=== PATIENT | male | born 1960 | race Caucasian/White ===

== ENCOUNTER 2020-10-16 11:12 | Inpatient (IN) | payer OTHER, SELFPAY ==
[2020-10-16] VITALS (7 sets, daily range): BP systolic 126–147; BP diastolic 76–111; PULSE 72–97; RESP 14–24; TEMP 35.8–36.6; O2SAT 94–100; BMI 25.0
--- NOTE | ~2020-10-16 | CT_ITS ---
EXAMINATION: CT abdomen pelvis wo con EXAM DATE: 10/16/2020 11:39 INDICATION: Low abdominal pain with vomiting. TECHNIQUE: Spiral CT of the abdomen and pelvis was performed without contrast. Axial, coronal and s agittal images of the abdomen and pelvis were reviewed. The dose-length product (DLP) for this exami nation was 555.40 mGy-cm. The exposure was tailored according to patient size (auto mA exposure cont rol), and iterative reconstruction (ASIR) was used as additional dose reduction technique. Comparison is made to prior examination from 03/21/2008. FINDINGS: There is bilobulated infrarenal abdominal aortic aneurysm, with the superior lobulation gaudencio suring 4.5 cm in greatest dimension and the inferior region measuring 2.9 cm. No rupture or inflammat ion surrounding this. Bilateral adrenal hyperplasia. Liver and splenic granulomas. Periportal lymph node with punctate calcification, also postinfectious. Pancreas unremarkable. Gallbladder is unremark able. No biliary obstruction. There is no nephrolithiasis or hydronephrosis. The prostate is unre markable. The bladder is collapsed at time of imaging limiting evaluation. There is no retroperiton eal or pelvic lymphadenopathy. Small to moderate right, small left fat-containing hernias. There are no findings to suggest appendicitis. The stomach and small bowel are unremarkable. There is expected amount of colonic stool. No free intraperitoneal gas. The heart is normal in size. T here are no pericardial or pleural effusions. Pacemaker/AICD leads. The lung bases are unremarkable. There are no osteoblastic or osteolytic lesions identified. Chronic bilateral L5 spondylolysis witho ut appreciable spondylolisthesis. IMPRESSION: Infrarenal abdominal aortic aneurysm up to 4.5 cm, developed compared to 2007. Are there any more recent studies at outside institution for comparison? Reviewed, dictated and finalized at location A. IMPRESSION: Infrarenal abdominal aortic aneurysm up to 4.5 cm, developed compar ed to 2007. Are there any more recent studies at outside institution for compar tracey?
--- NOTE | 2020-10-16 11:16 | ECG_ITS ---
Measurements Intervals [place] Rate: 93 P: 78 TN: 181 QRS: -22 QRSD: 142 T: 109 QT: 415 QTc: 518 Interpretive Statements SINUS RHYTHM LEFT BUNDLE BRANCH BLOCK BASELINE ARTIFACT- I, II, III, AVR, AVL, AVF, V1-V6 ABNORMAL ECG Electronically Signed On 10-16-2020 14:42:30 CDT by Prince Boyd D.O.
--- NOTE | 2020-10-16 11:24 | PC.NURSE ---
To CT via stretcher.
[2020-10-16 11:31] LABS: Estimated Glomerular Filt Rate 16
--- NOTE | 2020-10-16 11:31 | ED.GENADULT ---
HPI - General Adult General Chief complaint: Abdominal Pain Stated complaint: Abd pain, N/V Time Seen by Provider: 10/16/20 11:16 History of Present Illness HPI narrative: Patient is a 60-year-old male who presents the ER with complaint of vomiting. Ongoing for 24 hours. Patient is diaphoretic and clammy upon arrival. He reports he has history of a AAA that is followed at [facility]. No syncope or sudden onset abdominal pain. He reports chronic diarrhea that is no better no worse. He is without fevers or chills. He is found no alleviating factors. He does report some urinary urgency and need to use restroom at this time. No chest pain or chest pressure. Received Zofran by EMS and patient continues to dry heave in the ER. Patient denies history of kidney stones/diverticulitis/pancreatitis. Chart review shows history of pancreatitis. Patient also reports he is on Eliquis. Related Data Home Medications Medication Instructions Recorded Confirmed amiodarone 400 mg PO DAILY 10/16/20 10/16/20 apixaban [Eliquis] 5 mg PO BID 10/16/20 10/16/20 aspirin 81 mg PO DAILY 10/16/20 10/16/20 atorvastatin 80 mg PO HS 10/16/20 10/16/20 carvedilol 12.5 mg PO BID 10/16/20 10/16/20 escitalopram oxalate 10 mg PO DAILY 10/16/20 10/16/20 furosemide 20 mg PO DAILY 10/16/20 10/16/20 ondansetron 4 mg PO Q8H PRN 10/16/20 10/16/20 Allergies Allergy/AdvReac Type Severity Reaction Status Date / Time No Known Allergies Allergy Unknown Verified 10/16/20 18:44 Review of Systems Review of Systems: All systems reviewed & are unremarkable except as noted in HPI and below Constitutional: Constitutional: Reports chills, Denies fever(s) and Denies weakness ENT: Denies nasal congestion and Denies sore throat Cardiovascular: Cardiovascular: Denies chest pain, Denies rapid heart rate and Denies radiating jaw, neck or arm pain Respiratory: Respiratory: Denies cough and Denies dyspnea Gastrointestinal: Gastrointestinal: Reports abdominal pain, Reports diarrhea, Reports nausea and Reports vomiting Musculoskeletal: Musculoskeletal: Denies back pain and Denies muscle cramps Neurologic: Denies focal weakness and Denies numbness PMFSH Past Medical History Medical History (Updated 10/16/20 @ 21:19 by Wil Rodriguez MD) AAA (abdominal aortic aneurysm) Atrial fibrillation Coronary artery disease Depression Pancreatitis Surgical History Surgical History (Updated 10/16/20 @ 16:20 by Wil Rodriguez MD) History of arthroscopic knee surgery History of percutaneous coronary intervention History of tracheostomy Pacemaker Family History Family History (Updated 10/16/20 @ 18:31 by Elise Louie RN) Mother Congestive heart failure Father Glaucoma Lip cancer Social History Social History Smoking packs per day: 1 Smoking cigarettes per day: 20.0 Years smoked: 30 Smoking pack-years: 30.00 Smoking status: Former smoker Alcohol intake: never Substance use: current Substance use type: marijuana Last use: 4-5 days ago Gender identity (if verbalized by the patient): Male Spiritual care concerns: No Exam Narrative: Exam Narrative: GENERAL: Ill-appearing, well-nourished, and in moderate distress. HEAD: Normocephalic, atraumatic. EYES: PERRL and EOMI. ENT: Mucous membranes moist. CHEST: Clear to auscultation. No respiratory distress. HEART: Regular rate and rhythm. Normal peripheral pulses. ABDOMEN: Soft, tender palpation bilateral lower quadrants, no pulsatile mass, nondistended. EXTREMITIES: Normal range of motion. No edema. SKIN: Cool, diaphoretic, no rash. NEURO: No focal deficits. Alert and oriented x3. Course Reevaluation(s) Reevaluation #1: Admit to hositalist. Feels much better s/p pain meds, no longer diaphoretic or vomiting. Will admit for kaye. Date: 10/16/20 Time: 15:50 Reevaluation #2: Discussed case with Dr. Orlando at [facility], the patients vascular surgeon. She reports the patient has a stable aneurysm an
[2020-10-16] MEDS: MORPHINE SULFATE (*CRX) 4 MG/ML INJ IV PUSH ×4 (11:43→22:05)
[2020-10-16] MEDS: PROMETHAZINE HCL 25 MG/ML AMPUL 12.5 MG IV PUSH (11:44)
[2020-10-16 11:53] LABS: Basophils Absolute Auto 0.1 K/mm3 (0.0-0.1); Basophils Percent Auto 0.7 % (0.2-1.2); Eosinophils Percent Auto 0.3 % (0-4.4); Hematocrit 56.2 % (42.0-52.0); Hemoglobin 18.7 g/dL (14.0-18.0); Immature Granulocyte Absolute 0.05 K/mm3 (0.00-0.031); Immature Granulocyte Percent A 0.4 % (0-0.5); Lymphocytes Absolute Auto 3.45 K/mm3 (0.9-3.2); Lymphocytes Percent Auto 27.4 % (18.3-44.2); Mean Corpuscular HGB Conc 33.3 g/dl (32-36); Mean Corpuscular Hemoglobin 27.5 pg (26-34); Mean Corpuscular Volume 82.5 fl (80-100); Mean Platelet Volume 11.5 fl (7.4-10.4); Monocytes Percent Auto 7.8 % (2.6-8.5); Neutrophils Percent Auto 63.4 % (45.5-73.1); Platelet Count Result 334 k/mm3 (150-375); Red Blood Count 6.81 M/mm3 (4.6-6.20); Red Cell Distribution Width 16.4 % (11.5-14.5); White Blood Count 12.6 K/mm3 (4.5-10.0)
[2020-10-16 12:04] LABS: Prothrombin Time 13.7 Seconds (11.1-14.7)
[2020-10-16 12:05] LABS: Partial Thromboplastin Time 28.1 SECONDS (22.3-36.8)
[2020-10-16 12:10] LABS: Albumin Level 5.7 g/dL (3.5-5.1); Alkaline Phosphatase 129 U/L (38-126); Anion Gap 21 mmol/L (8-16); Aspartate Amino Transferase 46 U/L (17-59); Bilirubin,Total 1.4 mg/dL (0.2-1.3); Blood Urea Nitrogen 55 mg/dL (9-20); Calcium 12.9 mg/dL (8.4-10.2); Carbon Dioxide 25 mmol/L (22-30); Chloride 90 mmol/L (98-107); Estimated Glomerular Filt Rate 17; Glucose 196 mg/dL (75-110); Lipase 755 U/L (23-300); Potassium 3.5 mmol/L (3.4-5.0); Sodium 136 mmol/L (137-145)
[2020-10-16 12:17] LABS: Alanine Aminotransferase 29 U/L (4-50)
[2020-10-16] MEDS: SODIUM CHLORIDE 0.9% IV 1,000 ML 999 ML IV CONT (12:35)
[2020-10-16 14:48] LABS: Add Urine Microscopic? YES; Appearance Urine Cloudy (Clear); Bilirubin Urine Negative (Negative); Blood Urine 1+ (Negative); Color Urine Amber (Yellow); Glucose Urine UA 1+ mg/dL (Negative); Ketones Urine Negative (Negative); Leukocyte Esterase Ur Negative LEU/UL (Negative); Nitrate Urine Negative (Negative); Protein Urine 3+ mg/dL (Negative); Urobilinogen Urine Negative mg/dL (<2.0)
[2020-10-16 14:58] LABS: WBC Urine 0-3 /hpf (0-3)
[2020-10-16 14:59] LABS: Amorphous Sediment Urine Few; Squamous Epithelial Cell Urine Moderate /hpf (Few)
[2020-10-16 15:00] LABS: Bacteria Urine Trace /hpf; Hyaline Casts Urine 15-19 /lpf
[2020-10-16] MEDS: SODIUM CHLORIDE 0.9% IV 1,000 ML 125 ML IV CONT (18:16)
[2020-10-16] MEDS: ONDANSETRON INJ 4 MG/2 ML VIAL IV PUSH ×2 (18:17→22:05)
--- NOTE | 2020-10-16 18:28 | ADMGEN ---
This patient, Low Sarmiento, was admitted to Medical Room 252-01. Patient/family oriented to hospital policies and general routines including ID bracelet, bed and alarms, visiting hours, pain management, procedures, bathroom and other care routines, personal items, smoking policy, room service/diet, and visiting hours. Information on how to activate the Rapid Response Team has been discussed. Patient/Family are encouraged to report perceived risks to care and to ask questions if they do not understand what they are told or what they should do.
[2020-10-17] VITALS (8 sets, daily range): BP systolic 93–120; BP diastolic 44–68; PULSE 60–85; RESP 16–18; TEMP 36–36.4; O2SAT 94–97; BMI 25.0
--- NOTE | 2020-10-17 02:42 | PM.IMHP ---
H&P: HPI History of Present Illness Date/Time: 10/17/20 02:42 this is a 60-year-old male patient who states that he has chronic diarrhea. The patient stated that he recently was discharged from [facility] about a week ago with the same thing. The patient came to the emergency room with complaints of nausea vomiting that had been going on for 24 hours. The patient was diaphoretic and clammy. He does have a history of a AAA which is being followed at [facility]. Patient is having some lower abdominal pain. Patient received Zofran via EMS and he was having dry heaves in the emergency room. He denies any history of having pancreatitis in the past. However the chart review per ED provider listed history of pancreatitis. The patient has a history of atrial fibrillation and is on Eliquis. The ED provider talk to Dr. Cristobal at [facility] the vascular surgeon and stated that he has a stable aneurysm and the last time he had a CT was January of 2020 in the AAA measured 4.4 cm. It was felt that this was not the cause of his pain. His baseline creatinine is around 1.5 at his last outpatient visit on 10/04/2020. The patient did have a cardiogenic shock secondary to and myocardial infarction in [place] about a year ago and he did have a tracheostomy at that time. He stated that he did have 2 cardiac stents at that time and his ejection fraction is somewhere around 15%. He did have another echo in 2019 which shows an EF of 21%. Patient does not have any chest pain or shortness of breath at this time. Of the abdomen was read as infrarenal abdominal aortic aneurysm up to 4.5 cm. Initially his diet was npo except ice chips. I did give him clear liquids and he seemed to tolerate that well. The patient was given morphine, Phenergan and IV fluids in the emergency room. The patient does not have a GI doctor. 12.6. The patient appears to be dry. His creatinine is listed is 3.6. His blood sugar is 196. Calcium was high at 12.9. Total bilirubin 1.4. The patient is being admitted for observation date of service 10/17/2020 Chief Complaint: Nausea and vomiting Review of Systems Review of Systems: All systems reviewed & are unremarkable except as noted in HPI and below Constitutional: Constitutional: Reports as per HPI and Reports no additional constitutional complaints Eyes: Eyes: Reports as per HPI and Reports no additional eye complaints ENT: Reports system reviewed and no additional complaints, except as documented and Reports Normal hearing present Cardiovascular: Cardiovascular: Reports no additional cardiovascular complaints Respiratory: Respiratory: Reports no additional respiratory complaints and Reports no additional respiratory complaints Gastrointestinal: Gastrointestinal: Reports as per HPI and Reports no additional gastrointestinal complaints Musculoskeletal: Musculoskeletal: Reports no additional musculoskeletal complaints Integumentary/Breasts: Skin/Breast: Reports system reviewed and no additional complaints, except as docu and Reports as per HPI Neurologic: Reports system reviewed and no additional complaints, except as documented, Reports as per HPI and Reports Normal hearing present Psychiatric: Psychiatric: Reports no additional psychiatric complaints and Reports as per HPI Endocrine: Endocrine: Reports no additional endocrine complaints Hematologic/Lymphatic: Hematologic/Lymphatic: Reports no additional hematologic/lymphatic complaints Allergic/Immunologic: Allergic/Immunologic: Reports no additional allergic/immunologic complaints [facility] Past Medical History Medical History (Updated 10/17/20 @ 02:58 by Helen Landry NP) AAA (abdominal aortic aneurysm) Atrial fibrillation Coronary artery disease Depression Hyperlipidemia Pancreatitis Surgical History Surgical History (Updated 10/17/20 @ 02:54 by Helen Landry NP) H/O heart artery stent History of arthroscopic knee surgery Hist
[2020-10-17] MEDS: SODIUM CHLORIDE 0.9% IV 1,000 ML 125 ML IV CONT ×2 (03:36→11:52)
[2020-10-17 04:29] LABS: Creatinine Urine 320.5 mg/dL
[2020-10-17] MEDS: MORPHINE SULFATE (*CRX) 4 MG/ML INJ IV PUSH (05:18)
[2020-10-17 06:15] LABS: Eosinophil Urine None Seen % (None Seen)
[2020-10-17 06:25] LABS: Alanine Aminotransferase 20 U/L (4-50); Albumin Level 4.4 g/dL (3.5-5.1); Alkaline Phosphatase 69 U/L (38-126); Anion Gap 10 mmol/L (8-16); Aspartate Amino Transferase 30 U/L (17-59); Bilirubin,Total 0.5 mg/dL (0.2-1.3); Blood Urea Nitrogen 61 mg/dL (9-20); CRP 0.8 mg/dL (<1.0); Calcium 9.7 mg/dL (8.4-10.2); Carbon Dioxide 29 mmol/L (22-30); Chloride 96 mmol/L (98-107); Estimated CRCL calculation 25 ml/min; Estimated Glomerular Filt Rate 21; Glucose 125 mg/dL (75-110); Lipase 108 U/L (23-300); Magnesium 2.2 mg/dL (1.6-2.3); Phosphorus 4.7 mg/dL (2.5-4.5); Potassium 2.9 mmol/L (3.4-5.0); Sodium 135 mmol/L (137-145)
[2020-10-17 06:30] LABS: Complement C3 116 mg/dL (88-165)
[2020-10-17 06:41] LABS: Basophils Absolute Auto 0.1 K/mm3 (0.0-0.1); Basophils Percent Auto 0.4 % (0.2-1.2); Eosinophils Percent Auto 0.1 % (0-4.4); Hematocrit 44.7 % (42.0-52.0); Hemoglobin 14.5 g/dL (14.0-18.0); Immature Granulocyte Absolute 0.03 K/mm3 (0.00-0.031); Immature Granulocyte Percent A 0.3 % (0-0.5); Lymphocytes Percent Auto 17.7 % (18.3-44.2); Mean Corpuscular HGB Conc 32.4 g/dl (32-36); Mean Corpuscular Hemoglobin 27.6 pg (26-34); Monocytes Percent Auto 8.8 % (2.6-8.5); Neutrophils Absolute Auto 8.2 K/mm3 (1.3-6.7); Neutrophils Percent Auto 72.7 % (45.5-73.1); Platelet Count Result 216 k/mm3 (150-375); Red Blood Count 5.26 M/mm3 (4.6-6.20); Red Cell Distribution Width 15.4 % (11.5-14.5); White Blood Count 11.3 K/mm3 (4.5-10.0)
[2020-10-17 06:54] LABS: Hemoglobin A1C 5.8 % (<5.7)
[2020-10-17 07:12] LABS: Hepatitis B Surface Antigen Negative (Negative)
[2020-10-17 07:12] LABS: Erythrocyte Sedimentation Rate 14 mm/hr (0-20)
[2020-10-17 07:18] LABS: HAV RESULT Negative (Negative); Hepatitis B Core IgM Result Negative (Negative)
[2020-10-17 07:21] LABS: Parathyroid Intact 44.1 pg/mL (7.5-53.5)
[2020-10-17 07:29] LABS: Hepatitis C Virus Antibody Negative (Negative)
[2020-10-17] MEDS: APIXABAN 5 MG TABLET PO ×2 (08:39→16:47)
[2020-10-17] MEDS: AMIODARONE HCL 200 MG TABLET 400 MG BY MOUTH (08:39)
[2020-10-17] MEDS: PANTOPRAZOLE SODIUM IV 40 MG VIAL IV PUSH (08:40)
[2020-10-17] MEDS: ESCITALOPRAM OXALATE 10 MG TABLET PO (08:40)
[2020-10-17] MEDS: carvediloL 12.5 MG TABLET PO (08:40)
[2020-10-17] MEDS: POTASSIUM CHLORIDE 20 MEQ TABLET 40 MEQ PO ×2 (09:23→15:48)
[2020-10-17 11:58] LABS: Glucose Point of Care 127 (65-105)
[2020-10-17 14:18] LABS: Glucose Point of Care 100 (65-105)
[2020-10-17] MEDS: ONDANSETRON INJ 4 MG/2 ML VIAL IV PUSH ×2 (14:38→21:34)
--- NOTE | 2020-10-17 14:42 | PM.IMPN ---
Progress Note: A&P Assessment and Plan (1) Abdominal pain: Code(s): R10.9 - Unspecified abdominal pain Status: Acute Assessment and Plan: Patient's abdominal pain has improved but he continues to have pain in both the lower quadrants -he has chronic diarrhea that has been lasting for over a year which has caused significant dehydration -will order stool cultures -GI consulted, would likely need a colonoscopy -CT of the abdomen pelvis does not show any abnormalities for this pain but it does show he has small to moderate right, small left fat-containing hernias. He will need to follow-up with surgeon for this although I do not think this is causing his pain -it also shows an aneurysm which has been seen in the past at outside area hospital. No evidence of rupture and does not appear to be in the location of the pain. (2) Diarrhea: Code(s): R19.7 - Diarrhea, unspecified Status: Acute Assessment and Plan: As above -obtain stool studies -will add ova and parasite since this started about a year ago after visiting [place] -will eventually need colonoscopy -GI consult (3) Nausea and vomiting: Code(s): R11.2 - Nausea with vomiting, unspecified Status: Acute Assessment and Plan: Improved -continue Protonix (4) Acute kidney injury: Code(s): N17.9 - Acute kidney failure, unspecified Status: Acute Assessment and Plan: Creatinine improving with IV fluids, labs show significant dehydration on admission -unsure of his baseline, will obtain records (5) Atrial fibrillation: Code(s): I48.91 - Unspecified atrial fibrillation Status: Chronic Assessment and Plan: Continue with carvedilol, amiodarone and Eliquis (6) AAA (abdominal aortic aneurysm): Code(s): I71.4 - Abdominal aortic aneurysm, without rupture Status: Chronic Assessment and Plan: Stable -The patient has been monitored at [facility] to their vascular surgeon (7) Depression: Code(s): F32.9 - Major depressive disorder, single episode, unspecified Status: Chronic Assessment and Plan: Chronic stable -continue with Lexapro (8) Hyperlipidemia: Code(s): E78.5 - Hyperlipidemia, unspecified Status: Chronic Assessment and Plan: Hold atorvastatin -liver enzymes normal Additional Plan Prediabetic-educated on this and patient plans to adjust his diet Time Spent With Patient Time with patient: 25 - 35 minutes Subjective Date/time seen: 10/17/20 14:42 Interval history: Pt is a 60-year-old male here for diarrhea/abdominal pain. Patient was seen today and states he is feeling better today compared to yesterday. He said he still has 3/10 lower quadrants pain but used to be much worse the last few days. He also stated that his diarrhea has improved. He although he has chronic diarrhea, the diarrhea has been worse the last couple of days. He said this diarrhea started after [place] about a year ago and just has not gotten any better. He has been hospitalized lately but did not receive any antibiotics that he knows of. He is eating and drinking okay. He denies nausea vomiting, chest pain, shortness of breath, fevers or chills. His last colonoscopy was over 10 years ago and at [facility]. He has never been told he is prediabetic. Of note, patient mentions that he has been at [facility] in September due to his Implanted device firing, he is unsure of the diagnosis or what went on. Review of Systems Review of Systems: All systems reviewed & are unremarkable except as noted in HPI and below Exam Narrative: Exam Narrative: General: Well developed well nourished patient in NAD HEENT: normocephalic Neck: supple Neuro: Alert and oriented x4 CV: Decreased heart sounds due to body habitus, RRR Resp:CTA Abd: Soft, non distended. Pain to palpation in the right and left lower quadrants.
[2020-10-17 15:31] LABS: Potassium 3.3 mmol/L (3.4-5.0)
[2020-10-17] MEDS: LACTATED RINGERS 1,000 ML 80 ML IV CONT (15:38)
[2020-10-17] MEDS: HYDROcodone/acetaminophen (*CRX) 5-325 MG TABLET 1 TAB PO (16:48)
--- NOTE | 2020-10-17 17:06 | WPDGICN ---
Assessment and Plan Assessment and plan (1) Diarrhea: Code(s): R19.7 - Diarrhea, unspecified Status: Acute Assessment and Plan: ongoing for months, will do colonoscopy tomorrow, consider random colon bx if more diarrhea then will get stool samples (2) Nausea and vomiting: Code(s): R11.2 - Nausea with vomiting, unspecified Status: Acute Assessment and Plan: improving he came with dehydration (ANA LAURA and also hemoconcentration)- better after fluids now tolerating liquid diet EGD tomorrow (3) Dehydration: Code(s): E86.0 - Dehydration Status: Acute Assessment and Plan: improved (4) Acute on chronic kidney failure: Code(s): N17.9 - Acute kidney failure, unspecified; N18.9 - Chronic kidney disease, unspecified Status: Acute (5) Abdominal pain: Code(s): R10.9 - Unspecified abdominal pain Status: Acute Assessment and Plan: better (6) AAA (abdominal aortic aneurysm): Code(s): I71.4 - Abdominal aortic aneurysm, without rupture Status: Chronic Assessment and Plan: stable size and he has seen surgeon at [facility] GI Consult Note Consult date/time: 10/17/20 17:06 Reason for consult: diarrhea, nausea and vomiting HPI: Low Sarmiento is a 60 year old male with history of CKD (baseline creatinine is around 1.5 at), also about a year ago had cardiogenic shock secondary to and myocardial infarction while he was vacationing in [facility] spent 30 days in hospital and had a temporary tracheostomy, also ischemic cardiomyopathy, stable AAA 4.5 cm seeing doctor in [facility]. He says that since hospitalization he has been dealing with diarrhea, thinks that last colonoscopy about 2 years ago or so. He came here with of nausea vomiting for 2 days, on arrival was diaphoretic and clammy, also lower abdominal discomfort. He is feeling better now. Also had creatinine 3.5. CT scan a/p reviewed, infrarenal abdominal aortic aneurysm up to 4.5 cm (stable based on outside records). Also was hemoconcentrated on arrival with hb 18, after fluids down to 14 Review of Systems Constitutional: Constitutional: Denies chills Eyes: Eyes: Denies blurry vision ENT: Reports Normal hearing present Cardiovascular: Cardiovascular: Denies chest pain Respiratory: Respiratory: Denies dyspnea Gastrointestinal: Gastrointestinal: Reports abdominal pain, Reports diarrhea, Reports nausea and Reports vomiting Genitourinary: Genitourinary: Denies dysuria Musculoskeletal: Musculoskeletal: Denies neck pain Integumentary/Breasts: Skin/Breast: Denies dry skin Neurologic: Denies headache(s) Psychiatric: Psychiatric: Denies behavioral changes [facility] Past Medical History Medical History (Updated 10/17/20 @ 17:12 by Ulysses Larkin MD) AAA (abdominal aortic aneurysm) Acute on chronic kidney failure Atrial fibrillation Coronary artery disease Dehydration Depression Hyperlipidemia Pancreatitis Surgical History Surgical History (Updated 10/17/20 @ 02:54 by Helen Landry NP) H/O heart artery stent History of arthroscopic knee surgery History of percutaneous coronary intervention 2 cardiac stents History of tracheostomy Pacemaker Family History Family History Mother Congestive heart failure Father Glaucoma Lip cancer Social History Social History (Updated 10/17/20 @ 02:55 by Helen Landry NP) Social History: The patient stated that he lives with his she is a durable power night coordinator for healthcare. The patient is a full code. The patient has 2 children. He is retired from [employer] still. Patient stated he used to smoke but does not drink. Smoking packs per day: 1 Smoking cigarettes per day: 20.0 Years smoked: 30 Smoking pack-years: 30.00 Smoking status: Former smoker Alcohol intake: never Substance use: current Substance use type: marijuana Last use
[2020-10-17 17:34] LABS: Glucose Point of Care 143 (65-105)
[2020-10-17] MEDS: BISACODYL 5 MG TABLET EC 20 MG PO (18:06)
[2020-10-17] MEDS: BISACODYL 5 MG TABLET EC (18:37)
[2020-10-17] MEDS: polyethylene glycoL 3350 238 GM BOTTLE PO (18:39)
[2020-10-17] MEDS: SODIUM CHLORIDE 0.9% IV 500 ML 999 ML IV CONT (21:04)
[2020-10-18] VITALS (12 sets, daily range): BP systolic 91–119; BP diastolic 50–82; PULSE 60–72; RESP 13–22; TEMP 36.3–37.2; O2SAT 94–100
[2020-10-18] MEDS: MELATONIN 3 MG TABLET PO (01:13)
[2020-10-18 01:20] LABS: Glucose Point of Care 78 (65-105)
[2020-10-18] MEDS: LACTATED RINGERS 1,000 ML 80 ML IV CONT ×2 (05:33→22:07)
[2020-10-18] MEDS: MAGNESIUM CITRATE 300 ML BTL PO (05:33)
[2020-10-18 05:37] LABS: Hematocrit 37.7 % (42.0-52.0); Hemoglobin 11.9 g/dL (14.0-18.0); Mean Corpuscular HGB Conc 31.6 g/dl (32-36); Mean Corpuscular Hemoglobin 27.8 pg (26-34); Mean Corpuscular Volume 88.1 fl (80-100); Mean Platelet Volume 10.8 fl (7.4-10.4); Platelet Count Result 144 k/mm3 (150-375); Red Blood Count 4.28 M/mm3 (4.6-6.20); Red Cell Distribution Width 15.7 % (11.5-14.5); White Blood Count 6.5 K/mm3 (4.5-10.0)
[2020-10-18 06:01] LABS: Albumin Level 3.3 g/dL (3.5-5.1); Anion Gap 3 mmol/L (8-16); Blood Urea Nitrogen 41 mg/dL (9-20); Calcium 8.4 mg/dL (8.4-10.2); Carbon Dioxide 29 mmol/L (22-30); Chloride 105 mmol/L (98-107); Estimated CRCL calculation 41 ml/min; Estimated Glomerular Filt Rate 38; Glucose 88 mg/dL (75-110); Phosphorus 2.5 mg/dL (2.5-4.5); Potassium 3.4 mmol/L (3.4-5.0); Sodium 137 mmol/L (137-145)
[2020-10-18] MEDS: AMIODARONE HCL 200 MG TABLET 400 MG BY MOUTH (08:04)
[2020-10-18] MEDS: ESCITALOPRAM OXALATE 10 MG TABLET PO (08:04)
[2020-10-18] MEDS: PANTOPRAZOLE SODIUM IV 40 MG VIAL IV PUSH (08:05)
--- NOTE | 2020-10-18 11:18 | PM.IMPN ---
Progress Note: A&P Assessment and Plan (1) Abdominal pain: Code(s): R10.9 - Unspecified abdominal pain Status: Acute Assessment and Plan: Patient's abdominal pain has improved but he continues to have pain in both the lower quadrants and now the epigastric area. -he has chronic diarrhea that has been lasting for over a year which has caused significant dehydration -Colonoscopy/EGD today -GI consulted -stool cultures ordered -CT of the abdomen pelvis does not show any abnormalities for this pain but it does show he has small to moderate right, small left fat-containing hernias. He will need to follow-up with surgeon for this although I do not think this is causing his pain -it also shows an aneurysm which has been seen in the past at outside area hospital. No evidence of rupture and does not appear to be in the location of the pain. (2) Diarrhea: Code(s): R19.7 - Diarrhea, unspecified Status: Acute Assessment and Plan: As above -obtain stool studies -added ova and parasite since this started about a year ago after visiting [place] -GI consult (3) Nausea and vomiting: Code(s): R11.2 - Nausea with vomiting, unspecified Status: Acute Assessment and Plan: Improved -continue Protonix (4) Acute kidney injury: Code(s): N17.9 - Acute kidney failure, unspecified Status: Acute Assessment and Plan: Creatinine improving with IV fluids, labs show significant dehydration on admission -unsure of his baseline, will obtain records (5) Atrial fibrillation: Code(s): I48.91 - Unspecified atrial fibrillation Status: Chronic Assessment and Plan: Continue with carvedilol, amiodarone and Eliquis (6) AAA (abdominal aortic aneurysm): Code(s): I71.4 - Abdominal aortic aneurysm, without rupture Status: Chronic Assessment and Plan: Stable -The patient has been monitored at [facility] to their vascular surgeon (7) Depression: Code(s): F32.9 - Major depressive disorder, single episode, unspecified Status: Chronic Assessment and Plan: Chronic stable -continue with Lexapro (8) Hyperlipidemia: Code(s): E78.5 - Hyperlipidemia, unspecified Status: Chronic Assessment and Plan: Hold atorvastatin -liver enzymes normal Additional Plan Prediabetic-educated on this and patient plans to adjust his diet Subjective Date/time seen: 10/18/20 11:18 Interval history: Pt is a 60-year-old male here for diarrhea/abdominal pain. Patient was seen today with at bedside. He still rates his pain a 3/10 but is overall feeling better compared to when he came in. He still gets waves of nausea occasionally but no further vomiting. He had more diarrhea but did have the colonoscopy prep. He denies CP, SOB, fevers, chills, or leg swelling. Exam Narrative: Exam Narrative: General: Well developed well nourished patient in NAD HEENT: normocephalic Neck: supple Neuro: Alert and oriented x4 CV: Decreased heart sounds due to body habitus, RRR Resp:CTA Abd: Soft, non distended. Pain to palpation in the right and left lower quadrants as well as the epigastric area today. Extremities: No swelling, erythema, or pain to palpation. Objective Data Vital Signs Vital Signs: Vital Signs - 24 hr 10/17/20 14:00 10/17/20 20:28 10/17/20 20:57 Temperature 97.2 F L 96.8 F L Pulse Rate 61 60 60 Respiratory Rate 16 18 Blood Pressure 116/68 93/44 L Pulse Oximetry 97 97 10/17/20 21:00 10/17/20 22:25 10/18/20 05:13 Temperature 97.3 F L Pulse Rate 60 Respiratory Rate 14 Blood Pressure 120/63 96/55 L Pulse Oximetry 96 94 10/18/20 08:00 10/18/20 08:04 Temperature Pulse Rate 72 72 Respiratory Rate Blood Pressure 112/82 Pulse Oximetry Intake/Output Intake/Output: Intake & Output 10/15/20 10/16/20 10/17/20 10/18/20 23:59 23:59 2
[2020-10-18 11:48] LABS: Glucose Point of Care 93 (65-105)
--- NOTE | 2020-10-18 13:07 | PC.NURSE ---
To GI Lab per LYNDA ochoa RAC. Report given to.
[2020-10-18] MEDS: LACTATED RINGERS 1,000 ML 150 ML IV CONT (13:35)
--- NOTE | 2020-10-18 13:42 | WPDANESEPPF ---
Anes - Initial Pre Proc Eval Procedure: Operation Date: 10/18/20 14:30 Proposed Procedures p Esophagogastroduodenoscopy & Colonoscopy - Ulysses Larkin MD Date/Time: 10/18/20 13:42 Surgeon: Linsey Montemayor PA-C Pre Op Diagnosis: kaye/nausea and vomiting Patient Data Age: 60 Gender: M Height: 5 ft 11 in Weight: 81.6 kg Last Vital Signs Temp 36.3 C L 10/18/20 13:36 Pulse 60 10/18/20 13:36 Resp 18 10/18/20 13:36 BP 113/59 L 10/18/20 13:36 Pulse Ox 98 10/18/20 13:36 Allergies Allergy/AdvReac Type Severity Reaction Status Date / Time No Known Allergies Allergy Unknown Verified 10/18/20 13:36 Home Medications Medication Instructions Recorded Confirmed Type amiodarone 400 mg PO DAILY 10/16/20 10/16/20 History apixaban [Eliquis] 5 mg PO BID 10/16/20 10/16/20 History aspirin 81 mg PO DAILY 10/16/20 10/16/20 History atorvastatin 80 mg PO HS 10/16/20 10/16/20 History carvedilol 12.5 mg PO BID 10/16/20 10/16/20 History escitalopram oxalate 10 mg PO DAILY 10/16/20 10/16/20 History furosemide 20 mg PO DAILY 10/16/20 10/16/20 History ondansetron 4 mg PO Q8H PRN 10/16/20 10/16/20 History Laboratory Tests 10/17/20 10/17/20 10/17/20 08:34 15:20 16:54 WBC RBC Hgb Hct MCV MCH MCHC RDW Plt Count MPV Sodium Potassium 3.3 mmol/L L mmol/L (3.4-5.0) Chloride Carbon Dioxide Anion Gap BUN Creatinine Estim Creat Clear Calc Estimated GFR Glucose POC Capillary Glucose 100 mg/dl mg/dl 143 mg/dl H mg/dl (65-105) (65-105) Calcium Phosphorus Albumin 10/18/20 10/18/20 10/18/20 01:15 05:20 05:20 WBC 6.5 K/mm3 K/mm3 (4.5-10.0) RBC 4.28 M/mm3 L M/mm3 (4.6-6.20) Hgb 11.9 g/dL L g/dL (14.0-18.0) Hct 37.7 % L % (42.0-52.0) MCV 88.1 fl fl (80-100) MCH 27.8 pg pg (26-34) MCHC 31.6 g/dl L g/dl (32-36) RDW 15.7 % H % (11.5-14.5) Plt Count 144 k/mm3 L k/mm3 (150-375) MPV 10.8 fl H fl (7.4-10.4) Sodium 137 mmol/L mmol/L (137-145) Potassium 3.4 mmol/L mmol/L (3.4-5.0) Chloride 105 mmol/L mmol/L (98-107) Carbon Dioxide 29 mmol/L mmol/L (22-30) Anion Gap 3 mmol/L L mmol/L (8-16) BUN 41 mg/dL H D mg/dL (9-20) Creatinine 1.80 mg/dL H mg/dL (0.7-1.3) Estim Creat Clear Calc 41 ml/min ml/min Estimated GFR 38 L (59 - ) Glucose 88 mg/dL mg/dL (75-110) POC Capillary Glucose 78 mg/dl mg/dl (65-105) Calcium 8.4 mg/dL mg/dL (8.4-10.2) Phosphorus 2.5 mg/dL mg/dL (2.5-4.5) Albumin 3.3 g/dL L g/dL (3.5-5.1) 10/18/20 11:46 WBC RBC Hgb Hct MCV MCH MCHC RDW Plt Count MPV Sodium Potassium Chloride Carbon Dioxide Anion Gap BUN Creatinine Estim Creat Clear Calc Estimated GFR Glucose POC Capillary Glucose 93 mg/dl mg/dl (65-105) Calcium Phosphorus Albumin Patient hx anesthesia problems: none Family hx anesthesia problems: none PMFSH Past Medical History Medical History AAA (abdominal aortic aneurysm) Acute on chronic kidney failure Atrial fibrillation Coronary artery disease Dehydration Depression Hyperlipidemia Pancreatitis Surgical History Surgical History H/O heart artery stent History of arthroscopic knee surgery History of percutaneous coronary intervention
[2020-10-18] MEDS: POTASSIUM CHLORIDE 20 MEQ TABLET 40 MEQ PO (16:26)
[2020-10-18] MEDS: APIXABAN 5 MG TABLET PO (16:26)
[2020-10-18 17:37] LABS: Glucose Point of Care 138 (65-105)
[2020-10-18 23:09] LABS: Glucose Point of Care 191 (65-105)
[2020-10-19 05:00] VITALS: BP 96/70; PULSE 65; RESP 16; TEMP 37; O2SAT 96
[2020-10-19 05:13] LABS: Basophils Percent Auto 0.7 % (0.2-1.2); Eosinophils Absolute Auto 0.1 K/mm3 (0-0.3); Eosinophils Percent Auto 1.8 % (0-4.4); Hematocrit 37.9 % (42.0-52.0); Hemoglobin 11.6 g/dL (14.0-18.0); Immature Granulocyte Absolute 0.02 K/mm3 (0.00-0.031); Immature Granulocyte Percent A 0.3 % (0-0.5); Lymphocytes Absolute Auto 1.34 K/mm3 (0.9-3.2); Lymphocytes Percent Auto 22.1 % (18.3-44.2); Mean Corpuscular HGB Conc 30.6 g/dl (32-36); Mean Corpuscular Hemoglobin 27.7 pg (26-34); Mean Corpuscular Volume 90.5 fl (80-100); Mean Platelet Volume 11.1 fl (7.4-10.4); Monocytes Absolute Auto 0.5 K/mm3 (0.1-0.6); Monocytes Percent Auto 8.1 % (2.6-8.5); Neutrophils Absolute Auto 4.1 K/mm3 (1.3-6.7); Platelet Count Result 135 k/mm3 (150-375); Red Blood Count 4.19 M/mm3 (4.6-6.20); Red Cell Distribution Width 15.8 % (11.5-14.5); White Blood Count 6.1 K/mm3 (4.5-10.0)
[2020-10-19 05:45] LABS: Anion Gap -1 mmol/L (8-16); Blood Urea Nitrogen 24 mg/dL (9-20); Calcium 8.1 mg/dL (8.4-10.2); Carbon Dioxide 35 mmol/L (22-30); Chloride 105 mmol/L (98-107); Estimated CRCL calculation 56 ml/min; Estimated Glomerular Filt Rate 56; Glucose 87 mg/dL (75-110); Magnesium 1.9 mg/dL (1.6-2.3); Potassium 4.1 mmol/L (3.4-5.0); Sodium 139 mmol/L (137-145)
[2020-10-19 08:10] LABS: Glucose Point of Care 91 (65-105)
--- NOTE | 2020-10-19 09:48 | WPDANESPN ---
Anes - Prog Note Post-Op Date/Time: 10/19/20 09:48 Cardiovascular status: normal Respiratory status: normal Airway patency: baseline Mental status: baseline Post-Op hydration status: normal Vital Signs: Last Vital Signs Temp 37.0 C 10/19/20 05:00 Pulse 65 10/19/20 05:00 Resp 16 10/19/20 05:00 BP 96/70 L 10/19/20 05:00 Pulse Ox 96 10/19/20 05:00 Pain Score (VAS): 0/10. Patient resting in bed at time of assessment, appears comfortable. I/O: Intake & Output 10/18/20 10/19/20 10/19/20 23:59 07:59 15:59 Intake Total 1400 50 Output Total 300 Balance 1400 -250 Laboratory Tests 10/19/20 04:52 10/19/20 04:52 10/18/20 10/18/20 10/18/20 11:46 16:28 22:05 WBC RBC Hgb Hct MCV MCH MCHC RDW Plt Count MPV Immature Gran % (Auto) Neut % (Auto) Lymph % (Auto) [place] % (Auto) Eos % (Auto) Baso % (Auto) Lymph # (Auto) [place] # (Auto) Eos # (Auto) Baso # (Auto) Abs Immat Gran (auto) Absolute Neuts (auto) Absolute Nucleated RBC Nucleated RBC % Sodium Potassium Chloride Carbon Dioxide Anion Gap BUN Creatinine Estim Creat Clear Calc Estimated GFR Glucose POC Capillary Glucose 93 138 H 191 H Calcium Magnesium 10/19/20 10/19/20 10/19/20 04:52 04:52 08:07 WBC 6.1 RBC 4.19 L Hgb 11.6 L Hct 37.9 L MCV 90.5 MCH 27.7 MCHC 30.6 L RDW 15.8 H Plt Count 135 L MPV 11.1 H Immature Gran % (Auto) 0.3 Neut % (Auto) 67.0 Lymph % (Auto) 22.1 [place] % (Auto) 8.1 Eos % (Auto) 1.8 Baso % (Auto) 0.7 Lymph # (Auto) 1.34 [place] # (Auto) 0.5 Eos # (Auto) 0.1 Baso # (Auto) 0.0 Abs Immat Gran (auto) 0.02 Absolute Neuts (auto) 4.1 Absolute Nucleated RBC 0.0 Nucleated RBC % 0.0 Sodium 139 Potassium 4.1 Chloride 105 Carbon Dioxide 35 H Anion Gap -1 L BUN 24 H D Creatinine 1.30 Estim Creat Clear Calc 56 Estimated GFR 56 L Glucose 87 POC Capillary Glucose 91 Calcium 8.1 L Magnesium 1.9 Post-procedural complaints: nausea (mild nausea with relief with prn meds. ) Patient Feedback: Patient satisfied with anesthetic care.
[2020-10-19 10:04] VITALS: PULSE 70
[2020-10-19] MEDS: AMIODARONE HCL 200 MG TABLET 400 MG BY MOUTH (10:04)
[2020-10-19] MEDS: ONDANSETRON INJ 4 MG/2 ML VIAL IV PUSH (10:05)
[2020-10-19] MEDS: ESCITALOPRAM OXALATE 10 MG TABLET PO (10:05)
[2020-10-19] MEDS: APIXABAN 5 MG TABLET PO ×2 (10:05→16:16)
[2020-10-19] MEDS: LACTATED RINGERS 1,000 ML 80 ML IV CONT (10:13)
[2020-10-19 10:26] VITALS: BP 98/50; PULSE 70; RESP 14; TEMP 36.4; O2SAT 98
--- NOTE | 2020-10-19 11:20 | PCNFU ---
Nutrition Follow-Up Complete: Inadequate Oral Intake as related to Nausea/Diarrhea as evidenced by weight loss of 11 ibs in 2 weeks/poor po intake. Goal: adequate Intake of at least 75% of meals/supplements Patient has met current goal. No new goal. Pt current nutrition is Heart healthy. Last recorded weight is 81.6 kg, no new weight reported. Bowel Motility:+BM reported 10/18 Labs Reviewed:no new labs to report. Meds Noted:Pacerone,Eliquis,LR, Novolog, Zofran. Additional Notes: Nutrition follow up. Patient consumed 100% of heart healthy diet. He is requesting Ensure Clear vs Efren Conner MD orders for diet order change. Ensure Clear will provide patient with 240 kcals and 8 gms protein. Agree with diet orders. Monitoring:RD will monitor every 7 days.
[2020-10-19 11:36] LABS: Glucose Point of Care 103 (65-105)
[2020-10-19 13:43] VITALS: BP 106/62; PULSE 70; RESP 14; TEMP 36.2; O2SAT 99
[2020-10-19] MEDS: ACETAMINOPHEN 325 MG TABLET 650 MG PO (14:22)
--- NOTE | 2020-10-19 14:34 | PC.NURSE ---
On 10/19/20, the student, [ Teresa Carter], provided care and completed [facility] documentation on this patient. I have reviewed the student's documentation and agree with the findings.
--- NOTE | 2020-10-19 15:35 | PM.DS ---
DS: Admitting Diagnosis Admitting Diagnosis Admitting Diagnosis: Nausea vomiting with diarrhea/ANA LAURA DS: Discharge Diagnosis Discharge Diagnosis (1) Abdominal pain: Code(s): R10.9 - Unspecified abdominal pain Status: Acute Assessment and Plan: -Improved at d/c -he has chronic diarrhea that has been lasting for over a year which has caused significant dehydration -Colonoscopy/EGD revealed colonic polyps, internal hemorrhoids, and normal EGD -unclear etiology for abdominal pain, could be viral gastroenteritis -stool cultures were ordered but were not obtained -CT of the abdomen pelvis does not show any abnormalities for this pain but it does show he has small to moderate right, small left fat-containing hernias. He will need to follow-up with surgeon for this although I do not think this is causing his pain -it also shows an aneurysm which has been seen in the past at outside area hospital. No evidence of rupture and does not appear to be in the location of the pain. -follow-up with GI outpatient (2) Diarrhea: Code(s): R19.7 - Diarrhea, unspecified Status: Acute Assessment and Plan: As above (3) Nausea and vomiting: Code(s): R11.2 - Nausea with vomiting, unspecified Status: Acute Assessment and Plan: Improved (4) Acute kidney injury: Code(s): N17.9 - Acute kidney failure, unspecified Status: Acute Assessment and Plan: Resolved (5) Atrial fibrillation: Code(s): I48.91 - Unspecified atrial fibrillation Status: Chronic Assessment and Plan: Continue with carvedilol, amiodarone and Eliquis (6) AAA (abdominal aortic aneurysm): Code(s): I71.4 - Abdominal aortic aneurysm, without rupture Status: Chronic Assessment and Plan: Stable -The patient has been monitored at [facility] to their vascular surgeon (7) Depression: Code(s): F32.9 - Major depressive disorder, single episode, unspecified Status: Chronic Assessment and Plan: Chronic stable -continue with Lexapro (8) Hyperlipidemia: Code(s): E78.5 - Hyperlipidemia, unspecified Status: Chronic Assessment and Plan: Continue atorvastatin DS: Summary Hospital Course Hospital Course: Patient is a 60-year-old male who presented emergency room for nausea, vomiting and diarrhea ongoing for 24 hours. He admits that the diarrhea is mostly chronic but the nausea vomiting is new. Vitals in the ER temperature 96.8? F, pulse 97, respiratory rate 24, blood pressure 143/111, pulse ox 100 on room air. Initial white blood cell count 12.6, hemoglobin 18.7, hematocrit 56.2, platelets 334. Creatinine 3.6, BUN 55 all consistent with hemoconcentration due to significant dehydration. Of the abdomen pelvis shows a known infrarenal abdominal aortic aneurysm 4.5 cm with small to moderate right and small left fat containing hernias. Patient was admitted to the hospitalist service and required IV hydration for many days. His creatinine improved to normal and his nausea or vomiting resolved. His unable to produce a stool culture. He underwent an EGD and colonoscopy which did not show any etiology. It was believed that he had a viral gastroenteritis on top of chronic diarrhea. The patient was feeling much better the day of discharge and was wanting to go home. He was educated about the worrisome signs and symptoms come back to emergency room for and was discharged stable condition follow-up with GI and surgery. Status at Discharge Functional status at discharge: independent ambulation Overall status at discharge: patient is back to baseline Time Spent with Patient Time attestation: Total time spent providing and/or coordinating discharge services:38 min Exam Narrative: Exam Narrative: General: Well developed well nourished patient in NAD HEENT: normocephalic Neck: supple Neuro: Alert and
--- NOTE | 2020-10-19 16:25 | WPDGIPROGNO ---
Progress Note: A&P Assessment and Plan (1) Nausea and vomiting: Code(s): R11.2 - Nausea with vomiting, unspecified Status: Acute Assessment and Plan: improved, egd and colonoscopy unremarkable- biopsies pending he can go home by gi standpoing follow up office as needed (2) Diarrhea: Code(s): R19.7 - Diarrhea, unspecified Status: Acute Assessment and Plan: chronic, pending colon bx but no major findings (3) Acute on chronic kidney failure: Code(s): N17.9 - Acute kidney failure, unspecified; N18.9 - Chronic kidney disease, unspecified Status: Acute Assessment and Plan: resolved, now normal renal function (4) Dehydration: Code(s): E86.0 - Dehydration Status: Acute Assessment and Plan: treated (5) Adenomatous colon polyp: Code(s): D12.6 - Benign neoplasm of colon, unspecified Status: Acute Assessment and Plan: colonoscopy again in 5 years Subjective Date/time seen: 10/19/20 16:25 Interval history: he is eating better, no new issues Review of Systems Review of Systems: All systems reviewed & are unremarkable except as noted in HPI and below Exam Const: General: comfortable and no acute distress HENMT: General nose exam: Normal nares present Eyes: General: appearance normal, both eyes and all related structures Neck: Neck: supple Resp: Auscultation: clear to auscultation bilaterally Cardio: Rate: regular rate GI: Inspection: non-distended GI Palp: Yes Soft to palpation and No Guarding due to palpation present (GI) Auscultation: normal bowel sounds Skin: General skin exam: normal color Neuro: Speech: normal speech Extrem: General: normal to inspection Psych: Mental Status: mental status grossly normal Objective Data Vital Signs Vital Signs: Vital Signs - 24 hr 10/18/20 16:45 10/18/20 21:24 10/19/20 05:00 Temperature 97.8 F 98.9 F 98.6 F Pulse Rate 64 66 65 Respiratory Rate 18 18 16 Blood Pressure 93/50 L 91/51 L 96/70 L Pulse Oximetry 99 98 96 10/19/20 10:04 10/19/20 10:26 10/19/20 13:43 Temperature 97.6 F 97.2 F L Pulse Rate 70 70 70 Respiratory Rate 14 14 Blood Pressure 98/50 L 106/62 Pulse Oximetry 98 99 Intake/Output Intake/Output: Intake & Output 10/16/20 10/17/20 10/18/20 10/19/20 23:59 23:59 23:59 23:59 Intake Total 1240 4811 3190 2040 Output Total 100 100 300 Balance 1140 4711 3190 1740 Meds/Results Medications: Active Medications Generic Name Dose Route Start Last Admin Trade Name Freq PRN Reason Stop Dose Admin Acetaminophen 650 mg 10/16/20 15:46 10/19/20 14:22 Acetaminophen 325 Mg Tablet PO 650 mg Q4H PRN Administration Mild Pain (1-3) or Fever Amiodarone HCl 400 mg 10/17/20 08:00 10/19/20 10:04 Amiodarone Hcl 200 Mg Tablet BY MOUTH 400 mg DAILY@0800 WILLIAM Administration Apixaban 5 mg 10/17/20 09:00 10/19/20 16:16 Apixaban 5 Mg Tablet PO 5 mg BID WILLIAM Administration Carvedilol 12.5 mg 10/17/20 09:00 10/17/20 20:28 Carvedilol 12.5 Mg Tablet PO Not Given Q12HR WILLIAM Dextrose 12.5 gm 10/17/20 02:57 Dextrose 50% 25 Gm/50 Ml Syringe IV PUSH PRN PRN Hypoglycemia Protocol Escitalopram Oxalate 10 mg 10/17/20 09:00 10/19/20 10:05 Escitalopram Oxalate 10 Mg Tablet PO 10 mg DAILY WILLIAM Administration Glucagon 1 mg 10/17/20 02:57 Glucagon For Inj 1 Mg Vial IM PRN PRN Hypoglycemia Protocol Glucose 15 gm 10/17/20 02:57 Glucose Oral Gel 15 Gm Of Glucse In 37.5 Gm Tube PO PRN PRN Hypoglycemia Protocol Dextrose 1,000 mls @ 100 mls/hr 10/17/20 02:57 Dextrose 5% 1,000 Ml IVPB PRN PRN Hypoglycemia Protocol Lactated Ringer's 1,000 mls @ 80 mls/hr 10/17/20 15:05 10/19/20 10:13 Lr - Lactated Ringers Iv IV CONT 80 mls/hr .[id number] WILLIAM Administration Insulin Aspart 2 - 5 units 10/17/20 08:00 10/19/20 11:38 Insu
[2020-10-20 04:43] LABS: Calcium/Creatinine Ratio, Ur 17 mg/g creat (10-240); Urine Calcium, Random 4.8 mg/dL (***); Urine Creatinine, Random 278 mg/dL (20-320)
[2020-10-20 05:12] LABS: Albumin 3.9 g/dL (3.8-4.8); Alpha 1 Globulin 0.3 g/dL (0.2-0.3); Beta 1 Globulin 0.5 g/dL (0.4-0.6); Gamma Globulin 0.8 g/dL (0.8-1.7); Protein, Total 6.7 g/dL (6.1-8.1)
[2020-10-20 06:18] LABS: Ionized Calcium 5.2 mg/dL (4.8-5.6)
[2020-10-20 11:07] LABS: Anti Streptolysin O Screen <50 IU/mL (<200)
[2020-10-20 22:29] LABS: Vitamin D 1,25 (OH)2 Total 21 pg/mL (18-72); Vitamin D2 1,25 (OH)2 <8 pg/mL; Vitamin D3 1,25 (OH)2 21 pg/mL
[2020-10-21 13:49] LABS: Complement Total CH50 >60 U/mL (31-60)
[2020-10-22 06:09] LABS: Angiotensin Converting Enzyme 14 U/L (9-67)
[2020-10-23 06:32] LABS: Creatinine, Random Urine 281 mg/dL (20-320); Total Protein/Creatinine Ratio 238 mg/g creat (22-128)
[2020-10-23 19:57] LABS: Anti Glomerular Basement Memb <1.0 AI (<1.0)
[2020-10-23 22:16] LABS: ANCA Screen Negative (Negative)
[2020-10-24 10:26] LABS: SM Antibody <1.0; SM/RNP Antibody <1.0
== END 2020-10-19 16:30 | disposition home or self-care (01) | DRG 392 ==
LOC: ANHED 13:50 → ANH2MED 17:22
PROVIDERS: Internal Medicine Gastroenterology; Nurse Practitioner; Physician Assistant; Admitting Provider Family Medicine; Emergency Provider Emergency Medicine; PCP Family Medicine; Visit Provider Family Medicine
PROC: 0DJ08ZZ Inspection of Upper Intestinal Tract, Via Natural or Artificial Opening Endoscopic (ICD-10-PCS; CPT 43235; principal; 2020-10-18 14:30)
DX: R10.9 Unspecified abdominal pain (principal); N17.9 Acute kidney failure, unspecified; E86.0 Dehydration; A08.4 Viral intestinal infection, unspecified; R11.2 Nausea with vomiting, unspecified; D12.6 Benign neoplasm of colon, unspecified; K64.8 Other hemorrhoids; N18.9 Chronic kidney disease, unspecified; R73.03 Prediabetes; I48.91 Unspecified atrial fibrillation; I71.4 Abdominal aortic aneurysm, without rupture; F32.9 Major depressive disorder, single episode, unspecified; E78.5 Hyperlipidemia, unspecified; I25.10 Atherosclerotic heart disease of native coronary artery without angina pectoris; I25.5 Ischemic cardiomyopathy; I25.2 Old myocardial infarction; Z79.01 Long term (current) use of anticoagulants; Z79.82 Long term (current) use of aspirin; Z87.891 Personal history of nicotine dependence
CPT/HCPCS: 36415; 51701; 74176; 80048; 80053; 80069; 80074; 81001; 82164; 82310; 82330; 82570; 82652; 82948; 83036; 83519; 83520; 83690; 83735; 83970; 84100; 84132; 84155; 84156; 84165; 84166; 84443; 85025; 85027; 85610; 85652; 85730; 85999; 86021; 86038; 86060; 86140; 86160; 86162; 86215; 86225; 86235; 88305; 93005; 96360; 96361; 96374; 96375; 96376; 99285; A9270; C9113; G0378; J2270; J2405; J2550; J2704; J7030; J7040; J7120

== ENCOUNTER 2020-11-19 09:53 | Inpatient (IN) | payer OTHER, SELFPAY ==
[2020-11-19] VITALS (10 sets, daily range): BP systolic 156–186; BP diastolic 101–117; PULSE 60–100; RESP 16–20; TEMP 36.5–36.7; O2SAT 87–97; BMI 29.3; BMI 28.8
--- NOTE | ~2020-11-19 | CT_ITS ---
EXAMINATION: CT abdomen pelvis w con DATE: 11/19/2020 11:48 INDICATION: Lower abdominal pain TECHNIQUE: Computed tomography (CT) of the abdomen and pelvis was performed with 100 cc Omnipaque 350 intravenous contrast. Automated exposure control and iterative reconstruction technique were employe d. Exam dose: 584.79 mGy-cm total exam DLP. COMPARISON: CT abdomen pelvis FINDINGS: There are bilateral patchy groundglass lower lung infiltrates, new since 10/16/2020. Left lo wer lobe calcified pulmonary granuloma. Pacemaker leads. Heart size appears within normal range. No pericardial or pleural effusion. Small sliding hiatal hernia. Hepatic and splenic calcified granulomas. The liver, gallbladder, bile ducts, spleen, pancreas, pancreatic duct are otherwise unremarkable. Normal morphology of the adrenal glands. 11 mm upper pole right renal cyst. No other renal mass lesion is evident. No urinary tract calculus o r hydroureteronephrosis. There is moderate diffuse thickening of the urinary bladder wall. Mild prost ate enlargement and calcification. Up to 4.5 cm infrarenal abdominal aortic aneurysm. No intraperitoneal or retroperitoneal or pelvic ma ss lesion or adenopathy or ascites. There is a prominent amount fecal material in the colon but no bowel obstruction. No bowel wall thick ening, pneumatosis or intraperitoneal free air. Bilateral fat-containing inguinal hernias. Bilateral L5 pars interarticularis defects with minimal grade 1 anterolisthesis at L5-S1. IMPRESSION: Up to 4.5 cm infrarenal abdominal aortic aneurysm without evidence of rupture Small sliding hiatal hernia Bilateral fat-containing inguinal hernias 5 mm upper pole renal cyst Bilateral L5 pars intra-articular is defects with minimal grade 1 anterolisthesis at L5-S1 Reviewed, dictated and finalized at [facility]. Reviewed, dictated and finalized at [facility]. IMPRESSION: Up to 4.5 cm infrarenal abdominal aortic aneurysm without evidence of rupture Small sliding hiatal hernia Bilateral fat-containing inguinal hernias 5 mm upper pole renal cyst Bilateral L5 pars intra-articular is defects with minimal grade 1 anterolisthes is at L5-S1
--- NOTE | ~2020-11-19 | US_ITS ---
EXAMINATION: US abdomen limited EXAM DATE: 11/20/2020 15:03 INDICATION: Abdominal pain, elevated lipase. Pancreatitis. TECHNIQUE: Multiple grayscale and Doppler images of the abdomen right upper quadrant were obtained (b y a technologist who performed the scan) and subsequently reviewed. There is no prior study for jeremiah garcia. FINDINGS: Pancreas is poorly visualized. The liver has normal echogenicity and contour. There are no focal li obdulia lesions identified. There is no evidence of intrahepatic biliary duct dilation. Portal venous flow was seen in the hepatopedal, normal direction and has normal Doppler waveform. No right-sided h ydronephrosis. Common bile duct measures 5-6 mm, which is normal. The gallbladder wall is normal in thickness, with expected amount of distention. No sonographic evidence of pericholecystic fluid. There is no cholel ithiases. Technologist performing exam reports patient did not demonstrate sonographic Delgado's sign. Please note that this sign is less reliable in patients who have received pain medication. IMPRESSION: 1. Unremarkable abdominal ultrasound exam. Reviewed, dictated and finalized at location A.
--- NOTE | 2020-11-19 10:07 | ED.GENADULT ---
HPI - General Adult General Chief complaint: Abdominal Pain Stated complaint: ABD PAIN Source: RN notes reviewed History of Present Illness HPI narrative: Patient presents to emergency department from home for abdominal pain nausea vomiting. Patient states symptoms began this morning. States abdominal pain is described as cramping and diffuse throughout the abdomen with numerous episodes of nausea and vomiting. He states he has had similar episodes before in the past he denies any fevers or chills chest pain, shortness of breath or any other symptoms. Patient was given Zofran in route by EMS but continues to have nausea vomiting in the ED Related Data Home Medications Medication Instructions Recorded Confirmed Eliquis 5 mg PO BID 10/16/20 10/16/20 amiodarone 200 mg PO DAILY 10/16/20 10/16/20 aspirin 81 mg PO DAILY 10/16/20 10/16/20 atorvastatin 80 mg PO HS 10/16/20 10/16/20 carvedilol 12.5 mg PO BID 10/16/20 10/16/20 escitalopram oxalate 10 mg PO DAILY 10/16/20 10/16/20 furosemide 20 mg PO DAILY 10/16/20 10/16/20 Allergies Allergy/AdvReac Type Severity Reaction Status Date / Time No Known Allergies Allergy Unknown Verified 11/19/20 09:56 Review of Systems Review of Systems: Narrative: Gen.: Denies fevers or chills ENT: Denies congestion Respiratory: Denies shortness of breath or cough CV: Denies chest pain or palpitations GI: See HPI denies burning, urgency, frequency or hematuria Musculoskeletal: Denies back pain or muscle pain Neuro: Denies numbness, tingling, weakness or focal weakness Skin: Denies rash Except as documented, all other systems reviewed and negative [facility] Past Medical History Medical History AAA (abdominal aortic aneurysm) Acute on chronic kidney failure Adenomatous colon polyp Atrial fibrillation Coronary artery disease Dehydration Depression Hyperlipidemia Pancreatitis Surgical History Surgical History H/O heart artery stent History of arthroscopic knee surgery History of percutaneous coronary intervention 2 cardiac stents History of tracheostomy Pacemaker Family History Family History Mother Congestive heart failure Father Glaucoma Lip cancer Social History Social History Social History: The patient stated that he lives with his she is a durable power litigation attorney for healthcare. The patient is a full code. The patient has 2 children. He is retired from [employer]. Patient stated he used to smoke but does not drink. Smoking packs per day: 1 Smoking cigarettes per day: 20.0 Years smoked: 30 Smoking pack-years: 30.00 Smoking status: Former smoker Alcohol intake: never Substance use: current Substance use type: marijuana Last use: 4-5 days ago Gender identity (if verbalized by the patient): Male Spiritual care concerns: No Exam Narrative: Exam Narrative: APPEARANCE: No acute distress, nontoxic, resting in bed HEENT: Normocephalic, atraumatic, OMM RESPIRATORY: No respiratory distress, clear to auscultation bilaterally with no rhonchi wheezing or rales CARDIOVASCULAR: RRR s murmur ABDOMINAL: Soft nondistended diffusely tender to palpation no rebound or guarding MUSCULOSKELETAl: Moves all extremities. No clubbing, cyanosis or edema. NEURO: Awake and alert. Following commands, speech normal, no focal deficits SKIN:: Warm, dry. Normal Color PSYCHIATRIC: Normal affect/mood Course Course Emergency Course: Reviewed old records. Patient with similar episode in October with admission Discussed with KARELY Lynch for For our presentation work-up agrees with admission at this time Patient continues to have nausea in the ED Discussed with patient and family results of workup and diagnosis. Discussed need for a
[2020-11-19] MEDS: SODIUM CHLORIDE 0.9% IV 1,000 ML 999 ML IV CONT (10:17)
[2020-11-19] MEDS: PROMETHAZINE HCL 25 MG/ML AMPUL 12.5 MG IV PUSH (10:18)
[2020-11-19 10:49] LABS: Basophils Absolute Auto 0.1 K/mm3 (0.0-0.1); Basophils Percent Auto 0.7 % (0.2-1.2); Eosinophils Absolute Auto 0.3 K/mm3 (0-0.3); Eosinophils Percent Auto 2.5 % (0-4.4); Hematocrit 46.1 % (42.0-52.0); Hemoglobin 14.4 g/dL (14.0-18.0); Immature Granulocyte Absolute 0.04 K/mm3 (0.00-0.031); Immature Granulocyte Percent A 0.3 % (0-0.5); Lymphocytes Absolute Auto 1.39 K/mm3 (0.9-3.2); Lymphocytes Percent Auto 11.5 % (18.3-44.2); Mean Corpuscular HGB Conc 31.2 g/dl (32-36); Mean Corpuscular Hemoglobin 27.9 pg (26-34); Mean Corpuscular Volume 89.3 fl (80-100); Mean Platelet Volume 10.4 fl (7.4-10.4); Monocytes Absolute Auto 0.5 K/mm3 (0.1-0.6); Neutrophils Absolute Auto 9.8 K/mm3 (1.3-6.7); Platelet Count Result 299 k/mm3 (150-375); Red Blood Count 5.16 M/mm3 (4.6-6.20); Red Cell Distribution Width 17.8 % (11.5-14.5); White Blood Count 12.1 K/mm3 (4.5-10.0)
[2020-11-19 11:00] LABS: Alanine Aminotransferase 23 U/L (4-50); Albumin Level 4.3 g/dL (3.5-5.1); Alkaline Phosphatase 79 U/L (38-126); Anion Gap 5 mmol/L (8-16); Aspartate Amino Transferase 33 U/L (17-59); Bilirubin,Total 0.4 mg/dL (0.2-1.3); Blood Urea Nitrogen 17 mg/dL (9-20); Calcium 9.2 mg/dL (8.4-10.2); Carbon Dioxide 29 mmol/L (22-30); Chloride 102 mmol/L (98-107); Estimated CRCL calculation 57 ml/min; Estimated Glomerular Filt Rate > 60; Glucose 148 mg/dL (75-110); Lipase 500 U/L (23-300); Potassium 4.6 mmol/L (3.4-5.0); Sodium 136 mmol/L (137-145)
[2020-11-19] MEDS: MORPHINE SULFATE (*CRX) 4 MG/ML INJ IV PUSH (11:11)
[2020-11-19] MEDS: diphenhydrAMINE HCl INJ 50 MG/ML VIAL 25 MG IV PUSH (12:45)
--- NOTE | 2020-11-19 13:10 | PM.IMHP ---
H&P: HPI History of Present Illness Date/Time: 11/19/20 13:10 Chief Complaint: Abdominal pain, nausea, vomiting. Narrative: This is a 60-year-old male with coronary artery disease status post stent, ischemic cardiomyopathy, paroxysmal atrial fibrillation, chronic kidney disease, a stable abdominal aortic aneurysm on imaging today, hypertension, and pancreatitis who presented to the emergency department earlier today via EMS from home with complaints of abdominal pain, nausea, and vomiting. He woke at approximately 06:00 with severe nausea and diffuse abdominal cramping. Since that time he has had multiple episodes of emesis that he describes as yellow stomach acid. It sounds as though the vomiting tends to occur when his pain is severe. He has also had chills and sweats but he no documented fever. Aside from a very mild increase in lipase there were no other significant findings on workup today. He feels a bit better after receiving Phenergan and morphine in the emergency department although he thinks there is no way he can be discharged home as he continues to have cramping pain (9/10) and nausea. He was hospitalized at [facility] and more recently at this facility in the middle October under similar circumstances. Upper and lower endoscopies on 10/18/[address] Larkin showed no acute findings and colon polyps respectively. He does not have significant GERD and has no history of peptic ulcers. He denies alcohol abuse; admits to marijuana use. At this time he denies fever, cold and flu symptoms, chest pain, shortness of breath, pleuritic pain, hematemesis, melena, hematochezia, and diarrhea. Review of Systems Review of Systems: Narrative: Twelve systems were reviewed with pertinent positives and negatives as per HPI. No fever. He was diaphoretic on EMS arrival. No dysphagia or concerns for aspiration. Denies exertional chest pain. No orthopnea, PND, or lower extremity edema. He denies depression and anxiety. Except as documented, all other systems were reviewed and are negative. [facility] Past Medical History Medical History (Updated 11/19/20 @ 19:55 by Cris Solomon PA-C) Adenomatous colon polyp Aneurysm of infrarenal abdominal aorta Stable aneurysm measuring 4.5 centimeters on 11/21/2020. Coronary artery disease With history of [place] in what sounds like cardiac arrest while on vacation in [place]. He was in a medically induced coma for several weeks and temporarily had a tracheostomy. Depression Hyperlipidemia Hypertension Ischemic cardiomyopathy Ejection fraction reportedly as low as 15%. Patient reports a pacemaker in situ, denies the presence of an ICD. He sees a waste machine tender in [place]. Pancreatitis Paroxysmal atrial fibrillation Surgical History Surgical History (Updated 11/19/20 @ 19:48 by Cris Solomon PA-C) History of arthroscopic knee surgery History of cardiac catheterization (~09/2019) Performed in [facility]. History of coronary artery stent placement (~09/2019) Stent x2. History of tracheostomy (~09/2019) Pacemaker Family History Family History Mother Congestive heart failure Father Glaucoma Lip cancer Social History Social History (Updated 11/19/20 @ 19:52 by Cris Solomon PA-C) Social History: The patient lives in [place] with his . He has 2 children and is retired from [employer]. He smoked a pack of cigarettes a day for 30 years and quit quite sometime ago. No alcohol abuse. Admits to marijuana use but does not qualify or quantify. He designates his Iveth as his surrogate decision maker and he wishes to be a full code. Smoking packs per day: 1 Smoking cigarettes per day: 20.0 Years smoked: 30 Smoking pack-years: 30.00 Smoking status: Former smoker Alcohol intake: never Substance use: current Substance use type: marijuana Gender identity (if ve
[2020-11-19] MEDS: MORPHINE SULFATE (*CRX) 2 MG/ML INJ IV PUSH ×2 (14:10→20:25)
[2020-11-19] MEDS: ONDANSETRON INJ 4 MG/2 ML VIAL IV PUSH ×2 (14:10→17:42)
--- NOTE | 2020-11-19 15:12 | PC.NURSE ---
This patient, Low Sarmiento, was admitted to 3 [facility] Surg Room 320-01. Patient/family oriented to hospital policies and general routines including ID bracelet, bed and alarms, visiting hours, pain management, procedures, bathroom and other care routines, personal items, smoking policy, room service/diet, and visiting hours. Information on how to activate the Rapid Response Team has been discussed. Patient/Family are encouraged to report perceived risks to care and to ask questions if they do not understand what they are told or what they should do.
[2020-11-19] MEDS: SODIUM CHLORIDE 0.9% IV 1,000 ML 125 ML IV CONT (17:42)
[2020-11-19] MEDS: APIXABAN 5 MG TABLET PO (21:38)
[2020-11-19] MEDS: FUROSEMIDE 20 MG TABLET PO (21:38)
[2020-11-19] MEDS: carvediloL 12.5 MG TABLET PO (21:39)
[2020-11-19] MEDS: ATORVASTATIN 40 MG TABLET 80 MG PO (21:39)
[2020-11-20] VITALS (10 sets, daily range): BP systolic 106–114; BP diastolic 55–70; PULSE 72–84; RESP 18–20; TEMP 36.3–37.1; O2SAT 85–94
[2020-11-20] MEDS: MORPHINE SULFATE (*CRX) 2 MG/ML INJ IV PUSH ×3 (04:58→20:32)
[2020-11-20 05:31] LABS: Add Urine Microscopic? YES; Appearance Urine Clear (Clear); Bilirubin Urine Negative (Negative); Blood Urine Negative (Negative); Color Urine Yellow (Yellow); Glucose Urine UA Negative (Negative); Ketones Urine Negative (Negative); Leukocyte Esterase Ur Negative LEU/UL (Negative); Mucus Urine Rare /lpf; Nitrate Urine Negative (Negative); Protein Urine 1+ mg/dL (Negative); Squamous Epithelial Cell Urine Rare /hpf (Few); Urobilinogen Urine Negative mg/dL (<2.0); WBC Urine 0-3 /hpf
[2020-11-20 05:36] LABS: Specific Grav Ur 1.041 (1.001-1.035)
[2020-11-20 05:42] LABS: Amphetamine Screen Urine Negative (Negative); Barbiturate Screen Urine Negative (Negative); Benzodiazepines Screen Urine Negative (Negative); Cannabinoid Screen Urine Positive (Negative); Cocaine Screen Urine Negative (Negative); Methadone Screen Urine Negative (Negative); Opiate Screen Urine Positive (Negative); Phencyclidine Screen Urine Negative (Negative)
[2020-11-20 06:26] LABS: Basophils Absolute Auto 0.1 K/mm3 (0.0-0.1); Basophils Percent Auto 0.5 % (0.2-1.2); Eosinophils Percent Auto 0.3 % (0-4.4); Hematocrit 43.5 % (42.0-52.0); Hemoglobin 13.6 g/dL (14.0-18.0); Immature Granulocyte Absolute 0.05 K/mm3 (0.00-0.031); Immature Granulocyte Percent A 0.5 % (0-0.5); Lymphocytes Absolute Auto 1.53 K/mm3 (0.9-3.2); Lymphocytes Percent Auto 14.5 % (18.3-44.2); Mean Corpuscular HGB Conc 31.3 g/dl (32-36); Mean Corpuscular Hemoglobin 27.6 pg (26-34); Mean Corpuscular Volume 88.2 fl (80-100); Mean Platelet Volume 10.2 fl (7.4-10.4); Monocytes Absolute Auto 0.7 K/mm3 (0.1-0.6); Monocytes Percent Auto 6.1 % (2.6-8.5); Neutrophils Absolute Auto 8.3 K/mm3 (1.3-6.7); Neutrophils Percent Auto 78.1 % (45.5-73.1); Platelet Count Result 232 k/mm3 (150-375); Red Blood Count 4.93 M/mm3 (4.6-6.20); Red Cell Distribution Width 17.8 % (11.5-14.5); White Blood Count 10.6 K/mm3 (4.5-10.0)
[2020-11-20 06:43] LABS: Alanine Aminotransferase 18 U/L (4-50); Albumin Level 3.6 g/dL (3.5-5.1); Alkaline Phosphatase 70 U/L (38-126); Anion Gap 4 mmol/L (8-16); Aspartate Amino Transferase 29 U/L (17-59); Bilirubin,Total 0.5 mg/dL (0.2-1.3); Blood Urea Nitrogen 20 mg/dL (9-20); Calcium 8.6 mg/dL (8.4-10.2); Carbon Dioxide 30 mmol/L (22-30); Chloride 105 mmol/L (98-107); Estimated CRCL calculation 77 ml/min; Estimated Glomerular Filt Rate > 60; Glucose 95 mg/dL (75-110); Lipase 1484 U/L (23-300); Magnesium 2.1 mg/dL (1.6-2.3); Potassium 4.2 mmol/L (3.4-5.0); Sodium 139 mmol/L (137-145)
[2020-11-20] MEDS: AMIODARONE HCL 200 MG TABLET PO (09:30)
[2020-11-20] MEDS: ASPIRIN 81 MG CHEWABLE TABLET PO (09:31)
[2020-11-20] MEDS: APIXABAN 5 MG TABLET PO (09:31)
[2020-11-20] MEDS: FUROSEMIDE 20 MG TABLET PO (09:32)
[2020-11-20] MEDS: ESCITALOPRAM OXALATE 10 MG TABLET PO (09:32)
[2020-11-20] MEDS: carvediloL 12.5 MG TABLET PO ×2 (09:32→20:22)
[2020-11-20] MEDS: ONDANSETRON INJ 4 MG/2 ML VIAL IV PUSH ×2 (09:41→20:26)
--- NOTE | 2020-11-20 13:13 | PM.IMPN ---
Progress Note: A&P Assessment and Plan (1) Abdominal pain: Code(s): R10.9 - Unspecified abdominal pain Status: Acute Assessment and Plan: Continue to monitor Lipase, Pt was seen by GI last visit. Pt had scopes. Reconsult Gi this visit continue PPI hold asA. (2) Nausea and vomiting: Code(s): R11.2 - Nausea with vomiting, unspecified Status: Acute Assessment and Plan: Continue PPI (3) Elevated lipase: Code(s): R74.8 - Abnormal levels of other serum enzymes Status: Acute Assessment and Plan: Continue to monitor lipase (4) Hypertension: Code(s): I10 - Essential (primary) hypertension Status: Acute Assessment and Plan: Continue medications (5) Hyperlipidemia: Code(s): E78.5 - Hyperlipidemia, unspecified Status: Chronic Assessment and Plan: Continue medications (6) Paroxysmal atrial fibrillation: Code(s): I48.0 - Paroxysmal atrial fibrillation Status: Acute Assessment and Plan: Continue medications (7) Ischemic cardiomyopathy: Code(s): I25.5 - Ischemic cardiomyopathy Status: Acute Assessment and Plan: Continue medications (8) Aneurysm of infrarenal abdominal aorta: Code(s): I71.4 - Abdominal aortic aneurysm, without rupture Status: Acute Assessment and Plan: history of pt has 4.5 cm infrarenal abdominal aortic aneurysm without evidence of rupture Subjective Date/time seen: 11/20/20 13:13 Interval history: 60-year-old male with coronary artery disease status post stent, ischemic cardiomyopathy, paroxysmal atrial fibrillation, chronic kidney disease, a stable abdominal aortic aneurysm on imaging today, hypertension, and pancreatitis who presented to the emergency department earlier today via EMS from home with complaints of abdominal pain, nausea, and vomiting. Review of Systems Review of Systems: All systems reviewed & are unremarkable except as noted in HPI and below Exam Narrative: Exam Narrative: General: Moderately ill HEENT: PERRLA Neck: Supple. Respiratory: Lungs are clear to auscultation bilaterally. Cardiovascular: Regular rate and rhythm with S1-S2. Gastrointestinal: Abdomen is soft, protuberant, and nondistended with positive bowel sounds. Skin: Warm and dry. No rash or lesions on limited exam. Extremities: No cyanosis, clubbing, or edema. Radial and pedal pulses intact. Neurological: Alert. Cranial nerves 2-12 are grossly intact. No gross focal deficits to casual conversation. Psychiatric: Appropriate mood. Objective Data Vital Signs Vital Signs: Vital Signs - 24 hr 11/19/20 14:05 11/19/20 15:11 11/19/20 15:15 Temperature 36.6 C Pulse Rate 84 88 88 Respiratory Rate 16 20 20 Blood Pressure 158/109 H 156/109 H Pulse Oximetry 97 97 11/19/20 18:40 11/19/20 19:50 11/19/20 20:07 Temperature 36.7 C Pulse Rate 98 60 Respiratory Rate 20 20 Blood Pressure 158/117 H Pulse Oximetry 90 89 L 87 L 11/19/20 20:22 11/19/20 21:50 11/20/20 04:25 Temperature 36.7 C Pulse Rate 100 Respiratory Rate 20 Blood Pressure 160/110 H 156/113 H Pulse Oximetry 88 L 85 L 11/20/20 04:55 11/20/20 05:38 11/20/20 06:13 Temperature 37.1 C Pulse Rate 84 84 Respiratory Rate 20 20 Blood Pressure 114/70 Pulse Oximetry 94 91 91 11/20/20 09:30 11/20/20 09:32 Temperature Pulse Rate 72 72 Respiratory Rate Blood Pressure Pulse Oximetry Intake/Output Intake/Output: Intake & Output 11/17/20 11/18/20 11/19/20 11/20/20 23:59 23:59 23:59 23:59 Intake Total 1100 Output Total 500 Balance 1100 -500 Meds/Results Medications: Active Medications Generic Name Dose Route Start Last Admin Trade Name Freq PRN Reason Stop Dose Admin Amiodarone HCl 200 mg 11/20/20 09:00 11/20/20 09:30 Amiodarone Hcl 200 Mg Tablet PO 12/20/20 09:01 200 mg DAILY WILLIAM Administration Apixaban 5 m
--- NOTE | 2020-11-20 14:01 | WPDGICN ---
Assessment and Plan Assessment and plan (1) Abdominal pain: Code(s): R10.9 - Unspecified abdominal pain Status: Acute Assessment and Plan: Abdominal pain is poorly described. Appears to be in the low abdomen. Given his markedly elevated lipase pancreatitis may need to be considered. No description of this on CT scan. Plan is to pursue right upper quadrant ultrasound and HIDA scan. Follow-up LFTs and CBC in the morning. He may have pancreatitis is the etiology for his pain and nausea vomiting. We will follow with you. He denies alcohol as in the etiology at this point. Etiology remains somewhat unclear. (2) AAA (abdominal aortic aneurysm): Code(s): I71.4 - Abdominal aortic aneurysm, without rupture Status: Chronic Assessment and Plan: 4-1/2cm aneurysm noted on CT scan will need to be followed conservatively at this point. (3) Atrial fibrillation: Code(s): I48.91 - Unspecified atrial fibrillation Status: Chronic (4) Nausea and vomiting: Code(s): R11.2 - Nausea with vomiting, unspecified Status: Acute Assessment and Plan: Nausea vomiting appears resolved. Recent EGD at our institution was negative by Dr. Zavala. (5) Elevated lipase: Code(s): R74.8 - Abnormal levels of other serum enzymes Status: Acute Assessment and Plan: Elevated lipase appears to correlate with patient's abdominal pain. Given the of quite high a value of this finding pancreatitis appears to be etiology of his nausea vomiting. The etiology pancreatitis remains obscure. Initial evaluation with ultrasound and HIDA scan will be initiated. GI Consult Note Consult date/time: 11/20/20 14:01 HPI: Low Sarmiento is a 60 year old male seen in evaluation at the request of the hospitalist service. Patient reports that he began to have problems I year and half ago in September of 2019 while on vacation in [place]. He eventually came back to the [place] has been followed at [facility]. Apparently most recently [facility] for follow-up of pacemaker, heart stents period and cardiac dysrhythmia. Approximately 1 month ago was hospitalized at [facility] with nausea vomiting diarrhea. At that time an EGD was performed found to be unremarkable. By Dr. Zavala. Colonoscopy revealed several small diminutive adenomatous colon polyps. Random biopsy of the colon was negative for microscopic colitis. Patient was sent home with several medications for his nausea. Over last month he took for 5 of these. However last night developed severe lower abdominal pain associated with nausea vomiting and was readmitted to the hospital. CT scan reveals an abdominal aortic aneurysm measuring 4.5cm. Pancreas is not described on this exam. Lipase level was noted to be quite elevated. During last admission elevated lipase was noted on admission and probably resolved. Patient denies any significant alcohol intake. He states the pain apparently fluctuates in intensity. He has difficulty given be precise description of the frequency of his discomfort. Review of Systems Review of Systems: All systems reviewed & are unremarkable except as noted in HPI and below PMFSH Past Medical History Medical History (Updated 11/19/20 @ 19:55 by Cris Solomon PA-C) Adenomatous colon polyp Aneurysm of infrarenal abdominal aorta Stable aneurysm measuring 4.5 centimeters on 11/21/2020. Coronary artery disease With history of [place] in what sounds like cardiac arrest while on vacation in [place]. He was in a medically induced coma for several weeks and temporarily had a tracheostomy. Depression Hyperlipidemia Hypertension Ischemic cardiomyopathy Ejection fraction reportedly as low as 15%. Patient reports a pacemaker in situ, denies the presence of an ICD. He sees a board mixer tender in [place]. Pancreatitis Paroxysmal atrial fibrillation Surgical History Surgical History (Updated 11/19/20 @
[2020-11-20] MEDS: SODIUM CHLORIDE 0.9% IV 1,000 ML 125 ML IV CONT (15:52)
[2020-11-20 16:31] LABS: Hematocrit 41.5 % (42.0-52.0); Hemoglobin 12.9 g/dL (14.0-18.0); Mean Corpuscular HGB Conc 31.1 g/dl (32-36); Mean Corpuscular Hemoglobin 27.9 pg (26-34); Mean Corpuscular Volume 89.6 fl (80-100); Mean Platelet Volume 10.7 fl (7.4-10.4); Platelet Count Result 216 k/mm3 (150-375); Red Blood Count 4.63 M/mm3 (4.6-6.20); Red Cell Distribution Width 18.2 % (11.5-14.5); White Blood Count 6.7 K/mm3 (4.5-10.0)
[2020-11-20 16:49] LABS: Alanine Aminotransferase 17 U/L (4-50); Albumin Level 3.6 g/dL (3.5-5.1); Alkaline Phosphatase 62 U/L (38-126); Aspartate Amino Transferase 30 U/L (17-59); Bilirubin,Total 0.6 mg/dL (0.2-1.3); Lipase 695 U/L (23-300)
[2020-11-20] MEDS: ATORVASTATIN 40 MG TABLET 80 MG PO (20:25)
[2020-11-21] MEDS: SODIUM CHLORIDE 0.9% IV 1,000 ML 125 ML IV CONT ×2 (05:38→21:46)
[2020-11-21 06:00] VITALS: BP 116/62; PULSE 70; RESP 18; TEMP 36.7; O2SAT 93
[2020-11-21 06:35] LABS: Lipase 1417 U/L (23-300)
[2020-11-21 08:29] VITALS: PULSE 84
[2020-11-21] MEDS: AMIODARONE HCL 200 MG TABLET PO (08:29)
[2020-11-21 08:30] VITALS: PULSE 84
[2020-11-21] MEDS: PANTOPRAZOLE SODIUM IV 40 MG VIAL IV PUSH (08:30)
[2020-11-21] MEDS: ESCITALOPRAM OXALATE 10 MG TABLET PO (08:30)
[2020-11-21] MEDS: carvediloL 12.5 MG TABLET PO ×2 (08:30→21:45)
[2020-11-21] MEDS: FUROSEMIDE 20 MG TABLET PO (08:30)
--- NOTE | 2020-11-21 09:02 | WPDGIPROGNO ---
Progress Note: A&P Assessment and Plan (1) Abdominal pain: Code(s): R10.9 - Unspecified abdominal pain Status: Acute Assessment and Plan: Abdominal pain appears resolved. History is that it occurs intermittently. Gallbladder ultrasound negative. Ultrasound also reveals normal appearing pancreas. HIDA scan has been ordered because of elevated lipase. Etiology remains obscure. At this point pain is gone will advance diet to a low-fat diet. (2) Elevated lipase: Code(s): R74.8 - Abnormal levels of other serum enzymes Status: Acute Assessment and Plan: Elevated lipase appears to correlate with pain. He appears to have pancreatitis although CT scan and ultrasound failed to reveal any obvious inflammation in the pancreas. We will continue to slowly advance diet continue to monitor lipase. (3) Atrial fibrillation: Code(s): I48.91 - Unspecified atrial fibrillation Status: Chronic (4) AAA (abdominal aortic aneurysm): Code(s): I71.4 - Abdominal aortic aneurysm, without rupture Status: Chronic Assessment and Plan: An aneurysm appears stable. Will need to be followed subsequently after discharge. Subjective Date/time seen: 11/21/20 09:02 Patient denies abdominal pain. Has no nausea this morning. Tolerating diet apparently period Review of Systems Review of Systems: All systems reviewed & are unremarkable except as noted in HPI and below Exam Narrative: Exam Narrative: on physical exam patient is alert. Appears to have a depressed affect. Lungs are clear. Heart without murmur. Abdomen obese. Bowel sounds present soft nontender no organomegaly. Objective Data Vital Signs Vital Signs: Vital Signs - 24 hr 11/20/20 09:30 11/20/20 09:32 11/20/20 13:47 Temperature 97.4 F L Pulse Rate 72 72 77 Respiratory Rate 18 Blood Pressure 106/55 L Pulse Oximetry 91 11/20/20 20:22 11/20/20 21:59 11/20/20 22:00 Temperature 97.9 F Pulse Rate 72 72 Respiratory Rate 18 Blood Pressure 109/65 Pulse Oximetry 92 93 11/21/20 06:00 11/21/20 08:29 11/21/20 08:30 Temperature 98.1 F Pulse Rate 70 84 84 Respiratory Rate 18 Blood Pressure 116/62 Pulse Oximetry 93 Intake/Output Intake/Output: Intake & Output 11/18/20 11/19/20 11/20/20 11/21/20 23:59 23:59 23:59 23:59 Intake Total 1100 2720 240 Output Total 500 Balance 1100 2220 240 Meds/Results Medications: Active Medications Generic Name Dose Route Start Last Admin Trade Name Freq PRN Reason Stop Dose Admin Amiodarone HCl 200 mg 11/20/20 09:00 11/21/20 08:29 Amiodarone Hcl 200 Mg Tablet PO 12/20/20 09:01 200 mg DAILY WILLIAM Administration Atorvastatin Calcium 80 mg 11/19/20 21:00 11/20/20 20:25 Atorvastatin 40 Mg Tablet PO 80 mg HS WILLIAM Administration Carvedilol 12.5 mg 11/19/20 20:05 11/21/20 08:30 Carvedilol 12.5 Mg Tablet PO 12.5 mg Q12HR WILLIAM Administration Escitalopram Oxalate 10 mg 11/20/20 09:00 11/21/20 08:30 Escitalopram Oxalate 10 Mg Tablet PO 10 mg DAILY WILLIAM Administration Furosemide 20 mg 11/19/20 20:05 11/21/20 08:30 Furosemide 20 Mg Tablet PO 20 mg DAILY WILLIAM Administration Hydralazine HCl 10 mg 11/19/20 19:59 Hydralazine Hcl 20 Mg/Ml Vial IV PUSH Q6H PRN SBP > 165 or DBP > 105 Sodium Chloride 1,000 mls @ 90 mls/hr 11/19/20 12:30 11/21/20 05:38 Normal Saline Iv IV CONT 125 mls/hr .Q11H7M WILLIAM Administration Morphine Sulfate 2 mg 11/19/20 19:58 11/20/20 20:32 Morphine Sulfate (*Crx) 2 Mg/Ml Inj IV PUSH 2 mg Q4H PRN Administration Pain Rated 7-10 Ondansetron HCl 4 mg 11/19/20 12:30 11/20/20 20:26 Ondansetron Inj 4 Mg/2 Ml Vial IV PUSH 4 mg Q4H PRN Administration Nausea Pantoprazole Sodium 40 mg 11/21/20 09:00 11/21/20 08:30 Pantoprazole Sodium Iv 40 Mg Vial IV PUSH 40 mg QAM WILLIAM Administration Radiology Result
[2020-11-21 14:00] VITALS: BP 103/51; PULSE 69; RESP 20; TEMP 36.5; O2SAT 96
--- NOTE | 2020-11-21 14:40 | PM.IMPN ---
Progress Note: A&P Assessment and Plan (1) Abdominal pain: Code(s): R10.9 - Unspecified abdominal pain Status: Acute Assessment and Plan: Continue to monitor Lipase, Pt was seen by GI last visit. Pt had scopes. Reconsult Gi this visit continue PPI hold asA. pt had hida scan today, advance diet hopeful DC tomorrow. (2) Nausea and vomiting: Code(s): R11.2 - Nausea with vomiting, unspecified Status: Acute Assessment and Plan: Continue PPI (3) Elevated lipase: Code(s): R74.8 - Abnormal levels of other serum enzymes Status: Acute Assessment and Plan: Continue to monitor lipase (4) Hypertension: Code(s): I10 - Essential (primary) hypertension Status: Acute Assessment and Plan: Continue medications (5) Hyperlipidemia: Code(s): E78.5 - Hyperlipidemia, unspecified Status: Chronic Assessment and Plan: Continue medications (6) Paroxysmal atrial fibrillation: Code(s): I48.0 - Paroxysmal atrial fibrillation Status: Acute Assessment and Plan: Continue medications (7) Ischemic cardiomyopathy: Code(s): I25.5 - Ischemic cardiomyopathy Status: Acute Assessment and Plan: Continue medications (8) Aneurysm of infrarenal abdominal aorta: Code(s): I71.4 - Abdominal aortic aneurysm, without rupture Status: Acute Assessment and Plan: history of pt has 4.5 cm infrarenal abdominal aortic aneurysm without evidence of rupture Subjective Date/time seen: 11/21/20 14:40 Interval history: 60-year-old male with coronary artery disease status post stent, ischemic cardiomyopathy, paroxysmal atrial fibrillation, chronic kidney disease, a stable abdominal aortic aneurysm on imaging today, hypertension, and pancreatitis who presented to the emergency department with complaints of abdominal pain, nausea, and vomiting. Pt pain and nausea better, pt can advance his diet as tolerated. Pt feels depressed because of his ill health. Review of Systems Review of Systems: All systems reviewed & are unremarkable except as noted in HPI and below Exam Narrative: Exam Narrative: General: Moderately ill HEENT: PERRLA Neck: Supple. Respiratory: Lungs are clear to auscultation bilaterally. Cardiovascular: Regular rate and rhythm with S1-S2. Gastrointestinal: Abdomen is soft, nondistended with positive bowel sounds. Skin: Warm and dry. No rash or lesions on limited exam. Extremities: No cyanosis, clubbing, or edema. Radial and pedal pulses intact. Neurological: Alert. Cranial nerves 2-12 are grossly intact. No gross focal deficits to casual conversation. Psychiatric: Appropriate mood. Objective Data Vital Signs Vital Signs: Vital Signs - 24 hr 11/20/20 20:22 11/20/20 21:59 11/20/20 22:00 Temperature 36.6 C Pulse Rate 72 72 Respiratory Rate 18 Blood Pressure 109/65 Pulse Oximetry 92 93 11/21/20 06:00 11/21/20 08:29 11/21/20 08:30 Temperature 36.7 C Pulse Rate 70 84 84 Respiratory Rate 18 Blood Pressure 116/62 Pulse Oximetry 93 Intake/Output Intake/Output: Intake & Output 11/18/20 11/19/20 11/20/20 11/21/20 23:59 23:59 23:59 23:59 Intake Total 1100 2720 960 Output Total 500 Balance 1100 2220 960 Meds/Results Medications: Active Medications Generic Name Dose Route Start Last Admin Trade Name Freq PRN Reason Stop Dose Admin Acetaminophen 650 mg 11/21/20 09:58 Acetaminophen 325 Mg Tablet PO Q6H PRN Mild Pain (1-3) or Fever Amiodarone HCl 200 mg 11/20/20 09:00 11/21/20 08:29 Amiodarone Hcl 200 Mg Tablet PO 12/20/20 09:01 200 mg DAILY WILLIAM Administration Atorvastatin Calcium 80 mg 11/19/20 21:00 11/20/20 20:25 Atorvastatin 40 Mg Tablet PO 80 mg HS WILLIAM Administration Carvedilol 12.5 mg 11/19/20 20:05 11/21/20 08:30 Carvedilol 12.5 Mg Tablet PO 12.5 mg Q12HR WILLIAM Administration [place]
--- NOTE | 2020-11-21 17:49 | PC.NURSE ---
patient informed nurse when daughter gets here he is leaving the floor to go outside, advised not to leave the unit because of IV fluids and potential for accident/illness while outside. States he is going anyway.
[2020-11-21 21:34] VITALS: BP 111/60; PULSE 66; RESP 18; TEMP 36.2; O2SAT 97
[2020-11-21] MEDS: ATORVASTATIN 40 MG TABLET 80 MG PO (21:44)
[2020-11-22 06:00] VITALS: BP 127/70; PULSE 74; RESP 18; TEMP 36.3; O2SAT 95
[2020-11-22 08:54] VITALS: PULSE 64
[2020-11-22] MEDS: SODIUM CHLORIDE 0.9% IV 1,000 ML 125 ML IV CONT (08:54)
[2020-11-22] MEDS: AMIODARONE HCL 200 MG TABLET PO (08:54)
[2020-11-22] MEDS: ESCITALOPRAM OXALATE 10 MG TABLET 20 MG PO (08:55)
[2020-11-22] MEDS: FUROSEMIDE 20 MG TABLET PO (08:56)
[2020-11-22] MEDS: PANTOPRAZOLE SODIUM IV 40 MG VIAL IV PUSH (08:56)
--- NOTE | 2020-11-22 10:21 | WPDGIPROGNO ---
Progress Note: A&P Assessment and Plan (1) Elevated lipase: Code(s): R74.8 - Abnormal levels of other serum enzymes Status: Acute Assessment and Plan: Lipase remains elevated. Clinically patient has no evidence for pancreatitis. His abdominal pain nausea vomiting resolved. No evidence of gallstones. He has a previous cholecystectomy. Patient denies alcohol intake. Suggest he may have had subclinical chemical pancreatitis. Idiopathic in nature. At this time conservative therapy is advised. Alcohol avoidance encourage. Advance to a low-fat diet. Follow-up lipase at sometime in the future may be prudent. (2) Abdominal pain: Code(s): R10.9 - Unspecified abdominal pain Status: Acute Assessment and Plan: Abdominal pain nausea vomiting have resolved. Plan is to advance to low-fat diet. Patient can be followed as an outpatient. Recent colonoscopy and endoscopy were unremarkable. No etiology by these exams recently. (3) AAA (abdominal aortic aneurysm): Code(s): I71.4 - Abdominal aortic aneurysm, without rupture Status: Chronic Assessment and Plan: four and a halpf cm AAA appears stable. Will need to be followed by primary care service after discharge. (4) Adenomatous colon polyp: Code(s): D12.6 - Benign neoplasm of colon, unspecified Status: Acute Assessment and Plan: Patient had adenomatous colon polyp by recent endoscopy. Follow-up colonoscopy in 5 years advised. Subjective Date/time seen: 11/22/20 10:21 Patient reports feeling good today. No abdominal pain. No nausea or vomiting. He refused HIDA scan last night because he was unwilling to drink Ensure. Currently tolerating diet with no difficulties. Review of Systems Review of Systems: All systems reviewed & are unremarkable except as noted in HPI and below Exam Narrative: Exam Narrative: Physical exam reveals patient be alert. Vital signs stable. HEENT exam unremarkable patient is anicteric. Lungs are clear. Heart without murmur. Abdomen bowel sounds present soft nontender with no organomegaly. Objective Data Vital Signs Vital Signs: Vital Signs - 24 hr 11/21/20 14:00 11/21/20 21:34 11/22/20 06:00 Temperature 97.7 F 97.1 F L 97.4 F L Pulse Rate 69 66 74 Respiratory Rate 20 18 18 Blood Pressure 103/51 L 111/60 127/70 Pulse Oximetry 96 97 95 11/22/20 08:54 Temperature Pulse Rate 64 Respiratory Rate Blood Pressure Pulse Oximetry Intake/Output Intake/Output: Intake & Output 11/19/20 11/20/20 11/21/20 11/22/20 23:59 23:59 23:59 23:59 Intake Total 1100 2720 3080 1360 Output Total 500 Balance 1100 2220 3080 1360 Meds/Results Medications: Active Medications Generic Name Dose Route Start Last Admin Trade Name Freq PRN Reason Stop Dose Admin Acetaminophen 650 mg 11/21/20 09:58 Acetaminophen 325 Mg Tablet PO Q6H PRN Mild Pain (1-3) or Fever Amiodarone HCl 200 mg 11/20/20 09:00 11/22/20 08:54 Amiodarone Hcl 200 Mg Tablet PO 12/20/20 09:01 200 mg DAILY WILLIAM Administration Atorvastatin Calcium 80 mg 11/19/20 21:00 11/21/20 21:44 Atorvastatin 40 Mg Tablet PO 80 mg HS WILLIAM Administration Carvedilol 12.5 mg 11/19/20 20:05 11/21/20 21:45 Carvedilol 12.5 Mg Tablet PO 12.5 mg Q12HR WILLIAM Administration Escitalopram Oxalate 20 mg 11/22/20 09:00 11/22/20 08:55 Escitalopram Oxalate 10 Mg Tablet PO 20 mg DAILY WILLIAM Administration Furosemide 20 mg 11/19/20 20:05 11/22/20 08:56 Furosemide 20 Mg Tablet PO 20 mg DAILY WILLIAM Administration Hydralazine HCl 10 mg 11/19/20 19:59 Hydralazine Hcl 20 Mg/Ml Vial IV PUSH Q6H PRN SBP > 165 or DBP > 105 Sodium Chloride 1,000 mls @ 90 mls/hr 11/19/20 12:30 11/22/20 08:54 Normal Saline Iv IV CONT 125 mls/hr .Q11H7M WILLIAM Administration Morphine Sulfate 2 mg 11/19/20 19:58 11/20/20 20:32 Morphine Sulfate (*Crx) 2 Mg/Ml I
[2020-11-22 14:00] VITALS: BP 141/73; PULSE 75; RESP 20; TEMP 37; O2SAT 97
--- NOTE | 2020-11-22 14:35 | PM.DS ---
DS: Admitting Diagnosis Admitting Diagnosis Admitting Diagnosis: Abdominal pain, nausea, vomiting. DS: Discharge Diagnosis Discharge Diagnosis (1) Abdominal pain: Code(s): R10.9 - Unspecified abdominal pain Status: Acute Assessment and Plan: Continue to monitor Lipase, Pt was seen by GI last visit. Pt had scopes. Reconsult Gi this visit continue PPI hold asA. pt had hida scan today, advance diet hopeful DC tomorrow. Pancreatitis resolved. (2) Nausea and vomiting: Code(s): R11.2 - Nausea with vomiting, unspecified Status: Acute Assessment and Plan: Continue PPI (3) Elevated lipase: Code(s): R74.8 - Abnormal levels of other serum enzymes Status: Acute Assessment and Plan: Continue to monitor lipase (4) Hypertension: Code(s): I10 - Essential (primary) hypertension Status: Acute Assessment and Plan: Continue medications (5) Hyperlipidemia: Code(s): E78.5 - Hyperlipidemia, unspecified Status: Chronic Assessment and Plan: Continue medications (6) Paroxysmal atrial fibrillation: Code(s): I48.0 - Paroxysmal atrial fibrillation Status: Acute Assessment and Plan: Continue medications (7) Ischemic cardiomyopathy: Code(s): I25.5 - Ischemic cardiomyopathy Status: Acute Assessment and Plan: Continue medications (8) Aneurysm of infrarenal abdominal aorta: Code(s): I71.4 - Abdominal aortic aneurysm, without rupture Status: Acute Assessment and Plan: history of pt has 4.5 cm infrarenal abdominal aortic aneurysm without evidence of rupture (9) Pancreatitis: Code(s): K85.90 - Acute pancreatitis without necrosis or infection, unspecified Status: Resolved Assessment and Plan: With fluids and bowel rest pt seen by GI DS: Summary Hospital Course Hospital Course: 60-year-old male with coronary artery disease status post stent, ischemic cardiomyopathy, paroxysmal atrial fibrillation, chronic kidney disease, a stable abdominal aortic aneurysm on imaging today, hypertension, and pancreatitis who presented to the emergency department with complaints of abdominal pain, nausea, and vomiting. Pt pain and nausea better, pt can advance his diet as tolerated. Pt feels depressed because of his ill health. Pancreatitis resolved p is stable for discharge. Time Spent with Patient Time attestation: Total time spent providing and/or coordinating discharge services:40 minutes on day of discharge Exam Narrative: Exam Narrative: General: Moderately ill HEENT: PERRLA Neck: Supple. Respiratory: Lungs are clear to auscultation bilaterally. Cardiovascular: Regular rate and rhythm with S1-S2. Gastrointestinal: Abdomen is soft, nondistended with positive bowel sounds. Skin: Warm and dry. No rash or lesions on limited exam. Extremities: No cyanosis, clubbing, or edema. Radial and pedal pulses intact. Neurological: Alert. Cranial nerves 2-12 are grossly intact. No gross focal deficits to casual conversation. Psychiatric: Appropriate mood. Discharge Plan Discharge Attending physician on discharge: Vida Cox Consulting providers: Delano Remy ; Marques Menchaca ; Cris Sloomon ; Jose Angel Gamboa ; Michael Muniz Discharging Clinician: Vida Cox Anticipated Discharge Date/Time: 11/22/20 14:16 Patient Disposition: Home, Self-Care Activity: as tolerated Diet: bland and low fat Patient Instructions: Antibiotic Form, Apixaban (By mouth), Low Fat Diet (DC) Stand Alone Forms: General Discharge Information Follow-up/Referrals: Delano Remy MD [Physician] - (in 2-3 weeks time ) Jacob Dahl MD [Primary Care Provider] - Discharge Medications: New pantoprazole [Protonix] 20 mg tablet,delayed release (DR/EC) 20 mg PO QAM Qty: 30 RF: 1 Continued atorvastatin 80 mg Tablet 80 mg PO HS RF: 0 carvedilo
== END 2020-11-22 15:00 | disposition home or self-care (01) | DRG 440 ==
LOC: ANHED 13:01 → ANH3MEDSUR 13:39
PROVIDERS: Internal Medicine Gastroenterology; Physician Assistant; Admitting Provider Internal Medicine; Emergency Provider Emergency Medicine; PCP Family Medicine; Visit Provider Family Medicine
DX: K85.90 Acute pancreatitis without necrosis or infection, unspecified (principal); R74.8 Abnormal levels of other serum enzymes; E78.5 Hyperlipidemia, unspecified; I48.0 Paroxysmal atrial fibrillation; I25.10 Atherosclerotic heart disease of native coronary artery without angina pectoris; I12.9 Hypertensive chronic kidney disease with stage 1 through stage 4 chronic kidney disease, or unspecified chronic kidney disease; N18.9 Chronic kidney disease, unspecified; I25.5 Ischemic cardiomyopathy; F32.9 Major depressive disorder, single episode, unspecified; I71.4 Abdominal aortic aneurysm, without rupture; I25.2 Old myocardial infarction; Z79.01 Long term (current) use of anticoagulants; Z79.82 Long term (current) use of aspirin; Z86.010 Personal history of colon polyps; Z87.891 Personal history of nicotine dependence; Z90.49 Acquired absence of other specified parts of digestive tract; Z95.0 Presence of cardiac pacemaker; Z95.5 Presence of coronary angioplasty implant and graft
CPT/HCPCS: 36415; 74177; 76705; 80053; 80076; 80307; 81001; 83690; 83735; 85025; 85027; 96361; 96374; 96375; 96376; 99285; A9270; C9113; G0378; J0131; J1200; J2270; J2405; J2550; J7030; Q9967

== ENCOUNTER 2020-12-30 15:28 | Emergency (ER) | payer OTHER, SELFPAY ==
--- NOTE | ~2020-12-30 | CT_ITS ---
EXAMINATION: CT abdomen pelvis w con DATE: 12/30/2020 18:39 INDICATION: Pancreatitis. TECHNIQUE: Computed tomography (CT) of the abdomen and pelvis was performed with 100 mL Omnipaque 350 intravenous contrast. Automated exposure control and iterative reconstruction technique were employe d. The dose-length product was 710.20 mGy-cm. COMPARISON: CT abdomen and pelvis 11/19/2020 FINDINGS: The visualized portions of the lung bases demonstrate mild atelectasis. A calcified left eric ng nodule is consistent with old granulomatous disease. No pleural effusion. The heart size is normal . No pleural effusion. There are pacer wires in right atrium and right ventricle. No pericardial effu yared. Calcifications in the liver and spleen are consistent with old granulomatous disease. The gallb ladder, pancreas, and adrenal glands are normal. There is cortical thinning of the kidneys. There are cysts in the kidneys measuring up to 11 mm on the right. There is a 4.6 cm fusiform infrarenal aorti c aneurysm. There is prominent fat in the inguinal canals that may be hernias. There are no pathologi chhaya enlarged lymph nodes. There is no free intraperitoneal fluid. There are chronic bilateral L5 pa rs defects with 3 mm anterolisthesis of L5 on S1. There is mild thoracolumbar spondylosis. IMPRESSION: 1. Normal pancreas. 2. 4.6 cm fusiform infrarenal aortic aneurysm, stable from 11/19/2020. Reviewed, dictated and finalized at location A.
[2020-12-30 15:33] VITALS: BP 159/93; PULSE 61; RESP 18; TEMP 36.8; O2SAT 92
--- NOTE | 2020-12-30 16:12 | ED.NAVMDI ---
HPI - Nausea/Vomiting/Diarrhea General Chief complaint: Nausea/Vomiting/Diarrhea Stated complaint: abd pain/n/v/d Time Seen by Provider: 12/30/20 16:06 Source: patient and RN notes reviewed Mode of arrival: EMS Limitations: no limitations History of Present Illness HPI Narrative: Patient 60 years old white male presents with epigastric pain and the frequent vomiting started equipment operat0r. Similar to his previous history of pancreatitis. Patient denies any fever or chills. Patient is telling me this is the third ER visit for the same complaint. Does not have a surgical services coordinator,. History of marijuana use and abuse, last use was yesterday Related Data Home Medications Medication Instructions Recorded Confirmed Eliquis 5 mg PO BID 10/16/20 11/19/20 amiodarone 200 mg PO DAILY 10/16/20 11/19/20 aspirin 81 mg PO DAILY 10/16/20 11/19/20 atorvastatin 80 mg PO HS 10/16/20 11/19/20 carvedilol 12.5 mg PO BID 10/16/20 11/19/20 furosemide 20 mg PO DAILY 10/16/20 11/19/20 Allergies Allergy/AdvReac Type Severity Reaction Status Date / Time No Known Allergies Allergy Unknown Verified 11/19/20 09:56 Review of Systems Review of Systems: Narrative: CONSTITUTIONAL: Denies fever, chills, or sweats. EYES: Denies visual changes, redness, or discharge. ENT: Denies rhinorrhea, congestion, sore throat, or otalgia. CARDIOVASCULAR: Denies chest pain, palpitations, or edema. RESPIRATORY: Denies cough or dyspnea. GASTROINTESTINAL: Denies abdominal pain, nausea, vomiting, or diarrhea. GENITOURINARY: Denies dysuria or hematuria. SKIN: Denies rash or itching. MUSCULOSKELETAL: Denies back pain, joint pain, or myalgia. NEUROLOGIC: Denies headache, numbness, or weakness. PSYCHIATRIC: Denies anxiety or depression. [facility] Past Medical History Medical History Adenomatous colon polyp Aneurysm of infrarenal abdominal aorta Stable aneurysm measuring 4.5 centimeters on 11/21/2020. Coronary artery disease With history of [place] in what sounds like cardiac arrest while on vacation in [place]. He was in a medically induced coma for several weeks and temporarily had a tracheostomy. Depression Hyperlipidemia Hypertension Ischemic cardiomyopathy Ejection fraction reportedly as low as 15%. Patient reports a pacemaker in situ, denies the presence of an ICD. He sees a cavalry officer in [place]. Pancreatitis Paroxysmal atrial fibrillation Surgical History Surgical History History of arthroscopic knee surgery History of cardiac catheterization (~09/2019) Performed in [facility]. History of coronary artery stent placement (~09/2019) Stent x2. History of tracheostomy (~09/2019) Pacemaker Family History Family History Mother Congestive heart failure Father Glaucoma Lip cancer Social History Social History Social History: The patient lives in [place] with his . He has 2 children and is retired from [employer]. He smoked a pack of cigarettes a day for 30 years and quit quite sometime ago. No alcohol abuse. Admits to marijuana use but does not qualify or quantify. He designates his Iveth as his surrogate decision maker and he wishes to be a full code. Smoking packs per day: 1 Smoking cigarettes per day: 20.0 Years smoked: 30 Smoking pack-years: 30.00 Smoking status: Former smoker Alcohol intake: never Substance use: current Substance use type: marijuana Gender identity (if verbalized by the patient): Male Spiritual care concerns: No Exam Narrative: Exam Narrative: General appearance: Well-developed, well-nourished Skin: Normal color Head: Normocephalic, nontraumatic Eyes: Clear conjunctiva ENT: Oropharynx normal, ears normal, nose normal Neck: Supple, nontender Chest and respiratory: Air
[2020-12-30] MEDS: SODIUM CHLORIDE 0.9% IV 1,000 ML 999 ML IV CONT (16:19)
[2020-12-30] MEDS: ONDANSETRON INJ 4 MG/2 ML VIAL IV PUSH ×2 (16:20→19:57)
[2020-12-30] MEDS: HYDROmorphone HCL INJ (*CRX) 1 MG/ML SYR 0.5 MG IV PUSH (16:21)
[2020-12-30 17:29] LABS: Basophils Percent Auto 0.4 % (0.2-1.2); Hematocrit 46.7 % (42.0-52.0); Hemoglobin 14.6 g/dL (14.0-18.0); Immature Granulocyte Absolute 0.03 K/mm3 (0.00-0.031); Immature Granulocyte Percent A 0.4 % (0-0.5); Lymphocytes Absolute Auto 0.68 K/mm3 (0.9-3.2); Mean Corpuscular HGB Conc 31.3 g/dl (32-36); Mean Corpuscular Hemoglobin 28.5 pg (26-34); Monocytes Absolute Auto 0.3 K/mm3 (0.1-0.6); Monocytes Percent Auto 3.6 % (2.6-8.5); Neutrophils Absolute Auto 7.5 K/mm3 (1.3-6.7); Neutrophils Percent Auto 87.6 % (45.5-73.1); Platelet Count Result 182 k/mm3 (150-375); Red Blood Count 5.13 M/mm3 (4.6-6.20); Red Cell Distribution Width 17.5 % (11.5-14.5); White Blood Count 8.6 K/mm3 (4.5-10.0)
[2020-12-30 17:43] LABS: Alanine Aminotransferase 20 U/L (4-50); Albumin Level 4.7 g/dL (3.5-5.1); Alkaline Phosphatase 70 U/L (38-126); Anion Gap 11 mmol/L (8-16); Aspartate Amino Transferase 33 U/L (17-59); Bilirubin,Total 0.8 mg/dL (0.2-1.3); Blood Urea Nitrogen 15 mg/dL (9-20); Calcium 9.2 mg/dL (8.4-10.2); Carbon Dioxide 27 mmol/L (22-30); Chloride 99 mmol/L (98-107); Estimated CRCL calculation 72 ml/min; Estimated Glomerular Filt Rate > 60; Glucose 109 mg/dL (75-110); Lipase 239 U/L (23-300); Potassium 3.7 mmol/L (3.4-5.0); Sodium 137 mmol/L (137-145)
[2020-12-30 18:01] VITALS: BP 119/72; PULSE 62; RESP 18; O2SAT 99
[2020-12-30 18:24] LABS: Add Urine Microscopic? YES; Appearance Urine Clear (Clear); Bilirubin Urine Negative (Negative); Blood Urine Negative (Negative); Color Urine Yellow (Yellow); Glucose Urine UA Negative (Negative); Ketones Urine Negative (Negative); Leukocyte Esterase Ur Negative LEU/UL (Negative); Nitrate Urine Negative (Negative); Protein Urine 1+ mg/dL (Negative); Specific Grav Ur 1.013 (1.001-1.035); Squamous Epithelial Cell Urine Rare /hpf (Few); Urobilinogen Urine Negative mg/dL (<2.0); WBC Urine 0-3 /hpf
--- NOTE | 2020-12-30 19:12 | PC.NURSE ---
Assumed care of pt at this time. Report from MILTON Krishnamurthy.
[2020-12-30 19:58] VITALS: BP 126/78; PULSE 76; RESP 18; O2SAT 99
[2020-12-30 21:03] VITALS: BP 139/83; PULSE 74; O2SAT 92
== END 2020-12-30 21:44 | disposition home or self-care (01) ==
PROVIDERS: Emergency Provider Emergency Medicine; PCP Family Medicine
DX: F12.188 Cannabis abuse with other cannabis-induced disorder (principal); R11.2 Nausea with vomiting, unspecified; I25.2 Old myocardial infarction; F32.9 Major depressive disorder, single episode, unspecified; E78.5 Hyperlipidemia, unspecified
CPT/HCPCS: 36415; 74177; 80053; 81001; 83690; 85025; 96361; 96374; 96375; 96376; 99284; J1170; J2405; J7030; Q9967

== ENCOUNTER 2021-01-12 10:06 | Emergency (ER) | payer OTHER, SELFPAY ==
[2021-01-12] VITALS (8 sets, daily range): BP systolic 130–155; BP diastolic 82–122; PULSE 65–86; RESP 16–25; TEMP 36.5–37.2; O2SAT 98–100
--- NOTE | ~2021-01-12 | CT_ITS ---
EXAMINATION: CT abdomen pelvis w con DATE: 01/12/2021 11:05 INDICATION: Abdominal pain, generalized. Diaphoresis. Nausea and vomiting. TECHNIQUE: Computed tomography (CT) of the abdomen and pelvis was performed with 100 cc Omnipaque 350 intravenous contrast. Automated exposure control and iterative reconstruction technique were employe d. Exam dose: 694.39 mGy-cm total exam DLP. COMPARISON: 12/30/2020 CT abdomen pelvis FINDINGS: The lung bases are clear. Normal heart size. No pericardial or pleural effusion. Small sliding hiatal hernia. Calcified granulomas of the liver and spleen consistent with old granulomatous disease. No hepatic, s plenic, pancreatic or adrenal space-occupying mass lesion. The gallbladder appears unremarkable. No b ile duct or pancreatic duct dilatation. 11 mm right renal cyst. No urinary tract calculus or hydroureteronephrosis. Moderate bladder wall whi ch may be due to underdistention, cystitis or bladder outlet obstruction. Prostate calcifications. Fusiform infrarenal 4.6 cm abdominal aortic aneurysm. No intraperitoneal or retroperitoneal or pelvic mass lesion or adenopathy or ascites. Bilateral fat-containing inguinal hernias. No evidence of appendicitis. No bowel obstruction, bowel wall thickening, pneumatosis or intraperiton eal free air. Bilateral L5 pars interarticularis defects with minimal anterolisthesis at L5-S1 IMPRESSION: Small sliding hiatal hernia 11 mm right renal cyst Fusiform infrarenal 4.6 cm abdominal aortic aneurysm, stable since 12/30/2020 Bilateral L5 pars interarticularis s defects with minimal anterolisthesis at L5-S1 Reviewed, dictated and finalized at [facility]. Reviewed, dictated and finalized at location A. IMPRESSION: Small sliding hiatal hernia 11 mm right renal cyst Fusiform infrarenal 4.6 cm abdominal aortic aneurysm, stable since 12/30/2020 Bilateral L5 pars interarticularis s defects with minimal anterolisthesis at L5 -S1
[2021-01-12 10:23] LABS: Basophils Absolute Auto 0.1 K/mm3 (0.0-0.1); Basophils Percent Auto 0.7 % (0.2-1.2); Eosinophils Percent Auto 0.3 % (0-4.4); Hematocrit 48.1 % (42.0-52.0); Immature Granulocyte Absolute 0.03 K/mm3 (0.00-0.031); Immature Granulocyte Percent A 0.3 % (0-0.5); Lymphocytes Absolute Auto 2.91 K/mm3 (0.9-3.2); Lymphocytes Percent Auto 24.5 % (18.3-44.2); Mean Corpuscular HGB Conc 33.3 g/dl (32-36); Mean Corpuscular Hemoglobin 28.7 pg (26-34); Mean Corpuscular Volume 86.2 fl (80-100); Monocytes Absolute Auto 0.9 K/mm3 (0.1-0.6); Monocytes Percent Auto 7.3 % (2.6-8.5); Neutrophils Percent Auto 66.9 % (45.5-73.1); Platelet Count Result 338 k/mm3 (150-375); Red Blood Count 5.58 M/mm3 (4.6-6.20); Red Cell Distribution Width 16.3 % (11.5-14.5); White Blood Count 11.9 K/mm3 (4.5-10.0)
[2021-01-12] MEDS: MORPHINE SULFATE (*CRX) 4 MG/ML INJ IV PUSH ×2 (10:23→11:40)
[2021-01-12] MEDS: ONDANSETRON INJ 4 MG/2 ML VIAL IV PUSH ×2 (10:23→11:43)
--- NOTE | 2021-01-12 10:39 | ED.ABDPAIN ---
HPI - Abdominal Pain General Chief Complaint: Abdominal Pain Stated Complaint: ABD PAIN Time Seen by Provider: 01/12/21 10:16 Source: patient Mode of arrival: ambulatory Limitations: no limitations History of Present Illness HPI narrative: Patient is a 60-year-old male who presents by EMS with complaints of nausea, vomiting, diaphoresis and right-sided abdominal pain x2 days. Patient reports increasing symptoms this morning. He reports vomiting x4 yesterday. Patient reports a history of pancreatitis and was seen and treated for this a few months ago . Patient also has a history of abdominal aortic aneurysm. Patient reports he smokes cigarettes and marijuana but has not smoked and 1 day. He denies drinking alcohol. He denies chest pain or shortness of breath at this time. Patient reports significant cardiac history with pacemaker and stent x2 as well as GI bleed in the past. Patient diaphoretic and vomiting upon arrival MD elicited complaint: abdominal pain Related Data Home Medications Medication Instructions Recorded Confirmed Eliquis 5 mg PO BID 10/16/20 11/19/20 amiodarone 200 mg PO DAILY 10/16/20 11/19/20 aspirin 81 mg PO DAILY 10/16/20 11/19/20 atorvastatin 80 mg PO HS 10/16/20 11/19/20 carvedilol 12.5 mg PO BID 10/16/20 11/19/20 furosemide 20 mg PO DAILY 10/16/20 11/19/20 Allergies Allergy/AdvReac Type Severity Reaction Status Date / Time No Known Allergies Allergy Unknown Verified 01/12/21 10:09 [facility] Past Medical History Medical History Adenomatous colon polyp Aneurysm of infrarenal abdominal aorta Stable aneurysm measuring 4.5 centimeters on 11/21/2020. Coronary artery disease With history of [place] in what sounds like cardiac arrest while on vacation in [place]. He was in a medically induced coma for several weeks and temporarily had a tracheostomy. Depression Hyperlipidemia Hypertension Ischemic cardiomyopathy Ejection fraction reportedly as low as 15%. Patient reports a pacemaker in situ, denies the presence of an ICD. He sees a associate professor of biblical studies in [place]. Pancreatitis Paroxysmal atrial fibrillation Surgical History Surgical History History of arthroscopic knee surgery History of cardiac catheterization (~09/2019) Performed in [facility]. History of coronary artery stent placement (~09/2019) Stent x2. History of tracheostomy (~09/2019) Pacemaker Family History Family History Mother Congestive heart failure Father Glaucoma Lip cancer Social History Social History Social History: The patient lives in [place] with his . He has 2 children and is retired from [employer]. He smoked a pack of cigarettes a day for 30 years and quit quite sometime ago. No alcohol abuse. Admits to marijuana use but does not qualify or quantify. He designates his Iveth as his surrogate decision maker and he wishes to be a full code. Smoking packs per day: 1 Smoking cigarettes per day: 20.0 Years smoked: 30 Smoking pack-years: 30.00 Smoking status: Former smoker Alcohol intake: never Substance use: current Substance use type: marijuana Gender identity (if verbalized by the patient): Male Spiritual care concerns: No Course Vital Signs Vital signs: Vital Signs Temperature 36.5 C 01/12/21 10:03 Pulse Rate 69 01/12/21 10:03 Respiratory Rate 24 H 01/12/21 10:03 Blood Pressure 155/122 H 01/12/21 10:03 Pulse Oximetry 100 01/12/21 10:03 Temperature 36.5 C 01/12/21 10:03 Pulse Rate 65 01/12/21 13:00 Respiratory Rate 18 01/12/21 13:00 Blood Pressure 145/89 H 01/12/21 13:00 Pulse Oximetry 98 01/12/21 13:00 Reviewed MDM - Abdominal Pain MDM Narrative Medical decision making narrative: Patient has mild leukocytosis, CT ne
[2021-01-12 10:55] LABS: Alanine Aminotransferase 32 U/L (4-50); Albumin Level 5.5 g/dL (3.5-5.1); Alkaline Phosphatase 95 U/L (38-126); Anion Gap 20 mmol/L (8-16); Aspartate Amino Transferase 48 U/L (17-59); Bilirubin,Total 1.4 mg/dL (0.2-1.3); Blood Urea Nitrogen 37 mg/dL (9-20); Calcium 11.1 mg/dL (8.4-10.2); Carbon Dioxide 20 mmol/L (22-30); Chloride 98 mmol/L (98-107); Estimated CRCL calculation 32 ml/min; Estimated Glomerular Filt Rate 30; Glucose 184 mg/dL (75-110); Lipase 101 U/L (23-300); Potassium 4.3 mmol/L (3.4-5.0); Sodium 138 mmol/L (137-145)
[2021-01-12] MEDS: SODIUM CHLORIDE 0.9% IV 1,000 ML 999 ML IV CONT ×2 (11:39→13:00)
[2021-01-12] MEDS: LORazepam INJ (*CRX) 2 MG/ML VIAL 1 MG IV PUSH (13:16)
[2021-01-12] MEDS: FAMOTIDINE 20 MG/2 ML VIAL IV PUSH (13:17)
[2021-01-12] MEDS: DICYCLOMINE HCL INJ 20 MG/2 ML VIAL IM (13:18)
[2021-01-12 16:24] LABS: Add Urine Microscopic? YES; Appearance Urine Clear (Clear); Bilirubin Urine Negative (Negative); Blood Urine Negative (Negative); Color Urine Yellow (Yellow); Glucose Urine UA Negative (Negative); Ketones Urine Negative (Negative); Leukocyte Esterase Ur Negative LEU/UL (Negative); Mucus Urine Rare /lpf; Nitrate Urine Negative (Negative); Protein Urine Negative (Negative); Squamous Epithelial Cell Urine Occasional /hpf (Few); Urobilinogen Urine Negative mg/dL (<2.0); WBC Urine 0-3 /hpf
== END 2021-01-12 16:00 | disposition home or self-care (01) ==
PROVIDERS: Emergency Medicine; Emergency Provider Nurse Practitioner; PCP Family Medicine
DX: R11.2 Nausea with vomiting, unspecified (principal); R10.9 Unspecified abdominal pain; I25.10 Atherosclerotic heart disease of native coronary artery without angina pectoris; E78.5 Hyperlipidemia, unspecified; I10 Essential (primary) hypertension; I25.5 Ischemic cardiomyopathy; I48.0 Paroxysmal atrial fibrillation; Z86.010 Personal history of colon polyps; Z95.5 Presence of coronary angioplasty implant and graft; Z95.0 Presence of cardiac pacemaker; Z79.01 Long term (current) use of anticoagulants; Z79.82 Long term (current) use of aspirin; Z87.891 Personal history of nicotine dependence; K44.9 Diaphragmatic hernia without obstruction or gangrene; I71.4 Abdominal aortic aneurysm, without rupture
CPT/HCPCS: 36415; 74177; 80053; 81001; 83690; 85025; 96361; 96372; 96374; 96375; 96376; 99284; J0500; J2060; J2270; J2405; J3010; J7030; Q9967

== ENCOUNTER 2021-01-16 18:03 | Inpatient (IN) | payer OTHER, SELFPAY ==
--- NOTE | ~2021-01-16 | US_ITS ---
EXAMINATION: US soft tissue LE RT DATE: 01/20/2021 10:29 INDICATION: Soft tissue lump post fall at the medial right knee TECHNIQUE: Multiple grayscale and Doppler ultrasound images of the region of concern at the medial ri ght knee were obtained. COMPARISON: None FINDINGS/IMPRESSION: At the region of concern is a 5.3 x 3.4 x 2.1 cm complex fluid collection in the subcutaneous fat wit h lobular margins and subtle internal reticular pattern without internal vascular flow on color Doppl er most consistent with an organizing hematoma. Reviewed, dictated and finalized at location A.
--- NOTE | ~2021-01-16 | CT_ITS ---
EXAMINATION: CT abdomen pelvis wo con EXAM DATE: 01/16/2021 23:34 INDICATION: Abdominal pain, N/V, leukocytosis. TECHNIQUE: Spiral CT of the abdomen and pelvis was performed without contrast. Axial, coronal and s agittal images of the abdomen and pelvis were reviewed. The dose-length product (DLP) for this exami nation was 832.68 mGy-cm. The exposure was tailored according to patient size (auto mA exposure cont rol), and iterative reconstruction (ASIR) was used as additional dose reduction technique. Comparison is made to prior examination from 01/12/2021. FINDINGS: Liver and splenic calcifications, granulomata. Bilateral adrenal hyperplasia or small adeno mas. The liver, spleen, adrenal glands and pancreas are otherwise unremarkable. Gallbladder is unrem arkable. No biliary obstruction. There is no nephrolithiasis or hydronephrosis. The prostate is u nremarkable. Small bilateral inguinal fat-containing hernias. The bladder is unremarkable. There is no retroperitoneal or pelvic lymphadenopathy. Fusiform aneurysm of the infrarenal abdominal aorta up to 4.7 cm. There is mild to moderate scattered arteriosclerotic disease. There are no findings to suggest appendicitis. There is small sliding gastroesophageal hiatal hernia . There is expected amount of colonic stool. No free intraperitoneal gas. The heart is normal in size. There are no pericardial or pleural effusions. Pacemaker/AICD leads. Left lower lobe granulom a. There are no osteoblastic or osteolytic lesions identified. There is chronic bilateral L5 spondy lolysis. IMPRESSION: 1. No acute intra-abdominal findings. 2. Adrenal hyperplasia or adenomas. 3. Small inguinal fat-containing hernias. 4. Infrarenal 4.7 cm aneurysm. 5. Chronic L5 spondylolysis. Reviewed, dictated and finalized at location G.
--- NOTE | ~2021-01-16 | XR_ITS ---
EXAMINATION: XR abdomen/kub 1V EXAM DATE: 01/18/2021 11:24 INDICATION: Vomiting and leukocytosis. TECHNIQUE: Frontal projection of the upper abdomen, frontal projection lower abdomen/pelvis for inter pretation. Correlation made to CT scan 01/16/2021. FINDINGS: There is expected amount of colonic stool and gas. No small bowel dilation, nonobstructiv e bowel gas pattern. There are no suspicious calcifications identified. There is no organomegaly suspected. The bones are unremarkable. Pacemaker/AICD leads. IMPRESSION: Unremarkable abdomen x-ray exam. Reviewed, dictated and finalized at location B.
--- NOTE | ~2021-01-16 | CT_ITS ---
EXAMINATION: CT abdomen pelvis wo con DATE: 01/18/2021 12:32 INDICATION: Generalized abdominal pain. Nausea and vomiting. TECHNIQUE: Computed tomography (CT) of the abdomen and pelvis was performed without intravenous contr ast. Automated exposure control and iterative reconstruction technique were employed. The dose-length product was 593.57 mGy-cm. COMPARISON: CT abdomen and pelvis 01/16/2021 FINDINGS: The visualized portions of the lung bases demonstrate minimal atelectasis. A calcified left lung nodule is consistent with old granulomatous disease. No pleural effusion. The heart demonstrate s left ventricular enlargement. No pericardial effusion. There are pacer wires in right ischium and r ight ventricle. There is a small sliding hiatal hernia. Calcifications in the liver and spleen are co nsistent with old granulomatous disease. The gallbladder is normal in size. The pancreas is normal. T here is thickening of the adrenal glands, likely benign. The kidneys are normal. There is no urolithi asis. There is a 4.7 cm fusiform aneurysm of infrarenal aorta. There are bilateral inguinal hernias c ontaining fat. There are no dilated loops of bowel. The appendix is not visualized. There are no path ologically enlarged lymph nodes. There is no free intraperitoneal fluid. There are chronic bilateral L5 pars defects. There is 3 mm anterolisthesis of L5 on S1. There is mild thoracolumbar spondylosis. IMPRESSION: 1. Small sliding hiatal hernia. 2. Stable 4.7 cm fusiform aneurysm of infrarenal aorta. 3. Bilateral inguinal hernias containing fat. Reviewed, dictated and finalized at location A.
[2021-01-16 18:17] VITALS: BP 139/117; PULSE 106; RESP 22; TEMP 36.3; O2SAT 100
[2021-01-16 18:24] VITALS: BP 125/99; PULSE 99
--- NOTE | 2021-01-16 22:36 | ECG_ITS ---
Measurements Intervals [place] Rate: 82 P: 44 IN: 180 QRS: -61 QRSD: 135 T: 24 QT: 432 QTc: 505 Interpretive Statements SINUS RHYTHM WITH SINUS ARRHYTHMIA POSSIBLE LEFT ATRIAL ENLARGEMENT IVCD, FEATURES OF BOTH RBBB/LBBB POSSIBLE LEFT VENTRICULAR HYPERTROPHY INFERIOR INFARCT, AGE INDETERMINATE ABNORMAL ECG Electronically Signed On 01-17-2021 6:37:25 CDT by Prince Boyd D.O.
--- NOTE | 2021-01-16 22:37 | ED.NAVMDI ---
HPI - Nausea/Vomiting/Diarrhea General Chief complaint: Nausea/Vomiting/Diarrhea <ATTILA Edwards Last Filed: 01/17/21 01:41> Stated complaint: Vomiting <ATTILA Edwards Last Filed: 01/17/21 01:41> Time Seen by Provider: 01/16/21 22:21 <ATTILA Edwards Last Filed: 01/17/21 01:41> Source: patient <ATTILA Edwards Last Filed: 01/17/21 01:41> Mode of arrival: EMS <ATTILA Edwards Last Filed: 01/17/21 01:41> Limitations: no limitations <ATTILA Edwards Last Filed: 01/17/21 01:41> History of Present Illness HPI Narrative: This is a 60-year-old male that presents the emergency department for nausea and vomiting present since this morning. Associated with diffuse abdominal pain. Reports the pain makes it feel like he is having difficulty breathing. Reports multiple similar episodes in the past. He was seen here for this 4 days ago. Denies fever, chest pain, diarrhea, or hematochezia. <ATTILA Edwards Last Filed: 01/17/21 01:41> Related Data Home medications: Home Medications Medication Instructions Recorded Confirmed Eliquis 5 mg PO BID 10/16/20 01/17/21 amiodarone 200 mg PO DAILY 10/16/20 01/17/21 aspirin 81 mg PO DAILY 10/16/20 01/17/21 atorvastatin 80 mg PO HS 10/16/20 01/17/21 carvedilol 12.5 mg PO BID 10/16/20 01/17/21 furosemide 20 mg PO DAILY 10/16/20 01/17/21 calcium carbonate [Tums E-X] 750 tablet PO QID PRN 01/17/21 01/17/21 escitalopram oxalate 10 mg PO DAILY 01/17/21 01/17/21 <ATTILA Edwards Last Filed: 01/17/21 01:41> Allergies/Adverse reactions: Allergies Allergy/AdvReac Type Severity Reaction Status Date / Time No Known Allergies Allergy Unknown Verified 01/12/21 10:09 <Kaylan Rivera PA-C - Last Filed: 01/17/21 01:41> Review of Systems Review of Systems: Narrative: CONSTITUTIONAL: Denies fever CARDIOVASCULAR: Denies chest pain RESPIRATORY: Reports dyspnea. GASTROINTESTINAL: Reports abdominal pain, nausea, vomiting. Denies diarrhea. GENITOURINARY: Denies dysuria <ATTILA Edwards Last Filed: 01/17/21 01:41> All systems reviewed & are unremarkable except as noted in HPI and below <ATTILA Edwards Last Filed: 01/17/21 01:41> [facility] Past Medical History Medical History: Medical History Adenomatous colon polyp Aneurysm of infrarenal abdominal aorta Stable aneurysm measuring 4.5 centimeters on 11/21/2020. Coronary artery disease With history of [place] in what sounds like cardiac arrest while on vacation in [place]. He was in a medically induced coma for several weeks and temporarily had a tracheostomy. Depression Hyperlipidemia Hypertension Ischemic cardiomyopathy Ejection fraction reportedly as low as 15%. Patient reports a pacemaker in situ, denies the presence of an ICD. He sees a mobile ui designer in [place]. Pancreatitis Paroxysmal atrial fibrillation <ATTILA Edwards Last Filed: 01/17/21 01:41> Surgical History Surgical History: Surgical History History of arthroscopic knee surgery History of cardiac catheterization (~09/2019) Performed in [facility]. History of coronary artery stent placement (~09/2019) Stent x2. History of tracheostomy (~09/2019) Pacemaker <ATTILA Edwards Last Filed: 01/17/21 01:41> Family History Family History: Family History Mother Congestive heart failure Father Glaucoma Lip cancer <ATTILA Edwards Last Filed: 01/17/21 01:41> Social History Social History: Social History Social History: The patient lives in [place] with his . He has 2 children and is retired from [employer]. He smoked a pack of cigarettes a day for 30 years and quit quite sometime ago.
[2021-01-16 22:43] LABS: Basophils Percent Auto 0.3 % (0.2-1.2); Hematocrit 53.6 % (42.0-52.0); Hemoglobin 17.8 g/dL (14.0-18.0); Immature Granulocyte Absolute 0.08 K/mm3 (0.00-0.031); Immature Granulocyte Percent A 0.6 % (0-0.5); Lymphocytes Absolute Auto 1.42 K/mm3 (0.9-3.2); Lymphocytes Percent Auto 9.8 % (18.3-44.2); Mean Corpuscular HGB Conc 33.2 g/dl (32-36); Mean Corpuscular Volume 87.3 fl (80-100); Mean Platelet Volume 11.2 fl (7.4-10.4); Monocytes Absolute Auto 0.8 K/mm3 (0.1-0.6); Monocytes Percent Auto 5.6 % (2.6-8.5); Neutrophils Absolute Auto 12.1 K/mm3 (1.3-6.7); Neutrophils Percent Auto 83.7 % (45.5-73.1); Platelet Count Result 349 k/mm3 (150-375); Red Blood Count 6.14 M/mm3 (4.6-6.20); White Blood Count 14.5 K/mm3 (4.5-10.0)
[2021-01-16] MEDS: ONDANSETRON INJ 4 MG/2 ML VIAL IV PUSH (22:52)
[2021-01-16] MEDS: PANTOPRAZOLE SODIUM IV 40 MG VIAL IV PUSH (22:52)
[2021-01-16] MEDS: SODIUM CHLORIDE 0.9% IV 1,000 ML 999 ML IV CONT (22:53)
[2021-01-16] MEDS: MORPHINE SULFATE (*CRX) 4 MG/ML INJ IV PUSH (22:53)
[2021-01-16 23:03] LABS: Alanine Aminotransferase 49 U/L (4-50); Albumin Level 5.7 g/dL (3.5-5.1); Alkaline Phosphatase 113 U/L (38-126); Anion Gap 24 mmol/L (8-16); Aspartate Amino Transferase 53 U/L (17-59); Bilirubin,Total 1.4 mg/dL (0.2-1.3); Blood Urea Nitrogen 47 mg/dL (9-20); Calcium 11.2 mg/dL (8.4-10.2); Carbon Dioxide 19 mmol/L (22-30); Chloride 93 mmol/L (98-107); Estimated CRCL calculation 21 ml/min; Estimated Glomerular Filt Rate 19; Glucose 159 mg/dL (75-110); Lipase 102 U/L (23-300); Potassium 3.3 mmol/L (3.4-5.0); Sodium 136 mmol/L (137-145)
[2021-01-16 23:17] VITALS: PULSE 80; RESP 20; O2SAT 100
[2021-01-16 23:28] LABS: Hemoglobin A1C 5.7 % (<5.7)
[2021-01-16 23:40] LABS: Add Urine Microscopic? YES; Appearance Urine Turbid (Clear); Bacteria Urine Trace /hpf; Bilirubin Urine Negative (Negative); Blood Urine Negative (Negative); Color Urine Amber (Yellow); Glucose Urine UA Negative (Negative); Ketones Urine Negative (Negative); Leukocyte Esterase Ur 2+ LEU/UL (Negative); Mucus Urine Rare /lpf; Nitrate Urine Negative (Negative); Protein Urine 2+ mg/dL (Negative); Specific Grav Ur 1.017 (1.001-1.035); Squamous Epithelial Cell Urine Many /hpf (Few); Urobilinogen Urine Negative mg/dL (<2.0); WBC Clumps Urine Present /HPF; WBC Urine >75 /hpf
[2021-01-17] VITALS (8 sets, daily range): BP systolic 90–154; BP diastolic 50–104; PULSE 53–94; RESP 16–20; TEMP 35.9; O2SAT 95–100; BMI 27.4
--- NOTE | 2021-01-17 | ECHO_ITS ---
Patient Info Name: Low Sarmiento Age: 60 years : 1960 Gender: Male Ht: 70 in Wt: 191 lbs BSA: 2.08 m2 HR: 84 bpm BP: 124 / 71 mmHg Heart Rhythm: Sinus Rhythm Technical Quality: Good Exam Date: 01/17/2021 9:29 AM Exam Location: [facility] Pulmonary Patient Status: Outpatient Admit Date: 01/17/2021 Staff Ordering Physician: Bar Neri MD Rounding Machine Tender: ALBERTO Attending Provider: Marlyn Smith DO Exam Type: CA echo doppler color flow Study Info Indications I43 - Cardiomyopathy in diseases classified elsewhere Complete two-dimensional, color flow and Doppler transthoracic echocardiogram is performed. Summary 1. Complete two-dimensional, color flow and Doppler transthoracic echocardiogram is performed. 2. Left ventricular chamber dimension is severely enlarged. 3. Left ventricular systolic function is severely reduced, estimated at 20-25%. 4. Linear artifact in right ventricle suggestive of catheter(s), pacemaker lead(s), or ICD lead(s). 5. No significant valve dysfunction. Left Ventricle Left ventricular chamber dimension is severely enlarged. Left ventricular systolic function is severely reduced, estimated at 20-25%. The left ventricular diastolic function is grade I diastolic dysfunction. Right Ventricle Right ventricular chamber dimension is normal. Linear artifact in right ventricle suggestive of catheter(s), pacemaker lead(s), or ICD lead(s). Left Atria Left atrial chamber dimension is mildly enlarged. Right Atria Right atrial chamber dimension is mildly enlarged. Linear artifact in the right atrium suggestive of catheter(s), pacemaker lead(s), or ICD lead(s). Aortic Valve The aortic valve is normal. Pulmonic Valve The pulmonic valve is not well visualized. Mitral Valve The mitral valve has normal leaflets. There is trace mitral valve regurgitation. Tricuspid Valve The tricuspid valve leaflets are normal. Pericardium/Pleural The pericardium appears normal. Aorta The aortic root size at the sinus of Valsalva is normal. Left Ventricular Outflow Tract Name Value Normal LVOT 2D LVOT Diameter 2.7 cm Pulmonic Valve Name Value Normal PV Doppler PV Peak Gradient 4 mmHg Mitral Valve Name Value Normal MV Doppler MV Decel [place] 88 cm/s2 MV PHT 126 ms MV Area (PHT) 1.7 cm2 4.0-5.0 MV Diastolic Function MV E Peak Velocity 38 cm/s MV A Peak Velocity 106 cm/s MV E/A 0.4 MV
[2021-01-17] MEDS: HYDROmorphone HCL INJ (*CRX) 1 MG/ML SYR 0.5 MG IV PUSH (00:02)
[2021-01-17] MEDS: SODIUM CHLORIDE 0.9% IV 1,000 ML 999 ML IV CONT (01:16)
[2021-01-17] MEDS: LORazepam INJ (*CRX) 2 MG/ML VIAL 1 MG IV PUSH (01:16)
[2021-01-17] MEDS: POTASSIUM CHLORIDE 20 MEQ PACKET (FOR LIQUID) 40 MEQ PO (02:31)
[2021-01-17] MEDS: SODIUM CHLORIDE 0.9% IV 1,000 ML 150 ML IV CONT (03:58)
--- NOTE | 2021-01-17 06:05 | ADMGEN ---
This patient, Low Sarmiento, was admitted to Medical Room 342-01. Patient/family oriented to hospital policies and general routines including ID bracelet, bed and alarms, visiting hours, pain management, procedures, bathroom and other care routines, personal items, smoking policy, room service/diet, and visiting hours. Information on how to activate the Rapid Response Team has been discussed. Patient/Family are encouraged to report perceived risks to care and to ask questions if they do not understand what they are told or what they should do.
--- NOTE | 2021-01-17 08:36 | PM.IMHP ---
H&P: HPI History of Present Illness Date/Time: 01/17/21 08:36 Chief Complaint: Abdominal pain nausea vomiting Narrative: This is a 60-year-old male that presents the emergency department for abdominal pain in the lower abdomen and nausea vomiting that started about a week ago. Patient denies any fever or chills. He had similar multiple episodes in the past with most of the workup unrevealing except for 1 episode of pancreatitis early this year. He also had a EGD and colonoscopy which was unremarkable. He does have about 4.5 cm abdominal aortic aneurysm infrarenal that was detected on CT scan which has been stable. He denies any diarrhea or hematochezia. He does report smoking marijuana on a regular basis however denies any alcohol Use. He has also noticed low urine output since past 2-3 days with darker colored urine. Review of Systems Review of Systems: Narrative: - CONSTITUTIONAL: Denies weight loss, fever and chills. - HEENT: Denies changes in vision and hearing - RESPIRATORY: Denies SOB and cough. - CV: Denies palpitations and CP. - GI: reports abdominal pain, nausea, vomiting and denies diarrhea. - : Denies dysuria and urinary frequency. reports decreased urine output - MSK: Denies myalgia and joint pain. - SKIN: Denies rash and pruritus. - NEUROLOGICAL: Denies headache and syncope. - PSYCHIATRIC: Denies recent changes in mood. Denies anxiety and depression. All systems reviewed & are unremarkable except as noted in HPI and below Constitutional: Constitutional: Reports fatigue and Reports weakness Neurologic: Reports weakness Endocrine: Endocrine: Reports fatigue PMFSH Past Medical History Medical History Adenomatous colon polyp Aneurysm of infrarenal abdominal aorta Stable aneurysm measuring 4.5 centimeters on 11/21/2020. Coronary artery disease With history of [place] in what sounds like cardiac arrest while on vacation in [place]. He was in a medically induced coma for several weeks and temporarily had a tracheostomy. Depression Hyperlipidemia Hypertension Ischemic cardiomyopathy Ejection fraction reportedly as low as 15%. Patient reports a pacemaker in situ, denies the presence of an ICD. He sees a voltage inspector in [place]. Pancreatitis Paroxysmal atrial fibrillation Surgical History Surgical History History of arthroscopic knee surgery History of cardiac catheterization (~09/2019) Performed in [facility]. History of coronary artery stent placement (~09/2019) Stent x2. History of tracheostomy (~09/2019) Pacemaker Family History Family History Mother Congestive heart failure Father Glaucoma Lip cancer Social History Social History Social History: The patient lives in [place] with his . He has 2 children and is retired from [employer]. He smoked a pack of cigarettes a day for 30 years and quit quite sometime ago. No alcohol abuse. Admits to marijuana use but does not qualify or quantify. He designates his Iveth as his surrogate decision maker and he wishes to be a full code. Smoking packs per day: 1 Smoking cigarettes per day: 20.0 Years smoked: 20 Smoking pack-years: 20.00 Smoking status: Current some day smoker Tobacco type: cigarettes Second hand tobacco smoke exposure: Yes Alcohol intake: never Substance use: never Substance use type: marijuana Gender identity (if verbalized by the patient): Male Spiritual care concerns: No Meds Home Medications and Allergies Home Medications Medication Instructions Recorded Confirmed Type Eliquis 5 mg PO BID 10/16/20 01/17/21 History amiodarone 200 mg PO DAILY 10/16/20 01/17/21 History aspirin 81 mg PO DAILY 10/16/20 01/17/21 History atorvastatin 80 mg PO HS 10/16/20
[2021-01-17] MEDS: ASPIRIN 81 MG CHEWABLE TABLET PO (09:19)
[2021-01-17] MEDS: carvediloL 12.5 MG TABLET PO (09:19)
[2021-01-17] MEDS: ESCITALOPRAM OXALATE 10 MG TABLET PO (09:19)
[2021-01-17] MEDS: AMIODARONE HCL 200 MG TABLET PO (09:19)
[2021-01-17] MEDS: APIXABAN 5 MG TABLET PO ×2 (09:19→17:03)
[2021-01-17 09:23] LABS: Basophils Percent Auto 0.2 % (0.2-1.2); Eosinophils Percent Auto 0.2 % (0-4.4); Hematocrit 42.8 % (42.0-52.0); Immature Granulocyte Absolute 0.04 K/mm3 (0.00-0.031); Immature Granulocyte Percent A 0.3 % (0-0.5); Lymphocytes Percent Auto 14.7 % (18.3-44.2); Mean Corpuscular HGB Conc 32.7 g/dl (32-36); Mean Corpuscular Hemoglobin 28.9 pg (26-34); Mean Corpuscular Volume 88.4 fl (80-100); Mean Platelet Volume 10.9 fl (7.4-10.4); Monocytes Absolute Auto 0.9 K/mm3 (0.1-0.6); Monocytes Percent Auto 7.3 % (2.6-8.5); Neutrophils Percent Auto 77.3 % (45.5-73.1); Platelet Count Result 250 k/mm3 (150-375); Red Blood Count 4.84 M/mm3 (4.6-6.20); Red Cell Distribution Width 15.9 % (11.5-14.5); White Blood Count 12.9 K/mm3 (4.5-10.0)
[2021-01-17 09:48] LABS: Anion Gap 13 mmol/L (8-16); Blood Urea Nitrogen 47 mg/dL (9-20); Calcium 8.7 mg/dL (8.4-10.2); Carbon Dioxide 24 mmol/L (22-30); Chloride 99 mmol/L (98-107); Creatine Kinase 93 U/L (55-170); Estimated CRCL calculation 28 ml/min; Estimated Glomerular Filt Rate 25; Glucose 104 mg/dL (75-110); Potassium 3.6 mmol/L (3.4-5.0); Sodium 136 mmol/L (137-145)
[2021-01-17 15:31] LABS: Creatinine Urine 169.3 mg/dL; Urea Random Urine 1089 MG/DL
[2021-01-17 15:54] LABS: Sodium Urine Random 11 meq/L
--- NOTE | 2021-01-17 16:24 | PM.CNNEP ---
Assessment and Plan Assessment and plan (1) ANA LAURA (acute kidney injury): Code(s): N17.9 - Acute kidney failure, unspecified Status: Acute Assessment and Plan: presumably due to prerenal factors, diureics, and UTI creatinine already improved with IVFs urine electrolytes consistent with prerenal azotemia urine eosinophils negative CT scan of abdomen without obstruction follow supportive therapy (2) Urinary tract infection: Qualifiers: Hematuria presence: without hematuria Urinary tract infection type: acute cystitis Qualified Code(s): N30.00 - Acute cystitis without hematuria Code(s): N39.0 - Urinary tract infection, site not specified Status: Acute Assessment and Plan: continue antibiotics follow urine culture (3) Hypokalemia: Code(s): E87.6 - Hypokalemia Status: Acute Assessment and Plan: related to nausea and vomiting replete as needed follow magnesium Will continue to follow. History of Present Illness Reason for Consult Consult date: 01/17/21 Reason for consult: acute renal failure Chief Complaint Chief complaint: ANA LAURA, UTI, hypokalemia History of Present Illness Narrative: The patient is a 60-year-old male with a past medical history as outlined below who presented to [facility] ER with abdominal pain. The patient states that he has been having abdominal pain in association with nausea and vomiting for about the last week without any significant improvement. He localized the abdominal pain to his lower abdomen and denies any other symptoms with regard to fevers or chills. He tells me that he has had episodes like this in the past with an extensive workup with only 1 instance of reported pancreatitis. He gave no other history with regard to melena, diarrhea, hematochezia, or hematemesis. He does report using marijuana on a regular basis as well as decreased urine output in the past few days as well. Workup and evaluation emergency room demonstrated the patient to be hemodynamically stable and routine blood test demonstrated a significant decline in his kidney function as noted by elevated BUN and creatinine. His urinalysis was highly suggestive of a urinary tract infection and a CT scan of the abdomen pelvis did not show any other intra-abdominal pathology. Appropriate cultures were obtained, he was started IV antibiotics, and start aggressive IV fluid resuscitation with admission to the hospital. Since his admission, his kidney function is actually improved to some degree and he otherwise feels somewhat better as well. He still states he has issues and problems with nausea and vomiting but is not as bad as it was prior to admission to the hospital. Renal consultation was requested due to his acute kidney injury/acute renal failure. For review of his records, the patient has no history with regard to renal insufficiency/ chronic kidney disease. He voices never being told that he ever had kidney disease either. As already mentioned, he did mention decreased urine output in the last 2 or 3 days prior to his presentation to the emergency room with the assumption be that this was a signs/manifestation of volume depletion / dehydration. It should be noted that he is on diuretic therapy which may have also worsened / precipitated his renal dysfunction. Currently, at the time my evaluation, the patient does not appear to be in acute distress. Review of Systems Review of Systems: Narrative: As per HPI. [facility] Past Medical History Medical History (Updated 01/20/21 @ 15:25 by Harvey Park MD) Adenomatous colon polyp Aneurysm of infrarenal abdominal aorta Stable aneurysm measuring 4.5 centimeters on 11/21/2020. Coronary artery disease With history of [place] in what sounds like cardiac arrest while on vacation in [place]. He was in a medically induced coma for several weeks and temporarily had a tracheostomy. Cyclic vom
--- NOTE | 2021-01-17 16:37 | PC.NURSE ---
Bladder scan done and it showed 40mls.
[2021-01-17] MEDS: SODIUM CHLORIDE 0.9% IV 1,000 ML 75 ML IV CONT (19:46)
[2021-01-17] MEDS: ATORVASTATIN 40 MG TABLET 80 MG PO (20:00)
[2021-01-18 06:00] VITALS: BP 119/65; PULSE 73; RESP 16; TEMP 36.8; O2SAT 98
[2021-01-18 07:19] VITALS: BP 122/61; PULSE 76; RESP 14; TEMP 36.4; O2SAT 97
--- NOTE | 2021-01-18 08:30 | PM.IMPN ---
Progress Note: A&P Assessment and Plan (1) ANA LAURA (acute kidney injury): Code(s): N17.9 - Acute kidney failure, unspecified Status: Acute (2) Acute dehydration: Code(s): E86.0 - Dehydration Status: Acute (3) Acute hypokalemia: Code(s): E87.6 - Hypokalemia Status: Acute (4) Urinary tract infection: Qualifiers: Hematuria presence: without hematuria Urinary tract infection type: acute cystitis Qualified Code(s): N30.00 - Acute cystitis without hematuria Code(s): N39.0 - Urinary tract infection, site not specified Status: Acute (5) Hypertension: Code(s): I10 - Essential (primary) hypertension Status: Acute (6) Ischemic cardiomyopathy: Code(s): I25.5 - Ischemic cardiomyopathy Status: Acute (7) Paroxysmal atrial fibrillation: Code(s): I48.0 - Paroxysmal atrial fibrillation Status: Acute (8) Aneurysm of infrarenal abdominal aorta: Code(s): I71.4 - Abdominal aortic aneurysm, without rupture Status: Acute (9) Abdominal pain: Code(s): R10.9 - Unspecified abdominal pain Status: Acute (10) Nausea and vomiting: Code(s): R11.2 - Nausea with vomiting, unspecified Status: Acute Additional Plan abdominal pain /nausea/vomiting Acute kidney injury admission creatinine of 3.3 likely from dehydration and hypovolemia baseline creatinine of 1 Urinary tract infection Hypokalemia 4.5 cm infrarenal abdominal aortic aneurysm without evidence of rupture History of pancreatitis History of ischemic cardiomyopathy Status post pacemaker placement History of cardiac arrest needing tracheostomy in the past September 2019 Proximal atrial fibrillation Coronary artery disease status post stents 09/2019 Hypertension Hyperlipidemia Depression Colon polyps EGD/colonoscopy 10/18/2020: Normal EGD, colon polyps History of cholecystectomy Marijuana use Plan: IV hydration 150 cc an hour Rocephin Strict I/ O Zofran p.r.n. IV Analgesic Hold Lasix Resume amiodarone aspirin atorvastatin and carvedilol along with Eliquis and escitalopram Nephrology consultation SPEP/UPEP Full code status DVT prophylaxis Eliquis 01/18: Creatinine continues to improve down to 1.5 on normal saline at 75 cc an hour will advance his diet as tolerated. all with sudden worsening of abdominal pain started on morphine IV p.r.n. x-ray abdomen was unremarkable followed by CT abdomen which did not show any acute abnormality. Lipase level and hepatic panel came back negative. UTI with Enterococcus will change his antibiotic to ampicillin Subjective Date/time seen: 01/18/21 08:30 Interval history: Patient was doing well this morning when I saw however later this afternoon started having multiple episodes of emesis with severe abdominal pain. X-ray abdomen and a CT scan was done to further evaluate his abdominal pain Review of Systems Review of Systems: All systems reviewed & are unremarkable except as noted in HPI and below Exam Narrative: Exam Narrative: GENERAL: The patient is well developed, not in acute distress HEENT: Nonicteric sclerae, PERRLA, EOMI. Oropharynx clear. Moist mucous membranes. Conjunctivae appear well perfused. CHEST: Chest wall is nontender. HEART: Regular rate and rhythm without murmur, rubs, or gallops LUNGS: Clear to auscultation bilaterally. no respiratory distress ABDOMEN: Soft, positive bowel sounds, nontender no guarding or rigidity, no organomegaly. SKIN: No rash, no excessive bruising, petechiae, or purpura. NEUROLOGIC: Cranial nerves II-XII intact, alert and oriented x 3, no gross motor deficits EXTREMITIES: no edema, cyanosis or clubbing Objective Data Vital Signs Vital Signs: Vital Signs - 24 hr 01/17/21 09:19 01/17/21 15:46 01/17/21 21:46 Temperature 96.7 F L 96.7 F L Pulse Rate 82 68 69 Respiratory Rate 16 16 Blood Pressure 90/50 L 120/50 L Pulse Oximetry 95 99 01/18/21 06:00 01/18/21
[2021-01-18 09:07] LABS: Basophils Percent Auto 0.5 % (0.2-1.2); Eosinophils Percent Auto 0.4 % (0-4.4); Hematocrit 43.1 % (42.0-52.0); Hemoglobin 13.5 g/dL (14.0-18.0); Immature Granulocyte Absolute 0.02 K/mm3 (0.00-0.031); Immature Granulocyte Percent A 0.3 % (0-0.5); Lymphocytes Absolute Auto 1.78 K/mm3 (0.9-3.2); Lymphocytes Percent Auto 22.3 % (18.3-44.2); Mean Corpuscular HGB Conc 31.3 g/dl (32-36); Mean Corpuscular Hemoglobin 29.2 pg (26-34); Mean Corpuscular Volume 93.1 fl (80-100); Mean Platelet Volume 11.2 fl (7.4-10.4); Monocytes Absolute Auto 0.5 K/mm3 (0.1-0.6); Monocytes Percent Auto 6.3 % (2.6-8.5); Neutrophils Absolute Auto 5.6 K/mm3 (1.3-6.7); Neutrophils Percent Auto 70.2 % (45.5-73.1); Platelet Count Result 210 k/mm3 (150-375); Red Blood Count 4.63 M/mm3 (4.6-6.20); Red Cell Distribution Width 16.5 % (11.5-14.5)
[2021-01-18 09:25] LABS: Anion Gap 11 mmol/L (8-16); Blood Urea Nitrogen 32 mg/dL (9-20); Calcium 8.7 mg/dL (8.4-10.2); Carbon Dioxide 25 mmol/L (22-30); Chloride 102 mmol/L (98-107); Estimated CRCL calculation 48 ml/min; Estimated Glomerular Filt Rate 47; Glucose 114 mg/dL (75-110); Potassium 3.7 mmol/L (3.4-5.0); Sodium 138 mmol/L (137-145)
[2021-01-18] MEDS: ONDANSETRON INJ 4 MG/2 ML VIAL IV PUSH ×4 (09:44→22:55)
[2021-01-18] MEDS: MORPHINE SULFATE (*CRX) 2 MG/ML INJ IV PUSH ×2 (10:28→14:00)
[2021-01-18] MEDS: SODIUM CHLORIDE 0.9% IV 1,000 ML 75 ML IV CONT (10:32)
[2021-01-18 12:10] LABS: Lipase 92 U/L (23-300)
[2021-01-18] MEDS: AMPICILLIN 1 GM/NS 50 ML 1 GM/50 ML BAG IVPB ×3 (12:15→23:00)
[2021-01-18 12:20] LABS: Alanine Aminotransferase 28 U/L (4-50); Albumin Level 4.1 g/dL (3.5-5.1); Alkaline Phosphatase 59 U/L (38-126); Aspartate Amino Transferase 38 U/L (17-59); Bilirubin,Total 0.4 mg/dL (0.2-1.3)
--- NOTE | 2021-01-18 12:21 | PC.NURSE ---
pt to CT via wheelchair
[2021-01-18] MEDS: METOCLOPRAMIDE HCL INJ 10 MG/2 ML VIAL 5 MG IV PUSH (13:00)
--- NOTE | 2021-01-18 13:23 | PC.NURSE ---
On 01/18/21, the student, [Elizabeth Almeida], provided care and completed [facility] documentation on this patient. I have reviewed the student's documentation and agree with the findings.
[2021-01-18 14:00] VITALS: BP 177/98; PULSE 84; RESP 22; TEMP 36.6; O2SAT 100
--- NOTE | 2021-01-18 15:42 | P.PNNP_ITS ---
Progress Note: A&P Assessment and Plan (1) ANA LAURA (acute kidney injury): Code(s): N17.9 - Acute kidney failure, unspecified Status: Acute Assessment and Plan: * presumably due to prerenal factors, diureics, and UTI * creatinine improving with IVFs * urine electrolytes consistent with prerenal azotemia * urine eosinophils negative * CT scan of abdomen without obstruction * follow supportive therapy (2) Urinary tract infection: Qualifiers: Hematuria presence: without hematuria Urinary tract infection type: acute cystitis Qualified Code(s): N30.00 - Acute cystitis without hematuria Code(s): N39.0 - Urinary tract infection, site not specified Status: Acute Assessment and Plan: * continue antibiotics * follow urine culture = Enterococcus (3) Hypokalemia: Code(s): E87.6 - Hypokalemia Status: Acute Assessment and Plan: * related to nausea and vomiting * replete as needed * follow magnesium Will continue to follow. Subjective Date/time seen: 01/18/21 15:42 Appears to be doing reasonably well; kidney function improving with IVFs; reasonably urine output; still with issues relating to nausea and vomiting but tolerating diet; no acute distress noted at this time. Exam Narrative: Exam Narrative: General: WD/WN malein NAD Heart: normal S1 and S2; no rub Lungs: clear to auscultation Abdomen: soft, nontender, nondistended, positive bowel sounds Extremities: no cyanosis or clubbing; no edema Skin: warm and dry Objective Data Vital Signs Vital Signs: Vital Signs Temp Pulse Resp BP Pulse Ox 01/18/21 14:00 36.6 C 84 22 H 177/98 H 100 01/18/21 07:19 36.4 C 76 14 122/61 97 01/18/21 06:00 36.8 C 73 16 119/65 98 01/17/21 21:46 35.9 C L 69 16 120/50 L 99 Intake/Output Intake/Output: Intake & Output 01/15/21 01/16/21 01/17/21 01/18/21 23:59 23:59 23:59 23:59 Intake Total 1100 2820 2110 Output Total 650 2150 Balance 1100 2170 -40 Meds/Results Medications: Active Medications Generic Name Dose Route Start Last Admin Trade Name Freq PRN Reason Stop Dose Admin Acetaminophen 650 mg 01/17/21 15:49 Acetaminophen 325 Mg Tablet PO Q4H PRN Mild Pain (1-3) or Fever Amiodarone HCl 200 mg 01/17/21 09:00 01/18/21 18:03 Amiodarone Hcl 200 Mg Tablet PO Not Given DAILY [facility] Apixaban 5 mg 01/17/21 09:00 01/18/21 18:06 Apixaban 5 Mg Tablet PO Not Given BID [facility] Aspirin 81 mg 01/17/21 08:00 01/18/21 18:02 Aspirin 81 Mg Chewable Tablet PO Not Given DAILY@0800 [facility] Atorvastatin Calcium 80 mg 01/17/21 21:00 01/17/21 20:00 Atorvastatin 40 Mg Tablet PO 80 mg HS [facility] Administration Calcium Carbonate 300 mg 01/17/21 08:37 Calcium Carbonate (Tums) 500 Mg (200 Mg Elemental) PO QID PRN Heartburn Carvedilol 12.5 mg 01/17/21 09:00 01/18/21 18:06 Carvedilol 12.5 Mg Tablet PO Not Given BID [facility] Escitalopram Oxalate 10 mg 01/17/21 09:00 01/18/21 18:04 Escitalopram Oxalate 10 Mg Tablet PO Not Given DAILY [facility] Hydromorphone HCl 1 mg 01/18/21 16:32 07
--- NOTE | 2021-01-18 15:42 | PM.PNNEP ---
Progress Note: A&P Assessment and Plan (1) ANA LAURA (acute kidney injury): Code(s): N17.9 - Acute kidney failure, unspecified Status: Acute Assessment and Plan: presumably due to prerenal factors, diureics, and UTI creatinine improving with IVFs urine electrolytes consistent with prerenal azotemia urine eosinophils negative CT scan of abdomen without obstruction follow supportive therapy (2) Urinary tract infection: Qualifiers: Hematuria presence: without hematuria Urinary tract infection type: acute cystitis Qualified Code(s): N30.00 - Acute cystitis without hematuria Code(s): N39.0 - Urinary tract infection, site not specified Status: Acute Assessment and Plan: continue antibiotics follow urine culture = Enterococcus (3) Hypokalemia: Code(s): E87.6 - Hypokalemia Status: Acute Assessment and Plan: related to nausea and vomiting replete as needed follow magnesium Will continue to follow. Subjective Date/time seen: 01/18/21 15:42 Appears to be doing reasonably well; kidney function improving with IVFs; reasonably urine output; still with issues relating to nausea and vomiting but tolerating diet; no acute distress noted at this time. Exam Narrative: Exam Narrative: General: WD/WN malein NAD Heart: normal S1 and S2; no rub Lungs: clear to auscultation Abdomen: soft, nontender, nondistended, positive bowel sounds Extremities: no cyanosis or clubbing; no edema Skin: warm and dry Objective Data Vital Signs Vital Signs: Vital Signs Temp Pulse Resp BP Pulse Ox 01/18/21 14:00 36.6 C 84 22 H 177/98 H 100 01/18/21 07:19 36.4 C 76 14 122/61 97 01/18/21 06:00 36.8 C 73 16 119/65 98 01/17/21 21:46 35.9 C L 69 16 120/50 L 99 Intake/Output Intake/Output: Intake & Output 01/15/21 01/16/21 01/17/21 01/18/21 23:59 23:59 23:59 23:59 Intake Total 1100 2820 2110 Output Total 650 2150 Balance 1100 2170 -40 Meds/Results Medications: Active Medications Generic Name Dose Route Start Last Admin Trade Name Freq PRN Reason Stop Dose Admin Acetaminophen 650 mg 01/17/21 15:49 Acetaminophen 325 Mg Tablet PO Q4H PRN Mild Pain (1-3) or Fever Amiodarone HCl 200 mg 01/17/21 09:00 01/18/21 18:03 Amiodarone Hcl 200 Mg Tablet PO Not Given DAILY [facility] Apixaban 5 mg 01/17/21 09:00 01/18/21 18:06 Apixaban 5 Mg Tablet PO Not Given BID [facility] Aspirin 81 mg 01/17/21 08:00 01/18/21 18:02 Aspirin 81 Mg Chewable Tablet PO Not Given DAILY@0800 [facility] Atorvastatin Calcium 80 mg 01/17/21 21:00 01/17/21 20:00 Atorvastatin 40 Mg Tablet PO 80 mg HS [facility] Administration Calcium Carbonate 300 mg 01/17/21 08:37 Calcium Carbonate (Tums) 500 Mg (200 Mg Elemental) PO QID PRN Heartburn Carvedilol 12.5 mg 01/17/21 09:00 01/18/21 18:06 Carvedilol 12.5 Mg Tablet PO Not Given BID [facility] Escitalopram Oxalate 10 mg 01/17/21 09:00 01/18/21 18:04 Escitalopram Oxalate 10 Mg Tablet PO Not Given DAILY [facility] Hydromorphone HCl 1 mg 01/18/21 16:32 01/18/21 16:54 Hydromorphone Hcl Inj (*Crx) 1 Mg/Ml Syr IV PUSH 1 mg Q3H PRN Administration Pain Rated 7-10 Sodium Chloride 1,000 mls @ 75 mls/hr 01/17/21 01:45 01/18/21 10:32 Normal Saline Iv IV CONT 75 mls/hr .[id number] [facility] Administration Ceftriaxone Sodium/Dextrose 1 gm in 50 mls @ 100 mls/hr 01/17/21 21:00 01/17/21 20:30 Rocephin 1 Gm/D5w 50 Ml IVPB Infused HS [facility] Infusion Ampicillin Sodium 1 gm in 50 mls @ 100 mls/hr 01/18/21 12:00 01/18/21 18:20 Ampicillin 1 Gm/Ns 50 Ml IVPB 100 mls/hr Q6H [facility] Administration Metoclopramide HCl 5 mg 01/18/21 11:55 01/18/21 13:00 Metoclopramide Hcl Inj 10 Mg/2 Ml Vial IV PUSH 5 mg Q6HR PRN Administration nausea Ondansetron HCl 4 mg 01/18/21 09:28 01/18/21 18:07 Ondansetron Inj 4 Mg/2 Ml Vial IV PUSH
[2021-01-18] MEDS: HYDROmorphone HCL INJ (*CRX) 1 MG/ML SYR IV PUSH ×3 (16:54→23:06)
[2021-01-18 21:15] VITALS: BP 120/64; PULSE 81; RESP 14; TEMP 36.1; O2SAT 98
[2021-01-19] VITALS (8 sets, daily range): BP systolic 100–125; BP diastolic 52–76; PULSE 59–76; RESP 12–18; TEMP 36.1–36.6; O2SAT 93–98
[2021-01-19] MEDS: SODIUM CHLORIDE 0.9% IV 1,000 ML 75 ML IV CONT ×2 (02:10→16:02)
[2021-01-19] MEDS: HYDROmorphone HCL INJ (*CRX) 1 MG/ML SYR IV PUSH ×5 (02:11→20:33)
[2021-01-19] MEDS: AMPICILLIN 1 GM/NS 50 ML 1 GM/50 ML BAG IVPB ×4 (05:40→23:06)
[2021-01-19] MEDS: ONDANSETRON INJ 4 MG/2 ML VIAL IV PUSH ×3 (05:41→20:33)
[2021-01-19] MEDS: ASPIRIN 81 MG CHEWABLE TABLET PO (10:17)
[2021-01-19] MEDS: AMIODARONE HCL 200 MG TABLET PO (10:17)
[2021-01-19] MEDS: APIXABAN 5 MG TABLET PO ×2 (10:18→18:13)
[2021-01-19] MEDS: carvediloL 12.5 MG TABLET PO ×2 (10:18→18:13)
[2021-01-19] MEDS: ESCITALOPRAM OXALATE 10 MG TABLET PO (10:18)
[2021-01-19 11:36] LABS: Basophils Percent Auto 0.5 % (0.2-1.2); Eosinophils Percent Auto 0.7 % (0-4.4); Hematocrit 38.9 % (42.0-52.0); Hemoglobin 12.1 g/dL (14.0-18.0); Immature Granulocyte Absolute 0.02 K/mm3 (0.00-0.031); Immature Granulocyte Percent A 0.3 % (0-0.5); Lymphocytes Absolute Auto 0.82 K/mm3 (0.9-3.2); Lymphocytes Percent Auto 14.3 % (18.3-44.2); Mean Corpuscular HGB Conc 31.1 g/dl (32-36); Mean Corpuscular Hemoglobin 29.2 pg (26-34); Monocytes Absolute Auto 0.4 K/mm3 (0.1-0.6); Monocytes Percent Auto 7.7 % (2.6-8.5); Neutrophils Absolute Auto 4.4 K/mm3 (1.3-6.7); Neutrophils Percent Auto 76.5 % (45.5-73.1); Platelet Count Result 169 k/mm3 (150-375); Red Blood Count 4.14 M/mm3 (4.6-6.20); Red Cell Distribution Width 16.5 % (11.5-14.5); White Blood Count 5.8 K/mm3 (4.5-10.0)
[2021-01-19 11:55] LABS: Alanine Aminotransferase 23 U/L (4-50); Albumin Level 3.5 g/dL (3.5-5.1); Alkaline Phosphatase 57 U/L (38-126); Anion Gap 8 mmol/L (8-16); Aspartate Amino Transferase 31 U/L (17-59); Bilirubin,Total 0.6 mg/dL (0.2-1.3); Blood Urea Nitrogen 17 mg/dL (9-20); Calcium 8.2 mg/dL (8.4-10.2); Carbon Dioxide 28 mmol/L (22-30); Chloride 103 mmol/L (98-107); Estimated CRCL calculation 64 ml/min; Estimated Glomerular Filt Rate > 60; Glucose 94 mg/dL (75-110); Potassium 3.4 mmol/L (3.4-5.0); Sodium 139 mmol/L (137-145)
--- NOTE | 2021-01-19 13:21 | PC.NURSE ---
On 01/19/21, the student, [Elizabeth Almeida], provided care and completed [facility] documentation on this patient. I have reviewed the student's documentation and agree with the findings.
--- NOTE | 2021-01-19 13:30 | PM.IMPN ---
Progress Note: A&P Assessment and Plan (1) ANA LAURA (acute kidney injury): Code(s): N17.9 - Acute kidney failure, unspecified Status: Acute (2) Acute dehydration: Code(s): E86.0 - Dehydration Status: Acute (3) Acute hypokalemia: Code(s): E87.6 - Hypokalemia Status: Acute (4) Urinary tract infection: Qualifiers: Hematuria presence: without hematuria Urinary tract infection type: acute cystitis Qualified Code(s): N30.00 - Acute cystitis without hematuria Code(s): N39.0 - Urinary tract infection, site not specified Status: Acute (5) Hypertension: Code(s): I10 - Essential (primary) hypertension Status: Acute (6) Ischemic cardiomyopathy: Code(s): I25.5 - Ischemic cardiomyopathy Status: Acute (7) Paroxysmal atrial fibrillation: Code(s): I48.0 - Paroxysmal atrial fibrillation Status: Acute (8) Aneurysm of infrarenal abdominal aorta: Code(s): I71.4 - Abdominal aortic aneurysm, without rupture Status: Acute (9) Abdominal pain: Code(s): R10.9 - Unspecified abdominal pain Status: Acute (10) Nausea and vomiting: Code(s): R11.2 - Nausea with vomiting, unspecified Status: Acute Additional Plan abdominal pain /nausea/vomiting Acute kidney injury admission creatinine of 3.3 likely from dehydration and hypovolemia baseline creatinine of 1 Urinary tract infection Hypokalemia 4.5 cm infrarenal abdominal aortic aneurysm without evidence of rupture History of pancreatitis History of ischemic cardiomyopathy Status post pacemaker placement History of cardiac arrest needing tracheostomy in the past September 2019 Proximal atrial fibrillation Coronary artery disease status post stents 09/2019 Hypertension Hyperlipidemia Depression Colon polyps EGD/colonoscopy 10/18/2020: Normal EGD, colon polyps History of cholecystectomy Marijuana use Plan: IV hydration 150 cc an hour Rocephin Strict I/ O Zofran p.r.n. IV Analgesic Hold Lasix Resume amiodarone aspirin atorvastatin and carvedilol along with Eliquis and escitalopram Nephrology consultation SPEP/UPEP Full code status DVT prophylaxis Eliquis 01/18: Creatinine continues to improve down to 1.5 on normal saline at 75 cc an hour will advance his diet as tolerated. all with sudden worsening of abdominal pain started on morphine IV p.r.n. x-ray abdomen was unremarkable followed by CT abdomen which did not show any acute abnormality. Lipase level and hepatic panel came back negative. UTI with Enterococcus will change his antibiotic to ampicillin 01/19: Labs improved with resolution of renal failure. CT an x-ray has been negative continue ampicillin for his Enterococcus UTI. Will further admits his diet. Ultrasound right leg has not been done yet will check status. Vital signs: Stable. Will stop his ceftriaxone Subjective Date/time seen: 01/19/21 13:30 Interval history: feels better. Abdomen is slightly swore the attachment and yesterday he still on IV Dilaudid as needed. No further vomiting. reports some nausea Review of Systems Review of Systems: All systems reviewed & are unremarkable except as noted in HPI and below Exam Narrative: Exam Narrative: GENERAL: The patient is well developed, not in acute distress HEENT: Nonicteric sclerae, PERRLA, EOMI. Oropharynx clear. Moist mucous membranes. Conjunctivae appear well perfused. CHEST: Chest wall is nontender. HEART: Regular rate and rhythm without murmur, rubs, or gallops LUNGS: Clear to auscultation bilaterally. no respiratory distress ABDOMEN: Soft, positive bowel sounds, mild tender periumbilical area, no guarding or rigidity, no organomegaly. SKIN: No rash, no excessive bruising, petechiae, or purpura. NEUROLOGIC: Cranial nerves II-XII intact, alert and oriented x 3, no gross motor deficits EXTREMITIES: no edema, cyanosis or clubbing Objective Data Vital Signs Vital Signs: Vital
--- NOTE | 2021-01-19 13:53 | PM.PNNEP ---
Progress Note: A&P Assessment and Plan (1) ANA LAURA (acute kidney injury): Code(s): N17.9 - Acute kidney failure, unspecified Status: Acute Assessment and Plan: resolving presumably due to prerenal factors, diureics, and UTI creatinine improving with IVFs urine electrolytes consistent with prerenal azotemia urine eosinophils negative CT scan of abdomen without obstruction follow supportive therapy (2) Urinary tract infection: Qualifiers: Hematuria presence: without hematuria Urinary tract infection type: acute cystitis Qualified Code(s): N30.00 - Acute cystitis without hematuria Code(s): N39.0 - Urinary tract infection, site not specified Status: Acute Assessment and Plan: continue antibiotics follow urine culture = Enterococcus (3) Hypokalemia: Code(s): E87.6 - Hypokalemia Status: Acute Assessment and Plan: related to nausea and vomiting replete as needed follow magnesium Not much else to add at this time.... Will continue to follow from a distance. Subjective Date/time seen: 01/19/21 13:53 Continues to make slow and steady progress; tolerating oral intake; still with some nausea and vomiting; renal function close to baseline; no apparent distress voiced. Exam Narrative: Exam Narrative: General: WD/WN malein NAD Heart: normal S1 and S2; no rub Lungs: clear to auscultation Abdomen: soft, nontender, nondistended, positive bowel sounds Extremities: no cyanosis or clubbing; no edema Skin: warm and dry Objective Data Vital Signs Vital Signs: Vital Signs Temp Pulse Resp BP Pulse Ox 01/19/21 13:42 61 12 114/60 98 01/19/21 10:18 67 01/19/21 10:17 67 01/19/21 09:42 93 01/19/21 05:47 36.6 C 67 16 125/76 96 01/18/21 21:15 36.1 C L 81 14 120/64 98 01/18/21 14:00 36.6 C 84 22 H 177/98 H 100 Intake/Output Intake/Output: Intake & Output 01/16/21 01/17/21 01/18/21 01/19/21 23:59 23:59 23:59 23:59 Intake Total 1100 2820 2260 1363 Output Total 650 2150 600 Balance 1100 2170 110 763 Meds/Results Medications: Active Medications Generic Name Dose Route Start Last Admin Trade Name Freq PRN Reason Stop Dose Admin Acetaminophen 650 mg 01/17/21 15:49 Acetaminophen 325 Mg Tablet PO Q4H PRN Mild Pain (1-3) or Fever Amiodarone HCl 200 mg 01/17/21 09:00 01/19/21 10:17 Amiodarone Hcl 200 Mg Tablet PO 200 mg DAILY WILLIAM Administration Apixaban 5 mg 01/17/21 09:00 01/19/21 10:18 Apixaban 5 Mg Tablet PO 5 mg BID WILLIAM Administration Aspirin 81 mg 01/17/21 08:00 01/19/21 10:17 Aspirin 81 Mg Chewable Tablet PO 81 mg DAILY@0800 WILLIAM Administration Atorvastatin Calcium 80 mg 01/17/21 21:00 01/18/21 20:14 Atorvastatin 40 Mg Tablet PO Not Given HS WILLIAM Calcium Carbonate 300 mg 01/17/21 08:37 Calcium Carbonate (Tums) 500 Mg (200 Mg Elemental) PO QID PRN Heartburn Carvedilol 12.5 mg 01/17/21 09:00 01/19/21 10:18 Carvedilol 12.5 Mg Tablet PO 12.5 mg BID WILLIAM Administration Escitalopram Oxalate 10 mg 01/17/21 09:00 01/19/21 10:18 Escitalopram Oxalate 10 Mg Tablet PO 10 mg DAILY [facility] Administration Hydromorphone HCl 1 mg 01/18/21 16:32 01/19/21 10:26 Hydromorphone Hcl Inj (*Crx) 1 Mg/Ml Syr IV PUSH 1 mg Q3H PRN Administration Pain Rated 7-10 Sodium Chloride 1,000 mls @ 75 mls/hr 01/17/21 01:45 01/19/21 06:27 Normal Saline Iv IV CONT Not Given .[id number] [facility] Ampicillin Sodium 1 gm in 50 mls @ 100 mls/hr 01/18/21 12:00 01/19/21 13:37 Ampicillin 1 Gm/Ns 50 Ml IVPB Infused Q6H [facility] Infusion Metoclopramide HCl 5 mg 01/18/21 11:55 01/18/21 13:00 Metoclopramide Hcl Inj 10 Mg/2 Ml Vial IV PUSH 5 mg Q6HR PRN Administration nausea Ondansetron HCl 4 mg 01/18/21 09:28 01/19/21 05:41 Ondansetron Inj 4 Mg/2 Ml Vial IV PUSH 4 mg Q4H PRN Administ
--- NOTE | 2021-01-19 14:57 | WPDGICN ---
Assessment and Plan Assessment and plan (1) Nausea and vomiting: Code(s): R11.2 - Nausea with vomiting, unspecified Status: Acute Assessment and Plan: resolved, will advance diet as tolerated lipase this time was normal and also unremarkable CT scan (previous hospitalization had elevated lipase) (2) Cyclic vomiting syndrome: Code(s): R11.15 - Cyclical vomiting syndrome unrelated to migraine Status: Acute Assessment and Plan: probably related to marijuana use and history of consistent with CVS will start elavil as prophylaxis and dose can be increased in 2 more weeks if he can tolerate med advise to stop using marijuana (3) ANA LAURA (acute kidney injury): Code(s): N17.9 - Acute kidney failure, unspecified Status: Acute Assessment and Plan: resolved after hydration (4) Acute dehydration: Code(s): E86.0 - Dehydration Status: Acute Assessment and Plan: on presentation, resolved (5) Ischemic cardiomyopathy: Code(s): I25.5 - Ischemic cardiomyopathy Status: Acute Assessment and Plan: stable (6) Aneurysm of infrarenal abdominal aorta: Code(s): I71.4 - Abdominal aortic aneurysm, without rupture Status: Acute Assessment and Plan: unchanged (7) Marijuana smoker, episodic: Code(s): F12.90 - Cannabis use, unspecified, uncomplicated Status: Acute GI Consult Note Consult date/time: 01/19/21 14:57 Reason for consult: n/v, dehydration HPI: Low Sarmiento is a 60 year old male who I met during previous hospitalization when he came in with nausea and vomiting. He has history of cardiogenic shock secondary to myocardial infarction while he was vacationing in [facility] spent 30 days in hospital and had a temporary tracheostomy, also ischemic cardiomyopathy, stable AAA 4.5 cm seeing doctor in [facility]. Last time I performed EGD and colonoscopy with unremarkable findings and also normal biopsies (no celiac, no microscopic colitis). This time he was admitted with abdominal pain in the lower abdomen and nausea vomiting started few days prior admission, found to have ANA LAURA with creatinine 3 (now normal). He says that had multiple hospitalization for intermittent nausea and vomiting for last 10 years, sometimes 4-5 times a year and after 2-3 days in the hospital will get better. He says that in between episodes he is fine. Whenever he gets sick he will take hot showers. He has been smoking marijuana all my life probably one time a week. CT scan a/p reviewed and showed small sliding hiatal hernia, stable 4.7 cm fusiform aneurysm of infrarenal aorta, bilateral inguinal hernias containing fat. He is feeling better today. Review of Systems Constitutional: Constitutional: Denies chills Eyes: Eyes: Denies blurry vision ENT: Reports Normal hearing present Cardiovascular: Cardiovascular: Denies chest pain Respiratory: Respiratory: Denies dyspnea Gastrointestinal: Gastrointestinal: Reports abdominal pain, Reports nausea and Reports vomiting Genitourinary: Genitourinary: Denies dysuria Musculoskeletal: Musculoskeletal: Denies neck pain Integumentary/Breasts: Skin/Breast: Denies dry skin Neurologic: Denies confusion Psychiatric: Psychiatric: Reports no additional psychiatric complaints PMFSH Past Medical History Medical History (Updated 01/19/21 @ 15:04 by Ulysses Larkin MD) Adenomatous colon polyp Aneurysm of infrarenal abdominal aorta Stable aneurysm measuring 4.5 centimeters on 11/21/2020. Coronary artery disease With history of VT in what sounds like cardiac arrest while on vacation in [place]. He was in a medically induced coma for several weeks and temporarily had a tracheostomy. Cyclic vomiting syndrome Depression Hyperlipidemia Hypertension Ischemic cardiomyopathy Ejection fraction reportedly as low as 15%. Patient reports a pacemaker in situ, denies the presence of an ICD. He sees a patient safety tech
[2021-01-19] MEDS: ATORVASTATIN 40 MG TABLET 80 MG PO (20:26)
[2021-01-20] MEDS: ONDANSETRON INJ 4 MG/2 ML VIAL IV PUSH (01:21)
[2021-01-20] MEDS: HYDROmorphone HCL INJ (*CRX) 1 MG/ML SYR IV PUSH ×3 (01:21→18:04)
[2021-01-20] MEDS: AMPICILLIN 1 GM/NS 50 ML 1 GM/50 ML BAG IVPB ×3 (04:50→17:42)
[2021-01-20 06:00] VITALS: BP 109/70; PULSE 60; RESP 18; TEMP 36.3; O2SAT 96
[2021-01-20 06:32] LABS: Basophils Percent Auto 0.5 % (0.2-1.2); Eosinophils Absolute Auto 0.1 K/mm3 (0-0.3); Eosinophils Percent Auto 1.4 % (0-4.4); Hematocrit 37.4 % (42.0-52.0); Hemoglobin 11.7 g/dL (14.0-18.0); Immature Granulocyte Absolute 0.01 K/mm3 (0.00-0.031); Immature Granulocyte Percent A 0.2 % (0-0.5); Lymphocytes Absolute Auto 1.38 K/mm3 (0.9-3.2); Lymphocytes Percent Auto 21.9 % (18.3-44.2); Mean Corpuscular HGB Conc 31.3 g/dl (32-36); Mean Corpuscular Hemoglobin 29.3 pg (26-34); Mean Corpuscular Volume 93.5 fl (80-100); Mean Platelet Volume 11.3 fl (7.4-10.4); Monocytes Absolute Auto 0.5 K/mm3 (0.1-0.6); Monocytes Percent Auto 8.4 % (2.6-8.5); Neutrophils Absolute Auto 4.3 K/mm3 (1.3-6.7); Neutrophils Percent Auto 67.6 % (45.5-73.1); Platelet Count Result 151 k/mm3 (150-375); Red Cell Distribution Width 16.2 % (11.5-14.5); White Blood Count 6.3 K/mm3 (4.5-10.0)
[2021-01-20 06:41] LABS: Alanine Aminotransferase 22 U/L (4-50); Albumin Level 3.2 g/dL (3.5-5.1); Alkaline Phosphatase 45 U/L (38-126); Anion Gap 5 mmol/L (8-16); Aspartate Amino Transferase 27 U/L (17-59); Bilirubin,Total 0.6 mg/dL (0.2-1.3); Blood Urea Nitrogen 13 mg/dL (9-20); Calcium 7.8 mg/dL (8.4-10.2); Carbon Dioxide 30 mmol/L (22-30); Chloride 101 mmol/L (98-107); Estimated CRCL calculation 70 ml/min; Estimated Glomerular Filt Rate > 60; Glucose 93 mg/dL (65-110); Potassium 3.3 mmol/L (3.4-5.0); Sodium 136 mmol/L (137-145)
[2021-01-20] MEDS: SODIUM CHLORIDE 0.9% IV 1,000 ML 75 ML IV CONT (08:15)
[2021-01-20 08:16] VITALS: PULSE 88
[2021-01-20] MEDS: AMIODARONE HCL 200 MG TABLET PO (08:16)
[2021-01-20] MEDS: carvediloL 12.5 MG TABLET PO ×2 (08:16→17:42)
[2021-01-20] MEDS: APIXABAN 5 MG TABLET PO ×2 (08:17→17:42)
[2021-01-20] MEDS: ASPIRIN 81 MG CHEWABLE TABLET PO (08:17)
[2021-01-20] MEDS: ESCITALOPRAM OXALATE 10 MG TABLET PO (08:17)
--- NOTE | 2021-01-20 08:28 | PM.IMPN ---
Progress Note: A&P Assessment and Plan (1) ANA LAURA (acute kidney injury): Code(s): N17.9 - Acute kidney failure, unspecified Status: Acute (2) Acute dehydration: Code(s): E86.0 - Dehydration Status: Acute (3) Acute hypokalemia: Code(s): E87.6 - Hypokalemia Status: Acute (4) Urinary tract infection: Qualifiers: Hematuria presence: without hematuria Urinary tract infection type: acute cystitis Qualified Code(s): N30.00 - Acute cystitis without hematuria Code(s): N39.0 - Urinary tract infection, site not specified Status: Acute (5) Hypertension: Code(s): I10 - Essential (primary) hypertension Status: Acute (6) Ischemic cardiomyopathy: Code(s): I25.5 - Ischemic cardiomyopathy Status: Acute (7) Paroxysmal atrial fibrillation: Code(s): I48.0 - Paroxysmal atrial fibrillation Status: Acute (8) Aneurysm of infrarenal abdominal aorta: Code(s): I71.4 - Abdominal aortic aneurysm, without rupture Status: Acute (9) Abdominal pain: Code(s): R10.9 - Unspecified abdominal pain Status: Acute (10) Nausea and vomiting: Code(s): R11.2 - Nausea with vomiting, unspecified Status: Acute Additional Plan abdominal pain /nausea/vomiting Acute kidney injury admission creatinine of 3.3 likely from dehydration and hypovolemia baseline creatinine of 1 Urinary tract infection Hypokalemia 4.5 cm infrarenal abdominal aortic aneurysm without evidence of rupture History of pancreatitis History of ischemic cardiomyopathy Status post pacemaker placement History of cardiac arrest needing tracheostomy in the past September 2019 Proximal atrial fibrillation Coronary artery disease status post stents 09/2019 Hypertension Hyperlipidemia Depression Colon polyps EGD/colonoscopy 10/18/2020: Normal EGD, colon polyps History of cholecystectomy Marijuana use Plan: IV hydration 150 cc an hour Rocephin Strict I/ O Zofran p.r.n. IV Analgesic Hold Lasix Resume amiodarone aspirin atorvastatin and carvedilol along with Eliquis and escitalopram Nephrology consultation SPEP/UPEP Full code status DVT prophylaxis Eliquis 01/18: Creatinine continues to improve down to 1.5 on normal saline at 75 cc an hour will advance his diet as tolerated. all with sudden worsening of abdominal pain started on morphine IV p.r.n. x-ray abdomen was unremarkable followed by CT abdomen which did not show any acute abnormality. Lipase level and hepatic panel came back negative. UTI with Enterococcus will change his antibiotic to ampicillin 01/19: Labs improved with resolution of renal failure. CT an x-ray has been negative continue ampicillin for his Enterococcus UTI. Will further admits his diet. Ultrasound right leg has not been done yet will check status. Vital signs: Stable. Will stop his ceftriaxone 01/20: Mild hypokalemia and labs today which will be replaced with p.o. potassium chloride. Renal failure has resolved. On ampicillin for Enterococcus UTI. Ultrasound right leg would be ordered again spoke with the hvac technician residential. Vital signs is stable. GI consultation note reviewed. Likely cyclic vomiting syndrome due to marijuana use. CT scan has been negative for any acute findings suggesting any possible etiology for his recurrent nausea vomiting and abdominal pain discussed this finding with the patient and advise against use of marijuana. Labs in a.m.. If stable plan to DC home Subjective Date/time seen: 01/20/21 08:28 Interval history: no Overnight events. patient feels much better. Some nausea which has improved. Had abdomen pain is improving as well. Tolerating clear liquid diet. Ultrasound leg has not been done. Review of Systems Review of Systems: All systems reviewed & are unremarkable except as noted in HPI and below Exam Narrative: Exam Narrative: GENERAL: The patient is well developed, not in acute distre
[2021-01-20] MEDS: POTASSIUM CHLORIDE 20 MEQ TABLET 40 MEQ PO (08:45)
--- NOTE | 2021-01-20 09:23 | PC.NURSE ---
All documentation since 0700 on 01/20 were performed by Elise Louie RN, not Sg Marina RN.
[2021-01-20 14:40] VITALS: BP 111/59; PULSE 71; RESP 16; TEMP 35.8; O2SAT 98
[2021-01-20 17:42] VITALS: PULSE 78
[2021-01-20 20:00] VITALS: PULSE 78; RESP 16; O2SAT 98
[2021-01-20] MEDS: ATORVASTATIN 40 MG TABLET 80 MG PO (21:17)
[2021-01-20 22:00] VITALS: BP 107/60; PULSE 70; RESP 18; TEMP 36.1; O2SAT 96
[2021-01-21] MEDS: SODIUM CHLORIDE 0.9% IV 1,000 ML 75 ML IV CONT (00:01)
[2021-01-21] MEDS: AMPICILLIN 1 GM/NS 50 ML 1 GM/50 ML BAG IVPB ×3 (00:02→11:39)
[2021-01-21 04:53] LABS: Albumin 3.8 g/dL (3.8-4.8); Alpha 1 Globulin 0.3 g/dL (0.2-0.3); Beta 1 Globulin 0.5 g/dL (0.4-0.6); Gamma Globulin 0.8 g/dL (0.8-1.7); Protein, Total 6.7 g/dL (6.1-8.1)
[2021-01-21 06:00] VITALS: BP 100/55; PULSE 72; RESP 18; TEMP 36.4; O2SAT 95
[2021-01-21 06:36] LABS: Basophils Percent Auto 0.6 % (0.2-1.2); Eosinophils Absolute Auto 0.1 K/mm3 (0-0.3); Eosinophils Percent Auto 1.2 % (0-4.4); Hematocrit 36.9 % (42.0-52.0); Hemoglobin 11.6 g/dL (14.0-18.0); Immature Granulocyte Absolute 0.02 K/mm3 (0.00-0.031); Immature Granulocyte Percent A 0.3 % (0-0.5); Lymphocytes Percent Auto 22.8 % (18.3-44.2); Mean Corpuscular HGB Conc 31.4 g/dl (32-36); Mean Corpuscular Volume 92.3 fl (80-100); Mean Platelet Volume 11.3 fl (7.4-10.4); Monocytes Absolute Auto 0.6 K/mm3 (0.1-0.6); Monocytes Percent Auto 9.4 % (2.6-8.5); Neutrophils Absolute Auto 4.3 K/mm3 (1.3-6.7); Neutrophils Percent Auto 65.7 % (45.5-73.1); Platelet Count Result 152 k/mm3 (150-375); White Blood Count 6.6 K/mm3 (4.5-10.0)
[2021-01-21 06:43] LABS: Alanine Aminotransferase 28 U/L (4-50); Albumin Level 3.1 g/dL (3.5-5.1); Alkaline Phosphatase 49 U/L (38-126); Anion Gap 1 mmol/L (8-16); Aspartate Amino Transferase 34 U/L (17-59); Bilirubin,Total 0.6 mg/dL (0.2-1.3); Blood Urea Nitrogen 8 mg/dL (9-20); Carbon Dioxide 31 mmol/L (22-30); Chloride 105 mmol/L (98-107); Estimated CRCL calculation 70 ml/min; Estimated Glomerular Filt Rate > 60; Glucose 81 mg/dL (65-110); Potassium 3.7 mmol/L (3.4-5.0); Sodium 137 mmol/L (137-145)
[2021-01-21 08:29] VITALS: PULSE 78
[2021-01-21] MEDS: carvediloL 12.5 MG TABLET PO (08:29)
[2021-01-21] MEDS: ASPIRIN 81 MG CHEWABLE TABLET PO (08:29)
[2021-01-21] MEDS: ESCITALOPRAM OXALATE 10 MG TABLET PO (08:29)
[2021-01-21] MEDS: AMIODARONE HCL 200 MG TABLET PO (08:29)
[2021-01-21] MEDS: APIXABAN 5 MG TABLET PO (08:30)
--- NOTE | 2021-01-21 12:33 | PM.DS ---
DS: Admitting Diagnosis Admitting Diagnosis Admitting Diagnosis: abdominal pain renal failure DS: Discharge Diagnosis Discharge Diagnosis (1) Hypokalemia: Code(s): E87.6 - Hypokalemia Status: Acute (2) Marijuana smoker, episodic: Code(s): F12.90 - Cannabis use, unspecified, uncomplicated Status: Acute (3) Cyclic vomiting syndrome: Code(s): R11.15 - Cyclical vomiting syndrome unrelated to migraine Status: Acute (4) ANA LAURA (acute kidney injury): Code(s): N17.9 - Acute kidney failure, unspecified Status: Acute (5) Acute dehydration: Code(s): E86.0 - Dehydration Status: Acute (6) Acute hypokalemia: Code(s): E87.6 - Hypokalemia Status: Acute (7) Urinary tract infection: Qualifiers: Hematuria presence: without hematuria Urinary tract infection type: acute cystitis Qualified Code(s): N30.00 - Acute cystitis without hematuria Code(s): N39.0 - Urinary tract infection, site not specified Status: Acute (8) Ischemic cardiomyopathy: Code(s): I25.5 - Ischemic cardiomyopathy Status: Acute (9) Paroxysmal atrial fibrillation: Code(s): I48.0 - Paroxysmal atrial fibrillation Status: Acute (10) Aneurysm of infrarenal abdominal aorta: Code(s): I71.4 - Abdominal aortic aneurysm, without rupture Status: Acute (11) Abdominal pain: Code(s): R10.9 - Unspecified abdominal pain Status: Acute (12) Nausea and vomiting: Code(s): R11.2 - Nausea with vomiting, unspecified Status: Acute DS: Summary Hospital Course Hospital Course: This is a 60-year-old male that presents the emergency department for abdominal pain in the lower abdomen and nausea vomiting that started about a week ago. Patient denies any fever or chills. He had similar multiple episodes in the past with most of the workup unrevealing except for 1 episode of pancreatitis early this year. He also had a EGD and colonoscopy which was unremarkable back in October 2020. He does have about 4.5 cm abdominal aortic aneurysm infrarenal that was detected on CT scan which has been stable. He denies any diarrhea or hematochezia. He does report smoking marijuana on a regular basis however denies any alcohol Use. He has also noticed low urine output since past 2-3 days with darker colored urine.abdominal pain /nausea/vomiting He was noted to have acute kidney injury with creatinine of 3.3 on admission baseline creatinine of 1 there is a evidence of urinary tract infection along with that with hypokalemia which was treated with IV antibiotics. His urine culture grew you Enterococcus which is treated with ampicillin and he finished a course of treatment while in the hospital. He was started with IV fluids and his renal failure improved and was back to normal baseline. His Lasix was on hold during the hospital stay but is resumed at the time of discharge. Renal consultation was also obtained during the hospital stay for the same. For unclear reason for his abdominal pain GI was consulted during the hospital stay and was suggested either cyclic vomiting syndrome due to marijuana use or irritable bowel syndrome. He was started on amitriptyline for possible IBS and will be discharged on that. He did remarkably improved after start of amitriptyline suggestive of the diagnosis but will follow-up as an outpatient basis. He is also noted to have 4.7 cm infrarenal abdominal aortic aneurysm without evidence of rupture was advised to follow-up with vascular surgeon for further evaluation for this as an outpatient basis. problem list: Acute kidney injury admission creatinine of 3.3 likely from dehydration and hypovolemia baseline creatinine of 1 Urinary tract infection Hypokalemia 4.5 cm infrarenal abdominal aortic aneurysm without evidence of rupture History of pancreatitis History of ischemic cardiomyopathy Status post pacemaker placement His
[2021-01-23 04:31] LABS: Creatinine, Random Urine 155 mg/dL (20-320); Total Protein/Creatinine Ratio 323 mg/g creat (22-128)
[2021-01-24 15:04] LABS: Albumin 22 %; Creat 24 Hr 1.08 g/24 h (0.50-2.15); Measured Kappa Chains 3.06 mg/dL (<2.00); Measured Lambda Chains <1.00 mg/dL (<2.00); Pro/Creat Ratio 242 mg/g creat (<=114); Total Kappa Chains 39.78 mg/24 h
== END 2021-01-21 13:10 | disposition home or self-care (01) | DRG 683 ==
LOC: ANHED 01-17 01:36 → ANH3MED 01-17 02:26
PROVIDERS: Emergency Medicine; Physician Assistant; Admitting Provider Internal Medicine; Emergency Provider General Practice; PCP Family Medicine; Visit Provider Internal Medicine
DX: N17.9 Acute kidney failure, unspecified (principal); N30.00 Acute cystitis without hematuria; E86.0 Dehydration; E86.1 Hypovolemia; B95.2 Enterococcus as the cause of diseases classified elsewhere; E87.6 Hypokalemia; M25.461 Effusion, right knee; R11.15 Cyclical vomiting syndrome unrelated to migraine; F12.90 Cannabis use, unspecified, uncomplicated; F17.210 Nicotine dependence, cigarettes, uncomplicated; I25.10 Atherosclerotic heart disease of native coronary artery without angina pectoris; I25.5 Ischemic cardiomyopathy; I48.0 Paroxysmal atrial fibrillation; I10 Essential (primary) hypertension; I71.4 Abdominal aortic aneurysm, without rupture; R10.9 Unspecified abdominal pain; F32.9 Major depressive disorder, single episode, unspecified; E78.5 Hyperlipidemia, unspecified; Z79.01 Long term (current) use of anticoagulants; Z79.82 Long term (current) use of aspirin; Z79.899 Other long term (current) drug therapy; Z86.74 Personal history of sudden cardiac arrest; Z95.0 Presence of cardiac pacemaker; Z95.5 Presence of coronary angioplasty implant and graft
CPT/HCPCS: 36415; 74018; 74176; 76882; 80048; 80053; 80076; 81001; 82550; 82570; 83036; 83690; 84155; 84156; 84165; 84166; 84300; 84540; 85025; 85999; 86334; 86335; 87077; 87086; 87088; 87186; 93005; 93306; 96361; 96365; 96374; 96375; 96376; 99285; A9270; C9113; G0378; J0131; J0290; J0696; J1170; J2060; J2270; J2405; J2765; J7030

== ENCOUNTER 2021-02-12 16:34 | Outpatient (CLI) | payer OTHER, SELFPAY ==
[2021-02-12 17:22] LABS: Albumin Level 4.2 g/dL (3.5-5.1); Anion Gap 7 mmol/L (8-16); Blood Urea Nitrogen 15 mg/dL (9-20); Carbon Dioxide 32 mmol/L (22-30); Chloride 95 mmol/L (98-107); Estimated Glomerular Filt Rate > 60; Glucose 145 mg/dL (65-110); Phosphorus 2.8 mg/dL (2.5-4.5); Sodium 134 mmol/L (137-145)
== END 2021-02-12 16:35 | disposition home or self-care (01) ==
LOC: ANHLAB 16:36
PROVIDERS: PCP Family Medicine; Visit Provider Internal Medicine Nephrology
DX: N17.8 Other acute kidney failure (principal)
CPT/HCPCS: 36415; 80069

== ENCOUNTER 2021-12-06 12:24 | Inpatient (IN) | payer OTHER, SELFPAY ==
[2021-12-06] VITALS (23 sets, daily range): BP systolic 97–136; BP diastolic 63–92; PULSE 87–104; RESP 13–31; TEMP 37–37.2; O2SAT 91–100
--- NOTE | ~2021-12-06 | CT_ITS ---
EXAMINATION: CT abdomen pelvis wo con DATE: 12/06/2021 13:46 INDICATION: Generalized abdominal pain. TECHNIQUE: Computed tomography (CT) of the abdomen and pelvis was performed without intravenous contr ast. Automated exposure control and iterative reconstruction technique were employed. The dose-length product was 844.65 mGy-cm. COMPARISON: CT abdomen and pelvis 01/18/2021 FINDINGS: The visualized portions of the lung bases are clear without pneumonia or pleural effusion. The heart size is normal. There are pacer wires in right atrium and right ventricle. No pericardial e ffusion. Calcifications in the liver and spleen are consistent with old granulomatous disease. Materi al in the gallbladder may be sludge or stones. The gallbladder is normal in size. The pancreas, adren al glands, and kidneys are normal. There is no urolithiasis. There are bilateral inguinal hernias con taining fat. There is a 4.8 cm fusiform aneurysm of infrarenal aorta. There are no dilated loops of b owel. The appendix is normal. There are no pathologically enlarged lymph nodes. There is no free intr aperitoneal fluid. There are chronic bilateral L5 pars defects. There is mild thoracolumbar spondylos is. IMPRESSION: 1. Stable 4.8 cm fusiform aneurysm of infrarenal aorta. 2. Bilateral inguinal hernias containing fat. Reviewed, dictated and finalized at location A.
--- NOTE | ~2021-12-06 | US_ITS ---
EXAMINATION: US renal BI DATE: 12/07/2021 09:57 INDICATION: Acute renal failure TECHNIQUE: Multiple ultrasound grayscale images of the kidneys were obtained. COMPARISON: None. FINDINGS: The right kidney measures 10.2 x 5.1 x 5.5 cm. The left kidney measures 9.6 x 4.3 x 4.7 cm. The kidne ys demonstrate normal echogenicity. There is no hydronephrosis in either kidney. No stones identifie d. The bladder is partially decompressed due to recent voiding which limits evaluation. IMPRESSION: 1. Normal kidneys without hydronephrosis. Reviewed, dictated and finalized at location B.
--- NOTE | ~2021-12-06 | XR_ITS ---
EXAMINATION: XR chest 2V DATE: 12/06/2021 15:56 INDICATION: Sepsis. Nausea, vomiting, and diarrhea. TECHNIQUE: Frontal and lateral views of the chest were obtained. COMPARISON: CT abdomen and pelvis 12/06/2021 FINDINGS: The chest demonstrates clear lungs without pneumonia, pleural effusion, or pneumothorax. Th e heart size is normal. There is a left chest pacer/defibrillator with leads in right atrium and righ t ventricle. IMPRESSION: 1. No acute cardiopulmonary disease. Reviewed, dictated and finalized at location A.
--- NOTE | 2021-12-06 12:28 | ECG_ITS ---
Measurements Intervals [place] Rate: 100 P: 73 RI: 178 QRS: -55 QRSD: 141 T: 107 QT: 407 QTc: 525 Interpretive Statements SINUS TACHYCARDIA WITH FREQUENT VENTRICULAR PREMATURE COMPLEXES NONSPECIFIC INTRAVENTRICULAR CONDUCTION DELAY [130+ ms QRS DURATION] CANNOT RULE OUT INFERIOR INFARCTION, AGE INDETERMINATE ABNORMAL ECG COMPARED TO ECG 01/16/2021 23:00:06 HEART RATE HAS INCREASED Electronically Signed On 12-06-2021 17:53:46 CDT by Manuel De León M.D.
[2021-12-06 12:38] LABS: Basophils Percent Auto 0.2 % (0.2-1.2); Hematocrit 53.7 % (42.0-52.0); Hemoglobin 17.7 g/dL (14.0-18.0); Immature Granulocyte Absolute 0.09 K/mm3 (0.00-0.031); Immature Granulocyte Percent A 0.5 % (0-0.5); Lymphocytes Absolute Auto 1.94 K/mm3 (0.9-3.2); Lymphocytes Percent Auto 11.2 % (18.3-44.2); Mean Corpuscular Hemoglobin 30.2 pg (26-34); Mean Corpuscular Volume 91.5 fl (80-100); Mean Platelet Volume 11.3 fl (7.4-10.4); Monocytes Absolute Auto 0.6 K/mm3 (0.1-0.6); Monocytes Percent Auto 3.5 % (2.6-8.5); Neutrophils Absolute Auto 14.6 K/mm3 (1.3-6.7); Neutrophils Percent Auto 84.6 % (45.5-73.1); Platelet Count Result 289 k/mm3 (150-375); Red Blood Count 5.87 M/mm3 (4.6-6.20); Red Cell Distribution Width 14.2 % (11.5-14.5); White Blood Count 17.3 K/mm3 (4.5-10.0)
[2021-12-06 13:01] LABS: Alanine Aminotransferase 45 U/L (6-50); Albumin Level 5.8 g/dL (3.5-5.1); Alkaline Phosphatase 128 U/L (38-126); Anion Gap 27 mmol/L (8-16); Aspartate Amino Transferase 50 U/L (17-59); Bilirubin,Total 0.8 mg/dL (0.2-1.3); Blood Urea Nitrogen 34 mg/dL (9-20); Carbon Dioxide 15 mmol/L (22-30); Chloride 93 mmol/L (98-107); Estimated CRCL calculation 18 ml/min; Estimated Glomerular Filt Rate 14; Glucose 291 mg/dL (65-110); Lipase 63 U/L (23-300); Potassium 3.8 mmol/L (3.4-5.0); Sodium 135 mmol/L (137-145)
--- NOTE | 2021-12-06 13:55 | ED.NAVMDI ---
HPI - Nausea/Vomiting/Diarrhea General Chief complaint: Nausea/Vomiting/Diarrhea Stated complaint: N/V/D Time Seen by Provider: 12/06/21 13:30 Source: patient History of Present Illness HPI Narrative: Patient presents with nausea vomiting and abdominal pain. Patient reports his symptoms present for the past few days getting progressively worse he was seen referred to the ER for further evaluation. He does report a history of pancreatitis denies any prior GI issues or prior GI surgeries. His pain is primarily in his lower abdomen and constant, everything makes it worse, radiates across his entire abdomen. Does report some association with diarrhea denies any urinary symptoms or fevers. Related Data Home Medications Medication Instructions Recorded Confirmed amiodarone 400 mg tablet 200 mg PO DAILY 10/16/20 12/06/21 aspirin 81 mg tablet 81 mg PO DAILY 10/16/20 12/06/21 atorvastatin 80 mg tablet 80 mg PO HS 10/16/20 12/06/21 carvedilol 12.5 mg tablet 12.5 mg PO BID 10/16/20 12/06/21 furosemide 20 mg tablet 20 mg PO DAILY 10/16/20 12/06/21 calcium carbonate 300 mg (750 mg) 750 tablet PO QID PRN Heartburn 01/17/21 12/06/21 chewable tablet (Tums E-X) escitalopram oxalate 10 mg tablet 10 mg PO DAILY 01/17/21 12/06/21 rivaroxaban 20 mg tablet (Xarelto) 20 mg PO DAILY 12/06/21 12/06/21 Allergies Allergy/AdvReac Type Severity Reaction Status Date / Time No Known Allergies Allergy Unknown Verified 12/06/21 17:48 Review of Systems Review of Systems: CONSTITUTIONAL: Denies fever, chills, or sweats. EYES: Denies visual changes, redness, or discharge. ENT: Denies rhinorrhea, congestion, sore throat, or otalgia. CARDIOVASCULAR: Denies chest pain, palpitations, or edema. RESPIRATORY: Denies cough or dyspnea. GASTROINTESTINAL: Abdominal pain nausea vomiting diarrhea GENITOURINARY: Denies dysuria or hematuria. SKIN: Denies rash or itching. MUSCULOSKELETAL: Denies back pain, joint pain, or myalgia. NEUROLOGIC: Denies headache, numbness, dizziness, or weakness. PSYCHIATRIC: Denies anxiety or depression. All systems reviewed & are unremarkable except as noted in HPI and below PMFSH Past Medical History Medical History (Updated 12/06/21 @ 17:31 by JACK Larson) Adenomatous colon polyp Aneurysm of infrarenal abdominal aorta Stable aneurysm measuring 4.5 centimeters on 11/21/2020. Coronary artery disease With history of MA in what sounds like cardiac arrest while on vacation in [place]. He was in a medically induced coma for several weeks and temporarily had a tracheostomy. Cyclic vomiting syndrome Depression Hyperlipidemia Hypertension Ischemic cardiomyopathy Ejection fraction reportedly as low as 15%. Patient reports a pacemaker in situ, denies the presence of an ICD. He sees a jewelry coater in [place]. Marijuana smoker, episodic Pancreatitis Paroxysmal atrial fibrillation Stenosis of infrarenal abdominal aorta due to arteriosclerosis Surgical History Surgical History History of arthroscopic knee surgery History of cardiac catheterization (~09/2019) Performed in [facility]. History of coronary artery stent placement (~09/2019) Stent x2. History of tracheostomy (~09/2019) Pacemaker Family History Family History Mother Congestive heart failure Father Glaucoma Lip cancer Social History Social History Social History: The patient lives in [place] with his . He has 2 children and is retired from [employer]. He smoked a pack of cigarettes a day for 30 years and quit quite sometime ago. No alcohol abuse. Admits to marijuana use but does not qualify or quantify. He designates his Iveth as his surrogate decision maker and he wishes to be a full code. Smoking packs per day: 1 Smoking cigarettes per day: 20
[2021-12-06] MEDS: SODIUM CHLORIDE 0.9% IV 1,000 ML 999 ML IV CONT (13:56)
[2021-12-06] MEDS: ONDANSETRON INJ 4 MG/2 ML VIAL IV PUSH (13:56)
[2021-12-06] MEDS: MORPHINE SULFATE (*CRX) 4 MG/ML INJ IV PUSH ×5 (13:56→23:37)
[2021-12-06 15:04] LABS: Appearance Urine Slightly Cloudy (Clear); Bilirubin Urine 1+ (Negative); Blood Urine 2+ (Negative); Color Urine Yellow (Yellow); Glucose Urine UA Negative (Negative); Ketones Urine 1+ mg/dL (Negative); Leukocyte Esterase Ur Negative LEU/UL (Negative); Nitrate Urine Negative (Negative); Protein Urine 2+ mg/dL (Negative); Specific Grav Ur >= 1.030 (1.001-1.035); Urobilinogen Urine 0.2 mg/dL (<2.0)
[2021-12-06 15:15] LABS: Lactic Acid Reflex 3.3 mmol/L (0.7-2.0)
[2021-12-06 15:23] LABS: Granular Casts Urine 20-29 /lpf; Mucus Urine Few /lpf; Squamous Epithelial Cell Urine Few /hpf (Few); WBC Urine 0-3 /hpf
[2021-12-06 15:45] LABS: Add Urine Microscopic? YES
--- NOTE | 2021-12-06 16:54 | PM.IMHP ---
[facility]: [facility] History of Present Illness Date/Time: 12/06/21 16:54 Chief Complaint: Nausea, vomiting, diarrhea Narrative: This 61-year-old male patient with significant past medical history of coronary artery disease with history of LA, cyclic vomiting syndrome, depression, hyperlipidemia, hypertension, ischemic cardiomyopathy, pancreatitis, paroxysmal atrial fibrillation on chronic Xarelto, infrarenal abdominal aortic aneurysm an adenomatous colon polyp, presents to the emergency room with complaints of having persistent nausea, vomiting and watery diarrhea for the past couple of days. In addition he complains of low abdominal pain that is worse to the right side. Blood presentation to the emergency room patient met SIRS criteria initially with labs that demonstrate a white blood cell count of 17 with a left shift and required further workup for sepsis. Based upon his emergency room workup patient is meeting sepsis criteria as evidence by acute renal failure with creatinine of 4.0 and BUN of 34 with known last creatinine in February of 2021 of 1.0, and elevated lactic acid of 3.3. Imaging was performed based upon the exquisite tenderness of the patient's abdomen and CT of abdomen and pelvis shows bilateral fat containing inguinal hernias as well as a stable 4.8 cm fusiform aneurysm of the infrarenal aorta. EKG shows sinus tachycardia with frequent PVCs. Rate is 100 bpm. Patient has a history of an AICD and pacemaker placement. He notes that he has an LA history that is significant for cardiac arrest and being in a medically induced coma in remote years. He denies any chest pain, dyspnea, difficulty urinating. With regards to his diarrhea he denies any recent antibiotic use. He does report that the diarrhea is watery in consistency. He has not found anything that makes his pain in his abdomen better or worse. He denies any recent illnesses or being exposed to anyone who has had recent illnesses. He was initiated on Zosyn in the ED. EMR was reviewed and no results for echocardiogram, heart catheterization or stress test were found. Review of Systems Review of Systems: As noted in [facility] Past Medical History Medical History (Updated 12/06/21 @ 17:31 by KRISTIAN LarsonN-Carmen) Adenomatous colon polyp Aneurysm of infrarenal abdominal aorta Stable aneurysm measuring 4.5 centimeters on 11/21/2020. Coronary artery disease With history of LA in what sounds like cardiac arrest while on vacation in [place]. He was in a medically induced coma for several weeks and temporarily had a tracheostomy. Cyclic vomiting syndrome Depression Hyperlipidemia Hypertension Ischemic cardiomyopathy Ejection fraction reportedly as low as 15%. Patient reports a pacemaker in situ, denies the presence of an ICD. He sees a mortgage branch manager in [place]. Marijuana smoker, episodic Pancreatitis Paroxysmal atrial fibrillation Stenosis of infrarenal abdominal aorta due to arteriosclerosis Surgical History Surgical History History of arthroscopic knee surgery History of cardiac catheterization (~09/2019) Performed in [facility]. History of coronary artery stent placement (~09/2019) Stent x2. History of tracheostomy (~09/2019) Pacemaker Family History Family History Mother Congestive heart failure Father Glaucoma Lip cancer Social History Social History Social History: The patient lives in [place] with his . He has 2 children and is retired from [employer]. He smoked a pack of cigarettes a day for 30 years and quit quite sometime ago. No alcohol abuse. Admits to marijuana use but does not qualify or quantify. He designates his Iveth as his surrogate decision maker and he wishes to be a full code. Smoking packs per day: 1 Smoking cigarettes per day
[2021-12-06 17:40] LABS: Hematocrit 49.8 % (42.0-52.0); Hemoglobin 16.6 g/dL (14.0-18.0); Mean Corpuscular HGB Conc 33.3 g/dl (32-36); Mean Corpuscular Hemoglobin 30.5 pg (26-34); Mean Corpuscular Volume 91.4 fl (80-100); Mean Platelet Volume 11.2 fl (7.4-10.4); Platelet Count Result 251 k/mm3 (150-375); Red Blood Count 5.45 M/mm3 (4.6-6.20); Red Cell Distribution Width 14.3 % (11.5-14.5); White Blood Count 20.1 K/mm3 (4.5-10.0)
[2021-12-06] MEDS: SODIUM CHLORIDE 0.9% IV 1,000 ML 125 ML IV CONT (17:40)
[2021-12-06] MEDS: metroNIDAZOLE 500 MG/ISO 100ML 500 MG/100 ML BAG 100 MG IVPB (17:41)
[2021-12-06 17:50] LABS: Lactic Acid Reflex 1.8 mmol/L (0.7-2.0)
[2021-12-06 18:00] LABS: Reflex Lactic Acid Yes or No Add Lactic
--- NOTE | 2021-12-06 18:01 | ADMGEN ---
This patient, Low Sarmiento, was admitted to Medical Room 249-01. Patient/family oriented to hospital policies and general routines including ID bracelet, bed and alarms, visiting hours, pain management, procedures, bathroom and other care routines, personal items, smoking policy, room service/diet, and visiting hours. Information on how to activate the Rapid Response Team has been discussed. Patient/Family are encouraged to report perceived risks to care and to ask questions if they do not understand what they are told or what they should do.
[2021-12-06 18:07] LABS: Lymphocytes Absolute Manual 3.01 K/mm3 (1.1-4.5); Monocytes Percent Manual 3 % (3-9); Neutrophils Percent Manual 82 % (46-73); Total Cells Counted 100
[2021-12-06 18:08] LABS: Platelet Estimate Adequate (Adequate)
[2021-12-06 19:10] LABS: Lactic Acid 1.7 mmol/L (0.7-2.0)
[2021-12-07] VITALS (9 sets, daily range): BP systolic 112–118; BP diastolic 59–76; PULSE 71–92; RESP 16–20; TEMP 36.4–37; O2SAT 93–95; BMI 31.4
--- NOTE | 2021-12-07 | ECHO_ITS ---
Patient Info Name: Low Sarmiento Age: 61 years : 1960 Gender: Male Ht: 69 in Wt: 214 lbs BSA: 2.20 m2 HR: 68 bpm BP: 112 / 59 mmHg Technical Quality: Fair Exam Date: 12/07/2021 2:19 PM Exam Location: [facility] Patient Status: Inpatient Admit Date: 12/06/2021 Staff Ordering Physician: Jesika Golden Software Specialist: Britany Dill RDCS Attending Provider: Rosalva Barker PA-C Referring Physician: Chantel MULLER; Exam Type: CA echo doppler color flow Study Info Indications - SEPSIS OF UNKNOWN ORIGIN Complete two-dimensional, color flow and Doppler transthoracic echocardiogram is performed. Summary 1. Complete two-dimensional, color flow and Doppler transthoracic echocardiogram is performed. 2. Left ventricular chamber dimension is severely enlarged. 3. Left ventricular systolic function is severely reduced, estimated at 20-25%. 4. Left ventricular septal wall motion is abnormal with septal motion related to pacing. 5. The left ventricular diastolic function is grade I diastolic dysfunction. 6. E/e' 11 is mildly elevated. 7. Global longitudinal strain is abnormal at -9.9%. 8. Left atrial chamber dimension is mildly enlarged. 9. Linear artifact in the right atrium suggestive of catheter(s), pacemaker lead(s), or ICD lead(s). 10. No pulmonary hypertension, estimated pulmonary arterial systolic pressure is 30 mmHg. Left Ventricle E/e' 11 is mildly elevated. Global longitudinal strain is abnormal at -9.9%. Left ventricular chamber dimension is severely enlarged. Left ventricular systolic function is severely reduced, estimated at 20-25%. Left ventricular septal wall motion is abnormal with septal motion related to pacing. The left ventricular diastolic function is grade I diastolic dysfunction. Right Ventricle Linear artifact in right ventricle suggestive of catheter(s), pacemaker lead(s), or ICD lead(s). Right ventricular chamber dimension is normal. Right ventricular systolic function is normal. Left Atria Left atrial chamber dimension is mildly enlarged. Right Atria Linear artifact in the right atrium suggestive of catheter(s), pacemaker lead(s), or ICD lead(s). Right atrial chamber dimension is normal. Aortic Valve The aortic valve is trileaflet. There is no aortic valve stenosis. There is no aortic valve regurgitation. Pulmonic Valve There is no pulmonic regurgitation. Mitral Valve There is no mitral valve stenosis. There is no mitral valve regurgitation. Tricuspid Valve There is no tricuspid valve regurgitation. No pulmonary hypertension, estimated pulmonary arterial systolic pressure is 30 mmHg. Pericardium/Pleural There is no pericardial effusion. Inferior Vena Cava Normal inferior vena cava with >50% collapse upon inspiration consistent with normal right atrial pressure, 5 mmHg. Aorta The aortic root size at the sinus of Valsalva is normal. Left Ventricular Outflow Tract Name Value Normal LVOT 2D LVOT Diameter 2.0 cm LVOT Doppler LVOT Peak Gradient 3 mmHg LVOT Mean Gradient 2 mmHg
[2021-12-07] MEDS: carvediloL 12.5 MG TABLET PO ×3 (00:30→20:48)
[2021-12-07] MEDS: metroNIDAZOLE 500 MG/ISO 100ML 500 MG/100 ML BAG 100 MG IVPB ×4 (00:30→18:06)
[2021-12-07] MEDS: ATORVASTATIN 40 MG TABLET 80 MG PO ×2 (00:30→20:48)
[2021-12-07] MEDS: SODIUM CHLORIDE 0.9% IV 1,000 ML 125 ML IV CONT ×2 (01:40→10:03)
[2021-12-07] MEDS: MORPHINE SULFATE (*CRX) 4 MG/ML INJ IV PUSH ×4 (06:56→20:49)
[2021-12-07 07:04] LABS: Creatine Kinase 252 U/L (55-170)
[2021-12-07 07:06] LABS: Alanine Aminotransferase 25 U/L (6-50); Albumin Level 4.3 g/dL (3.5-5.1); Alkaline Phosphatase 94 U/L (38-126); Anion Gap 12 mmol/L (8-16); Aspartate Amino Transferase 32 U/L (17-59); Bilirubin,Total 0.7 mg/dL (0.2-1.3); Blood Urea Nitrogen 42 mg/dL (9-20); Carbon Dioxide 26 mmol/L (22-30); Chloride 97 mmol/L (98-107); Estimated CRCL calculation 22 ml/min; Estimated Glomerular Filt Rate 17; Glucose 135 mg/dL (65-110); Lipase 70 U/L (23-300); Magnesium 2.3 mg/dL (1.6-2.3); Potassium 3.3 mmol/L (3.4-5.0); Sodium 135 mmol/L (137-145)
[2021-12-07 07:31] LABS: Basophils Absolute Auto 0.1 K/mm3 (0.0-0.1); Basophils Percent Auto 0.5 % (0.2-1.2); Eosinophils Percent Auto 0.1 % (0-4.4); Hematocrit 46.3 % (42.0-52.0); Immature Granulocyte Absolute 0.06 K/mm3 (0.00-0.031); Immature Granulocyte Percent A 0.4 % (0-0.5); Lymphocytes Percent Auto 18.8 % (18.3-44.2); Mean Corpuscular HGB Conc 32.4 g/dl (32-36); Mean Corpuscular Hemoglobin 30.1 pg (26-34); Mean Platelet Volume 11.6 fl (7.4-10.4); Monocytes Absolute Auto 1.1 K/mm3 (0.1-0.6); Monocytes Percent Auto 7.7 % (2.6-8.5); Neutrophils Absolute Auto 10.8 K/mm3 (1.3-6.7); Neutrophils Percent Auto 72.5 % (45.5-73.1); Platelet Count Result 218 k/mm3 (150-375); Red Blood Count 4.98 M/mm3 (4.6-6.20); Red Cell Distribution Width 14.3 % (11.5-14.5); White Blood Count 14.9 K/mm3 (4.5-10.0)
[2021-12-07] MEDS: ESCITALOPRAM OXALATE 10 MG TABLET PO (09:59)
[2021-12-07] MEDS: FUROSEMIDE 20 MG TABLET PO (09:59)
[2021-12-07] MEDS: AMIODARONE HCL 200 MG TABLET PO (09:59)
[2021-12-07] MEDS: POTASSIUM CHLORIDE 20 MEQ TABLET PO (09:59)
[2021-12-07] MEDS: ASPIRIN 81 MG CHEWABLE TABLET PO (10:00)
[2021-12-07 11:04] LABS: Total Protein Urine Random 52 mg/dL; Ur Ttl Prot Creatinine Ratio 0.23 mg/mg (0-0.20)
[2021-12-07 11:56] LABS: Sodium Urine Random < 5 meq/L
--- NOTE | 2021-12-07 13:40 | PM.IMPN ---
Progress Note: A&P Assessment and Plan (1) Nausea vomiting and diarrhea: Code(s): R11.2 - Nausea with vomiting, unspecified; R19.7 - Diarrhea, unspecified Status: Acute Assessment and Plan: -intractable N/V/D w/ associated abd pain -did have significant leukocytosis of 20.1 on arrival with lactic acid of 3.3 and acute renal failure -hx of cyclic vomiting, however concern for possible infection given clinical history. Although the leukocytosis and lactic acid could be elevated secondary to persistent vomiting. These are both improving today. -CT abd/pelv no acute findings, may consider repeating with contrast when renal function recovers if still having significant tenderness -stool studies ordered -placed on broad spectrum abx with Vanc, Zosyn, and flagyl on arrival as it was initially felt that he may have a bacterial infection and could be septic. will continue those for now pending blood and stool cultures and clinical course. -continue IVF and antiemetics/pain control as needed (2) Abdominal pain: Code(s): R10.9 - Unspecified abdominal pain Status: Acute Assessment and Plan: -plan as above (3) Leukocytosis: Code(s): D72.829 - Elevated white blood cell count, unspecified Status: Acute Assessment and Plan: -plan as above -CXR, UA, and CT abd/pelv negative for acute infection (4) ANA LAURA (acute kidney injury): Code(s): N17.9 - Acute kidney failure, unspecified Status: Acute Assessment and Plan: -baseline kidney function WNL, creat on arrival 4.0 -likely secondary to acute illness/dehydration/volume loss -improving w/ IVF hydration -renal US WNL -nephrology consulted -monitor daily BMP (5) CAD (coronary artery disease): Code(s): I25.10 - Atherosclerotic heart disease of [place] coronary artery without angina pectoris Status: Acute Assessment and Plan: - ECHO ordered to evaluate for any valvular vegetation given possible bacterial infection of unkown origin - Historical notes state pt has EF known to be as low as 15%. His [employer] Internship is in [facility]. No ECHO noted in EMR. (6) HLD (hyperlipidemia): Code(s): E78.5 - Hyperlipidemia, unspecified Status: Acute Assessment and Plan: - Atorvastatin 80 mg HS continued. (7) Pancreatitis: Qualifiers: Chronicity: chronic Pancreatitis type: unspecified pancreatitis type Qualified Code(s): K86.1 - Other chronic pancreatitis Code(s): K85.90 - Acute pancreatitis without necrosis or infection, unspecified Status: Acute Assessment and Plan: - Possible Acute on Chronic Flare? - CT is negative for any findings, however, it was without contrast. - Lipase is normal, but may be chronic in nature. - Consider US of abdomen or CT with contrast of abdomen if renal function allows to further evaluate pancreas if no improvement in abdominal pain. (8) Ischemic cardiomyopathy with implantable cardioverter-defibrillator (ICD): Code(s): I25.5 - Ischemic cardiomyopathy; Z95.810 - Presence of automatic (implantable) cardiac defibrillator Status: Acute Assessment and Plan: - ECHO ordered. Pt. with hx of severely reduced EF of as low as 15%. - Consider Cardiology evaluation if ECHO is abnormal. (9) Paroxysmal atrial fibrillation: Code(s): I48.0 - Paroxysmal atrial fibrillation Status: Acute Assessment and Plan: - Continue Amiodarone, Carvedilol, Eliquis - CHADS Vasc score: 3 (10) Aneurysm of infrarenal abdominal aorta: Code(s): I71.4 - Abdominal aortic aneurysm, without rupture Status: Acute Assessment and Plan: - Per CT scan of abdomen without contrast today, the known aneurysm is stable. Subjective Date/time seen: 12/07/21 13:40 Interval history: 61-year-old male patient with significant past medical history of wei
--- NOTE | 2021-12-07 13:58 | PM.CNNEP ---
Assessment and Plan Assessment and plan (1) ANA LAURA (acute kidney injury): Code(s): N17.9 - Acute kidney failure, unspecified Status: Acute Assessment and Plan: normal renal function at baseline admitted with creatinine of 4.0mg/dl mild improvement in creatinine since admission evaluation to date: renal ultrasound normal urine electrolytes prerenal (but he could have chronic prerenal azotemia from his cardiomyopathy) CPK okay history would suggest some element of dehydration/volume depletion however, infection/sepsis could be playing a role as well agree with trial of IVFs for now follow I/Os follow repeat labs (2) Abdominal pain: Code(s): R10.9 - Unspecified abdominal pain Status: Acute Assessment and Plan: etiology not clear CT of A/P without any acute pathology however, elevated lactic acid noted pain control may need repeat imaging (3) Sepsis: Code(s): A41.9 - Sepsis, unspecified organism Status: Acute Assessment and Plan: as noted by presentation of abdominal pain, ANA LAURA/ARF, leukocytosis, and lactic acidosis follow culture data (blood, urine, stool) empiric broad spectrum antibiotics follow trend of hemodynamics continue supportive therapy (4) Paroxysmal atrial fibrillation: Code(s): I48.0 - Paroxysmal atrial fibrillation Status: Acute Assessment and Plan: rate control strategy on anticoagulation (5) Cardiomyopathy: Code(s): I42.9 - Cardiomyopathy, unspecified Status: Acute Assessment and Plan: last reported EF - 15% repeat echo ordered Will continue to follow. History of Present Illness Reason for Consult Consult date: 12/07/21 Reason for consult: acute renal failure Chief Complaint Chief complaint: Abdominal pain History of Present Illness Narrative: The patient is a 61-year-old male with a past medical history as outlined below who presented to [facility] Emergency room with complaints of nausea, vomiting, diarrhea in association with abdominal pain. Apparently, the patient's abdominal pain in association with the nausea, vomiting, and diarrhea have been going on for the past few days without any significant improvement. The abdominal pain seems to be worse on the right side but states that the pain in general seems to be somewhat diffuse as well. As these symptoms continued to progressively get worse, he finally decided to come to the emergency room for further evaluation. Workup and evaluation emergency room demonstrated the patient to be hemodynamically stable although he had some relatively low BP readings. Routine blood test demonstrated significant abnormalities including a leukocytosis, acute kidney injury/ acute renal failure, and lactic acidosis. Subsequent imaging studies including a CT scan of the abdomen pelvis demonstrated bilateral fat containing inguinal hernias as well as a stable 4.8 cm fusiform aneurysm of the infrarenal or aorta. No other acute pathology was present. His EKG just showed sinus tachycardia with few PVCs and no ischemic changes. He gave no other acute symptoms with regard to chest pain, shortness of breath difficulty urinating hematochezia, melena, palpitations, dizziness, or syncope. He denies any recent antibiotic use but does report that his diarrhea somewhat watery in consistency. Given his constellation of symptoms on presentation as well as complex medical history and laboratory /imaging findings, appropriate cultures were obtained and he was started on broad-spectrum IV antibiotic therapy with subsequent aggressive IV fluid resuscitation given the concern for possible sepsis and admission to the hospital. Since his admission to the hospital, his renal function has not really significantly improved although he remains hemodynamically stable. His IV antibiotic coverage has been broadened given the ongoing concerns for sepsis and furt
--- NOTE | 2021-12-07 13:58 | P.CONNP_ITS ---
Assessment and Plan Assessment and plan (1) ANA LAURA (acute kidney injury): Code(s): N17.9 - Acute kidney failure, unspecified Status: Acute Assessment and Plan: * normal renal function at baseline * admitted with creatinine of 4.0mg/dl * mild improvement in creatinine since admission * evaluation to date: * renal ultrasound normal * urine electrolytes prerenal (but he could have chronic prerenal azotemia from his cardiomyopathy) * CPK okay * history would suggest some element of dehydration/volume depletion * however, infection/sepsis could be playing a role as well * agree with trial of IVFs for now * follow I/Os * follow repeat labs (2) Abdominal pain: Code(s): R10.9 - Unspecified abdominal pain Status: Acute Assessment and Plan: * etiology not clear * CT of A/P without any acute pathology * however, elevated lactic acid noted * pain control * may need repeat imaging (3) Sepsis: Code(s): A41.9 - Sepsis, unspecified organism Status: Acute Assessment and Plan: * as noted by presentation of abdominal pain, ANA LAURA/ARF, leukocytosis, and lactic acidosis * follow culture data (blood, urine, stool) * empiric broad spectrum antibiotics * follow trend of hemodynamics * continue supportive therapy (4) Paroxysmal atrial fibrillation: Code(s): I48.0 - Paroxysmal atrial fibrillation Status: Acute Assessment and Plan: * rate control strategy * on anticoagulation (5) Cardiomyopathy: Code(s): I42.9 - Cardiomyopathy, unspecified Status: Acute Assessment and Plan: * last reported EF - 15% * repeat echo ordered Will continue to follow. History of Present Illness Reason for Consult Consult date: 12/07/21 Reason for consult: acute renal failure Chief Complaint Chief complaint: Abdominal pain History of Present Illness Narrative: The patient is a 61-year-old male with a past medical history as outlined below who presented to [facility] Emergency room with complaints of nausea, vomiting, diarrhea in association with abdominal pain. Apparently, the patient's abdominal pain in association with the nausea, vomiting, and diarrhea have been going on for the past few days without any significant improvement. The abdominal pain seems to be worse on the right side but states that the pain in general seems to be somewhat diffuse as well. As these symptoms continued to progressively get worse, he finally decided to come to the emergency room for further evaluation. Workup and evaluation emergency room demonstrated the patient to be hemodynamically stable although he had some relatively low BP readings. Routine blood test demonstrated significant abnormalities including a leukocytosis, a cute kidney injury/ acute renal failure, and lactic acidosis. Subsequent imaging studies including a CT scan of the abdomen pelvis demonstrated bilateral fat containing inguinal hernias as well as a stable 4.8 cm fusiform aneurysm of the infrarenal or aorta. No other acute pathology was present. His EKG just showed sinus tachycardia with few PVCs and no ischemic changes. He gave no other acute symptoms with regard to chest pain, shortness of breath difficulty urinating hematochezia, melena, palpitations, dizziness, or syncope. He denies any recent antibiotic use but does report that his diarrhea somewhat watery in consistency. Given his constellation of symptoms on presentation as well as complex medical history and laboratory /imaging findings, appropriate cultures were obtained and
--- NOTE | 2021-12-07 13:58 | PCNSR ---
On 12/07/21, the student, Waldemar Carney, provided care and completed [facility] documentation on this patient. I have reviewed the student's documentation and agree with the findings.
[2021-12-07] MEDS: SODIUM CHLORIDE 0.9% IV 1,000 ML 90 ML IV CONT (15:52)
[2021-12-07] MEDS: RIVAROXABAN 20 MG TABLET PO (17:52)
[2021-12-07 18:35] LABS: Albumin Level 4.3 g/dL (3.5-5.1); Anion Gap 9 mmol/L (8-16); Blood Urea Nitrogen 44 mg/dL (9-20); Calcium 7.9 mg/dL (8.4-10.2); Carbon Dioxide 30 mmol/L (22-30); Chloride 96 mmol/L (98-107); Estimated CRCL calculation 27 ml/min; Estimated Glomerular Filt Rate 22; Glucose 125 mg/dL (65-110); Phosphorus 3.8 mg/dL (2.5-4.5); Potassium 3.4 mmol/L (3.4-5.0); Sodium 135 mmol/L (137-145)
[2021-12-07] MEDS: ONDANSETRON INJ 4 MG/2 ML VIAL IV PUSH (20:50)
[2021-12-07] MEDS: SODIUM CHLORIDE 0.9% IV 1,000 ML 75 ML IV CONT (20:59)
[2021-12-08] VITALS (12 sets, daily range): BP systolic 107–113; BP diastolic 61–65; PULSE 66–79; RESP 18–22; TEMP 35.9–36.9; O2SAT 93–98
[2021-12-08] MEDS: metroNIDAZOLE 500 MG/ISO 100ML 500 MG/100 ML BAG 100 MG IVPB ×5 (00:20→23:41)
[2021-12-08] MEDS: ONDANSETRON INJ 4 MG/2 ML VIAL IV PUSH ×2 (02:23→19:41)
[2021-12-08 06:08] LABS: Basophils Percent Auto 0.5 % (0.2-1.2); Eosinophils Percent Auto 0.2 % (0-4.4); Hemoglobin 12.6 g/dL (14.0-18.0); Immature Granulocyte Absolute 0.02 K/mm3 (0.00-0.031); Immature Granulocyte Percent A 0.2 % (0-0.5); Lymphocytes Absolute Auto 1.79 K/mm3 (0.9-3.2); Lymphocytes Percent Auto 21.9 % (18.3-44.2); Mean Corpuscular HGB Conc 32.3 g/dl (32-36); Mean Corpuscular Hemoglobin 30.5 pg (26-34); Mean Corpuscular Volume 94.4 fl (80-100); Mean Platelet Volume 11.1 fl (7.4-10.4); Monocytes Absolute Auto 0.7 K/mm3 (0.1-0.6); Monocytes Percent Auto 8.2 % (2.6-8.5); Neutrophils Absolute Auto 5.6 K/mm3 (1.3-6.7); Platelet Count Result 160 k/mm3 (150-375); Red Blood Count 4.13 M/mm3 (4.6-6.20); Red Cell Distribution Width 14.1 % (11.5-14.5); White Blood Count 8.2 K/mm3 (4.5-10.0)
[2021-12-08] MEDS: MORPHINE SULFATE (*CRX) 4 MG/ML INJ IV PUSH ×4 (06:20→23:48)
[2021-12-08 06:23] LABS: Alanine Aminotransferase 18 U/L (6-50); Albumin Level 3.8 g/dL (3.5-5.1); Alkaline Phosphatase 70 U/L (38-126); Anion Gap 6 mmol/L (8-16); Aspartate Amino Transferase 29 U/L (17-59); Bilirubin,Total 0.7 mg/dL (0.2-1.3); Blood Urea Nitrogen 36 mg/dL (9-20); Carbon Dioxide 28 mmol/L (22-30); Chloride 101 mmol/L (98-107); Estimated CRCL calculation 37 ml/min; Estimated Glomerular Filt Rate 30; Glucose 98 mg/dL (65-110); Lipase 38 U/L (23-300); Potassium 3.1 mmol/L (3.4-5.0); Sodium 135 mmol/L (137-145)
[2021-12-08] MEDS: POTASSIUM CHLORIDE 20 MEQ TABLET 40 MEQ PO (06:56)
[2021-12-08] MEDS: ASPIRIN 81 MG CHEWABLE TABLET PO (08:35)
[2021-12-08] MEDS: AMIODARONE HCL 200 MG TABLET PO (08:35)
[2021-12-08] MEDS: carvediloL 12.5 MG TABLET PO ×2 (08:36→20:20)
[2021-12-08] MEDS: ESCITALOPRAM OXALATE 10 MG TABLET PO (08:36)
--- NOTE | 2021-12-08 08:46 | PM.IMPN ---
Progress Note: A&P Assessment and Plan (1) Nausea vomiting and diarrhea: Code(s): R11.2 - Nausea with vomiting, unspecified; R19.7 - Diarrhea, unspecified Status: Acute Assessment and Plan: -intractable N/V/D w/ associated abd pain -did have significant leukocytosis of 20.1 on arrival with lactic acid of 3.3 and acute renal failure -hx of cyclic vomiting, however concern for possible infection given clinical history. Although the leukocytosis and lactic acid could be elevated secondary to persistent vomiting. These are both continuing to improve today. -CT abd/pelv no acute findings, may consider repeating with contrast when renal function recovers if still having significant tenderness -stool studies ordered -placed on broad spectrum abx with Vanc, Zosyn, and flagyl on arrival as it was initially felt that he may have a bacterial infection and could be septic. will continue those for now pending blood and stool cultures and clinical course. -continue IVF and antiemetics/pain control as needed (2) Abdominal pain: Code(s): R10.9 - Unspecified abdominal pain Status: Acute Assessment and Plan: -plan as above (3) Leukocytosis: Code(s): D72.829 - Elevated white blood cell count, unspecified Status: Acute Assessment and Plan: -plan as above -CXR, UA, and CT abd/pelv negative for acute infection (4) ANA LAURA (acute kidney injury): Code(s): N17.9 - Acute kidney failure, unspecified Status: Acute Assessment and Plan: -baseline kidney function WNL, creat on arrival 4.0 -likely secondary to acute illness/dehydration/volume loss -improving w/ IVF hydration -renal US WNL -nephrology consulted -monitor daily BMP (5) CAD (coronary artery disease): Code(s): I25.10 - Atherosclerotic heart disease of [place] coronary artery without angina pectoris Status: Acute Assessment and Plan: -ECHO reviewed, no valvular vegetations -His [employer] is in [facility]. EF 20-25% (6) HLD (hyperlipidemia): Code(s): E78.5 - Hyperlipidemia, unspecified Status: Acute Assessment and Plan: - Atorvastatin 80 mg HS continued. (7) Pancreatitis: Qualifiers: Chronicity: chronic Pancreatitis type: unspecified pancreatitis type Qualified Code(s): K86.1 - Other chronic pancreatitis Code(s): K85.90 - Acute pancreatitis without necrosis or infection, unspecified Status: Acute Assessment and Plan: - Possible Acute on Chronic Flare? - CT is negative for any findings, however, it was without contrast. - Lipase is normal, but may be chronic in nature. - Consider US of abdomen or CT with contrast of abdomen if renal function allows to further evaluate pancreas if no improvement in abdominal pain. (8) Ischemic cardiomyopathy with implantable cardioverter-defibrillator (ICD): Code(s): I25.5 - Ischemic cardiomyopathy; Z95.810 - Presence of automatic (implantable) cardiac defibrillator Status: Acute Assessment and Plan: - ECHO reviewed (9) Paroxysmal atrial fibrillation: Code(s): I48.0 - Paroxysmal atrial fibrillation Status: Acute Assessment and Plan: - Continue Amiodarone, Carvedilol, Eliquis - CHADS Vasc score: 3 (10) Aneurysm of infrarenal abdominal aorta: Code(s): I71.4 - Abdominal aortic aneurysm, without rupture Status: Acute Assessment and Plan: - Per CT scan of abdomen without contrast the known aneurysm is stable. Subjective Date/time seen: 12/08/21 08:46 Interval history: 61-year-old male patient with significant past medical history of coronary artery disease with history of [place], cyclic vomiting syndrome, depression, hyperlipidemia, hypertension, ischemic cardiomyopathy, pancreatitis, paroxysmal atrial fibrillation on chronic Xarelto, infrarenal abdominal aortic aneurysm an betty
--- NOTE | 2021-12-08 12:28 | PM.PNNEP ---
Progress Note: A&P Assessment and Plan (1) ANA LAURA (acute kidney injury): Code(s): N17.9 - Acute kidney failure, unspecified Status: Acute Assessment and Plan: improving normal renal function at baseline admitted with creatinine of 4.0mg/dl mild improvement in creatinine since admission evaluation to date: renal ultrasound normal urine electrolytes prerenal (but he could have chronic prerenal azotemia from his cardiomyopathy) CPK okay history would suggest some element of dehydration/volume depletion however, infection/sepsis could be playing a role as well agree with trial of IVFs for now follow I/Os follow repeat labs (2) Abdominal pain: Code(s): R10.9 - Unspecified abdominal pain Status: Acute Assessment and Plan: etiology not clear CT of A/P without any acute pathology however, elevated lactic acid noted pain control may need repeat imaging (3) Sepsis: Code(s): A41.9 - Sepsis, unspecified organism Status: Acute Assessment and Plan: as noted by presentation of abdominal pain, ANA LAURA/ARF, leukocytosis, and lactic acidosis follow culture data (blood, urine, stool) empiric broad spectrum antibiotics follow trend of hemodynamics continue supportive therapy (4) Paroxysmal atrial fibrillation: Code(s): I48.0 - Paroxysmal atrial fibrillation Status: Acute Assessment and Plan: rate control strategy on anticoagulation (5) Cardiomyopathy: Code(s): I42.9 - Cardiomyopathy, unspecified Status: Acute Assessment and Plan: last reported EF - 15% repeat echo with EF ~ 20 - 25% Will continue to follow. Subjective Date/time seen: 12/08/21 12:28 Still having abdominal pain and intermittent nausea but seems a bit better and able to tolerate clear liquid diet; no further diarrhea at this time; no other acute issues/events overnight or earlier this morning; no apparent distress to report currently. Exam Narrative: General: WD/WN male in NAD Heart: normal S1 and S2; no rub Lungs: clear to auscultation Abdomen: soft, nontender, nondistended, positive bowel sounds Extremities: no cyanosis or clubbing; no edema Skin: warm and dry Objective Data Vital Signs Vital Signs: Vital Signs Temp Pulse Resp BP Pulse Ox O2 Del Method 12/08/21 08:40 70 95 Room Air 12/08/21 05:42 35.9 C L 70 22 H 111/61 94 06/04/22 04:00 70 12/08/21 00:00 69 12/07/21 20:00 Room Air 12/07/21 20:00 72 12/07/21 20:33 36.4 C L 75 20 116/76 95 12/07/21 20:48 80 12/07/21 16:03 71 Intake/Output Intake/Output: Intake & Output 12/05/21 12/06/21 12/07/21 12/08/21 23:59 23:59 23:59 23:59 Intake Total 1100 5070 1310 Output Total 850 Balance 1100 4220 1310 Meds/Results Medications: Active Medications Generic Name Dose Route Start Last Admin Trade Name Freq PRN Reason Stop Dose Admin Albuterol 2 puff 12/07/21 06:55 Albuterol Sulfate (*Sp) Aerosol 1 Puff INHALATION QID PRN Shortness Of Breath Amiodarone HCl 200 mg 12/07/21 09:00 12/08/21 08:35 Amiodarone Hcl 200 Mg Tablet PO 01/06/22 08:59 200 mg DAILY WILLIAM Administration Aspirin 81 mg 12/07/21 09:00 12/08/21 08:35 Aspirin 81 Mg Chewable Tablet PO 01/06/22 08:59 81 mg DAILY WILLIAM Administration Atorvastatin Calcium 80 mg 12/06/21 21:00 12/07/21 20:48 Atorvastatin 40 Mg Tablet PO 80 mg HS WILLIAM Administration Calcium Carbonate 600 mg 12/06/21 21:25 Calcium Carbonate (Tums) 500 Mg (200 Mg Elemental) PO QID PRN Heartburn Carvedilol 12.5 mg 12/06/21 21:00 12/08/21 08:36 Carvedilol 12.5 Mg Tablet PO 12.5 mg Q12HR WILLIAM Administration Escitalopram Oxalate 10 mg 12/07/21 09:00 12/08/21 08:36 Escitalopram Oxalate 10 Mg Tablet PO 10 mg DAILY WILLIAM Administration Furosemide 20 mg 12/07/21 09:00 12/07/21 09:59
--- NOTE | 2021-12-08 12:28 | P.PNNP_ITS ---
Progress Note: A&P Assessment and Plan (1) ANA LAURA (acute kidney injury): Code(s): N17.9 - Acute kidney failure, unspecified Status: Acute Assessment and Plan: * improving * normal renal function at baseline * admitted with creatinine of 4.0mg/dl * mild improvement in creatinine since admission * evaluation to date: * renal ultrasound normal * urine electrolytes prerenal (but he could have chronic prerenal azotemia from his cardiomyopathy) * CPK okay * history would suggest some element of dehydration/volume depletion * however, infection/sepsis could be playing a role as well * agree with trial of IVFs for now * follow I/Os * follow repeat labs (2) Abdominal pain: Code(s): R10.9 - Unspecified abdominal pain Status: Acute Assessment and Plan: * etiology not clear * CT of A/P without any acute pathology * however, elevated lactic acid noted * pain control * may need repeat imaging (3) Sepsis: Code(s): A41.9 - Sepsis, unspecified organism Status: Acute Assessment and Plan: * as noted by presentation of abdominal pain, ANA LAURA/ARF, leukocytosis, and lactic acidosis * follow culture data (blood, urine, stool) * empiric broad spectrum antibiotics * follow trend of hemodynamics * continue supportive therapy (4) Paroxysmal atrial fibrillation: Code(s): I48.0 - Paroxysmal atrial fibrillation Status: Acute Assessment and Plan: * rate control strategy * on anticoagulation (5) Cardiomyopathy: Code(s): I42.9 - Cardiomyopathy, unspecified Status: Acute Assessment and Plan: * last reported EF - 15% * repeat echo with EF ~ 20 - 25% Will continue to follow. Subjective Date/time seen: 12/08/21 12:28 Still having abdominal pain and intermittent nausea but seems a bit better and able to tolerate clear liquid diet; no further diarrhea at this time; no other acute issues/events overnight or earlier this morning; no apparent distress to report currently. Exam Narrative: General: WD/WN male in NAD Heart: normal S1 and S2; no rub Lungs: clear to auscultation Abdomen: soft, nontender, nondistended, positive bowel sounds Extremities: no cyanosis or clubbing; no edema Skin: warm and dry Objective Data Vital Signs Vital Signs: Vital Signs Temp Pulse Resp BP Pulse Ox O2 Del Method 12/08/21 08:40 70 95 Room Air 12/08/21 05:42 35.9 C L 70 22 H 111/61 94 12/08/21 04:00 70 12/08/21 00:00 69 12/07/21 20:00 Room Air 12/07/21 20:00 72 12/07/21 20:33 36.4 C L 75 20 116/76 95 12/07/21 20:48 80 12/07/21 16:03 71 Intake/Output Intake/Output: Intake & Output 12/05/21 12/06/21 12/07/21 12/08/21 23:59 23:59 23:59 23:59 Intake Total 1100 5070 1310 Output Total 850 Balance 1100 4220 1310 Meds/Results Medications: Active Medications Generic Name Dose Route Start Last Admin Trade Name Freq PRN Reason Stop Dose Admin Albuterol 2 puff 12/07/21 06:55 Albuterol Sulfate (*Sp) Aerosol 1 Puff INHALATION QID PRN Shortness Of Breath
[2021-12-08] MEDS: RIVAROXABAN 20 MG TABLET PO (17:37)
[2021-12-08] MEDS: ATORVASTATIN 40 MG TABLET 80 MG PO (20:20)
[2021-12-08] MEDS: SODIUM CHLORIDE 0.9% IV 1,000 ML 75 ML IV CONT (20:20)
[2021-12-08 22:26] LABS: Toxigenic C. Diff NEGATIVE (NEGATIVE)
[2021-12-09] VITALS (7 sets, daily range): BP systolic 101–107; BP diastolic 50–65; PULSE 66–78; RESP 16–20; TEMP 36.2–36.9; O2SAT 93–96
[2021-12-09] MEDS: metroNIDAZOLE 500 MG/ISO 100ML 500 MG/100 ML BAG 100 MG IVPB ×2 (05:28→12:03)
[2021-12-09 05:58] LABS: Basophils Percent Auto 0.6 % (0.2-1.2); Eosinophils Absolute Auto 0.1 K/mm3 (0-0.3); Eosinophils Percent Auto 1.5 % (0-4.4); Hematocrit 37.1 % (42.0-52.0); Hemoglobin 12.2 g/dL (14.0-18.0); Immature Granulocyte Absolute 0.03 K/mm3 (0.00-0.031); Immature Granulocyte Percent A 0.4 % (0-0.5); Lymphocytes Absolute Auto 1.49 K/mm3 (0.9-3.2); Lymphocytes Percent Auto 22.3 % (18.3-44.2); Mean Corpuscular HGB Conc 32.9 g/dl (32-36); Mean Corpuscular Hemoglobin 30.7 pg (26-34); Mean Corpuscular Volume 93.5 fl (80-100); Mean Platelet Volume 11.1 fl (7.4-10.4); Monocytes Absolute Auto 0.6 K/mm3 (0.1-0.6); Monocytes Percent Auto 8.8 % (2.6-8.5); Neutrophils Absolute Auto 4.4 K/mm3 (1.3-6.7); Neutrophils Percent Auto 66.4 % (45.5-73.1); Platelet Count Result 154 k/mm3 (150-375); Red Blood Count 3.97 M/mm3 (4.6-6.20); Red Cell Distribution Width 14.1 % (11.5-14.5); White Blood Count 6.7 K/mm3 (4.5-10.0)
[2021-12-09 06:09] LABS: Alanine Aminotransferase 16 U/L (6-50); Albumin Level 3.5 g/dL (3.5-5.1); Alkaline Phosphatase 68 U/L (38-126); Anion Gap 3 mmol/L (8-16); Aspartate Amino Transferase 26 U/L (17-59); Bilirubin,Total 0.3 mg/dL (0.2-1.3); Blood Urea Nitrogen 19 mg/dL (9-20); Calcium 7.6 mg/dL (8.4-10.2); Carbon Dioxide 30 mmol/L (22-30); Chloride 105 mmol/L (98-107); Estimated CRCL calculation 54 ml/min; Estimated Glomerular Filt Rate 47; Glucose 101 mg/dL (65-110); Potassium 3.5 mmol/L (3.4-5.0); Sodium 138 mmol/L (137-145)
[2021-12-09] MEDS: ESCITALOPRAM OXALATE 10 MG TABLET PO (09:11)
[2021-12-09] MEDS: carvediloL 12.5 MG TABLET PO (09:11)
[2021-12-09] MEDS: ASPIRIN 81 MG CHEWABLE TABLET PO (09:11)
[2021-12-09] MEDS: AMIODARONE HCL 200 MG TABLET PO (09:11)
--- NOTE | 2021-12-09 11:19 | PM.DS ---
DS: Admitting Diagnosis Discharge Date 12/09/21 Admitting Diagnosis N/V/D DS: Discharge Diagnosis Discharge Diagnosis (1) Nausea vomiting and diarrhea: Code(s): R11.2 - Nausea with vomiting, unspecified; R19.7 - Diarrhea, unspecified Status: Acute Assessment and Plan: -intractable N/V/D w/ associated abd pain -did have significant leukocytosis of 20.1 on arrival with lactic acid of 3.3 and acute renal failure -hx of cyclic vomiting, however concern for possible infection given clinical history.? Although the leukocytosis and lactic acid could be elevated secondary to persistent vomiting.? These are both continuing to improve daily and are back to normal today. -CT abd/pelv no acute findings -stool studies pending, c diff negative -placed on broad spectrum abx with Vanc, Zosyn, and flagyl on arrival as it was initially felt that he may have a bacterial infection and could be septic.? Pt has improved clinically, though it is difficult to tell whether there was improvement due to IVF and supportive care, or due to abx. Will continue Augmentin on discharge in the event there was in fact a bacterial infection. -will provide GI follow up -all questions and concerns addressed with patient and family at bedside (2) Abdominal pain: Code(s): R10.9 - Unspecified abdominal pain Status: Acute Assessment and Plan: -plan as above (3) Leukocytosis: Code(s): D72.829 - Elevated white blood cell count, unspecified Status: Acute Assessment and Plan: -plan as above -CXR, UA, and CT abd/pelv negative for acute infection (4) ANA LAURA (acute kidney injury): Code(s): N17.9 - Acute kidney failure, unspecified Status: Acute Assessment and Plan: -baseline kidney function WNL, creat on arrival 4.0 -likely secondary to acute illness/dehydration/volume loss -improving w/ IVF hydration -renal US WNL -nephrology consulted -pt stable for discharge at this time. Stressed importance of staying hydrated and provided lab order to have repeat BMP in 2 days. (5) CAD (coronary artery disease): Code(s): I25.10 - Atherosclerotic heart disease of [place] coronary artery without angina pectoris Status: Acute Assessment and Plan: -ECHO reviewed, no valvular vegetations -His [employer] is in [facility]. EF 20-25% (6) HLD (hyperlipidemia): Code(s): E78.5 - Hyperlipidemia, unspecified Status: Acute Assessment and Plan: - Atorvastatin 80 mg HS continued. (7) Pancreatitis: Qualifiers: Chronicity: chronic Pancreatitis type: unspecified pancreatitis type Qualified Code(s): K86.1 - Other chronic pancreatitis Code(s): K85.90 - Acute pancreatitis without necrosis or infection, unspecified Status: Acute Assessment and Plan: -hx of pancreatitis, possible Acute on Chronic Flare? - CT is negative for any findings, however, it was without contrast. - Lipase is normal, but may be chronic in nature. - Pt is tolerating PO and pain free at this time (8) Ischemic cardiomyopathy with implantable cardioverter-defibrillator (ICD): Code(s): I25.5 - Ischemic cardiomyopathy; Z95.810 - Presence of automatic (implantable) cardiac defibrillator Status: Acute Assessment and Plan: -no acute issues -echo reviewed (9) Paroxysmal atrial fibrillation: Code(s): I48.0 - Paroxysmal atrial fibrillation Status: Acute Assessment and Plan: - Continued Amiodarone, Carvedilol, Eliquis - CHADS Vasc score: 3 (10) Aneurysm of infrarenal abdominal aorta: Code(s): I71.4 - Abdominal aortic aneurysm, without rupture Status: Acute Assessment and Plan: - Per CT scan of abdomen without contrast the known aneurysm is stable. DS: Summary Hospital Course Reason for hospitalization: 61-year-old male patient with significant past me
--- NOTE | 2021-12-09 12:22 | PM.PNNEP ---
Progress Note: A&P Assessment and Plan (1) ANA LAURA (acute kidney injury): Code(s): N17.9 - Acute kidney failure, unspecified Status: Acute Assessment and Plan: improving normal renal function at baseline admitted with creatinine of 4.0mg/dl mild improvement in creatinine since admission evaluation to date: renal ultrasound normal urine electrolytes prerenal (but he could have chronic prerenal azotemia from his cardiomyopathy) CPK okay history would suggest some element of dehydration/volume depletion however, infection/sepsis could be playing a role as well agree with trial of IVFs for now follow I/Os follow repeat labs (2) Abdominal pain: Code(s): R10.9 - Unspecified abdominal pain Status: Acute Assessment and Plan: etiology not clear CT of A/P without any acute pathology however, elevated lactic acid noted pain control may need repeat imaging (3) Sepsis: Code(s): A41.9 - Sepsis, unspecified organism Status: Acute Assessment and Plan: as noted by presentation of abdominal pain, ANA LAURA/ARF, leukocytosis, and lactic acidosis follow culture data (blood, urine, stool) empiric broad spectrum antibiotics follow trend of hemodynamics continue supportive therapy (4) Paroxysmal atrial fibrillation: Code(s): I48.0 - Paroxysmal atrial fibrillation Status: Acute Assessment and Plan: rate control strategy on anticoagulation (5) Cardiomyopathy: Code(s): I42.9 - Cardiomyopathy, unspecified Status: Acute Assessment and Plan: last reported EF - 15% repeat echo with EF ~ 20 - 25% Will continue to follow. Subjective Date/time seen: 12/09/21 12:22 Continues to make slow and steady improvement -- appetite as well as nausea better ; renal function going in the right direction each day with gently IVF hydration; no issues/events overnight or earlier this AM. Exam Narrative: General: WD/WN male in NAD Heart: normal S1 and S2; no rub Lungs: clear to auscultation Abdomen: soft, nontender, nondistended, positive bowel sounds Extremities: no cyanosis or clubbing; no edema Skin: warm and dry Objective Data Vital Signs Vital Signs: Vital Signs Temp Pulse Resp BP Pulse Ox O2 Del Method 12/09/21 12:00 68 12/09/21 08:00 74 12/09/21 09:10 Room Air 12/09/21 09:11 74 12/09/21 09:11 74 12/09/21 09:08 36.9 C 74 16 107/50 L 96 12/09/21 04:43 36.2 C L 78 20 101/65 93 12/09/21 04:00 75 12/09/21 00:00 66 12/08/21 22:09 94 Room Air 12/08/21 20:00 71 12/08/21 20:20 72 12/08/21 19:39 36.9 C 72 18 107/64 93 12/08/21 19:27 Room Air 12/08/21 16:00 79 12/08/21 14:27 36.4 C 67 18 113/65 98 Intake/Output Intake/Output: Intake & Output 12/06/21 12/07/21 12/08/21 12/09/21 23:59 23:59 23:59 23:59 Intake Total 1100 5070 3030 1244 Output Total 850 300 Balance 1100 4220 2730 1244 Meds/Results Medications: Active Medications Generic Name Dose Route Start Last Admin Trade Name Freq PRN Reason Stop Dose Admin Albuterol 2 puff 12/07/21 06:55 Albuterol Sulfate (*Sp) Aerosol 1 Puff INHALATION QID PRN Shortness Of Breath Amiodarone HCl 200 mg 12/07/21 09:00 12/09/21 09:11 Amiodarone Hcl 200 Mg Tablet PO 01/06/22 08:59 200 mg DAILY WILLIAM Administration Aspirin 81 mg 12/07/21 09:00 12/09/21 09:11 Aspirin 81 Mg Chewable Tablet PO 01/06/22 08:59 81 mg DAILY WILLIAM Administration Atorvastatin Calcium 80 mg 12/06/21 21:00 12/08/21 20:20 Atorvastatin 40 Mg Tablet PO 80 mg HS WILLIAM Administration Calcium Carbonate 600 mg 12/06/21 21:25 Calcium Carbonate (Tums) 500 Mg (200 Mg Elemental) PO QID PRN Heartburn Carvedilol 12.5 mg 12/06/21 21:00 12/09/21 09:11 Carvedilol 12.5 Mg Tablet PO 12.5 mg Q12HR WILLIAM Administration Es
--- NOTE | 2021-12-09 12:22 | P.PNNP_ITS ---
Progress Note: A&P Assessment and Plan (1) ANA LAURA (acute kidney injury): Code(s): N17.9 - Acute kidney failure, unspecified Status: Acute Assessment and Plan: * improving * normal renal function at baseline * admitted with creatinine of 4.0mg/dl * mild improvement in creatinine since admission * evaluation to date: * renal ultrasound normal * urine electrolytes prerenal (but he could have chronic prerenal azotemia from his cardiomyopathy) * CPK okay * history would suggest some element of dehydration/volume depletion * however, infection/sepsis could be playing a role as well * agree with trial of IVFs for now * follow I/Os * follow repeat labs (2) Abdominal pain: Code(s): R10.9 - Unspecified abdominal pain Status: Acute Assessment and Plan: * etiology not clear * CT of A/P without any acute pathology * however, elevated lactic acid noted * pain control * may need repeat imaging (3) Sepsis: Code(s): A41.9 - Sepsis, unspecified organism Status: Acute Assessment and Plan: * as noted by presentation of abdominal pain, ANA LAURA/ARF, leukocytosis, and lactic acidosis * follow culture data (blood, urine, stool) * empiric broad spectrum antibiotics * follow trend of hemodynamics * continue supportive therapy (4) Paroxysmal atrial fibrillation: Code(s): I48.0 - Paroxysmal atrial fibrillation Status: Acute Assessment and Plan: * rate control strategy * on anticoagulation (5) Cardiomyopathy: Code(s): I42.9 - Cardiomyopathy, unspecified Status: Acute Assessment and Plan: * last reported EF - 15% * repeat echo with EF ~ 20 - 25% Will continue to follow. Subjective Date/time seen: 12/09/21 12:22 Continues to make slow and steady improvement -- appetite as well as nausea better ; renal function going in the right direction each day with gently IVF hydration; no issues/events overnight or earlier this AM. Exam Narrative: General: WD/WN male in NAD Heart: normal S1 and S2; no rub Lungs: clear to auscultation Abdomen: soft, nontender, nondistended, positive bowel sounds Extremities: no cyanosis or clubbing; no edema Skin: warm and dry Objective Data Vital Signs Vital Signs: Vital Signs Temp Pulse Resp BP Pulse Ox O2 Del Method 12/09/21 12:00 68 12/09/21 08:00 74 12/09/21 09:10 Room Air 12/09/21 09:11 74 12/09/21 09:11 74 12/09/21 09:08 36.9 C 74 16 107/50 L 96 12/09/21 04:43 36.2 C L 78 20 101/65 93 12/09/21 04:00 75 12/09/21 00:00 66 12/08/21 22:09 94 Room Air 12/08/21 20:00 71 12/08/21 20:20 72 12/08/21 19:39 36.9 C 72 18 107/64 93 12/08/21 19:27 Room Air 12/08/21 16:00 79 12/08/21 14:27 36.4 C 67 18 113/65 98 Intake/Output Intake/Output: Intake & Output 12/06/21 12/07/21 12/08/21 12/09/21 23:59 23:59 23:59 23:59 Intake Total 1100 5070 3030 1244 Output Total 850 300 Balance 1100 4220 2730 1244 Meds/Results Medications: Active Medications Generic Name Dos
[2021-12-12 07:49] LABS: Ionized Calcium 4.8 mg/dL (4.8-5.6)
--- NOTE | 2021-12-12 08:31 | PC.NURSE ---
Stool studies are negative
[2021-12-13 11:57] LABS: Chloride Rand Ur <20 mmol/L (32-290); Creatinine Random Urine 193 mg/dL (20-320)
== END 2021-12-09 13:45 | disposition home or self-care (01) | DRG 683 ==
LOC: ANHED 14:43 → ANH2MED 15:33
PROVIDERS: Internal Medicine Nephrology; Nurse Practitioner Adult Health; Physician Assistant; Admitting Provider Chiropractor; Emergency Provider Emergency Medicine; PCP Family Medicine; Visit Provider Internal Medicine
DX: N17.9 Acute kidney failure, unspecified (principal); K86.1 Other chronic pancreatitis; R10.9 Unspecified abdominal pain; R11.2 Nausea with vomiting, unspecified; R19.7 Diarrhea, unspecified; R11.15 Cyclical vomiting syndrome unrelated to migraine; D72.829 Elevated white blood cell count, unspecified; I25.10 Atherosclerotic heart disease of native coronary artery without angina pectoris; E78.5 Hyperlipidemia, unspecified; I48.0 Paroxysmal atrial fibrillation; I71.4 Abdominal aortic aneurysm, without rupture; F17.210 Nicotine dependence, cigarettes, uncomplicated; I10 Essential (primary) hypertension; I25.5 Ischemic cardiomyopathy; F12.90 Cannabis use, unspecified, uncomplicated; F32.A Depression, unspecified; I25.2 Old myocardial infarction; Z79.01 Long term (current) use of anticoagulants; Z79.82 Long term (current) use of aspirin; Z86.010 Personal history of colon polyps; Z95.5 Presence of coronary angioplasty implant and graft; Z95.810 Presence of automatic (implantable) cardiac defibrillator
CPT/HCPCS: 36415; 71046; 74176; 76775; 80053; 80069; 81001; 81050; 82330; 82436; 82550; 82570; 83605; 83690; 83735; 84156; 84300; 85025; 87040; 87045; 87269; 87272; 87427; 87493; 89055; 93005; 93306; 96361; 96365; 96375; 96376; 99285; A9270; G0378; J2270; J2405; J2543; J3370; J7030

== ENCOUNTER 2021-12-11 09:55 | Outpatient (CLI) | payer OTHER, SELFPAY ==
[2021-12-11 10:32] LABS: Anion Gap 4 mmol/L (8-16); Blood Urea Nitrogen 9 mg/dL (9-20); Calcium 8.1 mg/dL (8.4-10.2); Carbon Dioxide 32 mmol/L (22-30); Chloride 103 mmol/L (98-107); Estimated Glomerular Filt Rate > 60; Glucose 129 mg/dL (65-110); Potassium 3.6 mmol/L (3.4-5.0); Sodium 139 mmol/L (137-145)
== END 2021-12-11 09:56 | disposition home or self-care (01) ==
LOC: ANHLAB 09:56
PROVIDERS: PCP Family Medicine; Visit Provider Physician Assistant
DX: N17.9 Acute kidney failure, unspecified (principal)
CPT/HCPCS: 36415; 80048

== ENCOUNTER 2021-12-27 00:43 | Emergency (ER) | payer OTHER, SELFPAY ==
--- NOTE | ~2021-12-27 | CT_ITS ---
EXAMINATION: CT abdomen pelvis wo con DATE: 12/27/2021 03:06 INDICATION: Right upper quadrant abdominal pain. Low abdominal pain. TECHNIQUE: Computed tomography (CT) of the abdomen and pelvis was performed without intravenous contr ast. Automated exposure control and iterative reconstruction technique were employed. The dose-length product was 1032.08 mGy-cm. COMPARISON: CT abdomen and pelvis 12/06/2021 FINDINGS: The visualized portions of the lung bases are clear without pneumonia or pleural effusion. There is left ventricular enlargement of the heart. No pericardial effusion. There are pacer wires in right atrium and right ventricle. There is a small sliding hiatal hernia. Calcifications in the live r and spleen are consistent with old granulomatous disease. The gallbladder, pancreas, adrenal glands , and kidneys are normal. There is no urolithiasis. There are bilateral inguinal hernias containing f at. There are no dilated loops of bowel. The appendix is normal. There is a 4.9 cm fusiform aneurysm of infrarenal aorta. There are no pathologically enlarged lymph nodes. There is no free intraperitone al fluid. There are chronic bilateral L5 pars defects. There is mild lumbar spondylosis. IMPRESSION: 1. Small sliding hiatal hernia. 2. Bilateral inguinal hernias containing fat. 3. Stable 4.9 cm fusiform aneurysm of infrarenal aorta. Reviewed, dictated and finalized at location A.
[2021-12-27 00:50] VITALS: BP 166/107; PULSE 91; RESP 18; TEMP 36.4; O2SAT 99
--- NOTE | 2021-12-27 00:57 | ECG_ITS ---
Measurements Intervals [place] Rate: 91 P: 84 [place]: 187 QRS: -51 QRSD: 123 T: 104 QT: 390 QTc: 480 Interpretive Statements SINUS RHYTHM NONSPECIFIC INTRAVENTRICULAR CONDUCTION DELAY CANNOT RULE OUT PREVIOUS INFERIOR INFARCTION ABNORMAL ECG COMPARED TO 12/06/2021 THERE IS NO DIFFERENCE Electronically Signed On 12-28-2021 16:12:24 CDT by Matt Chandler M.D.
--- NOTE | 2021-12-27 01:21 | PC.NURSE ---
pt drinking out of water fountain after just being told that he cannot have anything to eat or drink due to his chief c/o of n/v pt not wearing mask despite being asked several times by security and triage nurse
--- NOTE | 2021-12-27 02:33 | ED.GENADULT ---
HPI - General Adult General Chief complaint: Nausea/Vomiting/Diarrhea Stated complaint: n/v, hx pancreatitis Time Seen by Provider: 12/27/21 02:19 History of Present Illness HPI narrative: 61-year-old male history of chronic pancreatitis presented to the emergency department for evaluation of persistent nausea vomiting and diarrhea. Patient states that he is having cyclic vomiting every few weeks. Patient states that the symptoms started today. Patient does report some right upper quadrant and epigastric pain. Patient also does have some lower abdominal pain. Patient does have a history of 4.8 cm abdominal aortic aneurysm. Related Data Home Medications Medication Instructions Recorded Confirmed amiodarone 400 mg tablet 200 mg PO DAILY 10/16/20 12/06/21 aspirin 81 mg tablet 81 mg PO DAILY 10/16/20 12/06/21 atorvastatin 80 mg tablet 80 mg PO HS 10/16/20 12/06/21 carvedilol 12.5 mg tablet 12.5 mg PO BID 10/16/20 12/06/21 furosemide 20 mg tablet 20 mg PO DAILY 10/16/20 12/06/21 calcium carbonate 300 mg (750 mg) 750 tablet PO QID PRN Heartburn 01/17/21 12/06/21 chewable tablet (Tums E-X) escitalopram oxalate 10 mg tablet 10 mg PO DAILY 01/17/21 12/06/21 rivaroxaban 20 mg tablet (Xarelto) 20 mg PO DAILY 12/06/21 12/06/21 albuterol sulfate 90 mcg/actuation 2 puff inhalation QID PRN 12/07/21 12/07/21 aerosol inhaler Shortness Of Breath Allergies Allergy/AdvReac Type Severity Reaction Status Date / Time No Known Allergies Allergy Unknown Verified 12/06/21 17:48 Review of Systems Review of Systems: CONSTITUTIONAL: Denies fever, chills, or sweats. EYES: Denies visual changes, redness, or discharge. ENT: Denies rhinorrhea, congestion, sore throat, or otalgia. CARDIOVASCULAR: Denies chest pain, palpitations, or edema. RESPIRATORY: Denies cough or dyspnea. GASTROINTESTINAL: See HPI GENITOURINARY: Denies dysuria or hematuria. SKIN: Denies rash or itching. MUSCULOSKELETAL: Denies back pain, joint pain, or myalgia. Patient denies any radiation to his back. NEUROLOGIC: Denies headache, numbness, or weakness. PSYCHIATRIC: Denies anxiety or depression. [facility] Past Medical History Medical History (Updated 12/27/21 @ 06:51 by Evgeny Antony MD) Adenomatous colon polyp Aneurysm of infrarenal abdominal aorta Stable aneurysm measuring 4.5 centimeters on 11/21/2020. Coronary artery disease With history of [place] in what sounds like cardiac arrest while on vacation in [place]. He was in a medically induced coma for several weeks and temporarily had a tracheostomy. Cyclic vomiting syndrome Depression Hyperlipidemia Hypertension Ischemic cardiomyopathy Ejection fraction reportedly as low as 15%. Patient reports a pacemaker in situ, denies the presence of an ICD. He sees a human resources representative in [place]. Marijuana smoker, episodic Pancreatitis Paroxysmal atrial fibrillation Stenosis of infrarenal abdominal aorta due to arteriosclerosis Surgical History Surgical History History of arthroscopic knee surgery History of cardiac catheterization (~09/2019) Performed in [facility]. History of coronary artery stent placement (~09/2019) Stent x2. History of tracheostomy (~09/2019) Pacemaker Family History Family History Mother Congestive heart failure Father Glaucoma Lip cancer Social History Social History Social History: The patient lives in [place] with his . He has 2 children and is retired from [employer]. He smoked a pack of cigarettes a day for 30 years and quit quite sometime ago. No alcohol abuse. Admits to marijuana use but does not qualify or quantify. He designates his Iveth as his surrogate decision maker and he wishes to be a full code. Smoking packs per day: 1 Smoking cigarettes per day: 20.0 Years smoked: 2
[2021-12-27] MEDS: HYDROmorphone HCL INJ (*CRX) 1 MG/ML SYR IV PUSH (03:06)
[2021-12-27] MEDS: METOCLOPRAMIDE HCL INJ 10 MG/2 ML VIAL IV PUSH (03:06)
[2021-12-27] MEDS: SODIUM CHLORIDE 0.9% IV 1,000 ML 999 ML IV CONT (03:06)
[2021-12-27 03:11] VITALS: O2SAT 100
[2021-12-27 03:15] VITALS: O2SAT 97
[2021-12-27 03:16] VITALS: BP 152/108; O2SAT 98
[2021-12-27 03:30] VITALS: O2SAT 91
[2021-12-27 03:33] LABS: Basophils Absolute Auto 0.1 K/mm3 (0.0-0.1); Basophils Percent Auto 0.5 % (0.2-1.2); Eosinophils Absolute Auto 0.1 K/mm3 (0-0.3); Eosinophils Percent Auto 1.2 % (0-4.4); Hematocrit 45.9 % (42.0-52.0); Immature Granulocyte Absolute 0.05 K/mm3 (0.00-0.031); Immature Granulocyte Percent A 0.4 % (0-0.5); Lymphocytes Absolute Auto 1.09 K/mm3 (0.9-3.2); Mean Corpuscular HGB Conc 34.9 g/dl (32-36); Mean Corpuscular Hemoglobin 30.8 pg (26-34); Mean Corpuscular Volume 88.4 fl (80-100); Mean Platelet Volume 12.4 fl (7.4-10.4); Monocytes Absolute Auto 0.4 K/mm3 (0.1-0.6); Monocytes Percent Auto 3.6 % (2.6-8.5); Neutrophils Absolute Auto 10.3 K/mm3 (1.3-6.7); Neutrophils Percent Auto 85.3 % (45.5-73.1); Platelet Count Result 317 k/mm3 (150-375); Red Blood Count 5.19 M/mm3 (4.6-6.20); Red Cell Distribution Width 14.4 % (11.5-14.5); White Blood Count 12.1 K/mm3 (4.5-10.0)
[2021-12-27 05:44] LABS: Appearance Urine Clear (Clear); Bilirubin Urine 1+ (Negative); Blood Urine 1+ (Negative); Color Urine Yellow (Yellow); Glucose Urine UA Negative (Negative); Ketones Urine Trace mg/dL (Negative); Leukocyte Esterase Ur Negative LEU/UL (Negative); Nitrate Urine Negative (Negative); Protein Urine 2+ mg/dL (Negative); Specific Grav Ur >= 1.030 (1.001-1.035); Urobilinogen Urine 0.2 mg/dL (<2.0); pH Urine 5.5 (5.0-9.0)
[2021-12-27 05:45] LABS: Bacteria Urine Trace /hpf; Mucus Urine Rare /lpf; Squamous Epithelial Cell Urine Occasional /hpf (Few); WBC Urine 0-3 /hpf
[2021-12-27] MEDS: HYDROmorphone HCL INJ (*CRX) 1 MG/ML SYR IM (06:13)
[2021-12-27 06:19] LABS: Alanine Aminotransferase 31 U/L (6-50); Albumin Level 4.9 g/dL (3.5-5.1); Alkaline Phosphatase 103 U/L (38-126); Anion Gap 9 mmol/L (8-16); Aspartate Amino Transferase 28 U/L (17-59); Bilirubin,Total 0.5 mg/dL (0.2-1.3); Blood Urea Nitrogen 28 mg/dL (9-20); Calcium 9.1 mg/dL (8.4-10.2); Carbon Dioxide 26 mmol/L (22-30); Chloride 104 mmol/L (98-107); Estimated CRCL calculation 49 ml/min; Estimated Glomerular Filt Rate 44; Glucose 174 mg/dL (65-110); Lipase 91 U/L (23-300); Sodium 139 mmol/L (137-145)
[2021-12-27 06:25] LABS: Add Urine Microscopic? YES
[2021-12-27 07:04] VITALS: BP 150/89; PULSE 72; RESP 16; O2SAT 98
== END 2021-12-27 07:08 | disposition home or self-care (01) ==
PROVIDERS: Emergency Provider Emergency Medicine; PCP Family Medicine
DX: K52.9 Noninfective gastroenteritis and colitis, unspecified (principal); I25.10 Atherosclerotic heart disease of native coronary artery without angina pectoris; I25.2 Old myocardial infarction; E78.5 Hyperlipidemia, unspecified; I10 Essential (primary) hypertension; I25.5 Ischemic cardiomyopathy; I48.0 Paroxysmal atrial fibrillation; I71.4 Abdominal aortic aneurysm, without rupture; Z79.82 Long term (current) use of aspirin; Z79.01 Long term (current) use of anticoagulants; Z95.5 Presence of coronary angioplasty implant and graft; Z95.0 Presence of cardiac pacemaker; Z87.891 Personal history of nicotine dependence
CPT/HCPCS: 36415; 74176; 80053; 81001; 83690; 85025; 93005; 96361; 96372; 96374; 96375; 99284; J1170; J2765; J7030

== ENCOUNTER 2022-05-21 19:19 | Observation (INO) | payer OTHER, SELFPAY ==
[2022-05-21] VITALS (26 sets, daily range): BP systolic 104–177; BP diastolic 50–99; PULSE 62–100; RESP 14–25; TEMP 36.5; O2SAT 92–100
--- NOTE | ~2022-05-21 | US_ITS ---
EXAMINATION: US abdomen limited DATE: 05/22/2022 11:59 INDICATION: Gallbladder disease. TECHNIQUE: Multiple grayscale and Doppler ultrasound images of the abdomen were obtained. COMPARISON: CT abdomen and pelvis 05/21/2022 FINDINGS: The visualized portions of the head, body, and tail of the pancreas are normal. There is di ffuse hepatic steatosis. There is normal flow in main portal vein. The gallbladder is normal in size and contains sludge. No visible gallstones. There is a 4 mm polyp in the gallbladder, likely benign a nd needing no follow-up. No gallbladder wall thickening or sonographic Delgado sign. The common duct i s normal and measures 3 mm. IMPRESSION: 1. Diffuse hepatic steatosis. 2. Gallbladder sludge. No evidence of acute cholecystitis. Reviewed, dictated and finalized at location A. AL AND COMMUNICATIONS MAINTAINER
--- NOTE | ~2022-05-21 | XR_ITS ---
EXAMINATION: XR chest 2V DATE: 05/21/2022 20:02 INDICATION: Chest pain with nausea and vomiting TECHNIQUE: AP and lateral views of the chest are obtained. COMPARISON: 12/06/2021 FINDINGS: The lungs are free of acute opacities. No pleural effusion or pneumothorax. The cardiomedia stinal silhouette is normal. There is mild thoracic spondylosis. A dual-lead cardiac pacemaker of the left chest wall ends with leads in expected locations. IMPRESSION: 1. No acute cardiopulmonary abnormality. Reviewed, dictated and finalized at location F. OGRAPHIC PRESS OPERATOR
--- NOTE | ~2022-05-21 | CT_ITS ---
EXAMINATION: CT abdomen pelvis wo con DATE: 05/21/2022 21:03 INDICATION: Generalized abdominal pain, nausea and vomiting TECHNIQUE: Computed tomography (CT) of the abdomen and pelvis was performed without intravenous contr ast. The dose-length product (DLP) was 774.39 mGy-cm. Automated exposure control and iterative recons truction technique were employed. COMPARISON: 12/27/2021 FINDINGS: Minimal dependent atelectasis is present in the lung bases. The heart size is normal. Suben docardial fat deposition in the left ventricular apex may reflect prior myocardial infarction. Puncta te calcifications in otherwise normal appearing liver and spleen likely represent healed granulomatou s disease. The pancreas, gallbladder, and adrenal glands are normal. The kidneys are unremarkable. No pathologically enlarged abdominal or pelvic lymph nodes are identified. There is a stable 4.9 cm fus iform infrarenal abdominal aortic aneurysm. There are bilateral inguinal hernias containing fat. Ther e is no free intraperitoneal gas or evidence of bowel obstruction. There is mild lumbar spondylosis. Chronic bilateral L5 pars defects are noted. IMPRESSION: 1. No CT correlate for the patient's symptoms. 2. Stable 4.9 cm fusiform infrarenal abdominal aortic aneurysm. Reviewed, dictated and finalized at location F. S PLATER
--- NOTE | 2022-05-21 19:23 | ECG_ITS ---
Measurements Intervals [place] Rate: 92 P: [place]: 0 QRS: -46 QRSD: 138 T: 113 QT: 432 QTc: 537 Interpretive Statements SINUS RHYTHM LEFT AXIS DEVIATION INTRAVENTRICULAR CONDUCTION DELAY LEFT VENTRICULAR HYPERTROPHY WITH ST-T CHANGE CONSIDER INFERIOR INFARCT, AGE INDETERMINATE BASELINE ARTIFACT- AVR, V4-V5 ABNORMAL ECG COMPARED TO ECG 12/27/2021 01:07:00 NO SIGNIFICANT CHANGES Electronically Signed On 05-21-2022 20:00:03 [employer] by Prince Boyd D.O.
[2022-05-21 19:48] LABS: Basophils Absolute Auto 0.1 K/mm3 (0.0-0.1); Basophils Percent Auto 0.6 % (0.2-1.2); Hematocrit 55.4 % (42.0-52.0); Hemoglobin 18.4 g/dL (14.0-18.0); Immature Granulocyte Absolute 0.04 K/mm3 (0.00-0.031); Immature Granulocyte Percent A 0.4 % (0-0.5); Lymphocytes Absolute Auto 1.16 K/mm3 (0.9-3.2); Mean Corpuscular HGB Conc 33.2 g/dl (32-36); Mean Corpuscular Volume 90.4 fl (80-100); Mean Platelet Volume 10.9 fl (7.4-10.4); Monocytes Absolute Auto 0.2 K/mm3 (0.1-0.6); Monocytes Percent Auto 1.9 % (2.6-8.5); Neutrophils Absolute Auto 9.1 K/mm3 (1.3-6.7); Neutrophils Percent Auto 86.1 % (45.5-73.1); Platelet Count Result 300 k/mm3 (150-375); Red Blood Count 6.13 M/mm3 (4.6-6.20); Red Cell Distribution Width 14.7 % (11.5-14.5); White Blood Count 10.6 K/mm3 (4.5-10.0)
[2022-05-21 19:59] LABS: INR 1.2; Partial Thromboplastin Time 31.6 SECONDS (22.3-36.8)
[2022-05-21 20:20] LABS: Alanine Aminotransferase 37 U/L (6-50); Albumin Level 5.4 g/dL (3.5-5.1); Alkaline Phosphatase 144 U/L (38-126); Anion Gap 22 mmol/L (8-16); Aspartate Amino Transferase 39 U/L (17-59); Bilirubin,Total 0.9 mg/dL (0.2-1.3); Blood Urea Nitrogen 23 mg/dL (9-20); Calcium 10.7 mg/dL (8.4-10.2); Carbon Dioxide 20 mmol/L (22-30); Chloride 98 mmol/L (98-107); Estimated CRCL calculation 39 ml/min; Estimated Glomerular Filt Rate 34; Glucose 183 mg/dL (65-110); Lipase 107 U/L (23-300); Potassium 4.8 mmol/L (3.4-5.0); Sodium 140 mmol/L (137-145); Troponin I 0.094 ng/mL (0.000-0.034)
[2022-05-21] MEDS: ONDANSETRON INJ 4 MG/2 ML VIAL IV PUSH (21:16)
[2022-05-21] MEDS: SODIUM CHLORIDE 0.9% IV 1,000 ML 999 ML IV CONT (21:16)
[2022-05-21] MEDS: MORPHINE SULFATE (*CRX) 4 MG/ML INJ IV PUSH (21:17)
[2022-05-21 21:47] LABS: Influenza A QL RT-PCR Negative (Negative); Influenza B QL RT-PCR Negative (Negative); SARS-CoV-2 RNA PCR Negative
[2022-05-21] MEDS: HYDROmorphone HCL INJ (*CRX) 1 MG/ML SYR IV PUSH (22:23)
[2022-05-21 23:07] LABS: Troponin I 0.117 ng/mL (0.000-0.034)
--- NOTE | 2022-05-21 23:09 | PM.IMHP ---
H&P: HPI History of Present Illness Date/Time: 05/21/22 23:09 Chief Complaint: 62 years old male with past medical history of pancreatitis hypertension ischemic cardiomyopathy coronary artery disease AFib abdominal aortic aneurysm presented to the hospital with epigastric abdominal pain dull in nature worsening became generalized aggravated with food associated with nausea and vomiting multiple times patient denies diarrhea fever or chills at the ER CT scan of the abdomen was done showed aortic aneurysm 4.[address] [facility] vascular surgery was contacted very low risk for rupture and agreed for patient to be admitted at [facility] also patient has elevated troponin cardiology was consulted will follow serial troponin aspirin was given Review of Systems Review of Systems: Twelve system review was done negative except above [facility] Past Medical History Medical History (Updated 05/21/22 @ 23:15 by Maximo Niño MD) Adenomatous colon polyp Aneurysm of infrarenal abdominal aorta Stable aneurysm measuring 4.5 centimeters on 11/21/2020. Coronary artery disease With history of VT in what sounds like cardiac arrest while on vacation in [place]. He was in a medically induced coma for several weeks and temporarily had a tracheostomy. Cyclic vomiting syndrome Depression Hyperlipidemia Hypertension Ischemic cardiomyopathy Ejection fraction reportedly as low as 15%. Patient reports a pacemaker in situ, denies the presence of an ICD. He sees a supervisor patching in [place]. Marijuana smoker, episodic Pancreatitis Paroxysmal atrial fibrillation Stenosis of infrarenal abdominal aorta due to arteriosclerosis Surgical History Surgical History History of arthroscopic knee surgery History of cardiac catheterization (~09/2019) Performed in [facility]. History of coronary artery stent placement (~09/2019) Stent x2. History of tracheostomy (~09/2019) Pacemaker Family History Family History Mother Congestive heart failure Father Glaucoma Lip cancer Social History Social History Social History: The patient lives in [place] with his . He has 2 children and is retired from [employer]. He smoked a pack of cigarettes a day for 30 years and quit quite sometime ago. No alcohol abuse. Admits to marijuana use but does not qualify or quantify. He designates his Iveth as his surrogate decision maker and he wishes to be a full code. Smoking packs per day: 1 Smoking cigarettes per day: 20.0 Years smoked: 20 Smoking pack-years: 20.00 Smoking status: Current some day smoker Tobacco type: cigarettes Second hand tobacco smoke exposure: No Alcohol intake: never Substance use: current Substance use type: marijuana Other substance usage details: Patient states he smokes marijuana every once in awhile, 1-2x a week . Last use: 12/01/21. Gender identity (if verbalized by the patient): Male Spiritual care concerns: No Meds Home Medications and Allergies Home Medications Medication Instructions Recorded Confirmed Type amiodarone 400 mg tablet 200 mg PO DAILY 10/16/20 12/06/21 History aspirin 81 mg tablet 81 mg PO DAILY 10/16/20 12/06/21 History atorvastatin 80 mg tablet 80 mg PO HS 10/16/20 12/06/21 History carvedilol 12.5 mg tablet 12.5 mg PO BID 10/16/20 12/06/21 History furosemide 20 mg tablet 20 mg PO DAILY 10/16/20 12/06/21 History calcium carbonate 300 mg (750 mg) 750 tablet PO QID PRN Heartburn 01/17/21 12/06/21 History chewable tablet (Tums E-X) escitalopram oxalate 10 mg tablet 10 mg PO DAILY 01/17/21 12/06/21 History ondansetron HCl 4 mg tablet 4 mg PO Q8H PRN nausea and 01/21/21 12/06/21 Rx (Zofran) vomiting #30 tabs rivaroxaban 20 mg tablet (Xarelto) 20 mg PO DAILY 12/06/21 12/06/21
--- NOTE | 2022-05-21 23:19 | ED.GENADULT ---
HPI - General Adult General Chief complaint: Abdominal Pain Stated complaint: abdominal pain with n/v that began this morning Time Seen by Provider: 05/21/22 20:25 History of Present Illness HPI narrative: Patient 62-year-old gentleman who presents the emergency department with chief complaint of epigastric pain patient reports that he has history of pancreatitis and reports that he started having abdominal discomfort similar to whenever he has had pancreatitis in the past. The patient states also he had some discomfort in his chest patient denies pain in his back reports that the pain is not a ripping sensation. Patient does have history of abdominal aortic aneurysm has been followed medically. Related Data Home Medications Medication Instructions Recorded Confirmed amiodarone 400 mg tablet 200 mg PO DAILY 10/16/20 12/06/21 aspirin 81 mg tablet 81 mg PO DAILY 10/16/20 12/06/21 atorvastatin 80 mg tablet 80 mg PO HS 10/16/20 12/06/21 carvedilol 12.5 mg tablet 12.5 mg PO BID 10/16/20 12/06/21 furosemide 20 mg tablet 20 mg PO DAILY 10/16/20 12/06/21 calcium carbonate 300 mg (750 mg) 750 tablet PO QID PRN Heartburn 01/17/21 12/06/21 chewable tablet (Tums E-X) escitalopram oxalate 10 mg tablet 10 mg PO DAILY 01/17/21 12/06/21 rivaroxaban 20 mg tablet (Xarelto) 20 mg PO DAILY 12/06/21 12/06/21 albuterol sulfate 90 mcg/actuation 2 puff inhalation QID PRN 12/07/21 12/07/21 aerosol inhaler Shortness Of Breath Allergies Allergy/AdvReac Type Severity Reaction Status Date / Time No Known Allergies Allergy Unknown Verified 05/21/22 21:16 Review of Systems Review of Systems: A 10 system review of systems was completed on the patient and is negative except for what is stated in the HPI. Nursing and ancillary documentation was reviewed. [facility] Past Medical History Medical History Adenomatous colon polyp Aneurysm of infrarenal abdominal aorta Stable aneurysm measuring 4.5 centimeters on 11/21/2020. Coronary artery disease With history of MD in what sounds like cardiac arrest while on vacation in [place]. He was in a medically induced coma for several weeks and temporarily had a tracheostomy. Cyclic vomiting syndrome Depression Hyperlipidemia Hypertension Ischemic cardiomyopathy Ejection fraction reportedly as low as 15%. Patient reports a pacemaker in situ, denies the presence of an ICD. He sees a welcome center agent in [place]. Marijuana smoker, episodic Pancreatitis Paroxysmal atrial fibrillation Stenosis of infrarenal abdominal aorta due to arteriosclerosis Surgical History Surgical History History of arthroscopic knee surgery History of cardiac catheterization (~09/2019) Performed in [facility]. History of coronary artery stent placement (~09/2019) Stent x2. History of tracheostomy (~09/2019) Pacemaker Family History Family History Mother Congestive heart failure Father Glaucoma Lip cancer Social History Social History Social History: The patient lives in [place] with his . He has 2 children and is retired from [employer]. He smoked a pack of cigarettes a day for 30 years and quit quite sometime ago. No alcohol abuse. Admits to marijuana use but does not qualify or quantify. He designates his Iveth as his surrogate decision maker and he wishes to be a full code. Smoking packs per day: 1 Smoking cigarettes per day: 20.0 Years smoked: 20 Smoking pack-years: 20.00 Smoking status: Current some day smoker Tobacco type: cigarettes Second hand tobacco smoke exposure: No Alcohol intake: never Substance use: current Substance use type: marijuana Other substance usage details: Patient states he smokes marijuana every once in
[2022-05-22] VITALS (18 sets, daily range): BP systolic 106–146; BP diastolic 54–82; PULSE 63–107; RESP 13–25; TEMP 36.1–36.5; O2SAT 90–96; BMI 30.2; BMI 29.4
[2022-05-22 00:06] LABS: Appearance Urine Clear (Clear); Bilirubin Urine 2+ (Negative); Blood Urine Trace-intact (Negative); Color Urine Yellow (Yellow); Glucose Urine UA Negative (Negative); Ketones Urine 1+ mg/dL (Negative); Leukocyte Esterase Ur Negative LEU/UL (Negative); Nitrate Urine Negative (Negative); Protein Urine 2+ mg/dL (Negative); Specific Grav Ur >= 1.030 (1.001-1.035); Urobilinogen Urine 0.2 mg/dL (<2.0); pH Urine 5.5 (5.0-9.0)
[2022-05-22 00:11] LABS: Bacteria Urine 1+ /hpf; Hyaline Casts Urine 30-49 /lpf; Mucus Urine Rare /lpf; Squamous Epithelial Cell Urine Rare /hpf (Few); WBC Urine 0-3 /hpf
[2022-05-22 00:13] LABS: Add Urine Microscopic? YES
[2022-05-22 02:19] LABS: Basophils Percent Auto 0.3 % (0.2-1.2); Hematocrit 52.3 % (42.0-52.0); Immature Granulocyte Absolute 0.03 K/mm3 (0.00-0.031); Immature Granulocyte Percent A 0.3 % (0-0.5); Lymphocytes Absolute Auto 1.56 K/mm3 (0.9-3.2); Lymphocytes Percent Auto 13.3 % (18.3-44.2); Mean Corpuscular HGB Conc 32.5 g/dl (32-36); Mean Corpuscular Hemoglobin 29.6 pg (26-34); Mean Corpuscular Volume 91.1 fl (80-100); Mean Platelet Volume 10.9 fl (7.4-10.4); Monocytes Absolute Auto 0.5 K/mm3 (0.1-0.6); Monocytes Percent Auto 4.5 % (2.6-8.5); Neutrophils Absolute Auto 9.6 K/mm3 (1.3-6.7); Neutrophils Percent Auto 81.6 % (45.5-73.1); Platelet Count Result 256 k/mm3 (150-375); Red Blood Count 5.74 M/mm3 (4.6-6.20); Red Cell Distribution Width 14.4 % (11.5-14.5); White Blood Count 11.8 K/mm3 (4.5-10.0)
[2022-05-22 02:36] LABS: Alanine Aminotransferase 33 U/L (6-50); Alkaline Phosphatase 108 U/L (38-126); Anion Gap 13 mmol/L (8-16); Aspartate Amino Transferase 36 U/L (17-59); Bilirubin,Total 0.7 mg/dL (0.2-1.3); Blood Urea Nitrogen 27 mg/dL (9-20); Calcium 9.8 mg/dL (8.4-10.2); Carbon Dioxide 26 mmol/L (22-30); Chloride 99 mmol/L (98-107); Estimated CRCL calculation 37 ml/min; Estimated Glomerular Filt Rate 36; Glucose 132 mg/dL (65-110); Potassium 4.8 mmol/L (3.4-5.0); Sodium 138 mmol/L (137-145)
[2022-05-22] MEDS: HYDROmorphone HCL INJ (*CRX) 1 MG/ML SYR 0.5 MG IV PUSH ×2 (02:49→11:58)
[2022-05-22] MEDS: SODIUM CHLORIDE 0.9% IV 1,000 ML 100 ML IV CONT ×3 (02:51→23:15)
[2022-05-22 02:57] LABS: Troponin I 0.146 ng/mL (0.000-0.034)
[2022-05-22 08:37] LABS: Glucose Point of Care 125 mg/dl (65-105)
[2022-05-22 09:06] LABS: Amphetamine Screen Urine Negative (Negative); Barbiturate Screen Urine Negative (Negative); Benzodiazepines Screen Urine Positive (Negative); Cannabinoid Screen Urine Positive (Negative); Cocaine Screen Urine Negative (Negative); Methadone Screen Urine Negative (Negative); Opiate Screen Urine Positive (Negative); Phencyclidine Screen Urine Negative (Negative)
[2022-05-22] MEDS: carvediloL 12.5 MG TABLET PO ×2 (09:27→21:18)
[2022-05-22] MEDS: ESCITALOPRAM OXALATE 10 MG TABLET PO (09:27)
[2022-05-22] MEDS: ASPIRIN 81 MG CHEWABLE TABLET PO (09:27)
[2022-05-22] MEDS: LOSARTAN POTASSIUM 25 MG TABLET PO (09:28)
[2022-05-22] MEDS: PANTOPRAZOLE SODIUM IV 40 MG VIAL IV PUSH ×2 (09:28→16:42)
[2022-05-22] MEDS: AMIODARONE HCL 200 MG TABLET BY MOUTH (09:28)
--- NOTE | 2022-05-22 11:45 | PM.IMPN ---
Progress Note: A&P Assessment and Plan (1) Cardiomyopathy: Code(s): I42.9 - Cardiomyopathy, unspecified Status: Acute Assessment and Plan: spoke to damascener would like to just monitor his heart failure patient has ejection fraction of 15% not a candidate for LifeVest (2) Paroxysmal atrial fibrillation: Code(s): I48.0 - Paroxysmal atrial fibrillation Status: Acute Assessment and Plan: Patient on Xarelto at home pending home medication reconciliation (3) Ischemic cardiomyopathy with implantable cardioverter-defibrillator (ICD): Code(s): I25.5 - Ischemic cardiomyopathy; Z95.810 - Presence of automatic (implantable) cardiac defibrillator Status: Acute Assessment and Plan: cardiac workup is complete (4) CAD (coronary artery disease): Code(s): I25.10 - Atherosclerotic heart disease of [place] coronary artery without angina pectoris Status: Acute Assessment and Plan: At home patient on aspirin Coreg Lasix pending home medication reconciliation (5) Abdominal pain: Qualifiers: Abdominal location: lower abdomen, unspecified Qualified Code(s): R10.30 - Lower abdominal pain, unspecified Code(s): R10.9 - Unspecified abdominal pain Status: Acute Assessment and Plan: Multifactorial probably related to gastritis cyclic vomiting syndrome Give PPI Give Zofran waiting results of the gallbladder ultrasound (6) ANA LAURA (acute kidney injury): Code(s): N17.9 - Acute kidney failure, unspecified Status: Acute Assessment and Plan: And gentle hydration. Avoid nephrotoxic drugs. Monitor antihypertensive drugs Avoid NSAIDs. Routine CMP monitor GFR. Monitor electrolytes potassium levels. (7) Cyclic vomiting syndrome: Code(s): R11.15 - Cyclical vomiting syndrome unrelated to migraine Status: Acute Assessment and Plan: IV Zofran liquid diet NPO. after midnight (8) Acute dehydration: Code(s): E86.0 - Dehydration Status: Acute Assessment and Plan: IV fluid (9) Hypertension: Code(s): I10 - Essential (primary) hypertension Status: Acute Assessment and Plan: Pending home medication reconciliation (10) Aneurysm of infrarenal abdominal aorta: Code(s): I71.4 - Abdominal aortic aneurysm, without rupture Status: Acute Assessment and Plan: Discussed with the ER vascular surgeon from [facility] was involved Stable continue to monitor follow-up as outpatient (11) Hyperglycemia: Code(s): R73.9 - Hyperglycemia, unspecified Status: Acute Assessment and Plan: will get hemoglobin A1c, LDL, thyroid panel Plan DVT prophylaxis. GI prophylaxis. All records reviewed Discussed plan of care with the nursing staff and with the patient in detail. Answered all questions and concerns from the patient. All labs have been reviewed. Code status updated dictation may have been done utilizing a voice recognition system. Attempts have been made to correct errors. However, there may be uncorrected grammatical, spelling, and recognition errors present. Time Spent With Patient Time with patient: 25 - 35 minutes Subjective Date/time seen: 05/22/22 11:45 patient seen and evaluated no abdominal pain no nausea vomiting Review of Systems Review of Systems: All systems reviewed & are unremarkable except as noted in HPI and below Exam Narrative: GENERAL: Well appearing, well-nourished, non-toxic, in no acute distress. HEAD: Normocephalic, atraumatic. NECK: Supple. No adenopathy, no masses. RESPIRATORY: Airway patent, respirations nonlabored. Clear to auscultation bilaterally, no rales, rhonchi, wheezing. CARDIOVASCULAR: Regular rate and rhythm without murmurs, rubs, or gallops. Peripheral pulses 2+ and equal bilaterally. ABDOMINAL: Soft, nontender, nondistended, no hepatosplenomegaly. Normoactive BS. MUSCULOSKELETAL: no
[2022-05-22 11:50] LABS: Glucose Point of Care 137 mg/dl (65-105)
[2022-05-22 12:25] LABS: Cholesterol 202 mg/dL (0-200); HDL Direct 36 mg/dL; Triglycerides 154 mg/dL (<150)
[2022-05-22 12:36] LABS: LDL Cholesterol Direct 131 mg/dL
--- NOTE | 2022-05-22 16:18 | PM.CNCAR ---
Assessment and Plan Assessment and plan (1) Abdominal pain, epigastric: Code(s): R10.13 - Epigastric pain Status: Acute (2) Acute kidney injury: Code(s): N17.9 - Acute kidney failure, unspecified Status: Acute (3) Nausea & vomiting: Qualifiers: Vomiting type: unspecified Qualified Code(s): R11.2 - Nausea with vomiting, unspecified Code(s): R11.2 - Nausea with vomiting, unspecified Status: Acute (4) Elevated troponin: Code(s): R77.8 - Other specified abnormalities of plasma proteins Status: Acute (5) Cardiomyopathy: Code(s): I42.9 - Cardiomyopathy, unspecified Status: Acute (6) Paroxysmal atrial fibrillation: Code(s): I48.0 - Paroxysmal atrial fibrillation Status: Acute (7) Ischemic cardiomyopathy with implantable cardioverter-defibrillator (ICD): Code(s): I25.5 - Ischemic cardiomyopathy; Z95.810 - Presence of automatic (implantable) cardiac defibrillator Status: Acute (8) HLD (hyperlipidemia): Code(s): E78.5 - Hyperlipidemia, unspecified Status: Acute (9) CAD (coronary artery disease): Code(s): I25.10 - Atherosclerotic heart disease of [place] coronary artery without angina pectoris Status: Acute (10) Cyclic vomiting syndrome: Code(s): R11.15 - Cyclical vomiting syndrome unrelated to migraine Status: Acute (11) Aneurysm of infrarenal abdominal aorta: Code(s): I71.4 - Abdominal aortic aneurysm, without rupture Status: Acute Plan Patient has minimally elevated troponins in the setting of nausea, vomiting, abdominal pain and ANA LAURA. Patient has known cyclical vomiting syndrome and reports same symptoms as last admission when he was here for cyclical vomiting syndrome. EKG is without ischemic changes. Clinically, there does not appear to be ACS at this time. Would trend his troponins until there is a peak. Repeat EKGs as needed. Would treat medically with ASA 81mg, Atorvastatin 80mg, Coreg 12.5mg BID. Continue home Losartan. For his AFIB, continue Amiodarone and Xarelto. Patient will need outpatient Cardiology follow-up after discharge. History of Present Illness History of Present Illness Consult date/time: 05/22/22 16:18 Requesting physician: Tenzin Osei MD Consult reason: Other (Elevated troponin) Reason For Visit: abdominal pain,elevated troponin,ana laura Narrative: We are being consulted for elevated troponins. This is a 62-year-old male with a history of cyclical vomiting syndrome, history of pancreatitis, CAD, ischemic cardiomyopathy. Patient was admitted here in December 2021 for intractable nausea, vomiting, abdominal pain and with a significant ANA LAURA as well. Patient's humanities professor is Dr. Xiao at [employer]. Patient last saw him in 12/2021. Per his note, patient has a history of: CAD s/p MO 09/2019 at [facility] in [place] s/p LCX ELIANE complicated by cardiogenic shock and tracheostomy (now decanulated). LHC 01/19/2020 showed patent stent, 40-50% PL stenosis Hypertension Mixed ischemic and non-ischemic cardiomyopathy. Diagnosed with heart failure in 2013 and did not have significant CAD at that time. Sick sinus syndrome Complete heart block Atrial fibrillation S/p dual chamber ICD at [facility] in 2013 AAA His cardiac meds at that visit were: ASA 81mg Atorvastatin 80mg Coreg 12.5mg Lasix 20mg QD Losartan 25mg daily Xarelto 20mg Amiodarone 200mg daily Dapagliflozin 10mg daily Cardiac cath 01/2020: LM is normal. LAD is normal. LCX has a stent in the proximal-mid segment which is patent with good flow. RCA is a large dominant vessel, contains 40-50% stenosis of the PL branch. Per Dr. Xiao's note, GDMT has been difficult to titrate as he did not tolerate Entresto due to dizziness and lethargy. Aldactone gave him nausea/vomiting. Patient states that he began having severe nausea, vomiting and abdominal pain which prompted him to come to [facility]
[2022-05-22] MEDS: HYDROcodone/acetaminophen (*CRX) 5-325 MG TABLET 1 TAB PO (16:40)
[2022-05-22] MEDS: RIVAROXABAN 20 MG TABLET PO (16:41)
[2022-05-22 16:45] LABS: Glucose Point of Care 106 mg/dl (65-105)
[2022-05-22 18:08] LABS: Troponin I 0.077 ng/mL (0.000-0.034)
[2022-05-22] MEDS: ATORVASTATIN 40 MG TABLET 80 MG PO (21:18)
[2022-05-22 22:23] LABS: Hematocrit 43.2 % (42.0-52.0); Hemoglobin 13.7 g/dL (14.0-18.0)
[2022-05-23] VITALS: BP 100/53; PULSE 108; PULSE 66; RESP 20; TEMP 36.4; O2SAT 94
[2022-05-23 04:00] VITALS: PULSE 67; PULSE 69
[2022-05-23 05:16] LABS: Basophils Percent Auto 0.4 % (0.2-1.2); Eosinophils Absolute Auto 0.1 K/mm3 (0-0.3); Eosinophils Percent Auto 0.8 % (0-4.4); Hematocrit 41.1 % (42.0-52.0); Hemoglobin 12.8 g/dL (14.0-18.0); Immature Granulocyte Absolute 0.01 K/mm3 (0.00-0.031); Immature Granulocyte Percent A 0.1 % (0-0.5); Lymphocytes Absolute Auto 2.12 K/mm3 (0.9-3.2); Lymphocytes Percent Auto 29.9 % (18.3-44.2); Mean Corpuscular HGB Conc 31.1 g/dl (32-36); Mean Corpuscular Hemoglobin 29.7 pg (26-34); Mean Corpuscular Volume 95.4 fl (80-100); Mean Platelet Volume 11.1 fl (7.4-10.4); Monocytes Absolute Auto 0.5 K/mm3 (0.1-0.6); Monocytes Percent Auto 7.2 % (2.6-8.5); Neutrophils Absolute Auto 4.4 K/mm3 (1.3-6.7); Neutrophils Percent Auto 61.6 % (45.5-73.1); Platelet Count Result 177 k/mm3 (150-375); Red Blood Count 4.31 M/mm3 (4.6-6.20); Red Cell Distribution Width 14.7 % (11.5-14.5); White Blood Count 7.1 K/mm3 (4.5-10.0)
[2022-05-23 05:21] LABS: Alanine Aminotransferase 22 U/L (6-50); Albumin Level 3.6 g/dL (3.5-5.1); Alkaline Phosphatase 69 U/L (38-126); Anion Gap 10 mmol/L (8-16); Aspartate Amino Transferase 28 U/L (17-59); Bilirubin,Total 0.5 mg/dL (0.2-1.3); Blood Urea Nitrogen 21 mg/dL (9-20); Calcium 7.9 mg/dL (8.4-10.2); Carbon Dioxide 29 mmol/L (22-30); Chloride 101 mmol/L (98-107); Estimated CRCL calculation 53 ml/min; Estimated Glomerular Filt Rate 56; Glucose 92 mg/dL (65-110); Potassium 3.6 mmol/L (3.4-5.0); Sodium 140 mmol/L (137-145)
[2022-05-23 06:02] VITALS: BP 99/48; PULSE 69; RESP 16; TEMP 36.6; O2SAT 90
[2022-05-23 07:55] VITALS: BP 96/50; PULSE 69; RESP 12; TEMP 36.6; O2SAT 90
[2022-05-23 08:00] VITALS: PULSE 70
[2022-05-23] MEDS: HYDROcodone/acetaminophen (*CRX) 5-325 MG TABLET 1 TAB PO (08:06)
[2022-05-23 08:07] VITALS: PULSE 75
[2022-05-23] MEDS: ESCITALOPRAM OXALATE 10 MG TABLET PO (08:07)
[2022-05-23] MEDS: LOSARTAN POTASSIUM 25 MG TABLET PO (08:07)
[2022-05-23] MEDS: AMIODARONE HCL 200 MG TABLET BY MOUTH (08:07)
[2022-05-23] MEDS: ASPIRIN 81 MG CHEWABLE TABLET PO (08:08)
[2022-05-23] MEDS: carvediloL 12.5 MG TABLET PO (08:08)
[2022-05-23] MEDS: PANTOPRAZOLE SODIUM IV 40 MG VIAL IV PUSH (08:08)
--- NOTE | 2022-05-23 10:21 | PM.DS ---
DS: Admitting Diagnosis Discharge Date 05/23/22 Admitting Diagnosis chest pain DS: Discharge Diagnosis Discharge Diagnosis (1) Acute kidney injury: Code(s): N17.9 - Acute kidney failure, unspecified Status: Acute (2) Ischemic cardiomyopathy with implantable cardioverter-defibrillator (ICD): Code(s): I25.5 - Ischemic cardiomyopathy; Z95.810 - Presence of automatic (implantable) cardiac defibrillator Status: Acute (3) CAD (coronary artery disease): Code(s): I25.10 - Atherosclerotic heart disease of [place] coronary artery without angina pectoris Status: Acute (4) Acute dehydration: Code(s): E86.0 - Dehydration Status: Acute DS: Summary Hospital Course Hospital Course: patient is 62-year-old male with history of ischemic heart disease ejection fraction of 15% came to the hospital complaining abdominal vomiting CT abdomen was negative patient's lipase was normal patient urine was positive drug screen with marijuana. At the time of admission patient's hemoglobin was 18 patient's baseline hemoglobin is 13. Patient is very dehydrated and hemoconcentrated patient has done well through the hospital stay patient has history of heart failure currently on atorvastatin Coreg aspirin medial and losartan. At this stage patient is medically cleared for discharge patient had a slight bump in the troponin cardiology saw the patient. Patient also was noted to have an incidental finding under reason abdominal regions 4.5 cl continue to monitor no urgent need for any surgery patient will follow-up with unit tender as an outpatient. Initially patient was seen cardiology team at the [facility]. Patient has history of IA in 2020 patient not a candidate for LifeVest as per Cardiology. Ultrasound of gallbladder is negative slight sludging no need for any surgical consult at this time. Patient medically cleared for discharge Status at Discharge Functional status at discharge: independent ambulation Time Spent with Patient Time attestation: Total time spent providing and/or coordinating discharge services: Time spent: Greater than 30 minutes Exam Narrative: GENERAL: Well appearing, well-nourished, non-toxic, in no acute distress. HEAD: Normocephalic, atraumatic. NECK: Supple. No adenopathy, no masses. RESPIRATORY: Airway patent, respirations nonlabored. Clear to auscultation bilaterally, no rales, rhonchi, wheezing. CARDIOVASCULAR: Regular rate and rhythm without murmurs, rubs, or gallops. Peripheral pulses 2+ and equal bilaterally. ABDOMINAL: Soft, nontender, nondistended, no hepatosplenomegaly. Normoactive BS. MUSCULOSKELETAL: no Epigastric and no hypochondrial tenderness SKIN: Warm, dry, normal color. No rashes. NEURO: A&O X3. Moves all extremities PSYCHIATRIC: Appropriate mood and affect. Normal interaction. DS: Data Data Completed and Pending Labs on day of discharge: Labs from last 24 hours 05/23/22 05/23/22 05/22/22 04:51 04:51 22:06 WBC 7.1 RBC 4.31 L Hgb 12.8 L 13.7 L D Hct 41.1 L 43.2 MCV 95.4 MCH 29.7 MCHC 31.1 L RDW 14.7 H Plt Count 177 MPV 11.1 H Immature Gran % (Auto) 0.1 Neut % (Auto) 61.6 Lymph % (Auto) 29.9 [place] % (Auto) 7.2 Eos % (Auto) 0.8 Baso % (Auto) 0.4 Lymph # (Auto) 2.12 [place] # (Auto) 0.5 Eos # (Auto) 0.1 Baso # (Auto) 0.0 Abs Immat Gran (auto) 0.01 Absolute Neuts (auto) 4.4 Absolute Nucleated RBC 0.0 Nucleated RBC % 0.0 Sodium 140 Potassium 3.6 Chloride 101 Carbon Dioxide 29 Anion Gap 10 BUN 21 H Creatinine 1.30 Estim Creat Clear Calc 53 Estimated GFR 56 L Glucose 92 POC Capillary Glucose Hemoglobin A1c Calcium 7.9 L Total Bilirubin 0.5 AST 28 ALT 22 Alkaline Phosphatase 69 Troponin I Total Protein 6.0 L Albumin 3.6 Triglycerides Cholesterol LDL Cholesterol Direct HDL Direct TSH (Reflex) 11/
== END 2022-05-23 12:10 | disposition home or self-care (01) ==
LOC: ANHED 23:27 → ANHIMU 05-22 01:27
PROVIDERS: Internal Medicine; Nurse Practitioner Family; Admitting Provider Internal Medicine; Emergency Provider Emergency Medicine; PCP Family Medicine; Visit Provider Internal Medicine
DX: I25.5 Ischemic cardiomyopathy (principal); Z95.810 Presence of automatic (implantable) cardiac defibrillator; N17.9 Acute kidney failure, unspecified; I25.10 Atherosclerotic heart disease of native coronary artery without angina pectoris; I48.0 Paroxysmal atrial fibrillation; R11.15 Cyclical vomiting syndrome unrelated to migraine; E86.0 Dehydration; I10 Essential (primary) hypertension; I71.43 Infrarenal abdominal aortic aneurysm, without rupture; R73.9 Hyperglycemia, unspecified; R10.13 Epigastric pain; F32.A Depression, unspecified; Z23 Encounter for immunization; I25.2 Old myocardial infarction; E78.5 Hyperlipidemia, unspecified; K76.0 Fatty (change of) liver, not elsewhere classified; R11.2 Nausea with vomiting, unspecified; Z20.822 Contact with and (suspected) exposure to COVID-19; F17.210 Nicotine dependence, cigarettes, uncomplicated; F12.90 Cannabis use, unspecified, uncomplicated; Z87.19 Personal history of other diseases of the digestive system; Z79.82 Long term (current) use of aspirin; Z79.01 Long term (current) use of anticoagulants; Z79.51 Long term (current) use of inhaled steroids; Z79.899 Other long term (current) drug therapy
CPT/HCPCS: 36415; 71046; 74176; 76705; 80053; 80061; 80307; 81001; 82948; 83036; 83690; 84443; 84484; 85014; 85018; 85025; 85610; 85730; 87636; 90471; 90686; 93005; 96361; 96374; 96375; 96376; 99285; A9270; C9113; G0008; G0378; J1170; J2270; J2405; J7030

== ENCOUNTER 2022-09-06 19:58 | Observation (INO) | payer OTHER, SELFPAY ==
[2022-09-06] VITALS (20 sets, daily range): BP systolic 103–158; BP diastolic 70–103; PULSE 59–91; RESP 12–18; TEMP 36.8; O2SAT 92–100
--- NOTE | ~2022-09-06 | XR_ITS ---
EXAMINATION: XR chest 2V DATE: 09/06/2022 21:02 INDICATION: Chest pain and shortness of breath TECHNIQUE: AP and lateral views of the chest are obtained. COMPARISON: 05/21/2022 FINDINGS: The lungs are free of acute opacities. No pleural effusion or pneumothorax. The cardiomedia stinal silhouette is normal. There is mild thoracic spondylosis. A dual-lead cardiac pacemaker of the left chest wall ends with leads in expected locations. IMPRESSION: 1. No acute cardiopulmonary abnormality. Reviewed, dictated and finalized at location F. P CARE WORKER
--- NOTE | 2022-09-06 20:00 | ECG_ITS ---
Measurements Intervals [place] Rate: 85 P: [place]: 0 QRS: -52 QRSD: 128 T: 104 QT: 435 QTc: 518 Interpretive Statements SINUS RHYTHM ATRIAL AND VENTRICULAR PREMATURE COMPLEXES LEFT BUNDLE BRANCH BLOCK BASELINE ARTIFACT- I, II, III, AVR, AVL, AVF, V3 ABNORMAL ECG COMPARED TO ECG 05/21/2022 19:26:33 LEFT BUNDLE BRANCH BLOCK NOW PRESENT Electronically Signed On 09-07-2022 6:47:24 PATTERN DATA OPERATOR by Prince Boyd D.O.
[2022-09-06 20:26] LABS: Basophils Absolute Auto 0.1 K/mm3 (0.0-0.1); Basophils Percent Auto 0.7 % (0.2-1.2); Eosinophils Absolute Auto 0.1 K/mm3 (0-0.3); Eosinophils Percent Auto 0.9 % (0-4.4); Hematocrit 51.3 % (42.0-52.0); Hemoglobin 16.9 g/dL (14.0-18.0); Immature Granulocyte Absolute 0.03 K/mm3 (0.00-0.031); Immature Granulocyte Percent A 0.3 % (0-0.5); Lymphocytes Absolute Auto 1.72 K/mm3 (0.9-3.2); Lymphocytes Percent Auto 17.8 % (18.3-44.2); Mean Corpuscular HGB Conc 32.9 g/dl (32-36); Mean Corpuscular Hemoglobin 29.4 pg (26-34); Mean Corpuscular Volume 89.2 fl (80-100); Mean Platelet Volume 10.8 fl (7.4-10.4); Monocytes Absolute Auto 0.8 K/mm3 (0.1-0.6); Neutrophils Percent Auto 72.3 % (45.5-73.1); Platelet Count Result 237 k/mm3 (150-375); Red Blood Count 5.75 M/mm3 (4.6-6.20); Red Cell Distribution Width 15.9 % (11.5-14.5); White Blood Count 9.6 K/mm3 (4.5-10.0)
[2022-09-06] MEDS: ONDANSETRON INJ 4 MG/2 ML VIAL IV PUSH (20:34)
[2022-09-06] MEDS: ASPIRIN 81 MG CHEWABLE TABLET 324 MG PO (20:35)
[2022-09-06] MEDS: NITROGLYCERIN SL 0.4 MG TABLET SUBLINGUAL (20:36)
[2022-09-06] MEDS: MORPHINE SULFATE (*CRX) 4 MG/ML INJ IV PUSH (20:36)
[2022-09-06 20:38] LABS: INR 1.7; Prothrombin Time 19.4 Seconds (11.1-14.7)
[2022-09-06 20:39] LABS: Partial Thromboplastin Time 39.3 SECONDS (22.3-36.8)
[2022-09-06 20:43] LABS: Alanine Aminotransferase 32 U/L (6-50); Albumin Level 4.8 g/dL (3.5-5.1); Alkaline Phosphatase 103 U/L (38-126); Anion Gap 10 mmol/L (8-16); Aspartate Amino Transferase 32 U/L (17-59); Blood Urea Nitrogen 14 mg/dL (9-20); Calcium 9.1 mg/dL (8.4-10.2); Carbon Dioxide 24 mmol/L (22-30); Chloride 102 mmol/L (98-107); Estimated CRCL calculation 66 ml/min; Estimated Glomerular Filt Rate > 60; Glucose 159 mg/dL (65-110); Lipase 72 U/L (23-300); Potassium 4.1 mmol/L (3.4-5.0); Sodium 136 mmol/L (137-145)
[2022-09-06 21:19] LABS: NT Pro B Type Natriuretic Pept 3820 pg/mL (19.9-100)
[2022-09-06] MEDS: HYDROmorphone HCL INJ (*CRX) 1 MG/ML SYR IV PUSH (21:29)
--- NOTE | 2022-09-06 21:33 | PC.NURSE ---
[place] pacemaker interpreted
--- NOTE | 2022-09-06 22:09 | ED.GENADULT ---
HPI - General Adult General Chief complaint: Chest Pain Stated complaint: chest pain Time Seen by Provider: 09/06/22 20:14 History of Present Illness HPI narrative: Patient 62-year-old gentleman who presents the emergency department with chief complaint of left-sided chest pain. Patient reports that yesterday he started having discomfort on the left side of his chest. Patient reports he had some shortness of breath reports that the pain is not improved by anything and reports that he also noticed there was a rash that developed on the left side of his chest. Patient reports prior history of cardiac disease and has a pacemaker Related Data Home Medications Medication Instructions Recorded Confirmed amiodarone 400 mg tablet 200 mg PO DAILY 10/16/20 05/22/22 aspirin 81 mg tablet 81 mg PO DAILY 10/16/20 05/22/22 atorvastatin 80 mg tablet 80 mg PO HS 10/16/20 05/22/22 carvedilol 12.5 mg tablet 12.5 mg PO BID 10/16/20 05/22/22 furosemide 20 mg tablet 20 mg PO DAILY 10/16/20 05/22/22 calcium carbonate 300 mg (750 mg) 750 tablet PO QID PRN Heartburn 01/17/21 05/22/22 chewable tablet (Tums E-X) escitalopram oxalate 10 mg tablet 10 mg PO DAILY 01/17/21 05/22/22 rivaroxaban 20 mg tablet (Xarelto) 20 mg PO DAILY 12/06/21 05/22/22 losartan 25 mg tablet 25 mg PO DAILY 05/22/22 05/22/22 Allergies Allergy/AdvReac Type Severity Reaction Status Date / Time No Known Allergies Allergy Unknown Verified 05/21/22 21:16 Review of Systems Review of Systems: A 10 system review of systems was completed on the patient and is negative except for what is stated in the HPI. Nursing and ancillary documentation was reviewed. FOR[facility]LY [facility] Past Medical History Medical History Adenomatous colon polyp Aneurysm of infrarenal abdominal aorta Stable aneurysm measuring 4.5 centimeters on 11/21/2020. Coronary artery disease With history of [place] in what sounds like cardiac arrest while on vacation in [place]. He was in a medically induced coma for several weeks and temporarily had a tracheostomy. Cyclic vomiting syndrome Depression Generalized anxiety disorder Hyperlipidemia Hypertension Ischemic cardiomyopathy Ejection fraction reportedly as low as 15%. Patient reports a pacemaker in situ, denies the presence of an ICD. He sees a button breaker operator in [place]. Marijuana smoker, episodic Pancreatitis Paroxysmal atrial fibrillation Stenosis of infrarenal abdominal aorta due to arteriosclerosis Surgical History Surgical History History of arthroscopic knee surgery History of cardiac catheterization (~09/2019) Performed in [facility]. History of coronary artery stent placement (~09/2019) Stent x2. History of tracheostomy (~09/2019) Pacemaker Family History Family History Mother Congestive heart failure Father Glaucoma Lip cancer Social History Social History Social History: The patient lives in [place] with his . He has 2 children and is retired from [employer]. He smoked a pack of cigarettes a day for 30 years and quit quite sometime ago. No alcohol abuse. Admits to marijuana use but does not qualify or quantify. He designates his Iveth as his surrogate decision maker and he wishes to be a full code. Smoking packs per day: 1 Smoking cigarettes per day: 20.0 Years smoked: 20 Smoking pack-years: 20.00 Smoking status: Light tobacco smoker Tobacco type: cigarettes Second hand tobacco smoke exposure: No Alcohol intake: former Substance use: current Substance use type: marijuana Other substance usage details: Edibles Last use: 12/01/21. Lack of Transportation: YES Lack of Food: Never True Current Housing: I Have Housing Concerned About Future Housing
[2022-09-07] VITALS (13 sets, daily range): BP systolic 99–123; BP diastolic 52–97; PULSE 74–103; RESP 13–20; TEMP 36.3–36.7; O2SAT 90–96; BMI 29.9
[2022-09-07 00:18] LABS: Troponin I 0.036 ng/mL (0.000-0.034)
[2022-09-07] MEDS: valACYclovir HCL 500 MG TABLET 1000 MG PO ×2 (01:13→05:30)
[2022-09-07] MEDS: HYDROmorphone HCL INJ (*CRX) 1 MG/ML SYR IV PUSH (02:13)
--- NOTE | 2022-09-07 02:39 | ADMGEN ---
This patient, Low Sarmiento, was admitted to IMU Room 200-01. Patient/family oriented to hospital policies and general routines including ID bracelet, bed and alarms, visiting hours, pain management, procedures, bathroom and other care routines, personal items, smoking policy, room service/diet, and visiting hours. Information on how to activate the Rapid Response Team has been discussed. Patient/Family are encouraged to report perceived risks to care and to ask questions if they do not understand what they are told or what they should do.
[2022-09-07 03:07] LABS: Troponin I 0.037 ng/mL (0.000-0.034)
--- NOTE | 2022-09-07 07:07 | PM.IMHP ---
H&P: [facility] History of Present Illness Date/Time: 09/07/22 07:07 Chief Complaint: Chest pain Review of Systems Review of Systems: All systems reviewed & are unremarkable except as noted in HPI and below [facility] Past Medical History Medical History (Updated 09/07/22 @ 07:15 by JACK Caldwell) AAA (abdominal aortic aneurysm) Acute kidney injury Acute on chronic kidney failure Adenomatous colon polyp Aneurysm of infrarenal abdominal aorta Stable aneurysm measuring 4.5 centimeters on 11/21/2020. Coronary artery disease With history of [place] in what sounds like cardiac arrest while on vacation in [place]. He was in a medically induced coma for several weeks and temporarily had a tracheostomy. Cyclic vomiting syndrome Depression Generalized anxiety disorder Hyperlipidemia Hypertension Hypokalemia Ischemic cardiomyopathy Ejection fraction reportedly as low as 15%. Patient reports a pacemaker in situ, denies the presence of an ICD. He sees a commercial banker in [place]. Marijuana smoker, episodic Pancreatitis Paroxysmal atrial fibrillation Sepsis Stenosis of infrarenal abdominal aorta due to arteriosclerosis Urinary tract infection Surgical History Surgical History History of arthroscopic knee surgery History of cardiac catheterization (~09/2019) Performed in [facility]. History of coronary artery stent placement (~09/2019) Stent x2. History of tracheostomy (~09/2019) Pacemaker Family History Family History Mother Congestive heart failure Father Glaucoma Lip cancer Social History Social History Social History: The patient lives in [place] with his . He has 2 children and is retired from [employer]. He smoked a pack of cigarettes a day for 30 years and quit quite sometime ago. No alcohol abuse. Admits to marijuana use but does not qualify or quantify. He designates his Iveth as his surrogate decision maker and he wishes to be a full code. Smoking packs per day: 0.5 Smoking cigarettes per day: 10.0 Years smoked: 20 Smoking pack-years: 10.00 Smoking status: Current every day smoker Tobacco type: cigarettes Second hand tobacco smoke exposure: No Alcohol intake: never Substance use: never Substance use type: does not use Other substance usage details: Edibles Last use: 12/01/21. Lack of Transportation: No Lack of Food: Never True Current Housing: I Have Housing Concerned About Future Housing: No Difficulty Paying Gas/Electric Bills: No Difficulty Paying for Meds: No Currently Unemployed: No Education: High School Diploma/GED Difficulty w/ Childcare or Family Care: No Gender identity (if verbalized by the patient): Male Spiritual care concerns: No Meds Home Medications and Allergies Home Medications Medication Instructions Recorded Confirmed Type amiodarone 400 mg tablet 200 mg PO DAILY 10/16/20 09/07/22 History aspirin 81 mg tablet 81 mg PO DAILY 10/16/20 09/07/22 History atorvastatin 80 mg tablet 80 mg PO HS 10/16/20 09/07/22 History carvedilol 12.5 mg tablet 12.5 mg PO BID 10/16/20 09/07/22 History furosemide 20 mg tablet 20 mg PO DAILY 10/16/20 09/07/22 History calcium carbonate 300 mg (750 mg) 750 tablet PO QID PRN Heartburn 01/17/21 09/07/22 History chewable tablet (Tums E-X) escitalopram oxalate 10 mg tablet 10 mg PO DAILY 01/17/21 09/07/22 History rivaroxaban 20 mg tablet (Xarelto) 20 mg PO DAILY 12/06/21 09/07/22 History ondansetron 4 mg disintegrating 4 mg PO Q8H PRN nausea and 12/27/21 09/07/22 Rx tablet vomiting #14 tabs losartan 25 mg tablet 25 mg PO DAILY 05/22/22 09/07/22 History alprazolam 0.5 mg tablet 0.5 mg PO DAILY PRN anxiety #30 08/28/22 09/07/22 Rx tabs Allergies Allergy/AdvReac Type Severity Reaction Status Date / Time
--- NOTE | 2022-09-07 07:41 | PM.SD2 ---
Same Day Admit/Disch: HPI History of Present Illness Chief complaint: Chest pain, [place] Narrative: Low Sarmiento is a 62 year old male with a past medical history of ischemic cardiomyopathy, pacemaker ICD implant, myocardial infarction 2 stents, hypertension, hyperlipidemia, cyclic vomiting pancreatitis, AFib who presented to the ED complaints of chest pain. Patient stated that the pain started a couple days ago and mainly on the left. Patient stated the pain was really near the pacemaker. Patient stated that he would rate the pain at 10 of 10. Patient denies taking anything for the pain nor the chest pain. Patient stated that he knows he has bad heart and gets concerned when he has a kind of pain. Pain is reproducible with palpation. Patient also has a notable red, blotchy, raised patches running along the upper chest into the back. Patient also stated he was having some nausea and vomiting about 4 hours before he came to the hospital. Patient also stated that he has not eating a few days and his last meal was chicken nuggets. Patient stated that he had a bowel movement yesterday which he stated was pretty decent. Patient stated that he still swollen however most likely related to not eating. Patient also stated that he was having some pretty significant sweating. He currently denies any shortness a breath, weakness, fatigue, chills, fevers, lightheadedness, dizziness, urinary dysfunction, cough, diarrhea or constipation. Patient did state that he sees Dr. Delaney and has an appointment with her on the 15th of this month for follow-up. Patient did state that he had seen her a couple months ago and everything was okay at that time. Troponins are mildly elevated at 0.036 and 0.037 BNP is also elevated at 3820. Currently patient is comfortable and stable at this time. Labs and vital signs appear stable at this time. Patient is being admitted to the hospitalist service in observation [facility] Past Medical History Medical History AAA (abdominal aortic aneurysm) Acute kidney injury Acute on chronic kidney failure Adenomatous colon polyp Aneurysm of infrarenal abdominal aorta Stable aneurysm measuring 4.5 centimeters on 11/21/2020. Coronary artery disease With history of [place] in what sounds like cardiac arrest while on vacation in [place]. He was in a medically induced coma for several weeks and temporarily had a tracheostomy. Cyclic vomiting syndrome Depression Generalized anxiety disorder Hyperlipidemia Hypertension Hypokalemia Ischemic cardiomyopathy Ejection fraction reportedly as low as 15%. Patient reports a pacemaker in situ, denies the presence of an ICD. He sees a rivers and lakes boatman in [place]. Marijuana smoker, episodic Pancreatitis Paroxysmal atrial fibrillation Sepsis Stenosis of infrarenal abdominal aorta due to arteriosclerosis Urinary tract infection Surgical History Surgical History History of arthroscopic knee surgery History of cardiac catheterization (~09/2019) Performed in [facility]. History of coronary artery stent placement (~09/2019) Stent x2. History of tracheostomy (~09/2019) Pacemaker Family History Family History Mother Congestive heart failure Father Glaucoma Lip cancer Social History Social History Social History: The patient lives in [place] with his . He has 2 children and is retired from [employer]. He smoked a pack of cigarettes a day for 30 years and quit quite sometime ago. No alcohol abuse. Admits to marijuana use but does not qualify or quantify. He designates his Iveth as his surrogate decision maker and he wishes to be a full code. Smoking packs per day: 0.5 Smoking cigarettes per day: 10.0 Years smoked: 20 Smoking pack-years: 10
[2022-09-07] MEDS: LOSARTAN POTASSIUM 25 MG TABLET PO (08:26)
[2022-09-07] MEDS: FUROSEMIDE 20 MG TABLET PO (08:26)
[2022-09-07] MEDS: ESCITALOPRAM OXALATE 10 MG TABLET PO (08:26)
[2022-09-07] MEDS: AMIODARONE HCL 200 MG TABLET PO (08:26)
[2022-09-07] MEDS: ASPIRIN 81 MG ENTERIC TABLET PO (08:27)
[2022-09-07] MEDS: carvediloL 12.5 MG TABLET PO (08:27)
[2022-09-07] MEDS: HYDROcodone/acetaminophen (*CRX) 5-325 MG TABLET 1 TAB PO (08:32)
--- NOTE | 2022-09-07 12:51 | PC.NURSE ---
reviewed discharge paperwork with pt. all questions were answered. Peripheral IV access removed. Pt left via wheelchair.
== END 2022-09-07 12:42 | disposition home or self-care (01) ==
LOC: ANHED 23:57 → ANHIMU 09-07 03:43
PROVIDERS: Admitting Provider Internal Medicine; Emergency Provider Emergency Medicine; PCP Family Medicine; Visit Provider Family Medicine
DX: I25.10 Atherosclerotic heart disease of native coronary artery without angina pectoris (principal); Z95.5 Presence of coronary angioplasty implant and graft; R07.9 Chest pain, unspecified; B02.9 Zoster without complications; R77.8 Other specified abnormalities of plasma proteins; I42.9 Cardiomyopathy, unspecified; Z95.0 Presence of cardiac pacemaker; I48.0 Paroxysmal atrial fibrillation; I11.0 Hypertensive heart disease with heart failure; I50.9 Heart failure, unspecified; E78.5 Hyperlipidemia, unspecified; I25.5 Ischemic cardiomyopathy; R21 Rash and other nonspecific skin eruption; R06.02 Shortness of breath; R11.15 Cyclical vomiting syndrome unrelated to migraine; I71.43 Infrarenal abdominal aortic aneurysm, without rupture; R94.31 Abnormal electrocardiogram [ECG] [EKG]; I25.2 Old myocardial infarction; F32.A Depression, unspecified; F41.1 Generalized anxiety disorder; K85.90 Acute pancreatitis without necrosis or infection, unspecified; F12.90 Cannabis use, unspecified, uncomplicated; Z87.891 Personal history of nicotine dependence; Z79.82 Long term (current) use of aspirin; Z79.01 Long term (current) use of anticoagulants; Z79.899 Other long term (current) drug therapy
CPT/HCPCS: 36415; 71046; 80053; 83690; 83880; 84484; 85025; 85610; 85730; 93005; 96374; 96375; 99285; A9270; G0378; J1170; J2270; J2405

== ENCOUNTER 2022-11-17 08:13 | Observation (INO) | payer MEDICARE, OTHER, SELFPAY ==
[2022-11-17] VITALS (45 sets, daily range): BP systolic 91–181; BP diastolic 57–133; PULSE 66–96; RESP 9–23; TEMP 36.4–36.8; O2SAT 82–99; BMI 32.5
--- NOTE | ~2022-11-17 | CT_ITS ---
EXAMINATION: CTA chest abdomen pelvis DATE: 11/17/2022 09:34 CDT INDICATION: Chest pain. Abdomen pain. History of abdominal aortic aneurysm. TECHNIQUE: Computed tomography (CT) of the chest, abdomen, and pelvis was performed with 100 cc Omnip aque 350 intravenous contrast. The dose-length product was 1331.65 mGy-cm. Automated exposure control and iterative reconstruction technique were employed. COMPARISON: CT dated 05/21/2022 FINDINGS: CHEST CT: Heart size normal. No significant pleural or pericardial effusion. No thoracic lymphadenopathy. No ev idence for aortic aneurysm or dissection. There is mild emphysema. There are a few small calcified gr anulomas of the lungs. No focal pneumonia. No pneumothorax. No endobronchial lesions. ABDOMEN/PELVIS CT: There is an infrarenal abdominal aortic aneurysm measuring 5 x 4.8 cm. Calcified granulomas of the li obdulia and spleen. Fatty infiltration of the liver. Gallbladder is present. The pancreas, adrenal glands are unremarkable. There is mild bilateral renal atrophy. There is a small right renal cyst. Nonobstr uctive bowel pattern. No abnormal pelvic masses or fluid collections. No free air or free fluid. Mild thoracic and lumbar spondylosis. IMPRESSION: 1. No significant change to fusiform 5 cm infrarenal abdominal aortic aneurysm. Reviewed, dictated and finalized at location A.
--- NOTE | ~2022-11-17 | XR_ITS ---
EXAMINATION: XR chest 1V portable 11/17/2022 08:41 INDICATION: Chest pain PROCEDURE: AP portable COMPARISON: No prior studies for comparison. FINDINGS: The lungs are clear. The cardiomediastinal silhouette is within normal limits. There are no pleural effusions. There is no pneumothorax suspected. Pacemaker leads in expected position. IMPRESSION: 1: NO ACUTE CARDIOPULMONARY DISEASE. Reviewed, dictated and finalized at location A.
--- NOTE | 2022-11-17 08:15 | ECG_ITS ---
Measurements Intervals [place] Rate: 82 P: 71 IL: 188 QRS: -39 QRSD: 145 T: 120 QT: 411 QTc: 483 Interpretive Statements ELECTRONIC ATRIAL PACEMAKER WITH INHIBITION ATRIAL PREMATURE COMPLEX AND FREQUENT VENTRICULAR PREMATURE COMPLEXES LEFT BUNDLE BRANCH BLOCK BASELINE WANDER- V4-V6 ABNORMAL ECG COMPARED TO ECG 09/06/2022 20:10:01 NO SIGNIFICANT CHANGES Electronically Signed On 11-17-2022 8:27:08 CDT by Prince Boyd D.O.
--- NOTE | 2022-11-17 08:34 | ED.GENADULT ---
HPI - General Adult General Chief complaint: Chest Pain Stated complaint: N/V/D THIS AM Time Seen by Provider: 11/17/22 08:25 History of Present Illness HPI narrative: 62-year-old male with history of CHF, high cholesterol, paroxysmal A-fib, major depression, general anxiety, coronary artery disease with a cardiac defibrillator presenting the emergency department for evaluation of nausea vomiting diarrhea and chest pain. Patient states that the nausea vomiting diarrhea started earlier this morning and patient also developed some left-sided chest pain. Patient states that she often has nausea vomiting and diarrhea like this is seen proximately once a month for this. Patient was told that he has a hemorrhage in his abdomen. Previous CT scans do show evidence of an aortic aneurysm. Related Data Home Medications Medication Instructions Recorded Confirmed aspirin 81 mg tablet 81 mg PO DAILY 10/16/20 11/17/22 atorvastatin 80 mg tablet 80 mg PO HS 10/16/20 11/17/22 carvedilol 12.5 mg tablet 12.5 mg PO BID 10/16/20 11/17/22 furosemide 20 mg tablet 20 mg PO DAILY 10/16/20 11/17/22 calcium carbonate 300 mg (750 mg) 750 tablet PO QID PRN Heartburn 01/17/21 11/17/22 chewable tablet (Tums E-X) escitalopram oxalate 10 mg tablet 10 mg PO DAILY 01/17/21 11/17/22 rivaroxaban 20 mg tablet (Xarelto) 20 mg PO DAILY 12/06/21 11/17/22 losartan 25 mg tablet 25 mg PO DAILY 05/22/22 11/17/22 amiodarone 200 mg tablet 200 mg PO DAILY 09/17/22 11/17/22 Allergies Allergy/AdvReac Type Severity Reaction Status Date / Time No Known Allergies Allergy Unknown Verified 11/17/22 16:14 Review of Systems Review of Systems: All systems reviewed & are unremarkable except as noted in HPI and below PMFSH Past Medical History Medical History (Updated 11/17/22 @ 17:36 by Evgeny Antony MD) AAA (abdominal aortic aneurysm) Acute kidney injury Acute on chronic kidney failure Aneurysm of infrarenal abdominal aorta Stable aneurysm measuring 4.5 centimeters on 11/21/2020. Atherosclerotic heart disease of [place] coronary artery without angina pectoris CAD (coronary artery disease) Cardiomyopathy Chronic systolic (congestive) heart failure Cigarette nicotine dependence, uncomplicated Cyclic vomiting syndrome Depression Generalized anxiety disorder Hyperlipidemia Hypertension Hypokalemia Ischemic cardiomyopathy Ejection fraction reportedly as low as 15%. Patient reports a pacemaker in situ, denies the presence of an ICD. He sees a straightener hand in [place]. Major depressive disorder in partial remission Marijuana smoker, episodic Pancreatitis Paroxysmal atrial fibrillation Personal history of colonic polyps Presence of automatic (implantable) cardiac defibrillator Sepsis Stenosis of infrarenal abdominal aorta due to arteriosclerosis Urinary tract infection Surgical History Surgical History History of arthroscopic knee surgery History of cardiac catheterization (~09/2019) Performed in [facility]. History of coronary artery stent placement (~09/2019) Stent x2. History of tracheostomy (~09/2019) Pacemaker Family History Family History (Updated 11/17/22 @ 13:10 by Helen Landry NP) Mother Congestive heart failure Father Glaucoma Lip cancer Daughter Pulmonary emboli Social History Social History (Updated 11/17/22 @ 13:09 by Helen Landry NP) Social History: The patient lives in [place] with his . one children passed daughter He has 2 living children and is retired from [employer]. He smoked a pack of cigarettes a day for 30 years and quit quite sometime ago. No alcohol abuse. Admits to marijuana use but does not qualify or quantify. He designates his Iveth as his surrogate decision maker and he wishes to be a full code. Smoking packs per day: 1 Smoking cigarettes per day: 20.0 Years smoked: 20 Smoking pack-years: 20.00 Smoking status
[2022-11-17] MEDS: METOCLOPRAMIDE HCL INJ 10 MG/2 ML VIAL IV PUSH (08:47)
[2022-11-17] MEDS: HYDROmorphone HCL INJ (*CRX) 1 MG/ML SYR 0.5 MG IV PUSH ×2 (08:48→10:39)
[2022-11-17 08:53] LABS: Glucose Point of Care 169 mg/dl (65-105)
[2022-11-17 08:53] LABS: Basophils Absolute Auto 0.1 K/mm3 (0.0-0.1); Basophils Percent Auto 0.7 % (0.2-1.2); Eosinophils Absolute Auto 0.2 K/mm3 (0-0.3); Eosinophils Percent Auto 1.4 % (0-4.4); Hematocrit 51.3 % (42.0-52.0); Hemoglobin 17.1 g/dL (14.0-18.0); Immature Granulocyte Absolute 0.05 K/mm3 (0.00-0.031); Immature Granulocyte Percent A 0.4 % (0-0.5); Lymphocytes Percent Auto 21.7 % (18.3-44.2); Mean Corpuscular HGB Conc 33.3 g/dl (32-36); Mean Corpuscular Volume 92.9 fl (80-100); Mean Platelet Volume 11.5 fl (7.4-10.4); Monocytes Absolute Auto 0.7 K/mm3 (0.1-0.6); Monocytes Percent Auto 6.3 % (2.6-8.5); Neutrophils Percent Auto 69.5 % (45.5-73.1); Platelet Count Result 254 k/mm3 (150-375); Red Blood Count 5.52 M/mm3 (4.6-6.20); Red Cell Distribution Width 15.8 % (11.5-14.5); White Blood Count 11.5 K/mm3 (4.5-10.0)
[2022-11-17 09:03] LABS: Alanine Aminotransferase 32 U/L (6-50); Albumin Level 4.8 g/dL (3.5-5.1); Alkaline Phosphatase 96 U/L (38-126); Anion Gap 10 mmol/L (8-16); Aspartate Amino Transferase 32 U/L (17-59); Bilirubin,Total 0.6 mg/dL (0.2-1.3); Blood Urea Nitrogen 16 mg/dL (9-20); Calcium 9.3 mg/dL (8.4-10.2); Carbon Dioxide 27 mmol/L (22-30); Chloride 101 mmol/L (98-107); Estimated CRCL calculation 60 ml/min; Estimated Glomerular Filt Rate 56; Glucose 158 mg/dL (65-110); Potassium 4.6 mmol/L (3.4-5.0); Sodium 138 mmol/L (137-145)
[2022-11-17 09:05] LABS: INR 1.3; Prothrombin Time 16.5 Seconds (11.1-14.7)
[2022-11-17 09:06] LABS: Partial Thromboplastin Time 35.3 SECONDS (22.3-36.8)
[2022-11-17 09:15] LABS: Troponin I 0.027 ng/mL (0.000-0.034)
[2022-11-17] MEDS: ONDANSETRON INJ 4 MG/2 ML VIAL IV PUSH ×3 (10:38→19:59)
[2022-11-17 12:16] LABS: Appearance Urine Clear (Clear); Bacteria Urine None Seen /hpf; Bilirubin Urine Negative (Negative); Blood Urine Negative (Negative); Color Urine Yellow (Yellow); Glucose Urine UA Negative (Negative); Ketones Urine Negative (Negative); Leukocyte Esterase Ur Negative LEU/UL (Negative); Need Manual Microscopic Reviewed; Nitrate Urine Negative (Negative); Non Pathogenic Casts 0-2; Protein Urine Trace mg/dL (Negative); RBC Urine 0-2 /hpf (0-2); Squamous Epithelial Cell Urine None seen /hpf (Few); Urobilinogen Urine 0.2 mg/dL (<2.0); WBC Urine 0-5 /hpf; pH Urine 5.5 (5.0-9.0)
[2022-11-17 12:17] LABS: Troponin I 0.042 ng/mL (0.000-0.034)
--- NOTE | 2022-11-17 12:17 | ECG_ITS ---
Measurements Intervals [place] Rate: 81 P: 72 CO: 196 QRS: -56 QRSD: 141 T: 105 QT: 440 QTc: 512 Interpretive Statements SINUS RHYTHM VENTRICULAR PREMATURE COMPLEXES LEFT BUNDLE BRANCH BLOCK BASELINE ARTIFACT- I, II, III, AVR, AVL, AVF, V3, V5 ABNORMAL ECG COMPARED TO ECG 11/17/2022 08:19:16 SINUS RHYTHM NOW PRESENT Electronically Signed On 11-17-2022 13:36:54 CDT by Prince Boyd D.O.
[2022-11-17 12:18] LABS: Add Urine Microscopic? YES; Specific Grav Ur 1.081 (1.001-1.035)
--- NOTE | 2022-11-17 13:08 | PM.IMHP ---
H&P: HPI History of Present Illness Date/Time: 11/17/22 13:08 Chief Complaint: CHEST PAIN Narrative: this is a 62-year-old male who has a history of generalized anxiety, AFib, hyperlipidemia, congestive heart failure coronary artery disease with a cardiac defibrillator. The patient presented to the emergency room to be evaluated for nausea vomiting diarrhea and chest pain. The patient stated he has a history of having cyclic vomiting. The nausea and vomiting started earlier this morning. He also had some left-sided chest pain. The patient stated it could possibly be muscle strain from vomiting so much. The patient does continue to smoke marijuana frequently. The patient stated that he does have an AA artery aneurysm which is being monitored outpatient. His white count 11.5. His GFR is 56 with creatinine 1.3. Glucose 158 and then 169. troponin 0.042. Patient's troponins are normally elevated. EKG was sinus rhythm. The patient was given Dilaudid, Reglan, Zofran and nitro sublingual. Chest abdomen pelvis CT was read as no significant change diffuse upon 5 cm infrarenal abdominal aortic aneurysn. Chest x-ray was read as no acute cardiopulmonary disease. The patient is being admitted to observation status on the date of service of 11/17/2022. Review of Systems Review of Systems: All systems reviewed & are unremarkable except as noted in HPI and below Constitutional: Constitutional: Reports as per HPI and Reports no additional constitutional complaints Eyes: Eyes: Reports as per HPI and Reports no additional eye complaints ENT: Reports system reviewed and no additional complaints, except as documented and Reports Normal hearing present Cardiovascular: Cardiovascular: Reports no additional cardiovascular complaints Respiratory: Respiratory: Reports no additional respiratory complaints and Reports no additional respiratory complaints Gastrointestinal: Gastrointestinal: Reports as per HPI and Reports no additional gastrointestinal complaints Musculoskeletal: Musculoskeletal: Reports no additional musculoskeletal complaints Integumentary/Breasts: Skin/Breast: Reports system reviewed and no additional complaints, except as docu and Reports as per HPI Neurologic: Reports system reviewed and no additional complaints, except as documented, Reports as per HPI and Reports Normal hearing present Psychiatric: Psychiatric: Reports no additional psychiatric complaints and Reports as per HPI Endocrine: Endocrine: Reports no additional endocrine complaints Hematologic/Lymphatic: Hematologic/Lymphatic: Reports no additional hematologic/lymphatic complaints Allergic/Immunologic: Allergic/Immunologic: Reports no additional allergic/immunologic complaints [facility] Past Medical History Medical History (Updated 11/17/22 @ 18:18 by Helen Landry NP) AAA (abdominal aortic aneurysm) Acute kidney injury Acute on chronic kidney failure Aneurysm of infrarenal abdominal aorta Stable aneurysm measuring 4.5 centimeters on 11/21/2020. Atherosclerotic heart disease of [place] coronary artery without angina pectoris CAD (coronary artery disease) Cardiomyopathy Chronic systolic (congestive) heart failure Cigarette nicotine dependence, uncomplicated Cyclic vomiting syndrome Depression Generalized anxiety disorder Hyperlipidemia Hypertension Hypokalemia Ischemic cardiomyopathy Ejection fraction reportedly as low as 15%. Patient reports a pacemaker in situ, denies the presence of an ICD. He sees a technology program manager in [place]. Major depressive disorder in partial remission Marijuana smoker, episodic Pancreatitis Paroxysmal atrial fibrillation Personal history of colonic polyps Presence of automatic (implantable) cardiac defibrillator Sepsis Shingles Stenosis of infrarenal abdominal aorta due to arteriosclerosis Urinary tract infection Surgical History Surgical History History of arthro
--- NOTE | 2022-11-17 16:10 | ADMGEN ---
This patient, Low Sarmiento, was admitted to IMU Room 207-01. Patient/family oriented to hospital policies and general routines including ID bracelet, bed and alarms, visiting hours, pain management, procedures, bathroom and other care routines, personal items, smoking policy, room service/diet, and visiting hours. Information on how to activate the Rapid Response Team has been discussed. Patient/Family are encouraged to report perceived risks to care and to ask questions if they do not understand what they are told or what they should do.
[2022-11-17] MEDS: carvediloL 12.5 MG TABLET PO (19:58)
[2022-11-17] MEDS: ATORVASTATIN 40 MG TABLET 80 MG PO (19:59)
[2022-11-17 20:18] LABS: Troponin I 0.055 ng/mL (0.000-0.034)
[2022-11-18] VITALS (12 sets, daily range): BP systolic 92–127; BP diastolic 50–81; PULSE 67–97; RESP 16–20; TEMP 36.3–36.8; O2SAT 93–100
--- NOTE | 2022-11-18 | ECHO_ITS ---
Patient Info Name: Low Sarmiento Age: 62 years : 1960 Gender: Male Ht: 69 in Wt: 220 lbs BSA: 2.24 m2 HR: 78 bpm BP: 98 / 66 mmHg Heart Rhythm: Sinus Rhythm Technical Quality: Fair Exam Date: 11/18/2022 10:40 AM Exam Location: [facility] Patient Status: Outpatient Admit Date: 11/17/2022 Staff Ordering Physician: Helen Landry NP Commissioner [employer]: Kathleen Gary RDCS Attending Provider: Jose Angel Gamboa MD Referring Physician: Frantz RIVERA; Exam Type: CA echo doppler color flow Study Info Indications - chf Complete two-dimensional, color flow and Doppler transthoracic echocardiogram is performed. Summary 1. Complete two-dimensional, color flow and Doppler transthoracic echocardiogram is performed. 2. Left ventricular chamber dimension is mildly enlarged. 3. Left ventricular systolic function is moderately reduced, estimated at 35-40%. 4. There is mildly increased left ventricular wall thickness. 5. The left ventricular diastolic function is grade I diastolic dysfunction. 6. Left atrial chamber dimension is mildly enlarged. 7. There is mild tricuspid valve regurgitation. Left Ventricle Left ventricular chamber dimension is mildly enlarged. Left ventricular systolic function is moderately reduced, estimated at 35-40%. There is mildly increased left ventricular wall thickness. The left ventricular diastolic function is grade I diastolic dysfunction. Right Ventricle Right ventricular chamber dimension is normal. Right ventricular systolic function is normal. Linear artifact in right ventricle suggestive of catheter(s), pacemaker lead(s), or ICD lead(s). Left Atria Left atrial chamber dimension is mildly enlarged. Right Atria Right atrial chamber dimension is normal. Atrial Septum Intact interatrial septum visualized by color flow imaging. Aortic Valve The aortic valve is trileaflet. There is mild aortic valve sclerosis. There is no aortic valve stenosis. There is trace aortic valve regurgitation. Pulmonic Valve The pulmonic valve is normal. There is no pulmonic valve stenosis. There is trace pulmonic regurgitation. Mitral Valve The mitral valve has normal leaflets. There is no mitral valve stenosis. There is trace mitral valve regurgitation. Tricuspid Valve The tricuspid valve leaflets are normal. There is no significant tricuspid valve stenosis. There is mild tricuspid valve regurgitation. Pericardium/Pleural The pericardium appears normal. There is trivial pericardial effusion. Inferior Vena Cava Normal inferior vena cava with >50% collapse upon inspiration consistent with normal right atrial pressure, 5 mmHg. Aorta The aortic root size at the sinus of Valsalva is normal. The prox ascending aorta size is normal. Left Ventricular Outflow Tract Name Value Normal LVOT Doppler LVOT Peak Gradient 1 mmHg LVOT Mean Gradient 1 mmHg LVOT VTI 9 cm LVOT VTI/AV VTI Ratio 0.5 Pulmonic Valve Name Value Normal RVOT Doppler
[2022-11-18 04:34] LABS: Basophils Absolute Auto 0.1 K/mm3 (0.0-0.1); Basophils Percent Auto 0.6 % (0.2-1.2); Eosinophils Absolute Auto 0.1 K/mm3 (0-0.3); Eosinophils Percent Auto 1.1 % (0-4.4); Hematocrit 46.4 % (42.0-52.0); Hemoglobin 14.8 g/dL (14.0-18.0); Immature Granulocyte Absolute 0.02 K/mm3 (0.00-0.031); Immature Granulocyte Percent A 0.2 % (0-0.5); Lymphocytes Absolute Auto 1.94 K/mm3 (0.9-3.2); Lymphocytes Percent Auto 23.8 % (18.3-44.2); Mean Corpuscular HGB Conc 31.9 g/dl (32-36); Mean Corpuscular Hemoglobin 30.5 pg (26-34); Mean Corpuscular Volume 95.5 fl (80-100); Mean Platelet Volume 11.1 fl (7.4-10.4); Monocytes Absolute Auto 0.7 K/mm3 (0.1-0.6); Monocytes Percent Auto 8.2 % (2.6-8.5); Neutrophils Absolute Auto 5.4 K/mm3 (1.3-6.7); Neutrophils Percent Auto 66.1 % (45.5-73.1); Platelet Count Result 193 k/mm3 (150-375); Red Blood Count 4.86 M/mm3 (4.6-6.20); Red Cell Distribution Width 15.7 % (11.5-14.5); White Blood Count 8.1 K/mm3 (4.5-10.0)
[2022-11-18 04:47] LABS: Alanine Aminotransferase 24 U/L (6-50); Alkaline Phosphatase 74 U/L (38-126); Anion Gap 3 mmol/L (8-16); Aspartate Amino Transferase 27 U/L (17-59); Bilirubin,Total 0.6 mg/dL (0.2-1.3); Blood Urea Nitrogen 13 mg/dL (9-20); Calcium 8.3 mg/dL (8.4-10.2); Carbon Dioxide 32 mmol/L (22-30); Chloride 102 mmol/L (98-107); Estimated CRCL calculation 77 ml/min; Estimated Glomerular Filt Rate > 60; Glucose 111 mg/dL (65-110); Magnesium 2.3 mg/dL (1.6-2.3); Sodium 137 mmol/L (137-145)
[2022-11-18 05:19] LABS: Thyroid Stimulating Hormone Reflex 0.887 uIU/mL (0.465-4.68)
[2022-11-18] MEDS: AMIODARONE HCL 200 MG TABLET PO (08:35)
[2022-11-18] MEDS: ASPIRIN 81 MG ENTERIC TABLET PO (08:35)
[2022-11-18] MEDS: ESCITALOPRAM OXALATE 10 MG TABLET PO (08:35)
[2022-11-18] MEDS: FUROSEMIDE 20 MG TABLET PO (08:35)
[2022-11-18] MEDS: LOSARTAN POTASSIUM 25 MG TABLET PO (08:35)
[2022-11-18] MEDS: carvediloL 12.5 MG TABLET PO ×2 (08:35→19:57)
[2022-11-18] MEDS: RIVAROXABAN 20 MG TABLET PO (08:35)
[2022-11-18] MEDS: ONDANSETRON INJ 4 MG/2 ML VIAL IV PUSH ×2 (08:40→19:56)
[2022-11-18] MEDS: MORPHINE SULFATE (*CRX) 2 MG/ML INJ IV PUSH (09:16)
--- NOTE | 2022-11-18 09:17 | PM.CNCAR ---
Assessment and Plan Assessment and plan (1) Elevated troponin: Code(s): R77.8 - Other specified abnormalities of plasma proteins Status: Acute Plan This is a 62-year-old man with coronary disease, previous emergency intervention several years ago when he was in [place] he has some ischemic LV dysfunction and has a chronically implanted ICD. He came to the hospital yesterday primarily for noncardiac reasons he has a unusual cyclical nausea vomiting diagnosis that was bothering him significantly yesterday. In this setting troponin levels were drawn they are slightly elevated but flat and I do not believe this is evidence of a new acute coronary syndrome. He is on appropriate medication for his heart disease and follow-up is scheduled with my partner, Dr. Delaney. Disposition will be per the primary team at this point I do not perceive a cardiac reason that he needs to remain hospitalized Matt Chandler MD [facility] History of Present Illness History of Present Illness Consult date/time: 11/18/22 09:17 Reason For Visit: cyclic nausea vomiting,elevated troponin,chest jennifer Narrative: This is a 62-year-old man who is unknown to me but apparently has a known history of coronary disease, ischemic cardiomyopathy previous PCI and a chronically implanted ICD. He is being seen today at the request of the hospitalist because of a troponin level that was sampled and found to be elevated out of normal range. The patient has not been seen by me in the past he is now being seen and followed by my partner, Dr. Delaney. He has a history of coronary disease dating back to several years ago when apparently he suffered a myocardial infarction when he was vacationing in [place]. He describes undergoing stenting of his left anterior descending and he had a significant cardiomyopathy following that event. He was seen at [facility] couple of years ago and apparently had a defibrillator placed at that time. In the intervening years he was followed by entertainment manager in [facility] and recently has transition to his follow-up to my partner as mentioned above. He has an unusual diagnosis, cyclical nausea and vomiting. He came in yesterday because of this intractable vomiting that was going on for most of the day to be seen in the emergency room and be evaluated. I am not familiar with this particular diagnosis but he was not complaining of any significant cardiac symptoms. Sometimes when he has these episodes of vomiting there is some chest pain associated with it and yesterday there was. Presumably for this reason troponin levels were sampled and they are 0.04 and 0.05. There are no acute injury changes on his ECG he does have a chronic left bundle branch block. When he is in his usual state of health he states he still a normally active man who can carry on activities and walk distances without triggering any symptoms such as chest pain he does notice with activity he does have shortness of breath he walks far enough. Not experiencing any orthopnea PND or edema he has never had a syncopal episode. His urine drug screen on admission was positive for cannabis, opiates and benzodiazepines. He does have a prescription for alprazolam. Review of Systems Constitutional: Constitutional: Reports no additional constitutional complaints Eyes: Eyes: Reports no additional eye complaints ENT: Reports system reviewed and no additional complaints, except as documented Cardiovascular: Cardiovascular: Reports as per HPI Respiratory: Respiratory: Reports dyspnea on exertion Gastrointestinal: Gastrointestinal: Reports diarrhea and Reports nausea Musculoskeletal: Musculoskeletal: Reports back pain Integumentary/Breasts: Skin/Breast: Reports system reviewed and no additional complaints, except as docu Neurologic: Reports as per HPI Endocrine: Endocrine: Reports no additional endocrine complaints Hematologic/Lymphatic: Hematologic/Lymphatic: Reports no add
[2022-11-18] MEDS: HYDROmorphone HCL INJ (*CRX) 1 MG/ML SYR IV PUSH (13:59)
--- NOTE | 2022-11-18 14:53 | PM.IMPN ---
Progress Note: A&P Assessment and Plan (1) Cyclic vomiting syndrome: Code(s): R11.15 - Cyclical vomiting syndrome unrelated to migraine Status: Acute (2) Elevated troponin: Code(s): R77.8 - Other specified abnormalities of plasma proteins Status: Acute Plan # cyclical vomiting syndrome -CT abdomen pelvis any acute finding, stable fusiform 5 cm infrarenal AAA (increased from previous 4.5cm) -unclear explanation for symptoms, but he has longstanding history with episodes of cyclical vomiting for years, previously thought to be secondary to marijuana or migraine -antiemetic p.r.n. Zofran -pain control: P.r.n. Dilaudid, will switch to PRN bentyl -advance diet as tolerated -if no improvement may need GI consult, he has had many hospitalizations for cyclical vomiting # elevated troponin -stable 0.037-0.042-0.055 -cardiology consult: Stable troponin, atypical chest pain, likely secondary to his vomiting, not ACS. Recs for outpatient follow up with Dr. Delaney cardiology -continue home Xarelto # chronic conditions -atrial fibrillation: amiodarone -hyperlipidemia: lipitor, aspirin -congestive heart failure with reduced ejection fraction, ischemic LV dysfunction status post cardiac defibrillator. h/o EF 15% -essential hypertension: Losartan, coreg, lasix -anxiety: Lexapro, prn xanax, prn haldol Diet: Clear liquid, will advance as tolerated DVT prophylaxis: On Xarelto Code status: Full code Disposition: Downgrade from IMU, home in 1-2 days Subjective Date/time seen: 11/18/22 14:53 Interval history: Patient seen examined. Still has significant abdominal pain. Patient's chest pain appears to be related to his retching. Cardiology consulted who believed patient's pain is not cardiac related. Patient elevated troponins are flat, does not appear to be ACS. With downgrade patient from IMU to medical floor. Review of Systems Review of Systems: 10 point ROS complete, negative other than what is specified in HPI. Exam Narrative: - GENERAL: Pleasant male in no acute distress. Well-nourished. - EYES: EOMI. Anicteric. - HENT: Moist mucous membranes. - LUNGS: Clear to auscultation bilaterally, no wheezing - CARDIOVASCULAR: Regular rate and rhythm. No murmur - ABDOMEN: Soft, tender on light palpation, nondistended, no palpable masses - EXTREMITIES: No edema. Peripheral pulses 2+. Non-tender. - NEUROLOGIC: No focal neurological deficits. CN II-XII grossly intact. - PSYCHIATRIC: Awake, Alert and oriented x 3. Appropriate mood and affect. - SKIN: No rashes or lesions. Warm. - LYMPH: No cervical lymphadenopathy. Objective Data Vital Signs Vital Signs: Vital Signs - 24 hr 11/17/22 16:00 11/17/22 16:00 11/17/22 16:00 Temperature 36.7 C Pulse Rate 92 77 Respiratory Rate 16 Blood Pressure 145/76 H Pulse Oximetry 95 Oxygen Delivery Room Air 11/17/22 18:00 11/17/22 19:40 11/17/22 19:58 Temperature 36.5 C Pulse Rate 88 87 90 Respiratory Rate 20 Blood Pressure 114/76 Pulse Oximetry 99 Oxygen Delivery 11/17/22 20:00 11/17/22 22:00 11/17/22 23:33 Temperature 36.4 C Pulse Rate 90 75 73 Respiratory Rate 20 Blood Pressure 91/57 L Pulse Oximetry 99 Oxygen Delivery 11/18/22 00:00 11/18/22 00:00 11/18/22 02:00 Temperature Pulse Rate 73 81 73 Respiratory Rate 20 Blood Pressure Pulse Oximetry 99 Oxygen Delivery Room Air 11/18/22 03:38 11/18/22 03:58 11/18/22 04:00 Temperature 36.6 C Pulse Rate 81 81 74 Respiratory Rate 20 20 Blood Pressure 98/66 L Pulse Oximetry 100 100 Oxygen Delivery Room Air 11/18/22 06:00 11/18/22 08:00 11/18/22 08:00 Temperature 36.3 C L Pulse Rate 78 84 83 Respiratory Rate 16 Blood Pressure 127/81 Pulse Oximetry 94 Oxygen Delivery 11/18/22 08:00 11/18/22 10:00 Temperature Pulse Rate 74 Respiratory Rate Blood Pressure Pulse Oximetry Oxygen Delivery Room Air
[2022-11-18] MEDS: ATORVASTATIN 40 MG TABLET 80 MG PO (19:57)
[2022-11-18] MEDS: DICYCLOMINE HCL 10 MG CAPSULE 20 MG PO (19:59)
--- NOTE | 2022-11-19 04:12 | PC.NURSE ---
This patient, Low Sarmiento, was transferred to [[id number]] on 11/19/22 at 0410. Personal belongings sent with patient. Report given to [MILTON Kimbrough]. Appropriate documentation sent with patient.
[2022-11-19 04:16] VITALS: BP 100/59; PULSE 70; RESP 18; TEMP 35.9; O2SAT 90
[2022-11-19] MEDS: DICYCLOMINE HCL 10 MG CAPSULE 20 MG PO ×3 (04:21→08:56)
[2022-11-19] MEDS: ONDANSETRON INJ 4 MG/2 ML VIAL IV PUSH (04:21)
[2022-11-19 06:21] LABS: Hematocrit 46.5 % (42.0-52.0); Hemoglobin 14.7 g/dL (14.0-18.0); Mean Corpuscular HGB Conc 31.6 g/dl (32-36); Mean Corpuscular Hemoglobin 30.6 pg (26-34); Mean Corpuscular Volume 96.7 fl (80-100); Mean Platelet Volume 11.4 fl (7.4-10.4); Platelet Count Result 176 k/mm3 (150-375); Red Blood Count 4.81 M/mm3 (4.6-6.20); Red Cell Distribution Width 15.6 % (11.5-14.5); White Blood Count 6.6 K/mm3 (4.5-10.0)
[2022-11-19 06:40] LABS: Alanine Aminotransferase 25 U/L (6-50); Alkaline Phosphatase 75 U/L (38-126); Anion Gap 5 mmol/L (8-16); Aspartate Amino Transferase 29 U/L (17-59); Bilirubin,Total 0.7 mg/dL (0.2-1.3); Blood Urea Nitrogen 10 mg/dL (9-20); Calcium 8.1 mg/dL (8.4-10.2); Carbon Dioxide 33 mmol/L (22-30); Chloride 98 mmol/L (98-107); Estimated CRCL calculation 77 ml/min; Estimated Glomerular Filt Rate > 60; Glucose 117 mg/dL (65-110); Lipase 232 U/L (23-300); Magnesium 2.4 mg/dL (1.6-2.3); Potassium 3.8 mmol/L (3.4-5.0); Sodium 136 mmol/L (137-145)
[2022-11-19 07:28] VITALS: BP 108/65; PULSE 71; RESP 18; TEMP 36.1; O2SAT 91
[2022-11-19] MEDS: ASPIRIN 81 MG ENTERIC TABLET PO (08:54)
[2022-11-19 08:55] VITALS: PULSE 70
[2022-11-19] MEDS: ESCITALOPRAM OXALATE 10 MG TABLET PO (08:55)
[2022-11-19] MEDS: AMIODARONE HCL 200 MG TABLET PO (08:55)
[2022-11-19] MEDS: FUROSEMIDE 20 MG TABLET PO (08:55)
[2022-11-19] MEDS: RIVAROXABAN 20 MG TABLET PO (08:55)
[2022-11-19] MEDS: carvediloL 12.5 MG TABLET PO (08:55)
[2022-11-19] MEDS: LOSARTAN POTASSIUM 25 MG TABLET PO (08:55)
--- NOTE | 2022-11-19 12:45 | PM.DS ---
DS: Admitting Diagnosis Discharge Date 11/19/22 Admitting Diagnosis Cyclical Vomiting Syndrome DS: Summary Hospital Course Reason for hospitalization: Cyclical Vomiting Syndrome Hospital Course: 62-year-old male who has a history of generalized anxiety, AFib, hyperlipidemia, congestive heart failure coronary artery disease with a cardiac defibrillator.? The patient presented to the emergency room to be evaluated for nausea vomiting diarrhea and chest pain.? The patient does continue to smoke marijuana frequently.? The patient stated that he does have an AA artery aneurysm which is being monitored outpatient.? Chest abdomen pelvis CT was read as no significant change diffuse upon 5 cm infrarenal abdominal aortic aneurysn. ? Chest x-ray was read as no acute cardiopulmonary disease.? Had elevated troponin, cardiology was consulted, no further cardiac work up was recommeded. Treated with IV fluids, zofran, symptoms improved, was able to tolerate diet, discharged home in stable condition. Status at Discharge Functional status at discharge: independent ambulation Overall status at discharge: patient is back to baseline Time Spent with Patient Time attestation: Total time spent providing and/or coordinating discharge services: Time spent: Greater than 30 minutes Exam Narrative: - GENERAL: Pleasant male in no acute distress. Well-nourished. - EYES: EOMI. Anicteric. - HENT: Moist mucous membranes. - LUNGS: Clear to auscultation bilaterally, no wheezing - CARDIOVASCULAR: Regular rate and rhythm. No murmur - ABDOMEN: Soft, tender on light palpation, nondistended, no palpable masses - EXTREMITIES: No edema. Peripheral pulses 2+. Non-tender. - NEUROLOGIC: No focal neurological deficits. CN II-XII grossly intact. - PSYCHIATRIC: Awake, Alert and oriented x 3. Appropriate mood and affect. - SKIN: No rashes or lesions. Warm. - LYMPH: No cervical lymphadenopathy. DS: Data Data Completed and Pending Labs on day of discharge: Labs from last 24 hours 11/19/22 05:59 WBC 6.6 RBC 4.81 Hgb 14.7 Hct 46.5 MCV 96.7 MCH 30.6 MCHC 31.6 L RDW 15.6 H Plt Count 176 MPV 11.4 H Sodium 136 L Potassium 3.8 Chloride 98 Carbon Dioxide 33 H Anion Gap 5 L BUN 10 Creatinine 1.00 Estim Creat Clear Calc 77 Estimated GFR > 60 Glucose 117 H Calcium 8.1 L Magnesium 2.4 H Total Bilirubin 0.7 AST 29 ALT 25 Alkaline Phosphatase 75 Total Protein 6.0 L Albumin 4.0 Lipase 232 Discharge Plan Discharge Attending physician on discharge: Madelin Valladares Consulting providers: Matt Chandler; Helen Landry; Prince Boyd; Tomy Escalante; Gregory Lezama Discharging Clinician: Madelin Valladares Anticipated Discharge Date/Time: 11/19/22 12:39 Patient Disposition: Home, Self-Care Activity: as tolerated Diet: regular Patient Instructions: Antibiotic Form, Rivaroxaban (By mouth) Stand Alone Forms: General Discharge Information Follow-up/Referrals: Jacob Dahl MD [Primary Care Provider] - 2 Weeks Discharge Medications: Continued amiodarone 200 mg tablet 200 mg PO DAILY gabapentin 300 mg capsule 300 mg PO TID PRN (Reason: pain from shingles) Qty: 90 0RF atorvastatin 80 mg Tablet 80 mg PO HS carvedilol 12.5 mg Tablet 12.5 mg PO BID aspirin 81 mg Tablet 81 mg PO DAILY furosemide 20 mg Tablet 20 mg PO DAILY calcium carbonate [Tums E-X] 300 mg (750 mg) Tablet,Chewable 750 tablet PO QID PRN (Reason: Heartburn) escitalopram oxalate 10 mg tablet 10 mg PO DAILY Xarelto 20 mg Tablet 20 mg PO DAILY Rx Instructions: must administer with evening meal losartan 25 mg tablet 25 mg PO DAILY alprazolam 0.5 mg tablet 0.5 mg PO DAILY PRN (Reason: anxiety) Qty: 30 0RF Date of admission: 11/17/22 13:02 Primary Care Provider: Jacob Dhal Admitting Provider: Jose Angel Gamboa Attending physician on admission: Kelvin
== END 2022-11-19 13:25 | disposition home or self-care (01) ==
LOC: ANHED 08:53 → ANHIMU 14:43 → ANH3MEDSUR 11-19 08:14 → ANHIMU 11-20 10:37
PROVIDERS: Nurse Practitioner; Admitting Provider Family Medicine; Emergency Provider Emergency Medicine; PCP Family Medicine; Visit Provider Student in an Organized Health Care Education/Training Program
DX: R11.15 Cyclical vomiting syndrome unrelated to migraine (principal); R07.9 Chest pain, unspecified; R77.8 Other specified abnormalities of plasma proteins; F32.4 Major depressive disorder, single episode, in partial remission; I71.40 Abdominal aortic aneurysm, without rupture, unspecified; I13.0 Hypertensive heart and chronic kidney disease with heart failure and stage 1 through stage 4 chronic kidney disease, or unspecified chronic kidney disease; N18.9 Chronic kidney disease, unspecified; I50.22 Chronic systolic (congestive) heart failure; I48.0 Paroxysmal atrial fibrillation; E78.5 Hyperlipidemia, unspecified; I07.1 Rheumatic tricuspid insufficiency; Z95.810 Presence of automatic (implantable) cardiac defibrillator; R19.7 Diarrhea, unspecified; R10.9 Unspecified abdominal pain; F32.5 Major depressive disorder, single episode, in full remission; F41.9 Anxiety disorder, unspecified; R12 Heartburn; I25.10 Atherosclerotic heart disease of native coronary artery without angina pectoris; R94.31 Abnormal electrocardiogram [ECG] [EKG]; F12.90 Cannabis use, unspecified, uncomplicated; F17.210 Nicotine dependence, cigarettes, uncomplicated; Z79.82 Long term (current) use of aspirin; Z79.899 Other long term (current) drug therapy
CPT/HCPCS: 36415; 71045; 71275; 74174; 80053; 81001; 82948; 83605; 83690; 83735; 84443; 84484; 85025; 85027; 85610; 85730; 93005; 93306; 96374; 96375; 96376; 99285; A9270; G0378; J1170; J2270; J2405; J2765; Q9967

== ENCOUNTER 2022-11-27 10:18 | Emergency (ER) | payer MEDICARE, OTHER, SELFPAY ==
[2022-11-27] VITALS (22 sets, daily range): BP systolic 143–200; BP diastolic 83–123; PULSE 60–97; RESP 12–25; TEMP 36.6–36.9; O2SAT 91–100
--- NOTE | 2022-11-27 10:26 | ECG_ITS ---
Measurements Intervals [place] Rate: 68 P: 83 PA: 201 QRS: -42 QRSD: 129 T: 102 QT: 416 QTc: 442 Interpretive Statements SINUS RHYTHM WITH SINUS ARRHYTHMIA VENTRICULAR PREMATURE COMPLEXES LEFT AXIS DEVIATION BORDERLINE AV CONDUCTION DELAY LEFT BUNDLE BRANCH BLOCK BASELINE ARTIFACT- I, III, AVR, AVL, AVF, V3-V6 ABNORMAL ECG COMPARED TO ECG 11/17/2022 12:22:28 SINUS ARRHYTHMIA NOW PRESENT Electronically Signed On 11-27-2022 11:01:07 CDT by Prince Boyd D.O.
[2022-11-27 10:49] LABS: Basophils Absolute Auto 0.1 K/mm3 (0.0-0.1); Basophils Percent Auto 0.6 % (0.2-1.2); Eosinophils Absolute Auto 0.1 K/mm3 (0-0.3); Eosinophils Percent Auto 0.8 % (0-4.4); Hematocrit 50.9 % (42.0-52.0); Hemoglobin 16.6 g/dL (14.0-18.0); Immature Granulocyte Absolute 0.04 K/mm3 (0.00-0.031); Immature Granulocyte Percent A 0.4 % (0-0.5); Lymphocytes Absolute Auto 2.27 K/mm3 (0.9-3.2); Lymphocytes Percent Auto 20.8 % (18.3-44.2); Mean Corpuscular HGB Conc 32.6 g/dl (32-36); Mean Corpuscular Hemoglobin 30.4 pg (26-34); Mean Corpuscular Volume 93.2 fl (80-100); Mean Platelet Volume 11.4 fl (7.4-10.4); Monocytes Absolute Auto 0.7 K/mm3 (0.1-0.6); Neutrophils Absolute Auto 7.8 K/mm3 (1.3-6.7); Neutrophils Percent Auto 71.4 % (45.5-73.1); Platelet Count Result 252 k/mm3 (150-375); Red Blood Count 5.46 M/mm3 (4.6-6.20); Red Cell Distribution Width 15.8 % (11.5-14.5); White Blood Count 10.9 K/mm3 (4.5-10.0)
[2022-11-27 11:03] LABS: Alanine Aminotransferase 33 U/L (6-50); Albumin Level 4.8 g/dL (3.5-5.1); Alkaline Phosphatase 96 U/L (38-126); Anion Gap 13 mmol/L (8-16); Aspartate Amino Transferase 40 U/L (17-59); Bilirubin,Total 0.7 mg/dL (0.2-1.3); Blood Urea Nitrogen 21 mg/dL (9-20); Calcium 9.4 mg/dL (8.4-10.2); Carbon Dioxide 26 mmol/L (22-30); Chloride 100 mmol/L (98-107); Estimated CRCL calculation 52 ml/min; Estimated Glomerular Filt Rate 47; Glucose 172 mg/dL (65-110); Lipase 474 U/L (23-300); Potassium 5.2 mmol/L (3.4-5.0); Sodium 139 mmol/L (137-145)
[2022-11-27] MEDS: METOCLOPRAMIDE HCL INJ 10 MG/2 ML VIAL IV PUSH (11:11)
[2022-11-27] MEDS: MORPHINE SULFATE (*CRX) 4 MG/ML INJ IV PUSH (11:42)
[2022-11-27] MEDS: HALOPERIDOL LACTATE 5 MG/ML VIAL 2.5 MG IM (11:44)
[2022-11-27 11:50] LABS: Appearance Urine Cloudy (Clear); Bacteria Urine None Seen /hpf; Bilirubin Urine Negative (Negative); Blood Urine Negative (Negative); Color Urine Dark Yellow (Yellow); Glucose Urine UA Negative (Negative); Ketones Urine Trace mg/dL (Negative); Leukocyte Esterase Ur Negative LEU/UL (Negative); Nitrate Urine Negative (Negative); Non Pathogenic Casts 0-2; Protein Urine 1+ mg/dL (Negative); RBC Urine 0-2 /hpf (0-2); Specific Grav Ur 1.019 (1.001-1.035); Squamous Epithelial Cell Urine None seen /hpf (Few); WBC Urine 0-5 /hpf; pH Urine 5.5 (5.0-9.0)
[2022-11-27 11:52] LABS: Add Urine Microscopic? YES
--- NOTE | 2022-11-27 11:55 | ED.GENADULT ---
HPI - General Adult General Chief complaint: Nausea/Vomiting/Diarrhea Stated complaint: n/v, CP, abd pain Time Seen by Provider: 11/27/22 11:10 History of Present Illness HPI narrative: 62-year-old male with history of congestive heart failure, chest pain, cyclic vomiting and frequent THC use presented to the emergency department for evaluation of nausea vomiting. Patient reported associated abdominal pain but denied any chest pain. Patient was just evaluated in the ED and is admitted for evaluation. Patient did have elevated troponins at that time and no further cardiac work-up was done. Patient states that he began having worsening vomiting last night and presented to the ED for evaluation. Patient states he has not used any forms of THC last week. Patient reports he has not had follow-up with GI for approximately 2 years. Related Data Home Medications Medication Instructions Recorded Confirmed aspirin 81 mg tablet 81 mg PO DAILY 10/16/20 11/17/22 atorvastatin 80 mg tablet 80 mg PO HS 10/16/20 11/17/22 carvedilol 12.5 mg tablet 12.5 mg PO BID 10/16/20 11/17/22 furosemide 20 mg tablet 20 mg PO DAILY 10/16/20 11/17/22 calcium carbonate 300 mg (750 mg) 750 tablet PO QID PRN Heartburn 01/17/21 11/17/22 chewable tablet (Tums E-X) escitalopram oxalate 10 mg tablet 10 mg PO DAILY 01/17/21 11/17/22 rivaroxaban 20 mg tablet (Xarelto) 20 mg PO DAILY 12/06/21 11/17/22 losartan 25 mg tablet 25 mg PO DAILY 05/22/22 11/17/22 amiodarone 200 mg tablet 200 mg PO DAILY 09/17/22 11/17/22 Allergies Allergy/AdvReac Type Severity Reaction Status Date / Time No Known Allergies Allergy Unknown Verified 11/27/22 10:37 Review of Systems Review of Systems: All systems reviewed & are unremarkable except as noted in HPI and below [facility] Past Medical History Medical History (Updated 11/27/22 @ 15:43 by Evgeny Antony MD) AAA (abdominal aortic aneurysm) Acute kidney injury Acute on chronic kidney failure Aneurysm of infrarenal abdominal aorta Stable aneurysm measuring 4.5 centimeters on 11/21/2020. Atherosclerotic heart disease of [place] coronary artery without angina pectoris CAD (coronary artery disease) Cardiomyopathy Chronic systolic (congestive) heart failure Cigarette nicotine dependence, uncomplicated Cyclic vomiting syndrome Depression Generalized anxiety disorder Hyperlipidemia Hypertension Hypokalemia Ischemic cardiomyopathy Ejection fraction reportedly as low as 15%. Patient reports a pacemaker in situ, denies the presence of an ICD. He sees a supervisor force adjustment in [place]. Major depressive disorder in partial remission Marijuana smoker, episodic Pancreatitis Paroxysmal atrial fibrillation Personal history of colonic polyps Presence of automatic (implantable) cardiac defibrillator Sepsis Shingles Stenosis of infrarenal abdominal aorta due to arteriosclerosis Urinary tract infection Surgical History Surgical History History of arthroscopic knee surgery History of cardiac catheterization (~09/2019) Performed in [facility]. History of coronary artery stent placement (~09/2019) Stent x2. History of tracheostomy (~09/2019) Pacemaker Family History Family History Mother Congestive heart failure Father Glaucoma Lip cancer Daughter Pulmonary emboli Social History Social History (Updated 11/17/22 @ 18:28 by Helen Landry NP) Social History: The patient lives in [place] with his . one children passed which was his daughter. He has 2 living children and is retired from [employer]. He smoked a pack of cigarettes a day for 30 years and quit quite sometime ago. No alcohol abuse. Admits to marijuana use but does not qualify or quantify. He designates his Iveth as his surrogate decision maker and he wishes to be a full code. Code status full code Smoking packs per day:
[2022-11-27] MEDS: SODIUM CHLORIDE 0.9% IV 1,000 ML 999 ML IV CONT (12:06)
--- NOTE | 2022-11-27 12:38 | PC.NURSE ---
Pt is still having ABD pain but states he feels like his nausea and vomiting have reduced.
[2022-11-27] MEDS: BELLADONNA ALK/PHENOB ELIX 10 ML, MAG HYDROX/ALUMINUM HYD/SIMETH 30 ML, LIDOCAINE HCL 2... PO (13:32)
[2022-11-27] MEDS: PANTOPRAZOLE SODIUM IV 40 MG VIAL IV PUSH (13:34)
[2022-11-27] MEDS: HYDROmorphone HCL INJ (*CRX) 1 MG/ML SYR 0.5 MG IV PUSH ×2 (14:28→15:38)
== END 2022-11-27 15:58 | disposition home or self-care (01) ==
PROVIDERS: Emergency Provider Emergency Medicine; PCP Family Medicine
DX: R11.2 Nausea with vomiting, unspecified (principal); R10.9 Unspecified abdominal pain; I13.0 Hypertensive heart and chronic kidney disease with heart failure and stage 1 through stage 4 chronic kidney disease, or unspecified chronic kidney disease; N18.9 Chronic kidney disease, unspecified; I50.22 Chronic systolic (congestive) heart failure; I48.0 Paroxysmal atrial fibrillation; E78.5 Hyperlipidemia, unspecified; I25.5 Ischemic cardiomyopathy; I25.10 Atherosclerotic heart disease of native coronary artery without angina pectoris; F41.1 Generalized anxiety disorder; F32.4 Major depressive disorder, single episode, in partial remission; F17.210 Nicotine dependence, cigarettes, uncomplicated; Z95.810 Presence of automatic (implantable) cardiac defibrillator; Z95.5 Presence of coronary angioplasty implant and graft; Z86.010 Personal history of colon polyps; Z87.440 Personal history of urinary (tract) infections; Z79.01 Long term (current) use of anticoagulants; Z79.82 Long term (current) use of aspirin; I49.3 Ventricular premature depolarization; I44.7 Left bundle-branch block, unspecified; R94.31 Abnormal electrocardiogram [ECG] [EKG]
CPT/HCPCS: 36415; 80053; 81001; 83690; 85025; 93005; 96361; 96372; 96374; 96375; 96376; 99284; A9270; C9113; J1170; J1630; J2270; J2765; J7030

== ENCOUNTER 2023-02-26 14:12 | Emergency (ER) | payer MEDICARE, SELFPAY ==
[2023-02-26] VITALS (12 sets, daily range): BP systolic 116–172; BP diastolic 82–108; PULSE 61–93; RESP 13–24; TEMP 36.4; O2SAT 91–100
--- NOTE | ~2023-02-26 | XR_ITS ---
EXAMINATION: XR chest 1V portable 02/26/2023 15:30 INDICATION: Shortness of breath PROCEDURE: AP portable chest COMPARISON: Comparison to multiple prior studies sequentially, with oldest reviewed study dated 08/2021. FINDINGS: The lungs are clear. The cardiomediastinal silhouette is within normal limits. There are no pleural effusions. There is no pneumothorax suspected. Pacemaker leads are stable. IMPRESSION: 1: NO ACUTE CARDIOPULMONARY DISEASE. Reviewed, dictated and finalized at location B.
--- NOTE | ~2023-02-26 | CT_ITS ---
EXAMINATION: CTA chest abdomen pelvis DATE: 02/26/2023 17:26 INDICATION: Abdominal pain. Abdominal aortic aneurysm TECHNIQUE: Computed tomographic angiography (CTA) of the chest, abdomen and pelvis was performed with 100 cc of Omnipaque-350 intravenous contrast. Additional 3D reconstructions utilizing rotating maxim um intensity projection (MIP) were performed. Automated exposure control and iterative reconstruction technique were employed. The dose-length product was 1635.67 mGy-cm. COMPARISON: 11/17/2022 FINDINGS: Chest: Mild emphysema. No pneumonia, pulmonary edema, pleural effusion or pneumothorax. Heart size is normal . Atherosclerotic coronary artery calcification. Possible stenting along the proximal circumflex aureliano nary artery. No pericardial effusion. Dual-lead cardiac pacemaker/defibrillator with lead tips in the right atrium along the atrial septum and in the inferior basilar right ventricle. Thoracic aorta is normal in caliber with no dissection. Small sliding-type hiatal hernia. No pathologically enlarged th oracic lymphadenopathy. Bones are unremarkable. Abdomen and pelvis: Calcified granulomata of the liver and spleen. Diffuse hepatic steatosis. The gallbladder, pancreas, left kidney and bilateral adrenal glands are normal. 1 cm cyst at the upper pole the right kidney. Th ere are few sigmoid diverticula without adjacent comparison to any to suggest diverticulitis. Small b owel and appendix are normal. Bladder is normal. Moderate-sized bilateral fat-containing inguinal her nias. Fusiform infrarenal abdominal aortic aneurysm measuring up to 4.9 x 4.8 cm in maximal diameter. Incidentally noted circumaortic left renal vein. No free intraperitoneal gas or fluid. No pathologic ally enlarged abdominal or pelvic lymphadenopathy. Bilateral L5 pars intra-articular is defects witho ut spondylolisthesis. IMPRESSION: 1. No acute intrathoracic, abdominal or pelvic process. No interval change in a 4.9 cm fusiform infra renal abdominal aortic aneurysm. 2. Moderate-sized bilateral fat-containing inguinal hernias. Reviewed, dictated and finalized at location A. IMPRESSION: 1. No acute intrathoracic, abdominal or pelvic process. No interval change in a 4.9 cm fusiform infrarenal abdominal aortic aneurysm. 2. Moderate-sized bilateral fat-containing inguinal hernias.
--- NOTE | 2023-02-26 14:18 | ECG_ITS ---
Measurements Intervals [place] Rate: 66 P: 70 GA: 186 QRS: -46 QRSD: 142 T: 117 QT: 438 QTc: 461 Interpretive Statements SINUS RHYTHM INTRAVENTRICULAR CONDUCTION DELAY [130+ ms QRS DURATION] Left anterior hemiblock Nonspecific lateral ST T-wave changes COMPARED TO ECG 11/27/2022 10:30:34 INTRAVENTRICULAR CONDUCTION DELAY NOW PRESENT Electronically Signed On 02-26-2023 14:27:03 CDT by Neida Whiting M.D.
[2023-02-26 14:39] LABS: Basophils Absolute Auto 0.1 K/mm3 (0.0-0.1); Basophils Percent Auto 0.5 % (0.2-1.2); Eosinophils Absolute Auto 0.1 K/mm3 (0-0.3); Eosinophils Percent Auto 0.8 % (0-4.4); Hematocrit 50.2 % (42.0-52.0); Hemoglobin 16.3 g/dL (14.0-18.0); Immature Granulocyte Absolute 0.04 K/mm3 (0.00-0.031); Immature Granulocyte Percent A 0.3 % (0-0.5); Lymphocytes Absolute Auto 2.11 K/mm3 (0.9-3.2); Lymphocytes Percent Auto 18.2 % (18.3-44.2); Mean Corpuscular HGB Conc 32.5 g/dl (32-36); Mean Corpuscular Hemoglobin 30.1 pg (26-34); Mean Corpuscular Volume 92.6 fl (80-100); Mean Platelet Volume 11.4 fl (7.4-10.4); Monocytes Absolute Auto 0.6 K/mm3 (0.1-0.6); Monocytes Percent Auto 4.7 % (2.6-8.5); Neutrophils Absolute Auto 8.8 K/mm3 (1.3-6.7); Neutrophils Percent Auto 75.5 % (45.5-73.1); Platelet Count Result 273 k/mm3 (150-375); Red Blood Count 5.42 M/mm3 (4.6-6.20); Red Cell Distribution Width 15.6 % (11.5-14.5); White Blood Count 11.6 K/mm3 (4.5-10.0)
[2023-02-26 14:52] LABS: Alanine Aminotransferase 35 U/L (6-50); Albumin Level 4.8 g/dL (3.5-5.1); Alkaline Phosphatase 95 U/L (38-126); Anion Gap 13 mmol/L (8-16); Aspartate Amino Transferase 36 U/L (17-59); Blood Urea Nitrogen 18 mg/dL (9-20); Calcium 9.2 mg/dL (8.4-10.2); Carbon Dioxide 19 mmol/L (22-30); Chloride 104 mmol/L (98-107); Estimated CRCL calculation 51 ml/min; Estimated Glomerular Filt Rate 55; Glucose 155 mg/dL (65-110); Lipase 77 U/L (23-300); Potassium 4.7 mmol/L (3.4-5.0); Sodium 136 mmol/L (137-145)
[2023-02-26 15:12] LABS: Troponin I 0.036 ng/mL (0.000-0.034)
[2023-02-26] MEDS: HALOPERIDOL LACTATE 5 MG/ML VIAL IM (16:48)
[2023-02-26] MEDS: HYDROmorphone HCL INJ (*CRX) 1 MG/ML SYR IV PUSH ×2 (17:05→19:18)
--- NOTE | 2023-02-26 17:40 | ED.GENADULT ---
HPI - General Adult General Chief complaint: Shortness of Breath/Dyspnea Stated complaint: sob Time Seen by Provider: 02/26/23 15:57 History of Present Illness HPI narrative: 63-year-old male presented the ED for evaluation of nausea vomiting and abdominal pain. Patient reports this is identical to his cyclic abdominal pain. Patient denied any associated chest pain with this. Patient states he has still been using some THC. Patient reports that symptoms have been ongoing for the last few days. Patient states he does have follow-up scheduled with cardiology but has not yet had follow-up with GI. Related Data Home Medications Medication Instructions Recorded Confirmed aspirin 81 mg tablet 81 mg PO DAILY 10/16/20 11/17/22 atorvastatin 80 mg tablet 80 mg PO HS 10/16/20 11/17/22 carvedilol 12.5 mg tablet 12.5 mg PO BID 10/16/20 11/17/22 furosemide 20 mg tablet 20 mg PO DAILY 10/16/20 11/17/22 calcium carbonate 300 mg (750 mg) 750 tablet PO QID PRN Heartburn 01/17/21 11/17/22 chewable tablet (Tums E-X) escitalopram oxalate 10 mg tablet 10 mg PO DAILY 01/17/21 11/17/22 rivaroxaban 20 mg tablet (Xarelto) 20 mg PO DAILY 12/06/21 11/17/22 losartan 25 mg tablet 25 mg PO DAILY 05/22/22 11/17/22 amiodarone 200 mg tablet 200 mg PO DAILY 09/17/22 11/17/22 Allergies Allergy/AdvReac Type Severity Reaction Status Date / Time No Known Allergies Allergy Unknown Verified 02/26/23 15:33 Review of Systems Review of Systems: All systems reviewed & are unremarkable except as noted in HPI and below [facility] Past Medical History Medical History (Updated 02/26/23 @ 22:45 by Evgeny [place]y MD) AAA (abdominal aortic aneurysm) Acute kidney injury Acute on chronic kidney failure Aneurysm of infrarenal abdominal aorta Stable aneurysm measuring 4.5 centimeters on 11/21/2020. Atherosclerotic heart disease of [place] coronary artery without angina pectoris CAD (coronary artery disease) Cardiomyopathy Chronic systolic (congestive) heart failure Cigarette nicotine dependence, uncomplicated Cyclic vomiting syndrome Depression Generalized anxiety disorder Hyperlipidemia Hypertension Hypokalemia Ischemic cardiomyopathy Ejection fraction reportedly as low as 15%. Patient reports a pacemaker in situ, denies the presence of an ICD. He sees a hydraulic auto jack mechanic in [place]. Major depressive disorder in partial remission Marijuana smoker, episodic Pancreatitis Paroxysmal atrial fibrillation Personal history of colonic polyps Presence of automatic (implantable) cardiac defibrillator Sepsis Shingles Stenosis of infrarenal abdominal aorta due to arteriosclerosis Urinary tract infection Surgical History Surgical History History of arthroscopic knee surgery History of cardiac catheterization (~09/2019) Performed in [facility]. History of coronary artery stent placement (~09/2019) Stent x2. History of tracheostomy (~09/2019) Pacemaker Family History Family History Mother Congestive heart failure Father Glaucoma Lip cancer Daughter Pulmonary emboli Social History Social History (Updated 11/17/22 @ 18:28 by Helen Landry NP) Social History: The patient lives in [place] with his . one children passed which was his daughter. He has 2 living children and is retired from [employer]. He smoked a pack of cigarettes a day for 30 years and quit quite sometime ago. No alcohol abuse. Admits to marijuana use but does not qualify or quantify. He designates his Iveth as his surrogate decision maker and he wishes to be a full code. Code status full code Smoking packs per day: 1 Smoking cigarettes per day: 20.0 Years smoked: 20 Smoking pack-years: 20.00 Smoking status: Current some day smoker Tobacco type: cigarettes Second hand tobacco smoke exposure: Yes Alcohol intake: never Substance
== END 2023-02-26 21:10 | disposition home or self-care (01) ==
PROVIDERS: Emergency Medicine; Emergency Provider Emergency Medicine; PCP Family Medicine
DX: R11.15 Cyclical vomiting syndrome unrelated to migraine (principal); R19.7 Diarrhea, unspecified; R10.9 Unspecified abdominal pain; I13.0 Hypertensive heart and chronic kidney disease with heart failure and stage 1 through stage 4 chronic kidney disease, or unspecified chronic kidney disease; N18.9 Chronic kidney disease, unspecified; I50.22 Chronic systolic (congestive) heart failure; I25.10 Atherosclerotic heart disease of native coronary artery without angina pectoris; I48.0 Paroxysmal atrial fibrillation; I25.5 Ischemic cardiomyopathy; I35.0 Nonrheumatic aortic (valve) stenosis; I71.43 Infrarenal abdominal aortic aneurysm, without rupture; E78.5 Hyperlipidemia, unspecified; Z95.810 Presence of automatic (implantable) cardiac defibrillator; Z95.5 Presence of coronary angioplasty implant and graft; Z86.010 Personal history of colon polyps; Z87.440 Personal history of urinary (tract) infections; Z87.891 Personal history of nicotine dependence; Z79.01 Long term (current) use of anticoagulants; Z79.82 Long term (current) use of aspirin; K40.20 Bilateral inguinal hernia, without obstruction or gangrene, not specified as recurrent; I45.9 Conduction disorder, unspecified; I44.4 Left anterior fascicular block
CPT/HCPCS: 36415; 71045; 71275; 74174; 80053; 83690; 84484; 85025; 93005; 96372; 96374; 96376; 99284; J1170; J1630; Q9967

== ENCOUNTER 2023-04-02 14:03 | Outpatient (CLI) | payer MEDICARE, SELFPAY ==
[2023-04-02 15:17] LABS: Alanine Aminotransferase 26 U/L (6-50); Albumin Level 4.7 g/dL (3.5-5.1); Alkaline Phosphatase 82 U/L (38-126); Anion Gap 10 mmol/L (8-16); Aspartate Amino Transferase 26 U/L (17-59); Bilirubin,Total 0.8 mg/dL (0.2-1.3); Blood Urea Nitrogen 13 mg/dL (9-20); Calcium 9.1 mg/dL (8.4-10.2); Carbon Dioxide 26 mmol/L (22-30); Chloride 101 mmol/L (98-107); Estimated Glomerular Filt Rate > 60; Glucose 113 mg/dL (65-110); Potassium 3.8 mmol/L (3.4-5.0); Sodium 137 mmol/L (137-145)
== END 2023-04-02 14:04 | disposition home or self-care (01) ==
PROVIDERS: PCP Family Medicine
DX: I48.0 Paroxysmal atrial fibrillation (principal); Z79.899 Other long term (current) drug therapy
CPT/HCPCS: 36415; 80053; 84443

== ENCOUNTER 2023-08-10 12:08 | Inpatient (IN) | payer MEDICARE, SELFPAY ==
[2023-08-10] VITALS (8 sets, daily range): BP systolic 108–143; BP diastolic 64–107; PULSE 90–107; RESP 16–20; TEMP 36.4–36.6; O2SAT 95–99
--- NOTE | ~2023-08-10 | CT_ITS ---
EXAMINATION: CTA chest PE abdomen pel DATE: 08/10/2023 15:34 INDICATION: chest, abdomen pain, n/v/d TECHNIQUE: Computed tomography angiography (CTA) of the chest was performed with 100 mL Omnipaque-350 intravenous contrast timed to evaluate the pulmonary arteries, followed by portal venous phase imagi ng of the abdomen and pelvis. Coronal maximum intensity projection 3D-reconstructions were created by the technologist. The dose-length product (DLP) was 1926.31 mGy-cm. Automated exposure control and i terative reconstruction technique were employed. COMPARISON: CTA cap 02/26/2023; x-ray chest 08/10/2023. FINDINGS: CHEST: Lung parenchyma and airways: Mild senescent/emphysematous change. Granulomatous calcifications. Airwa ys clear. Pleura: Unremarkable. Thoracic inlet, axillae and chest wall: Left chest pacer/AICD, leads in good position. Thoracic aorta: Mild calcifications. Mediastinum: Normal. Heart and pericardium: Normal. Coronary artery calcifications: Mild. Possible stent. Thoracic bones: No acute osseous finding. Pulmonary arteries: Study quality: Adequate. No pulmonary emboli detected. ABDOMEN/PELVIS: Liver: Normal. Biliary/Gallbladder: No inflammatory change or pericholecystic fluid. Dependent hyperdensity may repr esent sludge or stones No bile duct dilation. Pancreas: Fatty infiltration Spleen: Normal. Adrenals:No mass. Kidneys: No suspicious mass, obstructing stone, or hydronephrosis. Small right upper pole cyst. Multi ple bilateral hypodensities too small to characterize but also likely represent cysts GI tract: Mild distal esophageal and gastric wall edema. No small or large bowel dilation. Normal adeline endix. Diverticulosis without diverticulitis. Mesentery/Peritoneum: No ascites, mass, or free air. Retroperitoneum: No mass. Atherosclerotic abdominal aortic and/or arterial calcifications. 5.3 cm fus iform infrarenal abdominal aortic aneurysm, unchanged by my measurements since the prior study. Pelvis: Bladder wall thickening in a partially distended urinary bladder. Soft Tissues: Soft tissues and body wall unremarkable. Abdominopelvic bones: IMPRESSION: No CT evidence of acute pulmonary embolus. No acute finding in the chest. Mild esophagitis/gastritis. 5.3 cm infrarenal abdominal aortic aneurysm, recommend follow-up CTA of the abdomen and pelvis in 3-6 months. Cystitis versus wall thickening from incomplete urinary bladder distention. Reviewed, dictated and finalized at location K. [facility] [employer] IMPRESSION: No CT evidence of acute pulmonary embolus. No acute finding in the chest. Mild esophagitis/gastritis. 5.3 cm infrarenal abdominal aortic aneurysm, recommend follow-up CTA of the abd omen and pelvis in 3-6 months. Cystitis versus wall thickening from incomplete urinary bladder distention.
--- NOTE | ~2023-08-10 | XR_ITS ---
EXAMINATION: XR chest 1V portable INDICATION: Chest pain TECHNIQUE: Portable AP chest at 1240 hours COMPARISON: 02/26/2023 FINDINGS: The lungs are free of acute opacities. No pleural effusion or pneumothorax. The cardiomedia stinal silhouette is stable. A dual-lead cardiac pacemaker of the left chest wall ends with leads in expected locations. IMPRESSION: 1. No acute cardiopulmonary abnormality. Reviewed, dictated and finalized at location A. OFFICER
--- NOTE | 2023-08-10 12:20 | ED.NAVMDI ---
HPI - Nausea/Vomiting/Diarrhea General Chief complaint: Nausea/Vomiting/Diarrhea <Abiodun Ramirez APRN - Last Filed: 08/10/23 18:07> Stated complaint: vomiting <Abiodun Ramirez APRN - Last Filed: 08/10/23 18:07> Time Seen by Provider: 08/10/23 12:20 <Abiodun Ramirez APRN - Last Filed: 08/10/23 18:07> Source: patient <Abiodun Ramirez APRN - Last Filed: 08/10/23 18:07> Mode of arrival: ambulatory <Abiodun Ramirez APRN - Last Filed: 08/10/23 18:07> Limitations: no limitations <Abiodun Ramirez APRN - Last Filed: 08/10/23 18:07> History of Present Illness HPI Narrative: Low is a 63-year-old male patient presenting to the ER today with complaints of shortness of breath, left-sided chest pain, and mid/ lower abdominal pain. Symptoms started this morning. Rates pain sharp/stabbing in the left chest and in the abdomen rating at 10/10 currently. Has been having nausea, vomiting, and diarrhea as well. Pain does not radiate in the jaw or in the extremities. Last BM was prior to arrival. History of lower AAA, hypertension, pacemaker/defib, hyperlipidemia, depression/anxiety, paroxysmal AFib, CAD,and GERD. States he does have 2 cardiac stents. [employer] is Dr. Delaney and PCP is Dr. Dahl <Abiodun Ramirez APRN - Last Filed: 08/10/23 18:07> Related Data Home medications: Home Medications Medication Instructions Recorded Confirmed aspirin 81 mg tablet 81 mg PO DAILY 10/16/20 08/10/23 escitalopram oxalate 10 mg tablet 10 mg PO DAILY 01/17/21 08/10/23 losartan 25 mg tablet 25 mg PO DAILY 05/22/22 08/10/23 amiodarone 200 mg tablet 200 mg PO DAILY 09/17/22 08/10/23 Christopher's Blood Stream Formula 1 cap PO DAILY 08/10/23 08/10/23 <Abiodun Ramirez APRN - Last Filed: 08/10/23 18:07> Allergies/Adverse reactions: Allergies Allergy/AdvReac Type Severity Reaction Status Date / Time No Known Allergies Allergy Unknown Verified 02/26/23 15:33 <Abiodun Ramirez APRN - Last Filed: 08/10/23 18:07> Review of Systems Review of Systems: Pertinent positives per HPI. Patient denies any fever, chills, rash, headache, visual changes, dizziness, cough, shortness of breath, chest pain, palpitations, nausea, vomiting, diarrhea, constipation, abdominal pain, or any urinary issues. <Abiodun Ramirez APRN - Last Filed: 08/10/23 18:07> [facility] Past Medical History Medical History: Medical History AAA (abdominal aortic aneurysm) Acute kidney injury Acute on chronic kidney failure Aneurysm of infrarenal abdominal aorta Stable aneurysm measuring 4.5 centimeters on 11/21/2020. Measuring 5.3 cm on 08/10/2023. Atherosclerotic heart disease of [place] coronary artery without angina pectoris CAD (coronary artery disease) Cardiomyopathy Chronic systolic (congestive) heart failure Cigarette nicotine dependence, uncomplicated Cyclic vomiting syndrome Depression Generalized anxiety disorder Hyperlipidemia Hypertension Hypokalemia Ischemic cardiomyopathy EF 35-40% on echo performed on 11/18/2022. Cardiac defibrillator in place. Major depressive disorder in partial remission Marijuana smoker, episodic Pancreatitis Paroxysmal atrial fibrillation Personal history of colonic polyps Presence of automatic (implantable) cardiac defibrillator Sepsis Shingles Stenosis of infrarenal abdominal aorta due to arteriosclerosis Urinary tract infection <Abiodun Ramirez APRN - Last Filed: 08/10/23 18:07> Surgical History Surgical History: Surgical History History of arthroscopic knee surgery History of cardiac catheterization (~09/2019) Performed in [facility]. History of coronary artery stent placement (~09/2019) Stent x2. History of tracheostomy (~09/2019) Pacemaker <Abiodun Ramirez APRN - Last Filed: 08/10/23 18:07> Family History
--- NOTE | 2023-08-10 12:25 | ECG_ITS ---
Measurements Intervals [place] Rate: 87 P: 90 GA: 179 QRS: -56 QRSD: 140 T: 107 QT: 412 QTc: 498 Interpretive Statements SINUS RHYTHM INCOMPLETE LEFT BUNDLE BRANCH BLOCK ABNORMAL ECG COMPARED TO ECG 02/26/2023 14:19:53 NO SIGNIFICANT DIFFERENCE Electronically Signed On 08-11-2023 7:27:13 ACID CORRECTION HAND by Matt Chandler M.D.
[2023-08-10 12:34] LABS: Basophils Absolute Auto 0.1 K/mm3 (0.0-0.1); Basophils Percent Auto 0.5 % (0.2-1.2); Eosinophils Absolute Auto 0.1 K/mm3 (0-0.3); Eosinophils Percent Auto 0.6 % (0-4.4); Hematocrit 49.6 % (42.0-52.0); Immature Granulocyte Absolute 0.03 K/mm3 (0.00-0.031); Immature Granulocyte Percent A 0.3 % (0-0.5); Lymphocytes Absolute Auto 2.34 K/mm3 (0.9-3.2); Lymphocytes Percent Auto 21.3 % (18.3-44.2); Mean Corpuscular HGB Conc 32.3 g/dl (32-36); Mean Corpuscular Hemoglobin 29.9 pg (26-34); Mean Corpuscular Volume 92.5 fl (80-100); Mean Platelet Volume 11.4 fl (7.4-10.4); Monocytes Absolute Auto 0.7 K/mm3 (0.1-0.6); Monocytes Percent Auto 6.3 % (2.6-8.5); Neutrophils Absolute Auto 7.8 K/mm3 (1.3-6.7); Platelet Count Result 257 k/mm3 (150-375); Red Blood Count 5.36 M/mm3 (4.6-6.20); Red Cell Distribution Width 14.8 % (11.5-14.5)
[2023-08-10] MEDS: MORPHINE SULFATE (*CRX) 2 MG/ML INJ IV PUSH ×2 (12:37→22:29)
[2023-08-10] MEDS: ASPIRIN 81 MG CHEWABLE TABLET 324 MG PO (12:37)
[2023-08-10] MEDS: ONDANSETRON INJ 4 MG/2 ML VIAL IV PUSH ×2 (12:37→13:14)
[2023-08-10] MEDS: SODIUM CHLORIDE 0.9% IV 1,000 ML 999 ML IV CONT (12:37)
[2023-08-10 12:44] LABS: INR 0.9; Prothrombin Time 12.6 Seconds (11.1-14.7)
[2023-08-10 12:45] LABS: Partial Thromboplastin Time 30.4 SECONDS (22.3-36.8)
[2023-08-10 12:47] LABS: Alanine Aminotransferase 50 U/L (6-50); Albumin Level 4.5 g/dL (3.5-5.1); Alkaline Phosphatase 104 U/L (38-126); Anion Gap 13 mmol/L (8-16); Aspartate Amino Transferase 41 U/L (17-59); Bilirubin,Total 0.9 mg/dL (0.2-1.3); Blood Urea Nitrogen 16 mg/dL (9-20); Calcium 10.4 mg/dL (8.4-10.2); Carbon Dioxide 24 mmol/L (22-30); Chloride 102 mmol/L (98-107); Estimated CRCL calculation 58 ml/min; Estimated Glomerular Filt Rate > 60; Glucose 146 mg/dL (65-110); Lipase 120 U/L (23-300); Sodium 139 mmol/L (137-145)
[2023-08-10] MEDS: HYDROmorphone HCL INJ (*CRX) 1 MG/ML SYR 0.5 MG IV PUSH ×3 (13:15→16:57)
[2023-08-10] MEDS: NITROGLYCERIN OINTMENT 1 INCH DOSE TRANSDERM (13:15)
[2023-08-10 13:18] LABS: Alanine Aminotransferase 49 U/L (6-50); Albumin Level 4.6 g/dL (3.5-5.1); Alkaline Phosphatase 105 U/L (38-126); Anion Gap 11 mmol/L (8-16); Aspartate Amino Transferase 43 U/L (17-59); Bilirubin,Total 0.8 mg/dL (0.2-1.3); Blood Urea Nitrogen 15 mg/dL (9-20); Calcium 10.4 mg/dL (8.4-10.2); Carbon Dioxide 24 mmol/L (22-30); Chloride 102 mmol/L (98-107); Estimated CRCL calculation 58 ml/min; Estimated Glomerular Filt Rate > 60; Glucose 140 mg/dL (65-110); Lipase 118 U/L (23-300); Potassium 4.1 mmol/L (3.4-5.0); Sodium 137 mmol/L (137-145)
[2023-08-10 13:32] LABS: NT Pro B Type Natriuretic Pept 5830 pg/mL (19.9-100)
[2023-08-10] MEDS: HEPARIN SOD/D5W 100 UNITS/ML 25,000 UNITS/250 ML BAG 10 UNITS IV CONT (13:49)
[2023-08-10] MEDS: HEPARIN SODIUM 5,000 UNITS/ML VIAL 4000 UNITS IV PUSH ×2 (13:49→21:30)
[2023-08-10] MEDS: FUROSEMIDE INJ 40 MG/4 ML VIAL IV PUSH (15:54)
[2023-08-10 16:50] LABS: Appearance Urine Clear (Clear); Bilirubin Urine Negative (Negative); Blood Urine Negative (Negative); Color Urine Yellow (Yellow); Glucose Urine UA Negative (Negative); Ketones Urine Negative (Negative); Leukocyte Esterase Ur Negative LEU/UL (Negative); Nitrate Urine Negative (Negative); Protein Urine Negative (Negative); Urobilinogen Urine 0.2 mg/dL (<2.0)
[2023-08-10 17:09] LABS: Add Urine Microscopic? NO; Specific Grav Ur 1.041 (1.001-1.035)
--- NOTE | 2023-08-10 17:10 | ECG_ITS ---
Measurements Intervals [place] Rate: 89 P: 71 DE: 182 QRS: -54 QRSD: 141 T: 102 QT: 415 QTc: 505 Interpretive Statements SINUS RHYTHM WITH OCCASIONAL SUPRAVENTRICULAR PREMATURE COMPLEXES INCOMPLETE LEFT BUNDLE BRANCH BLOCK ABNORMAL ECG COMPARED TO ECG 08/10/2023 12:27:47 NOTHING HAS CHANGED Electronically Signed On 08-11-2023 7:32:51 MARINE MECHANIC by Matt Chandler M.D.
--- NOTE | 2023-08-10 17:20 | ADMGEN ---
This patient, Low Sarmiento, was admitted to IMU Room 210-01. Patient/family oriented to hospital policies and general routines including ID bracelet, bed and alarms, visiting hours, pain management, procedures, bathroom and other care routines, personal items, smoking policy, room service/diet, and visiting hours. Information on how to activate the Rapid Response Team has been discussed. Patient/Family are encouraged to report perceived risks to care and to ask questions if they do not understand what they are told or what they should do.
--- NOTE | 2023-08-10 18:34 | PC.NURSE ---
Unable to complete ASCVD due to lack of Cholesterol Panel. Call placed Ainsley MUNOZ et report given.
[2023-08-10 20:39] LABS: Partial Thromboplastin Time 49.6 SECONDS (22.3-36.8)
--- NOTE | 2023-08-10 20:39 | PM.IMHP ---
H&P: HPI History of Present Illness Date/Time: 08/10/23 20:39 Chief Complaint: Abdominal Pain, CP, SOB, NV Narrative: 63 y/o M presents here with abdominal pain, chest pain, shortness a breath, nausea, and vomiting with PMH of stable AAA, CAD, ischemic cardiomyopathy, CHF, anxiety/depression, HLD, HTN, pancreatitis, pAFib, cardiac stents x2, and cardiac defibrillator in place. Patient presented here today with left-sided chest pain with associated shortness of breath, N/V/D, and umbilical/lower abdominal pain. Symptom onset was last night around 1 a.m. Pain started while patient was asleep. Chest pain is described as stabbing, sharp, and nonradiating. Initially rated pain 10/10 at arrival. Patient reports no change in pain after heparin gtt or nitro paste application. Did report improvement in CP with Dilaudid administration, 4-5/10. No recent changes to his medications. Reports a history of [place], reports 4-5. States this CP felt different than the previous infarctions states his hands (bilateral) felt numb/tingling. Has since mostly resolved. Patient lives at home with his and grandson. Abdominal pain is umbilical/lower and worsens with emesis. LBM was yesterday - diarrhea and described as yellow. No recent atb use. Reports mild congestion 2 days ago. Reports good control of his BP lately with average being 110/70. Patient is still a smoker - goes through 2-3 ppd per week. Has smoked for 20 years. Reports compliance with Lasix 20 mg daily - reports compliance however has relatively full bottle filled in January of 2023. Per med rec, has not been filled again. Initial VS at presentation: 97.6 F, HR 92, RR 18, 143/107, 99% on RA. ED workup showed mild leukocytosis with white count of 11.0, D-dimer 1.6, chemistry unremarkable, glucose 140, calcium 10.4, troponin 1.750, BNP 5830, UA not indicative of UTI. CXR showed no acute cardiopulmonary abnormalities. CTA of the chest/abdomen/pelvis showed known 5.3 cm infrarenal abdominal aortic aneurysm, no PE, mild esophagitis/gastritis, cystitis versus wall thickening from incomplete urinary bladder emptying. Initial EKG showed sinus rhythm with sinus arrhythmia, intraventricular conduction delay, LV hypertrophy, and ST-T change. Currently endorses diffuse abdominal pain and tenderness. Denies any CP, palpitations, N/V, diaphoresis, or SOB. Review of Systems Review of Systems: All systems reviewed & are unremarkable except as noted in HPI and below [facility] Past Medical History Medical History AAA (abdominal aortic aneurysm) Acute kidney injury Acute on chronic kidney failure Aneurysm of infrarenal abdominal aorta Stable aneurysm measuring 4.5 centimeters on 11/21/2020. Measuring 5.3 cm on 08/10/2023. Atherosclerotic heart disease of [place] coronary artery without angina pectoris CAD (coronary artery disease) Cardiomyopathy Chronic systolic (congestive) heart failure Cigarette nicotine dependence, uncomplicated Cyclic vomiting syndrome Depression Generalized anxiety disorder Hyperlipidemia Hypertension Hypokalemia Ischemic cardiomyopathy EF 35-40% on echo performed on 11/18/2022. Cardiac defibrillator in place. Major depressive disorder in partial remission Marijuana smoker, episodic Pancreatitis Paroxysmal atrial fibrillation Personal history of colonic polyps Presence of automatic (implantable) cardiac defibrillator Sepsis Shingles Stenosis of infrarenal abdominal aorta due to arteriosclerosis Urinary tract infection Surgical History Surgical History History of arthroscopic knee surgery History of cardiac catheterization (~09/2019) Performed in [facility]. History of coronary artery stent placement (~09/2019) Stent x2. History of tracheostomy (~09/2019) Pacemaker Family History Family History Mother Conges
[2023-08-11] VITALS (32 sets, daily range): BP systolic 98–151; BP diastolic 63–91; PULSE 74–99; RESP 14–22; TEMP 36.4–36.8; O2SAT 87–100
[2023-08-11 04:10] LABS: Basophils Absolute Auto 0.1 K/mm3 (0.0-0.1); Basophils Percent Auto 0.7 % (0.2-1.2); Eosinophils Absolute Auto 0.1 K/mm3 (0-0.3); Eosinophils Percent Auto 0.8 % (0-4.4); Hematocrit 44.6 % (42.0-52.0); Hemoglobin 14.1 g/dL (14.0-18.0); Immature Granulocyte Absolute 0.04 K/mm3 (0.00-0.031); Immature Granulocyte Percent A 0.4 % (0-0.5); Lymphocytes Absolute Auto 2.18 K/mm3 (0.9-3.2); Lymphocytes Percent Auto 21.4 % (18.3-44.2); Mean Corpuscular HGB Conc 31.6 g/dl (32-36); Mean Corpuscular Hemoglobin 30.2 pg (26-34); Mean Corpuscular Volume 95.5 fl (80-100); Mean Platelet Volume 10.9 fl (7.4-10.4); Monocytes Absolute Auto 0.9 K/mm3 (0.1-0.6); Monocytes Percent Auto 8.3 % (2.6-8.5); Neutrophils Percent Auto 68.4 % (45.5-73.1); Platelet Count Result 183 k/mm3 (150-375); Red Blood Count 4.67 M/mm3 (4.6-6.20); Red Cell Distribution Width 15.3 % (11.5-14.5); White Blood Count 10.2 K/mm3 (4.5-10.0)
[2023-08-11 04:19] LABS: Alanine Aminotransferase 26 U/L (6-50); Albumin Level 4.2 g/dL (3.5-5.1); Alkaline Phosphatase 86 U/L (38-126); Anion Gap 5 mmol/L (8-16); Aspartate Amino Transferase 35 U/L (17-59); Bilirubin,Total 0.6 mg/dL (0.2-1.3); Blood Urea Nitrogen 15 mg/dL (9-20); Carbon Dioxide 35 mmol/L (22-30); Chloride 98 mmol/L (98-107); Cholesterol 164 mg/dL (0-200); Estimated CRCL calculation 50 ml/min; Estimated Glomerular Filt Rate 51; Glucose 129 mg/dL (65-110); HDL Direct 37 mg/dL; Potassium 3.7 mmol/L (3.4-5.0); Sodium 138 mmol/L (137-145); Triglycerides 174 mg/dL (<150)
[2023-08-11 04:30] LABS: LDL Cholesterol Direct 94 mg/dL
[2023-08-11 04:31] LABS: Partial Thromboplastin Time 91.6 SECONDS (22.3-36.8)
[2023-08-11 04:45] LABS: Influenza A QL RT-PCR Negative (Negative); Influenza B QL RT-PCR Negative (Negative); RSV RNA, RT-PCR Negative (Negative); SARS-CoV-2 RNA PCR Negative (Negative)
--- NOTE | 2023-08-11 08:52 | PM.CNCAR ---
Assessment and Plan Assessment and plan (1) Non-ST elevated myocardial infarction (non-STEMI): Code(s): I21.4 - Non-ST elevation (NSTEMI) myocardial infarction Status: Acute (2) Chest pain: Code(s): R07.9 - Chest pain, unspecified Status: Acute (3) Cyclic vomiting syndrome: Code(s): R11.15 - Cyclical vomiting syndrome unrelated to migraine Status: Acute Plan 63-year-old man who has a history of coronary disease previous anterior infarction with low ejection fraction, PCI to his LAD in [place], he also has a chronically implanted defibrillator because of his low ejection fraction recent generator change according to the patient and his . He presents to the hospital with both abdominal and chest discomfort as well as episodes of nausea which are not really new to this patient he has an unusual diagnosis again that I am not familiar with referred to a cyclical nausea/vomiting. In the face of this however his troponin levels are significantly elevated raising concern regarding the status of his coronary disease. We will proceed with arranging for a follow-up coronary angiogram today for further evaluation of this. Matt Alex MD [facility] History of Present Illness History of Present Illness Consult date/time: 08/11/23 08:52 Reason For Visit: Nonstemi/CHF Exacerbation Narrative: This is a unfortunate 63-year-old man with a history of coronary disease, significant ischemic cardiomyopathy following previous myocardial infarction who I am seeing at the request of the hospitalist because of chest pain, abdominal pain, nausea and elevation of his troponin levels. The patient is a gentleman I have seen in the past in consultation in the hospital here he now follows with my partner, Dr. Delaney. He was found to have coronary disease a number of years ago when he was vacationing in [place] and underwent emergency PCI of his LAD in [facility]. Since then he has been followed by top coater in [place] initially elsewhere and more recently in our practice. He is known to have a significant ischemic myopathy with a low ejection fraction in the range of 20-25% and has a chronically implanted defibrillator. He states he underwent a recent defibrillator generator change on by my partner, Dr. Castellon at [facility]. He came to the hospital yesterday with a symptom complex that is not unusual for him including abdominal discomfort nausea also associated with some chest pain this symptom has been waxing and waning since he has been in the hospital yesterday. He was placed on heparin drip and in the IMU and has been seen by the hospitalists and by me in consultation this morning. His troponin levels are elevated at about 1.3 they are flat but significantly elevated. 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 His medical regimen at home consists of aspirin, amiodarone, losartan and anticoagulation with Xarelto. It is unclear as to when he took his last dosage of Xarelto the sample bottle in the has with him with his medications is empty. His says he has not taken any medication since at least Friday because of feeling poorly with nausea. He did have a CT of his chest and abdomen in the emergency room the did not show any new pathology he does have a stable abdominal aortic aneurysm Review of Systems Constitutional: Constitutional: Reports body ache(s) Eyes: Eyes: Reports no additional eye complaints ENT: Reports system reviewed and no additional complaints, except as documented Cardiovascular: Cardiovascular: Reports as per HPI and Reports chest pain Respiratory: Respiratory: Reports no additional respiratory complaints Gastrointestinal: Gastrointestinal: Reports abdominal pain and Reports nausea Musculoskeletal: Musculoskeletal: Reports no additional musculoskeletal complaints Integumenta
[2023-08-11] MEDS: LOSARTAN POTASSIUM 25 MG TABLET PO (09:23)
[2023-08-11] MEDS: AMIODARONE HCL 200 MG TABLET PO (09:24)
[2023-08-11] MEDS: ASPIRIN 81 MG CHEWABLE TABLET PO (09:24)
[2023-08-11] MEDS: FUROSEMIDE 20 MG TABLET PO (09:25)
[2023-08-11] MEDS: ESCITALOPRAM OXALATE 10 MG TABLET PO (09:25)
[2023-08-11] MEDS: HEPARIN SOD/D5W 100 UNITS/ML 25,000 UNITS/250 ML BAG 13 UNITS IV CONT (09:29)
[2023-08-11] MEDS: ALPRAZolam (*CRX) 0.5 MG TABLET PO (09:36)
[2023-08-11 10:36] LABS: Partial Thromboplastin Time 65.1 SECONDS (22.3-36.8)
[2023-08-11] MEDS: HEPARIN SODIUM 5,000 UNITS/ML VIAL 3500 UNITS IV PUSH (11:13)
--- NOTE | 2023-08-11 15:17 | PM.IMPN ---
Progress Note: A&P Assessment and Plan (1) Non-ST elevated myocardial infarction (non-STEMI): Code(s): I21.4 - Non-ST elevation (NSTEMI) myocardial infarction Status: Acute Assessment and Plan: -EKG, initial: Sinus rhythm with sinus arrhythmia, intraventricular conduction delay, left ventricular hypertrophy, and ST-T changes. When compared to previous on 02/26/2023 sinus arrhythmia, left ventricular hypertrophy, ST (T-wave) deviation now present. -EKG, repeat: Sinus rhythm with occasional supraventricular premature complex, intraventricular conduction delay, and when compared to previous done today there is no significant changes. -troponin: 1.750 -> 1.580 -> 1.60 - pt to have heart cath today for NSTEMI - no specific complaints to day vomiting is better (2) Congestive heart failure: Qualifiers: Heart failure chronicity: acute Heart failure type: systolic Qualified Code(s): I50.21 - Acute systolic (congestive) heart failure Code(s): I50.9 - Heart failure, unspecified Status: Acute Assessment and Plan: -CXR:No acute cardiopulmonary abnormality. -CTA of chest/abd/pelvis: No CT evidence of acute pulmonary embolus. No acute finding in the chest. Mild esophagitis/gastritis. 5.3 cm infrarenal abdominal aortic aneurysm, recommend follow-up CTA of the abdomen and pelvis in 3-6 months. Cystitis versus wall thickening from incomplete urinary bladder distention. -Previous Echo (11/18/2022): 1. Complete two-dimensional, color flow and Doppler transthoracic echocardiogram is performed. 2. Left ventricular chamber dimension is mildly enlarged. 3. Left ventricular systolic function is moderately reduced, estimated at 35-40%. -continue diuresis. does not take daily diuretic. given 40 IVP of Lasix in ED. continue as Lasix 20 mg PO (home dose) creat is 1.4 transition back to oral lasix (3) Abdominal pain: Qualifiers: Abdominal location: unspecified location Qualified Code(s): R10.9 - Unspecified abdominal pain Code(s): R10.9 - Unspecified abdominal pain Status: Acute Assessment and Plan: -CTA of the abd/pelvis/chest: No CT evidence of acute pulmonary embolus. No acute finding in the chest. Mild esophagitis/gastritis. 5.3 cm infrarenal abdominal aortic aneurysm, recommend follow-up CTA of the abdomen and pelvis in 3-6 months. Cystitis versus wall thickening from incomplete urinary bladder distention. -fusiform infrarenal AAA measured 4.9 cm ([facility]) on 02/26/2023 - vomiting may be secondary to NSTEMI or gastritis (4) Hypertension: Qualifiers: Hypertension type: unspecified Qualified Code(s): I10 - Essential (primary) hypertension Code(s): I10 - Essential (primary) hypertension Status: Acute Assessment and Plan: -chronic, currently stable -continue home medication: Amiodarone and losartan Plan Home Meds/Chronic Conditions -anxiety: Continue alprazolam and escitalopram Subjective Date/time seen: 08/11/23 15:17 Interval history: 63 y/o M presents here with abdominal pain, chest pain, shortness a breath, nausea, and vomiting with PMH of stable AAA, CAD, ischemic cardiomyopathy, CHF, anxiety/depression, HLD, HTN, pancreatitis, pAFib, cardiac stents x2, and cardiac defibrillator in place. Pt admitted with cyclical vomiting found to have a NSTEMI Pt seen by cardiology, heart cath scheduled this afternoon Review of Systems Review of Systems: No specific complaints Exam Const: General: comfortable and no acute distress Eyes: General: appearance normal, both eyes and all related structures Sclera: sclerae normal Pupils: Equal, round and reactive pupils present EOM: EOMs intact bilaterally Resp: Effort & Inspection: normal respiratory effort Auscultation: clear to auscultation bilaterally Other: No adventitious lung sounds Cardio: Rate: regular rate Rhythm: r
[2023-08-11 15:52] LABS: Activated Clotting Time 147 SEC (74-137)
--- NOTE | 2023-08-11 15:58 | WPDCARDPROC ---
Cardiac Cath Procedure Note Date of procedure:: 08/11/23 Performing physician:: Matt Chandler MD Indication:: acute coronary syndrome Brief clinical history:: this is a patient with a history of emergency stenting to his circumflex done elsewhere in 2019. He was known to have left ventricular systolic dysfunction prior to that. He also has a history of a abdominal aortic aneurysm which is being monitored as well as a unusual diagnosis of cyclic nausea/ vomiting syndrome. He presents to the hospital with chest pain with a mild troponin rise prompting the recommendation follow-up coronary angiogram. Procedure Procedure performed:: Coronary angiography left ventriculography Sedation/Medication given:: fentanyl 50 mg Versed 2 mg case start time 3:28 p.m. case end time 3:47 p.m. sedation provided by Reba De La Rosa RN, trained observer Access site:: right femoral artery Estimated blood loss:: 20 cc Procedure note:: patient was brought to the cardiac catheterization lab in the postabsorptive state where the right femoral triangle was prepared and draped the usual fashion. Anesthesia was provided with 1% lidocaine infiltrated locally. Using the modified Seldinger technique the femoral artery was punctured and a 5 [place] vascular sheath was placed. After this I used a 5 [place] FL4 catheter to engage and inject the left coronary artery in multiple projections. I then used a standard 5 [place] JR4 catheter to engage and inject the right coronary artery. Lastly the left ventricular hemodynamics were documented using a 5 [place] angled pigtail catheter the same catheter was used to perform a left ventriculogram in the WRIGHT projection. Case was then terminated the patient was taken to the holding area for sheath removal. ACT at the end of the case was 147. The puncture site was studied using an angiogram through the sheath and was not felt to be suitable for an Angio-Seal device. Procedure was otherwise well tolerated and uncomplicated there was no sign of groin hematoma upon him leaving the cardiac catheterization lab. Findings:: Hemodynamics: Central aortic pressure was 110 over 52 left ventricle 110 over 5 end-diastolic pressure 16 there is no gradient across the aortic valve upon pullback. Left ventricle: The LV is markedly dilated there is severe global systolic hypokinesia noted with an ejection fraction visually estimated to be about 25%. All segments are hypodynamic the left main coronary artery is patent the left anterior descending is a large caliber artery extending down to and around the apex. The LAD and its branches have modest luminal irregularities but there are no flow-limiting lesions identified the circumflex is a moderate caliber artery giving rise to the marginal branches and 1 posterior branch. There is visible stent material from the circumflex just after the ostium down the trunk of the circumflex and across the origin of the major OM branch. At this segment of the OM bifurcation there is modest irregular eccentric stenosis at most about 60% angiographically. There was MESERET 3 flow in the circumflex as well as the OM branch. The stent material go goes across the origin of this OM branch into the trunk of the circumflex distal to this. The right coronary artery is large in caliber somewhat ectatic in appearance. There are mild luminal irregularities throughout the right coronary artery but there are no flow-limiting lesions identified. Conclusion:: 1. Right coronary dominant circulation with previously placed stent in the circumflex from near the ostium down past the origin of the OM1 branch which is large marginal. 2. Angiographically mild to moderate stenosis in the origin of this marginal branch which is jailed by the stent in the circumflex trunk. PCI of this lesion therefore would be at least technically difficult and possibly not even feasible. 3. Severe global le
--- NOTE | 2023-08-11 16:08 | PM.PNCARD ---
Progress Note: A&P Assessment and Plan (1) Non-ST elevated myocardial infarction (non-STEMI): Code(s): I21.4 - Non-ST elevation (NSTEMI) myocardial infarction Status: Acute Plan 63-year-old man with cardiomyopathy as well as coronary disease. Catheterization this afternoon demonstrates some disease in the distal aspect of his previously deployed circumflex stent which does prison across the origin of the major OM branch. There is MESERET 3 flow in this vessel and for now I would recommend treating this with medication by adding clopidogrel to his aspirin. Difficult PCI of this could be considered however this would be rather challenging crossing through the struts of his circumflex stent into this OM branch. One could also consider adjusting the patient's medication to achieve better guideline directed medical therapy for his cardiomyopathy. All he is taking at this time is a modest dose of losartan. Matt Chandler MD [facility] Subjective Date/time seen: date of service: 08/11/23 16:08 Interval history: 63-year-old man with: History of cardiomyopathy apparently according to the record he has a history of nonischemic cardiomyopathy predating his development of disease and emergency PCI to his circumflex in 2019. He has a multitude of other medical problems as mentioned in the record. clinically he presents now with abdominal pain chest pain largely atypical of ischemia but he does have a moderate troponin rise at this time. Angiographically today he was found to have patent stent in his proximal to mid circumflex. The stent does cross and prison the origin of the major OM branch which does have angiographically mild to moderate stenosis. PCI of this would be difficult/ challenging a going through the side struts of a previously deployed stent from several years ago. There are no other significant coronary lesions. Left ventricular function remains quite poor. Exam Const: General: comfortable and no acute distress Other: Obese gentleman currently in no distress more comfortable than he was this morning with improvement in his nausea HENMT: Mouth: Yes moist mucous membranes Eyes: Sclera: sclerae normal Neck: Neck: supple Other: carotid pulses are unremarkable bilaterally Resp: Effort & Inspection: normal respiratory effort Auscultation: clear to auscultation bilaterally Cardio: Rate: regular rate Rhythm: regular rhythm Other: PMI is not palpable GI: GI Palp: Yes Soft to palpation Auscultation: normal bowel sounds Skin: General skin exam: normal color Neuro: Other: alert and oriented x3 Extrem: Other: adequate perfusion, no edema Objective Data Vital Signs Vital Signs: Vital Signs - 24 hr 08/10/23 17:24 08/10/23 18:00 08/10/23 17:40 Temperature 36.6 C Pulse Rate 96 98 Respiratory Rate 20 Blood Pressure 128/87 Pulse Oximetry 98 Oxygen Delivery Room Air 08/10/23 19:48 08/11/23 00:00 08/10/23 20:00 Temperature 36.6 C 36.4 C L Pulse Rate 93 96 107 H Respiratory Rate 20 20 Blood Pressure 108/64 117/66 Pulse Oximetry 96 94 Oxygen Delivery 08/10/23 20:00 08/10/23 22:00 08/11/23 00:00 Temperature Pulse Rate 90 98 Respiratory Rate Blood Pressure Pulse Oximetry 96 Oxygen Delivery Room Air 08/11/23 00:00 08/11/23 02:00 08/11/23 04:00 Temperature Pulse Rate 97 96 Respiratory Rate Blood Pressure Pulse Oximetry 94 Oxygen Delivery Room Air 08/11/23 04:00 08/11/23 04:43 08/11/23 06:00 Temperature 36.4 C Pulse Rate 99 95 Respiratory Rate 20 Blood Pressure 130/65 Pulse Oximetry 94 100 Oxygen Delivery Room Air 08/11/23 07:40 08/11/23 09:04 08/11/23 09:24 Temperature 36.5 C Pulse Rate 92 83 Respiratory Rate 22 H Blood Pressure 123/64 Pulse Oximetry 96 96 Oxygen Delivery Room Air 08/11/23 11:28 08/11/23 08:40 08/11/23 10:00 Temperature 36.4 C L Pul
[2023-08-11] MEDS: SODIUM CHLORIDE 0.9% IV 1,000 ML 125 ML IV CONT (18:20)
--- NOTE | 2023-08-11 19:04 | PC.NURSE ---
1841- returned to room - post cardiac cath procedure- activity discussed- bedrest until 2300- HOB 30 degrees; IV fluids infusing- right groin site assessed and WNL - VSS- pt verbalized understanding
--- NOTE | 2023-08-11 20:20 | ECG_ITS ---
Measurements Intervals [place] Rate: 80 P: 57 NV: 192 QRS: -55 QRSD: 141 T: 101 QT: 425 QTc: 493 Interpretive Statements SINUS RHYTHM MARKED LEFT AXIS DEVIATION [QRS AXIS < -30] INCOMPLETE LEFT BUNDLE BRANCH BLOCK COMPARED TO ECG 08/10/2023 15:40:54 NO SIGNIFICANT CHANGES Electronically Signed On 08-12-2023 8:41:41 [employer]ES [employer]SULTANT by Alma Delaney M.D.
[2023-08-11] MEDS: ONDANSETRON INJ 4 MG/2 ML VIAL IV PUSH (20:54)
[2023-08-12] VITALS (11 sets, daily range): BP systolic 111–135; BP diastolic 69–80; PULSE 81–94; RESP 16–20; TEMP 36.5–36.9; O2SAT 94–100
[2023-08-12 05:12] LABS: Anion Gap 3 mmol/L (8-16); Blood Urea Nitrogen 13 mg/dL (9-20); Calcium 8.2 mg/dL (8.4-10.2); Carbon Dioxide 34 mmol/L (22-30); Chloride 100 mmol/L (98-107); Estimated CRCL calculation 58 ml/min; Estimated Glomerular Filt Rate > 60; Glucose 115 mg/dL (65-110); Potassium 3.4 mmol/L (3.4-5.0); Sodium 137 mmol/L (137-145)
[2023-08-12] MEDS: ASPIRIN 81 MG CHEWABLE TABLET PO (09:31)
[2023-08-12] MEDS: CLOPIDOGREL BISULFATE 75 MG TABLET PO (09:31)
[2023-08-12] MEDS: FUROSEMIDE 20 MG TABLET PO (09:31)
[2023-08-12] MEDS: ESCITALOPRAM OXALATE 10 MG TABLET PO (09:31)
[2023-08-12] MEDS: LOSARTAN POTASSIUM 25 MG TABLET PO (09:32)
[2023-08-12] MEDS: ACETAMINOPHEN 325 MG TABLET 650 MG PO (09:32)
[2023-08-12] MEDS: AMIODARONE HCL 200 MG TABLET PO (09:32)
[2023-08-12] MEDS: ALPRAZolam (*CRX) 0.5 MG TABLET PO (09:37)
--- NOTE | 2023-08-12 11:20 | PM.PNCARD ---
Progress Note: A&P Assessment and Plan (1) Non-ST elevated myocardial infarction (non-STEMI): Code(s): I21.4 - Non-ST elevation (NSTEMI) myocardial infarction Status: Acute Assessment and Plan: Cardiac catheterization 08/12 showed: Right coronary dominant circulation with previously placed stent in the circumflex from near the ostium down past the origin of the OM1 branch which is large marginal. Angiographically mild to moderate stenosis in the origin of this marginal branch which is jailed by the stent in the circumflex trunk.? PCI of this lesion therefore would be at least technically difficult and possibly not even feasible. Medical management recommended. As patient is on Xarelto at home, will have patient continue with Plavix (will avoid triple therapy for now). He is on Atorvastatin 80mg at home, will resume. (2) Chronic systolic (congestive) heart failure: Code(s): I50.22 - Chronic systolic (congestive) heart failure Status: Acute Assessment and Plan: Stable. Continue Losartan, Lasix. He is on Coreg 12.5mg BID at home, has not been restarted. Will go ahead and restart. He has not tolerated Entresto or Aldactone in the past. (3) Paroxysmal atrial fibrillation: Code(s): I48.0 - Paroxysmal atrial fibrillation Status: Acute Assessment and Plan: In sinus rhythm. Continue Amiodarone and Xarelto. (4) Hypertension: Qualifiers: Hypertension type: unspecified Qualified Code(s): I10 - Essential (primary) hypertension Code(s): I10 - Essential (primary) hypertension Status: Acute Assessment and Plan: Stable. Continue Lasix, Losartan, Coreg. Plan Patient is stable for discharge from my standpoint. Will arrange outpatient follow up in my office. Subjective Date/time seen: 08/12/23 11:20 Interval history: Reason for visit: NSTEMI HPI: This is a unfortunate 63-year-old man with a history of coronary disease, significant ischemic cardiomyopathy following previous myocardial infarction who I am seeing at the request of the hospitalist because of chest pain, abdominal pain, nausea and elevation of his troponin levels.? The patient is a gentleman I have seen in the past in consultation in the hospital here he now follows with my partner, Dr. Delaney.? He was found to have coronary disease a number of years ago when he was vacationing in [place] and underwent emergency PCI of his LAD in [facility].? Since then he has been followed by filter plant operator in [place] initially elsewhere and more recently in our practice.? He is known to have a significant ischemic myopathy with a low ejection fraction in the range of 20-25% and has a chronically implanted defibrillator.? He states he underwent a recent defibrillator generator change on by my partner, Dr. Castellon at [facility].? He came to the hospital yesterday with a symptom complex that is not unusual for him including abdominal discomfort nausea also associated with some chest pain this symptom has been waxing and waning since he has been in the hospital yesterday.? He was placed on heparin drip and in the IMU and has been seen by the hospitalists and by me in consultation this morning.? His troponin levels are elevated at about 1.3 they are flat but significantly elevated.? He has an unusual disorder referred to in the chart is is cyclical nausea/vomiting and also apparently carries the diagnosis of idiopathic pancreatitis.? His medical regimen at home consists of aspirin, amiodarone, losartan and anticoagulation with Xarelto.? It is unclear as to when he took his last dosage of Xarelto the sample bottle in the has with him with his medications is empty.? His says he has not taken any medication since at least Friday because of feeling poorly with nausea.? He did have a CT of his chest and abdomen in the emergency room the did not show any new pathology he does have a stable abdominal aortic aneurysm Date of service 2
[2023-08-12] MEDS: carvediloL 12.5 MG TABLET PO (12:08)
[2023-08-12] MEDS: ATORVASTATIN 40 MG TABLET 80 MG PO (12:08)
--- NOTE | 2023-08-12 13:45 | PM.DS ---
DS: Admitting Diagnosis Discharge Date 08/12/23 Admitting Diagnosis chest pain DS: Discharge Diagnosis Discharge Diagnosis (1) Non-ST elevated myocardial infarction (non-STEMI): Code(s): I21.4 - Non-ST elevation (NSTEMI) myocardial infarction Status: Acute DS: Summary Hospital Course Reason for hospitalization: chest pain Hospital Course: 63 y/o M presents here with abdominal pain, chest pain, shortness a breath, nausea, and vomiting with PMH of stable AAA, CAD, ischemic cardiomyopathy, CHF, anxiety/depression, HLD, HTN, pancreatitis, pAFib, cardiac stents x2, and cardiac defibrillator in place. Patient presented here today with left-sided chest pain with associated shortness of breath, N/V/D, and umbilical/lower abdominal pain.? Symptom onset was last night around 1 a.m.? Pain started while patient was asleep. Chest pain is described as stabbing, sharp, and nonradiating.? Initially rated pain 10/10 at arrival. Patient reports no change in pain after heparin gtt or nitro paste application. Did report improvement in CP with Dilaudid administration, 4-5/10. No recent changes to his medications. Reports a history of NV, reports 4-5. States this CP felt different than the previous infarctions states his hands (bilateral) felt numb/tingling. Has since mostly resolved. Patient lives at home with his and grandson. Abdominal pain is umbilical/lower and worsens with emesis. LBM was yesterday - diarrhea and described as yellow. No recent atb use. Reports mild congestion 2 days ago. Reports good control of his BP lately with average being 110/70. Patient is still a smoker - goes through 2-3 ppd per week. Has smoked for 20 years. Reports compliance with Lasix 20 mg daily - reports compliance however has relatively full bottle filled in January of 2023. Per med rec, has not been filled again. Initial VS at presentation:? 97.6 F, HR 92, RR 18, 143/107, 99% on RA. ED workup showed mild leukocytosis with white count of 11.0, D-dimer 1.6, chemistry unremarkable, glucose 140, calcium 10.4, troponin 1.750, BNP 5830, UA not indicative of UTI.? CXR showed no acute cardiopulmonary abnormalities.? CTA of the chest/abdomen/pelvis showed known 5.3 cm infrarenal abdominal aortic aneurysm, no PE, mild esophagitis/gastritis, cystitis versus wall thickening from incomplete urinary bladder emptying.? Initial EKG showed sinus rhythm with sinus arrhythmia, intraventricular conduction delay, LV hypertrophy, and ST-T change. patient underwent cardiac cath, showed showed marginal branch lesion which was jailed by the stent in the circumflex trunk which cardiology determined would be at least technically difficult and possibly not feasible, medical management recommended. Cards started Coreg, Plavix, lipitor, losartan adn lasix. patient was comfortable at bedside this morning, and cleared with cardiology who was okay with discharge. Patient discharged home and with above meds continue close follow up with PCP in 3-5 days and f/u with cardiology as instructed Topical management Assessment and Plan (1) Non-ST elevated myocardial infarction (non-STEMI): ?Code(s): I21.4 - Non-ST elevation (NSTEMI) myocardial infarction ?Status:?Acute ?Assessment and Plan: Cardiac catheterization 08/12 showed: Right coronary dominant circulation with previously placed stent in the circumflex from near the ostium down past the origin of the OM1 branch which is large marginal. Angiographically mild to moderate stenosis in the origin of this marginal branch which is jailed by the stent in the circumflex trunk.? PCI of this lesion therefore would be at least technically difficult and possibly not even feasible. Medical management recommended. As patient is on Xarelto at home, will have patient continue with Plavix (will avoid triple therapy for now). He is on Atorvastatin 80mg at home, will resume. (2) Chronic systolic (congestive) heart failure: ?Code(s): I50.22 - Chronic
== END 2023-08-12 15:26 | disposition home or self-care (01) | DRG 280 ==
LOC: ANHED 16:36 → ANHIMU 16:58
PROVIDERS: Family Medicine; Internal Medicine; Specialist; Student in an Organized Health Care Education/Training Program; Admitting Provider Internal Medicine; Emergency Provider Nurse Practitioner Family; PCP Family Medicine; Visit Provider Internal Medicine
PROC: 4A023N7 Measurement of Cardiac Sampling and Pressure, Left Heart, Percutaneous Approach (ICD-10-PCS; CPT 93452; principal; 2023-08-11 14:30)
DX: I21.4 Non-ST elevation (NSTEMI) myocardial infarction (principal); I50.41 Acute combined systolic (congestive) and diastolic (congestive) heart failure; I13.0 Hypertensive heart and chronic kidney disease with heart failure and stage 1 through stage 4 chronic kidney disease, or unspecified chronic kidney disease; N18.9 Chronic kidney disease, unspecified; I25.10 Atherosclerotic heart disease of native coronary artery without angina pectoris; I25.5 Ischemic cardiomyopathy; I48.0 Paroxysmal atrial fibrillation; F41.9 Anxiety disorder, unspecified; F32.A Depression, unspecified; E78.5 Hyperlipidemia, unspecified; Z20.822 Contact with and (suspected) exposure to COVID-19; R11.15 Cyclical vomiting syndrome unrelated to migraine; F17.210 Nicotine dependence, cigarettes, uncomplicated; I71.40 Abdominal aortic aneurysm, without rupture, unspecified; Z95.5 Presence of coronary angioplasty implant and graft; Z95.810 Presence of automatic (implantable) cardiac defibrillator; Z79.82 Long term (current) use of aspirin; E66.9 Obesity, unspecified; Z68.30 Body mass index [BMI] 30.0-30.9, adult; I25.2 Old myocardial infarction
CPT/HCPCS: 36415; 71045; 71275; 74177; 80048; 80053; 80061; 81003; 83690; 83880; 84484; 85025; 85380; 85610; 85730; 87637; 93005; 93458; 96361; 96365; 96366; 96375; 96376; 99285; A9270; C1887; C1894; J0461; J1170; J1644; J1940; J2250; J2270; J2405; J3010; J7030; J7040; Q9967

== ENCOUNTER 2023-09-11 11:35 | Inpatient (IN) | payer MEDICARE, SELFPAY ==
[2023-09-11] VITALS (53 sets, daily range): BP systolic 111–170; BP diastolic 65–108; PULSE 78–114; RESP 13–24; TEMP 36.3–36.7; O2SAT 93–99; BMI 31.7
--- NOTE | ~2023-09-11 | XR_ITS ---
EXAMINATION: XR chest 1V portable INDICATION: Shortness of breath TECHNIQUE: Portable AP chest at 1212 hours COMPARISON: 08/10/2023 FINDINGS: There are airspace opacities of the lung bases, right greater than left. No pleural effusio n or pneumothorax. The cardiomediastinal silhouette is stable. A dual-lead cardiac pacemaker of the l t chest wall ends with leads in expected locations. IMPRESSION: 1. Bibasilar airspace opacities, right greater than left, likely pneumonia. Reviewed, dictated and finalized at location L. RACTIVE ACCOUNT MANAGER
--- NOTE | ~2023-09-11 | US_ITS ---
EXAMINATION: US abdomen limited DATE: 09/12/2023 08:54 INDICATION: Elevated liver function tests TECHNIQUE: Multiple grayscale and Doppler ultrasound images of the abdomen were obtained. COMPARISON: 05/22/2022; CT, 08/10/2023 FINDINGS: The head and body of the pancreas are normal. The pancreatic tail is obscured by bowel gas. The liver is normal with normal echogenicity and echotexture. No surface nodularity. Normal hepatope janae flow in the main portal vein. The gallbladder is normal with no abnormal wall thickening, pericho lecystic fluid or stones. The normal common bile duct measures 2 mm. There was no sonographic Delgado sign. IMPRESSION: 1. Normal sonographic study of the gallbladder. Reviewed, dictated and finalized at location B. T ELECTRICIAN
--- NOTE | 2023-09-11 11:47 | ECG_ITS ---
Measurements Intervals [place] Rate: 109 P: 69 ID: [id number] QRS: -40 QRSD: 138 T: 126 QT: 346 QTc: 468 Interpretive Statements PROBABLY SINUS TACHYCARDIA (SIGNIFICANT BASELINE ARTIFACT) VENTRICULAR PREMATURE COMPLEX LEFT BUNDLE BRANCH BLOCK BASELINE ARTIFACT- I, II, III, AVR, AVL, AVF, V1-V6 ABNORMAL ECG COMPARED TO ECG 08/11/2023 20:40:10 SINUS TACHYCARDIA NOW PRESENT Electronically Signed On 09-11-2023 12:12:36 FILTER TENDER JELLY by Prince Boyd D.O.
[2023-09-11 11:59] LABS: Basophils Absolute Auto 0.1 K/mm3 (0.0-0.1); Basophils Percent Auto 0.3 % (0.2-1.2); Eosinophils Absolute Auto 0.2 K/mm3 (0-0.3); Eosinophils Percent Auto 0.9 % (0-4.4); Hematocrit 48.1 % (42.0-52.0); Immature Granulocyte Absolute 0.07 K/mm3 (0.00-0.031); Immature Granulocyte Percent A 0.4 % (0-0.5); Lymphocytes Absolute Auto 1.12 K/mm3 (0.9-3.2); Lymphocytes Percent Auto 7.1 % (18.3-44.2); Mean Corpuscular HGB Conc 31.2 g/dl (32-36); Mean Corpuscular Hemoglobin 29.6 pg (26-34); Mean Corpuscular Volume 94.9 fl (80-100); Monocytes Absolute Auto 0.7 K/mm3 (0.1-0.6); Monocytes Percent Auto 4.5 % (2.6-8.5); Neutrophils Absolute Auto 13.8 K/mm3 (1.3-6.7); Neutrophils Percent Auto 86.8 % (45.5-73.1); Platelet Count Result 225 k/mm3 (150-375); Red Blood Count 5.07 M/mm3 (4.6-6.20); Red Cell Distribution Width 14.6 % (11.5-14.5); White Blood Count 15.9 K/mm3 (4.5-10.0)
[2023-09-11 12:10] LABS: Alanine Aminotransferase 162 U/L (6-50); Albumin Level 4.3 g/dL (3.5-5.1); Alkaline Phosphatase 138 U/L (38-126); Anion Gap 6 mmol/L (8-16); Aspartate Amino Transferase 105 U/L (17-59); Bilirubin,Total 0.6 mg/dL (0.2-1.3); Blood Urea Nitrogen 12 mg/dL (9-20); Calcium 8.6 mg/dL (8.4-10.2); Carbon Dioxide 30 mmol/L (22-30); Chloride 102 mmol/L (98-107); Estimated CRCL calculation 63 ml/min; Estimated Glomerular Filt Rate > 60; Glucose 127 mg/dL (65-110); Potassium 4.3 mmol/L (3.4-5.0); Sodium 138 mmol/L (137-145)
--- NOTE | 2023-09-11 12:19 | ED.SOB ---
HPI - SOB/Dyspnea General Chief Complaint: Shortness of Breath/Dyspnea Stated Complaint: SOB Time Seen by Provider: 09/11/23 11:51 History of Present Illness HPI Narrative: Patient is a 63-year-old male with history of CAD, CHF, active smoker, recent cardiac stent placement here with shortness of breath and cough. He states that 5 days ago he was at a family birthday alliance party where there was a sick child. There were sick with respiratory symptoms and diarrhea. Two days later he began feeling some congestion and generalized fatigue. He began having shortness of breath as well as a cough over the last 2 days. Shortness of breath significantly worsened this morning. When family came home from running errands this morning they found him on all fours trying to catch his breath in his bedroom. He denies known history of COPD. He denies fever or chills. He has had associated diarrhea. EMS was called and on their arrival his saturations were below 90% he was placed on supplemental oxygen. He does not normally wear supplemental oxygen at home. He has been adherent to his discharge medications after recent NSTEMI. He denies any active chest pain but feels as though his ?chest is full ?. Related Data Home Medications Medication Instructions Recorded Confirmed aspirin 81 mg tablet 81 mg PO DAILY 10/16/20 08/10/23 escitalopram oxalate 10 mg tablet 10 mg PO DAILY 01/17/21 08/10/23 losartan 25 mg tablet 25 mg PO DAILY 05/22/22 08/10/23 amiodarone 200 mg tablet 200 mg PO DAILY 09/17/22 08/10/23 Christopher's Blood Stream Formula 1 cap PO DAILY 08/10/23 08/10/23 Allergies Allergy/AdvReac Type Severity Reaction Status Date / Time No Known Allergies Allergy Unknown Verified 09/11/23 11:48 Review of Systems Review of Systems: All systems reviewed & are unremarkable except as noted in HPI and below PMFSH Past Medical History Medical History AAA (abdominal aortic aneurysm) Acute kidney injury Acute on chronic kidney failure Aneurysm of infrarenal abdominal aorta Stable aneurysm measuring 4.5 centimeters on 11/21/2020. Measuring 5.3 cm on 08/10/2023. Atherosclerotic heart disease of [place] coronary artery without angina pectoris CAD (coronary artery disease) Cardiomyopathy Chronic systolic (congestive) heart failure Cigarette nicotine dependence, uncomplicated Cyclic vomiting syndrome Depression Generalized anxiety disorder Hyperlipidemia Hypertension Hypokalemia Ischemic cardiomyopathy EF 35-40% on echo performed on 11/18/2022. Cardiac defibrillator in place. Major depressive disorder in partial remission Marijuana smoker, episodic Pancreatitis Paroxysmal atrial fibrillation Personal history of colonic polyps Presence of automatic (implantable) cardiac defibrillator Sepsis Shingles Stenosis of infrarenal abdominal aorta due to arteriosclerosis Urinary tract infection Surgical History Surgical History History of arthroscopic knee surgery History of cardiac catheterization (~09/2019) Performed in [facility]. History of coronary artery stent placement (~09/2019) Stent x2. History of tracheostomy (~09/2019) Pacemaker Family History Family History Mother Congestive heart failure Father Glaucoma Lip cancer Daughter Pulmonary emboli Social History Social History Social History: The patient lives in [place] with his . one children passed which was his daughter. He has 2 living children and is retired from [employer]. He smoked a pack of cigarettes a day for 30 years and quit quite sometime ago. No alcohol abuse. Admits to marijuana use but does not qualify or quantify. He designates his Iveth as his surrogate decision maker and he wishes to be a full code. Code statu
[2023-09-11 12:26] LABS: NT Pro B Type Natriuretic Pept 5480 pg/mL (19.9-100); Troponin I 0.083 ng/mL (0.000-0.034)
[2023-09-11 13:16] LABS: Influenza A QL RT-PCR Negative (Negative); Influenza B QL RT-PCR Negative (Negative); RSV RNA, RT-PCR Negative (Negative); SARS-CoV-2 RNA PCR Negative (Negative)
[2023-09-11] MEDS: CEFEPIME 2 GM/NS 50 ML 2 GM/50 ML BAG IVPB (13:20)
[2023-09-11 13:25] LABS: Lactic Acid Reflex 1.5 mmol/L (0.7-2.0)
[2023-09-11] MEDS: AZITHROMYCIN 500 MG/NS 250 ML 500 MG/250 ML BAG 250 MG IVPB (13:31)
[2023-09-11] MEDS: MORPHINE SULFATE (*CRX) 4 MG/ML INJ IV PUSH (14:13)
[2023-09-11] MEDS: VANCOMYCIN 1,250 MG/NS 250 ML 1,250 MG/250 ML BAG 166.67 MG IVPB (14:13)
[2023-09-11] MEDS: ONDANSETRON INJ 4 MG/2 ML VIAL IV PUSH (14:13)
[2023-09-11 14:27] LABS: MRSA (PCR) NOT DETECTED (NOT DETECTE)
[2023-09-11] MEDS: ASPIRIN 81 MG CHEWABLE TABLET 324 MG PO (15:43)
--- NOTE | 2023-09-11 15:45 | ECG_ITS ---
Measurements Intervals [place] Rate: 84 P: 75 MA: 218 QRS: -51 QRSD: 144 T: 109 QT: 412 QTc: 489 Interpretive Statements SINUS RHYTHM WITH FIRST DEGREE AV BLOCK IVCD, FEATURES OF BOTH RBBB AND LBBB BASELINE ARTIFACT- I, II, AVR ABNORMAL ECG COMPARED TO ECG 09/11/2023 11:42:28 SINUS RHYTHM NOW PRESENT FIRST DEGREE AV BLOCK NOW PRESENT Electronically Signed On 09-11-2023 18:25:40 [employer] by Prince Boyd D.O.
[2023-09-11] MEDS: VANCOMYCIN 1,000 MG/NS 250 ML 1,000 MG/250 ML BAG 250 MG IVPB (16:09)
[2023-09-11] MEDS: ENOXAPARIN 100 MG/ML SYRINGE 90 MG SUB-Q (16:31)
--- NOTE | 2023-09-11 18:13 | ECG_ITS ---
Measurements Intervals [place] Rate: 77 P: 62 DE: 207 QRS: -47 QRSD: 150 T: 107 QT: 439 QTc: 499 Interpretive Statements SINUS RHYTHM LEFT AXIS DEVIATION IVCD, FEATURES OF BOTH RBBB AND LBBB BASELINE ARTIFACT- I, AVR, AVL ABNORMAL ECG COMPARED TO ECG 09/11/2023 15:04:02 NO SIGNIFICANT CHANGES Electronically Signed On 09-11-2023 18:36:45 DIRECTOR OF PRIMARY CARE by Prince Boyd D.O.
[2023-09-11 18:51] LABS: Troponin I 0.188 ng/mL (0.000-0.034)
--- NOTE | 2023-09-11 18:58 | PM.IMHP ---
H&P: HPI History of Present Illness Date/Time: 09/11/23 22:00 Chief Complaint: Shortness of breath. Narrative: This is a 63-year-old male smoker with coronary artery disease status post stent, ischemic cardiomyopathy status post PM/ICD, paroxysmal atrial fibrillation, chronic kidney disease, abdominal aortic aneurysm, hypertension, hyperlipidemia and pancreatitis who presented to the emergency department for evaluation of shortness of breath. The patient provides the following history. Five days ago he was at a family birthday green party where there was a sick child. Two days thereafter he developed sinus and chest congestion, fatigue, chills, sweats, and cough productive of yellow sputum. He has also been feeling a bit short of breath and sometime this morning he felt increasingly short of breath after a coughing jag and reports wheezing as well. Family members returned home from running errands and found him on the floor on all fours, with attempts to catch his breath. EMS was summoned and his SpO2 was in the upper 80s on room air on their arrival. He is currently on 2 L nasal cannula with an SpO2 in the mid 90s. He has not had a documented fever and denies headache, neck ache, orthopnea, lower extremity edema, paroxysmal nocturnal dyspnea, chest pain, pleuritic pain, nausea, abdominal pain, and vomiting. He has had some loose stools but not in significant quantities. Of note the patient was in the hospital about 1 month ago and was admitted with non STEMI after presenting with chest pain. Cardiac catheterization at that time showed a patent stent in the circumflex and [id number] stenosis in the origin of a marginal branch which was jailed and unable to be intervened upon. Medical management was recommended he has not had any chest pain since that time. He has wheezing on exam and continues to smoke but he denies known history of COPD. In the ED: He was afebrile on arrival with stable vital signs. Labs were significant for a WBC count of 15.9, AST 105, ALT 162, alkaline phosphatase 138, troponin 0.083, CRP 6.0, proBNP 5480. He tested negative for influenza, RSV, and COVID. MRSA screen was negative. Chest x-ray showed bibasilar airspace opacities, right greater than left, likely due to pneumonia. He was given a dose of azithromycin, cefepime, and vancomycin in the ED and is being admitted to the IMU for close monitoring and troponin trending as well as IV antibiotics for pneumonia. Review of Systems Review of Systems: Twelve systems were reviewed and are negative except for as per HPI. [facility] Past Medical History Medical History (Updated 09/12/23 @ 17:43 by Cris Solomon PA-C) Aneurysm of infrarenal abdominal aorta Stable aneurysm measuring 4.5 centimeters on 11/21/2020. Measuring 5.3 cm on 08/10/2023. Cardiomyopathy Chronic systolic (congestive) heart failure Cigarette nicotine dependence, uncomplicated Coronary artery disease Cyclic vomiting syndrome Depression Generalized anxiety disorder Hyperlipidemia Hypertension Hypokalemia Ischemic cardiomyopathy EF 35-40% on echo performed on 11/18/2022. Cardiac defibrillator in place. Major depressive disorder in partial remission Marijuana smoker, episodic Pancreatitis Paroxysmal atrial fibrillation Personal history of colonic polyps Presence of automatic (implantable) cardiac defibrillator Shingles Stenosis of infrarenal abdominal aorta due to arteriosclerosis Urinary tract infection Surgical History Surgical History History of arthroscopic knee surgery History of cardiac catheterization (~09/2019) Performed in [facility]. History of coronary artery stent placement (~09/2019) Stent x2. History of tracheostomy (~09/2019) Pacemaker Family History Family History Mother Congestive heart failure Father Glaucoma Lip cancer Daughter Pulmonary emboli
--- NOTE | 2023-09-11 22:31 | ADMGEN ---
This patient, Low Sarmiento, was admitted to IMU Room 201-01. Patient/family oriented to hospital policies and general routines including ID bracelet, bed and alarms, visiting hours, pain management, procedures, bathroom and other care routines, personal items, smoking policy, room service/diet, and visiting hours. Information on how to activate the Rapid Response Team has been discussed. Patient/Family are encouraged to report perceived risks to care and to ask questions if they do not understand what they are told or what they should do.
[2023-09-11] MEDS: ALPRAZolam (*CRX) 0.5 MG TABLET PO (23:59)
[2023-09-12] VITALS (22 sets, daily range): BP systolic 95–123; BP diastolic 40–73; PULSE 66–88; RESP 18–22; TEMP 36.2–36.6; O2SAT 90–96
[2023-09-12 00:09] LABS: Acetaminophen < 10 ug/mL (10-30); Creatine Kinase 88 U/L (55-170)
[2023-09-12 00:24] LABS: Troponin I 0.153 ng/mL (0.000-0.034)
[2023-09-12 00:41] LABS: Hepatitis B Surface Antigen Negative (Negative)
[2023-09-12 00:47] LABS: HAV RESULT Negative (Negative); Hepatitis B Core IgM Result Negative (Negative)
[2023-09-12 00:58] LABS: Hepatitis C Virus Antibody Negative (Negative)
[2023-09-12] MEDS: IPRATROPIUM 0.5 MG/ALBUTEROL SULFATE 2.5 MG AMPUL.NEB 3 ML INHALATION ×4 (02:29→20:10)
[2023-09-12] MEDS: traMADol HCL (*CRX) 50 MG TABLET PO (04:02)
[2023-09-12 04:33] LABS: Hematocrit 40.9 % (42.0-52.0); Hemoglobin 12.3 g/dL (14.0-18.0); Mean Corpuscular HGB Conc 30.1 g/dl (32-36); Mean Corpuscular Hemoglobin 29.6 pg (26-34); Mean Corpuscular Volume 98.3 fl (80-100); Mean Platelet Volume 11.6 fl (7.4-10.4); Platelet Count Result 157 k/mm3 (150-375); Red Blood Count 4.16 M/mm3 (4.6-6.20); Red Cell Distribution Width 14.6 % (11.5-14.5); White Blood Count 9.4 K/mm3 (4.5-10.0)
[2023-09-12 04:54] LABS: Alanine Aminotransferase 111 U/L (6-50); Albumin Level 3.6 g/dL (3.5-5.1); Alkaline Phosphatase 106 U/L (38-126); Anion Gap 5 mmol/L (8-16); Aspartate Amino Transferase 65 U/L (17-59); Bilirubin,Total 0.6 mg/dL (0.2-1.3); Blood Urea Nitrogen 12 mg/dL (9-20); Calcium 7.9 mg/dL (8.4-10.2); Carbon Dioxide 29 mmol/L (22-30); Chloride 104 mmol/L (98-107); Estimated CRCL calculation 79 ml/min; Estimated Glomerular Filt Rate > 60; Glucose 121 mg/dL (65-110); Magnesium 2.3 mg/dL (1.6-2.3); Potassium 3.9 mmol/L (3.4-5.0); Sodium 138 mmol/L (137-145)
[2023-09-12] MEDS: VANCOMYCIN 1,500 MG/NS 500 ML 1,500 MG/500 ML BAG 250 MG IVPB (08:11)
[2023-09-12] MEDS: GABAPENTIN 300 MG CAPSULE PO ×4 (08:12→16:59)
--- NOTE | 2023-09-12 08:40 | PM.CNCAR ---
Assessment and Plan Assessment and plan (1) Cardiomyopathy: Code(s): I42.9 - Cardiomyopathy, unspecified Status: Acute Assessment and Plan: History of ischemic cardiomyopathy, EF 20-25%. He does not appear to be in decompensated heart failure currently. Optimizing medical therapy unfortunately complicated by intolerance to medications, inability to afford certain medications. For now, continue losartan, Coreg He has an ICD in place (2) Pneumonia: Code(s): J18.9 - Pneumonia, unspecified organism Status: Acute Assessment and Plan: He has a right lower lobe pneumonia. On antibiotics. Wean supplemental oxygen as tolerated. Treatment per primary service. (3) Acute respiratory failure with hypoxia: Code(s): J96.01 - Acute respiratory failure with hypoxia Status: Acute Assessment and Plan: Secondary to above. (4) Elevated troponin: Code(s): R79.89 - Other specified abnormal findings of blood chemistry Status: Acute Assessment and Plan: His troponins are chronically elevated. He underwent cardiac catheterization a little over a month ago and medical management for his coronary artery disease was recommended. No ischemic changes on EKG. His troponin levels do not represent ACS. Do not recommend any further cardiac workup. Plan Cardiology will sign off. Please do not hesitate to call with any questions. History of Present Illness History of Present Illness Consult date/time: 09/12/23 08:41 Requesting physician: Alexa Gupta MD Consult reason: Other (elevated troponin) Reason For Visit: Pneumonia,Hypoxia,Elevated Troponin Narrative: Low Sarmiento is a 63 year old male with coronary artery disease, hypertension, mixed ischemic and nonischemic cardiomyopathy, sick sinus syndrome, complete heart block, atrial fibrillation, dual-chamber ICD at [facility] in 2013. This is a patient who follows in our office with Dr. Delaney. He comes to the hospital now with a chief complaint of shortness of breath. He has also been experiencing chills and body aches. He has been found to have a pneumonia is currently being treated for that. He states that today he feels a little bit better but still has some shortness of breath. Cardiology has been asked to see him because troponin levels are elevated. He denies any chest pain. Patient was seen here at [facility] about a month ago because of non STEMI and he was taken to the cardiac catheterization lab and was found to have right coronary dominant circulation with previously placed stent in the circumflex from near the ostium down past the origin of the OM1 branch which is large marginal. Angiographically mild to moderate stenosis in the origin of this marginal branch which is jailed by the stent in the circumflex trunk.? PCI of this lesion therefore was considered to be at least technically difficult and possibly not even feasible. Medical management was recommended and patient denies having any further chest pain following cardiac cath. He currently resting comfortably in bed with nasal cannula oxygen place and has no cardiac complaints. He does complain of lower back pain. Review of Systems Review of Systems: All systems reviewed & are unremarkable except as noted in HPI and below PMFSH Past Medical History Medical History AAA (abdominal aortic aneurysm) Acute kidney injury Acute on chronic kidney failure Aneurysm of infrarenal abdominal aorta Stable aneurysm measuring 4.5 centimeters on 11/21/2020. Measuring 5.3 cm on 08/10/2023. Atherosclerotic heart disease of [place] coronary artery without angina pectoris CAD (coronary artery disease) Cardiomyopathy Chronic systolic (congestive) heart failure Cigarette nicotine dependence, uncomplicated Cyclic vomiting syndrome Depression Generalized anxiety disorder Hyperlipidemia Hypertension Hypokalemia Isch
[2023-09-12] MEDS: ALPRAZolam (*CRX) 0.5 MG TABLET PO (09:13)
[2023-09-12] MEDS: CLOPIDOGREL BISULFATE 75 MG TABLET PO (09:13)
[2023-09-12] MEDS: DOXYCYCLINE HYCLATE 100 MG TABLET PO ×2 (09:13→20:06)
[2023-09-12] MEDS: ASPIRIN 81 MG CHEWABLE TABLET PO (09:13)
[2023-09-12] MEDS: carvediloL 12.5 MG TABLET PO ×3 (09:13→20:06)
[2023-09-12] MEDS: LOSARTAN POTASSIUM 25 MG TABLET PO (09:13)
[2023-09-12] MEDS: FUROSEMIDE 20 MG TABLET PO (09:13)
[2023-09-12] MEDS: AMIODARONE HCL 200 MG TABLET PO (09:13)
[2023-09-12] MEDS: ACETAMINOPHEN 325 MG TABLET 650 MG PO (09:14)
--- NOTE | 2023-09-12 17:09 | PM.IMPN ---
Progress Note: A&P Assessment and Plan (1) Pneumonia: Code(s): J18.9 - Pneumonia, unspecified organism Status: Acute Assessment and Plan: 09/12/23: On Doxycycline, Ceftriaxone (2) Acute respiratory failure with hypoxia: Code(s): J96.01 - Acute respiratory failure with hypoxia Status: Acute Assessment and Plan: 09/12/23: On Doxycycline, Ceftriaxone; wean oxygen (3) Elevated troponin: Code(s): R79.89 - Other specified abnormal findings of blood chemistry Status: Acute Assessment and Plan: Per cardiology: His troponins are chronically elevated.? He underwent cardiac catheterization a little over a month ago and medical management for his coronary artery disease was recommended.? No ischemic changes on EKG.? His troponin levels do not represent ACS.? Do not recommend any further cardiac workup. (4) Suspected chronic obstructive pulmonary disease based on initial evaluation: Code(s): J44.9 - Chronic obstructive pulmonary disease, unspecified Status: Acute (5) Transaminitis: Code(s): R74.01 - Elevation of levels of liver transaminase levels Status: Acute (6) Cardiomyopathy: Code(s): I42.9 - Cardiomyopathy, unspecified Status: Acute Assessment and Plan: Chronic; stable Time Spent With Patient Time with patient: 25 - 35 minutes Subjective Date/time seen: 09/12/23 17:09 Interval history: 09/12/23: Seen and examined; being evaluated and managed for Hypoxia and raised troponin levels Review of Systems Review of Systems: Twelve systems were reviewed and are negative except for as per HPI. Exam Narrative: General: Mildly ill-appearing gentleman supine in bed in no acute distress. Weight: 103.3 kg. BMI: 31.8. HEENT: PERRL, EOMI. Sclera anicteric. Oral mucosa moist. Crowded oropharynx. Neck: Supple. No JVD. Respiratory: Respirations are nonlabored and he is speaking in full sentences. Currently on 2 L nasal cannula. Lung sounds are diminished at the bases with scattered expiratory wheezing. Cardiovascular: Regular rate and rhythm with S1-S2. Gastrointestinal: Abdomen is soft, obese, nontender, and nondistended with positive bowel sounds. Skin: Warm and dry. Extremities: No cyanosis, clubbing, or edema. Radial and pedal pulses intact. Negative Michael sign bilaterally. Neurological: Alert. Cranial nerves 2-12 are grossly intact. No gross focal deficits to casual conversation. Psychiatric: Pleasant and cooperative with normal mood and affect. Judgment and insight intact. Objective Data Vital Signs Vital Signs: Vital Signs - 24 hr 09/11/23 17:15 09/11/23 17:30 09/11/23 17:45 Temperature Pulse Rate 80 82 79 Respiratory Rate 20 14 15 Blood Pressure 121/77 Pulse Oximetry 94 95 95 Oxygen Delivery Oxygen Flow Rate Fraction of Inspired Oxygen 09/11/23 17:46 09/11/23 18:07 09/11/23 18:15 Temperature Pulse Rate 78 80 79 Respiratory Rate 15 14 14 Blood Pressure Pulse Oximetry 97 94 97 Oxygen Delivery Oxygen Flow Rate Fraction of Inspired Oxygen 09/11/23 18:30 09/11/23 18:31 09/11/23 18:46 Temperature Pulse Rate 80 81 79 Respiratory Rate 15 14 Blood Pressure 138/76 Pulse Oximetry 97 Oxygen Delivery Oxygen Flow Rate Fraction of Inspired Oxygen 09/11/23 19:01 09/11/23 19:15 09/11/23 19:30 Temperature Pulse Rate 80 81 88 Respiratory Rate 15 16 Blood Pressure Pulse Oximetry 95 96 97 Oxygen Delivery Oxygen Flow Rate Fraction of Inspired Oxygen 09/11/23 19:45 09/11/23 20:00 09/11/23 20:15 Temperature Pulse Rate 81 Respiratory Rate 17 Blood Pressure Pulse Oximetry 97 96 97 Oxygen Delivery Oxygen Flow Rate Fraction of Inspired Oxygen 09/11/23 20:25 09/11/23 20:30 09/11/23 20:45 Temperature Pulse Rate 80 80 81 Respiratory Rate 17 18 17 Blood Pressure 120/75 Pulse Oximetry 96 94 94 Oxygen Delive
[2023-09-13] VITALS (22 sets, daily range): BP systolic 91–123; BP diastolic 42–70; PULSE 68–87; RESP 12–18; TEMP 36.4–36.7; O2SAT 91–97
[2023-09-13] MEDS: IPRATROPIUM 0.5 MG/ALBUTEROL SULFATE 2.5 MG AMPUL.NEB 3 ML INHALATION ×4 (01:41→20:07)
[2023-09-13 04:54] LABS: Basophils Percent Auto 0.5 % (0.2-1.2); Eosinophils Absolute Auto 0.2 K/mm3 (0-0.3); Eosinophils Percent Auto 3.6 % (0-4.4); Hematocrit 37.2 % (42.0-52.0); Hemoglobin 11.4 g/dL (14.0-18.0); Immature Granulocyte Absolute 0.01 K/mm3 (0.00-0.031); Immature Granulocyte Percent A 0.2 % (0-0.5); Lymphocytes Percent Auto 12.8 % (18.3-44.2); Mean Corpuscular HGB Conc 30.6 g/dl (32-36); Mean Corpuscular Hemoglobin 29.5 pg (26-34); Mean Corpuscular Volume 96.4 fl (80-100); Mean Platelet Volume 11.4 fl (7.4-10.4); Monocytes Absolute Auto 0.4 K/mm3 (0.1-0.6); Monocytes Percent Auto 7.8 % (2.6-8.5); Neutrophils Absolute Auto 4.1 K/mm3 (1.3-6.7); Neutrophils Percent Auto 75.1 % (45.5-73.1); Platelet Count Result 154 k/mm3 (150-375); Red Blood Count 3.86 M/mm3 (4.6-6.20); Red Cell Distribution Width 14.8 % (11.5-14.5); White Blood Count 5.5 K/mm3 (4.5-10.0)
[2023-09-13 05:08] LABS: Alanine Aminotransferase 80 U/L (6-50); Albumin Level 3.6 g/dL (3.5-5.1); Alkaline Phosphatase 89 U/L (38-126); Anion Gap 1 mmol/L (8-16); Aspartate Amino Transferase 43 U/L (17-59); Bilirubin,Total 0.5 mg/dL (0.2-1.3); Blood Urea Nitrogen 11 mg/dL (9-20); Calcium 7.8 mg/dL (8.4-10.2); Carbon Dioxide 36 mmol/L (22-30); Chloride 99 mmol/L (98-107); Estimated CRCL calculation 73 ml/min; Estimated Glomerular Filt Rate > 60; Glucose 120 mg/dL (65-110); Potassium 3.6 mmol/L (3.4-5.0); Sodium 136 mmol/L (137-145)
[2023-09-13] MEDS: GABAPENTIN 300 MG CAPSULE PO ×3 (09:12→18:15)
[2023-09-13] MEDS: AMIODARONE HCL 200 MG TABLET PO (09:12)
[2023-09-13] MEDS: ASPIRIN 81 MG CHEWABLE TABLET PO (09:12)
[2023-09-13] MEDS: FUROSEMIDE 20 MG TABLET PO (09:12)
[2023-09-13] MEDS: LOSARTAN POTASSIUM 25 MG TABLET PO (09:13)
[2023-09-13] MEDS: carvediloL 12.5 MG TABLET PO ×2 (09:13→20:10)
[2023-09-13] MEDS: DOXYCYCLINE HYCLATE 100 MG TABLET PO ×2 (09:13→20:10)
[2023-09-13] MEDS: CLOPIDOGREL BISULFATE 75 MG TABLET PO (09:13)
[2023-09-13] MEDS: ALPRAZolam (*CRX) 0.5 MG TABLET PO (09:18)
--- NOTE | 2023-09-13 12:33 | PM.IMPN ---
Progress Note: A&P Assessment and Plan (1) Cardiomyopathy: Code(s): I42.9 - Cardiomyopathy, unspecified Status: Acute (2) Transaminitis: Code(s): R74.01 - Elevation of levels of liver transaminase levels Status: Acute (3) Acute respiratory failure with hypoxia: Code(s): J96.01 - Acute respiratory failure with hypoxia Status: Acute (4) Right lower lobe pneumonia: Qualifiers: Pneumonia type: due to unspecified organism Qualified Code(s): J18.9 - Pneumonia, unspecified organism Code(s): J18.9 - Pneumonia, unspecified organism Status: Acute Plan # right lower lobe pneumonia # acute hypoxia -chest x-ray concerning for right lung infiltrates -antibiotics: Continue Rocephin, doxycycline -patient still has coarse lung sounds -weaning O2 as tolerated, down to 2 L oxygen nasal cannula, goal O2 saturation greater than 90%. He does not use any home oxygen therapy -urine Legionella pneumococcal, pending, blood cultures no growth today -nebs: DuoNebs q.6 hours # elevated troponin -likely supply demand from pneumonia -appreciate cardiology consultation: No further cardiac workup indicated, treat pneumonia # transaminitis -normal gallbladder ultrasound -no abdominal pain -lab have normalized # chronic conditions -ischemic cardiomyopathy EF 20 25% status post ICD, nicotine dependence, CAD: patient had a coronary catheterization recently which showed patent stent in the circumflex and mid to moderate stenosis in the origin of the marginal branch and unable to be intervened. On aspirin and Plavix -essential hypertension: Cozaar, Coreg -peripheral neuropathy: Gabapentin -peripheral edema: Lasix -atrial fibrillation: Amiodarone -anxiety: Xanax p.r.n. Diet: Heart healthy DVT prophylaxis: lovenox Code status: Full code Disposition: Home in 1-2 days, [facility] tele status Time Spent With Patient Time: 35 minutes Subjective Date/time seen: 09/13/23 12:33 Interval history: Patient seen and examined. He is doing well no new complaints. Patient still has significant coarse lung sounds. He is still on 2 L of oxygen does not use any home oxygen therapy. Patient seen by chief engineer production with recommendation treat pneumonia, no further cardiac workup needed. I explained the patient about like IV antibiotics and treat for another day or two. Patient denies fever, chills, nausea. Endorses cough and dyspnea Review of Systems Review of Systems: 10 point ROS complete, negative other than what is specified in HPI. Exam Narrative: - GENERAL: Pleasant male no acute distress. Well-nourished. - EYES: EOMI. Anicteric. - HENT: Moist mucous membranes. - LUNGS: Coarse lung sounds in all lung gupta, R>L - CARDIOVASCULAR: Regular rate and rhythm. No murmur. No JVD. - ABDOMEN: Soft, non-tender and non-distended. No palpable masses. - EXTREMITIES: No edema. Peripheral pulses 2+. Non-tender. - NEUROLOGIC: No focal neurological deficits. CN II-XII grossly intact. - PSYCHIATRIC: Awake, Alert and oriented x 3. Appropriate mood and affect. - SKIN: No rashes or lesions. Warm. - LYMPH: No cervical lymphadenopathy. Objective Data Vital Signs Vital Signs: Vital Signs - 24 hr 09/12/23 13:34 09/12/23 13:43 09/12/23 16:00 Temperature 36.2 C L Pulse Rate 72 69 71 Respiratory Rate 18 18 22 H Blood Pressure 96/57 L Pulse Oximetry 92 Oxygen Delivery Oxygen Flow Rate Fraction of Inspired Oxygen 09/12/23 16:00 09/12/23 20:06 09/12/23 20:07 Temperature 36.3 C L Pulse Rate 75 80 84 Respiratory Rate 22 H Blood Pressure 102/56 L Pulse Oximetry 94 Oxygen Delivery Oxygen Flow Rate Fraction of Inspired Oxygen 09/12/23 20:11 09/12/23 20:11 09/12/23 20:00 Temperature Pulse Rate 85 80 Respiratory Rate 18 Blood Pressure Pulse Oximetry 90 Oxygen Delivery Nasal Cannula Oxygen Flow Rate 2 Fraction of Inspired Oxygen
[2023-09-13] MEDS: NICOTINE (*PBKC) 21 MG PATCH 1 PATCH TRANSDERM (18:15)
[2023-09-14] VITALS (29 sets, daily range): BP systolic 99–130; BP diastolic 49–71; PULSE 62–76; RESP 16–20; TEMP 35.9–36.7; O2SAT 86–95
[2023-09-14] MEDS: IPRATROPIUM 0.5 MG/ALBUTEROL SULFATE 2.5 MG AMPUL.NEB 3 ML INHALATION ×4 (01:30→19:55)
--- NOTE | 2023-09-14 01:52 | PC.NURSE ---
Daylight Savings Time For Daylight Savings Time Ending in the Fall - Clocks are moved back. For Daylight Savings Time Beginning in the Spring - Clocks are moved ahead. For [facility], the time of change occurs at 0200 hrs. Time is taken from the process server. This entry on the patient's chart recognizes the change in time reflected during documentation. Example: 2 entries for vital signs may be charted for 0200 hrs.
[2023-09-14 04:41] LABS: Basophils Percent Auto 0.7 % (0.2-1.2); Eosinophils Absolute Auto 0.2 K/mm3 (0-0.3); Hematocrit 37.4 % (42.0-52.0); Hemoglobin 11.5 g/dL (14.0-18.0); Lymphocytes Absolute Auto 1.02 K/mm3 (0.9-3.2); Lymphocytes Percent Auto 24.2 % (18.3-44.2); Mean Corpuscular HGB Conc 30.7 g/dl (32-36); Mean Corpuscular Hemoglobin 29.6 pg (26-34); Mean Corpuscular Volume 96.4 fl (80-100); Mean Platelet Volume 11.4 fl (7.4-10.4); Monocytes Absolute Auto 0.4 K/mm3 (0.1-0.6); Monocytes Percent Auto 10.5 % (2.6-8.5); Neutrophils Absolute Auto 2.5 K/mm3 (1.3-6.7); Neutrophils Percent Auto 59.6 % (45.5-73.1); Platelet Count Result 141 k/mm3 (150-375); Red Blood Count 3.88 M/mm3 (4.6-6.20); Red Cell Distribution Width 14.7 % (11.5-14.5); White Blood Count 4.2 K/mm3 (4.5-10.0)
[2023-09-14 04:50] LABS: Alanine Aminotransferase 65 U/L (6-50); Albumin Level 3.4 g/dL (3.5-5.1); Alkaline Phosphatase 86 U/L (38-126); Anion Gap 0 mmol/L (8-16); Aspartate Amino Transferase 40 U/L (17-59); Bilirubin,Total 0.4 mg/dL (0.2-1.3); Blood Urea Nitrogen 10 mg/dL (9-20); Calcium 7.9 mg/dL (8.4-10.2); Carbon Dioxide 38 mmol/L (22-30); Chloride 100 mmol/L (98-107); Estimated CRCL calculation 73 ml/min; Estimated Glomerular Filt Rate > 60; Glucose 111 mg/dL (65-110); Potassium 3.4 mmol/L (3.4-5.0); Sodium 138 mmol/L (137-145)
--- NOTE | 2023-09-14 08:35 | ECG_ITS ---
Measurements Intervals Dixon Rate: 71 P: 48 IA: 191 QRS: -40 QRSD: 141 T: 109 QT: 458 QTc: 500 Interpretive Statements SINUS RHYTHM LEFT AXIS DEVIATION LEFT BUNDLE BRANCH BLOCK ABNORMAL ECG COMPARED TO ECG 09/11/2023 18:20:24 NO SIGNIFICANT CHANGES Electronically Signed On 09-14-2023 15:07:02 CDT by Prince Boyd D.O.
[2023-09-14] MEDS: LOSARTAN POTASSIUM 25 MG TABLET PO (08:41)
[2023-09-14] MEDS: carvediloL 12.5 MG TABLET PO ×2 (08:41→20:42)
[2023-09-14] MEDS: ENOXAPARIN 40 MG/0.4 ML SYRINGE SUB-Q (08:41)
[2023-09-14] MEDS: NICOTINE (*PBKC) 21 MG PATCH 1 PATCH TRANSDERM (08:41)
[2023-09-14] MEDS: FUROSEMIDE 20 MG TABLET PO (08:41)
[2023-09-14] MEDS: AMIODARONE HCL 200 MG TABLET PO (08:41)
[2023-09-14] MEDS: GABAPENTIN 300 MG CAPSULE PO ×3 (08:42→18:22)
[2023-09-14] MEDS: DOXYCYCLINE HYCLATE 100 MG TABLET PO ×2 (08:42→20:42)
[2023-09-14] MEDS: ASPIRIN 81 MG CHEWABLE TABLET PO (08:42)
[2023-09-14] MEDS: ALPRAZolam (*CRX) 0.5 MG TABLET PO (08:43)
[2023-09-14] MEDS: CLOPIDOGREL BISULFATE 75 MG TABLET PO (08:44)
[2023-09-14] MEDS: HYDROcodone/acetaminophen (*CRX) 5-325 MG TABLET 1 TAB PO (10:13)
--- NOTE | 2023-09-14 10:21 | PM.IMPN ---
Progress Note: A&P Assessment and Plan (1) Transaminitis: Code(s): R74.01 - Elevation of levels of liver transaminase levels Status: Acute (2) Suspected chronic obstructive pulmonary disease based on initial evaluation: Code(s): J44.9 - Chronic obstructive pulmonary disease, unspecified Status: Acute (3) Acute respiratory failure with hypoxia: Code(s): J96.01 - Acute respiratory failure with hypoxia Status: Acute (4) Right lower lobe pneumonia: Qualifiers: Pneumonia type: due to unspecified organism Qualified Code(s): J18.9 - Pneumonia, unspecified organism Code(s): J18.9 - Pneumonia, unspecified organism Status: Acute (5) Acute hypoxic respiratory failure: Code(s): J96.01 - Acute respiratory failure with hypoxia Status: Acute (6) Elevated troponin: Code(s): R79.89 - Other specified abnormal findings of blood chemistry Status: Acute Plan # right lower lobe pneumonia # acute hypoxia -chest x-ray concerning for right lung infiltrates -antibiotics: Continue Rocephin, doxycycline -patient still has coarse lung sounds with expiratory wheezing, continue nebs -weaning O2 as tolerated, up to 4 L oxygen overnight, goal of saturation greater 90% -patient required a 4 L overnight, possibly apnea, will check apnea link -urine Legionella pneumococcal, pending, blood cultures no growth today -nebs: DuoNebs q.6 hours -repeat sputum culture from 09/12 pending # elevated troponin -likely supply demand from pneumonia -appreciate cardiology consultation: No further cardiac workup indicated, treat pneumonia -EKG shows normal sinus rhythm # transaminitis -normal gallbladder ultrasound -no abdominal pain -lab have normalized # chronic conditions -ischemic cardiomyopathy EF 20-25% status post ICD, nicotine dependence, CAD: patient had a coronary catheterization recently which showed patent stent in the circumflex and mid to moderate stenosis in the origin of the marginal branch and unable to be intervened.? On aspirin and Plavix -essential hypertension: Cozaar, Coreg -peripheral neuropathy: Gabapentin -peripheral edema: Lasix -atrial fibrillation: Amiodarone -anxiety: Xanax p.r.n. Diet:??Heart healthy DVT prophylaxis:?lovenox Code status:??Full code Disposition:? Home in 2-3 days, [facility] status Time Spent With Patient Time: 35 minutes Subjective Date/time seen: 09/14/23 10:21 Interval history: Patient seen and examined. Patient has had a rough night, needed to increase oxygen 4 L. the some concern for possible nocturnal dyspnea, will have ApneaLink study tonight. He has some chest discomfort with his cough, EKG shows sinus rhythm without ST changes. Sputum culture was collected last evening. He still has some expiratory wheezing and we will continue nebs. With his lack of improvement we will continue monitoring. He endorses cough, dyspnea malaise, weakness. He denies fever, chills, nausea, vomiting diarrhea. Review of Systems Review of Systems: 10 point ROS complete, negative other than what is specified in HPI. Exam Narrative: - GENERAL:? Pleasant male no acute distress. Well-nourished. - EYES: EOMI. Anicteric. - HENT: Moist mucous membranes. - LUNGS:? Expiratory wheezing bilaterally, some labored dyspnea on 3 L oxygen - CARDIOVASCULAR: Regular rate and rhythm. No murmur. No JVD. - ABDOMEN: Soft, non-tender and non-distended. No palpable masses. - EXTREMITIES: No edema. Peripheral pulses 2+. Non-tender. - NEUROLOGIC: No focal neurological deficits. CN II-XII grossly intact. - PSYCHIATRIC: Awake, Alert and oriented x 3. Appropriate mood and affect. - SKIN: No rashes or lesions. Warm. - LYMPH: No cervical lymphadenopathy. Objective Data Vital Signs Vital Signs: Vital Signs - 24 hr 09/13/23 11:01 09/13/23 12:00 09/13/23 13:31 Temperature 36.6 C Pulse Rate 71 73 71 Respiratory Rate 12 18 Blood Pressure 91/42 L
--- NOTE | 2023-09-14 18:37 | PC.NURSE ---
This patient, Low Sarmiento, was received from [facility] on 09/14/23 at 1837. Patient/family oriented to unit policies and routines.
[2023-09-15] VITALS (15 sets, daily range): BP systolic 119; BP diastolic 48; PULSE 62–92; RESP 18; TEMP 36.6; O2SAT 85–98
[2023-09-15 03:09] LABS: Pneumococcal Antigen Urine Not Detected (Not Detected)
--- NOTE | 2023-09-15 03:55 | PCRCNOTE ---
Patient did not receive 0200 updraft treatment due to being on an overnight pulse oximetry study. Treatment to resume at 0800.
[2023-09-15 05:31] LABS: Basophils Percent Auto 0.4 % (0.2-1.2); Eosinophils Absolute Auto 0.2 K/mm3 (0-0.3); Eosinophils Percent Auto 3.2 % (0-4.4); Hematocrit 37.5 % (42.0-52.0); Hemoglobin 11.6 g/dL (14.0-18.0); Immature Granulocyte Absolute 0.01 K/mm3 (0.00-0.031); Immature Granulocyte Percent A 0.2 % (0-0.5); Mean Corpuscular HGB Conc 30.9 g/dl (32-36); Mean Corpuscular Hemoglobin 29.7 pg (26-34); Mean Corpuscular Volume 96.2 fl (80-100); Mean Platelet Volume 10.7 fl (7.4-10.4); Monocytes Absolute Auto 0.5 K/mm3 (0.1-0.6); Monocytes Percent Auto 8.1 % (2.6-8.5); Neutrophils Absolute Auto 3.8 K/mm3 (1.3-6.7); Neutrophils Percent Auto 67.1 % (45.5-73.1); Platelet Count Result 153 k/mm3 (150-375); Red Cell Distribution Width 14.6 % (11.5-14.5); White Blood Count 5.7 K/mm3 (4.5-10.0)
[2023-09-15 05:57] LABS: Alanine Aminotransferase 58 U/L (6-50); Albumin Level 3.5 g/dL (3.5-5.1); Alkaline Phosphatase 82 U/L (38-126); Anion Gap -2 mmol/L (8-16); Aspartate Amino Transferase 45 U/L (17-59); Bilirubin,Total 0.3 mg/dL (0.2-1.3); Blood Urea Nitrogen 13 mg/dL (9-20); Calcium 8.2 mg/dL (8.4-10.2); Carbon Dioxide 39 mmol/L (22-30); Chloride 100 mmol/L (98-107); Estimated CRCL calculation 80 ml/min; Estimated Glomerular Filt Rate > 60; Glucose 115 mg/dL (65-110); Potassium 3.7 mmol/L (3.4-5.0); Sodium 137 mmol/L (137-145)
[2023-09-15] MEDS: IPRATROPIUM 0.5 MG/ALBUTEROL SULFATE 2.5 MG AMPUL.NEB 3 ML INHALATION ×2 (07:40→13:10)
[2023-09-15] MEDS: AMIODARONE HCL 200 MG TABLET PO (09:04)
[2023-09-15] MEDS: carvediloL 12.5 MG TABLET PO (09:05)
[2023-09-15] MEDS: FUROSEMIDE 20 MG TABLET PO (09:05)
[2023-09-15] MEDS: GABAPENTIN 300 MG CAPSULE PO ×2 (09:05→12:40)
[2023-09-15] MEDS: DOXYCYCLINE HYCLATE 100 MG TABLET PO (09:05)
[2023-09-15] MEDS: CLOPIDOGREL BISULFATE 75 MG TABLET PO (09:05)
[2023-09-15] MEDS: ENOXAPARIN 40 MG/0.4 ML SYRINGE SUB-Q (09:05)
[2023-09-15] MEDS: ASPIRIN 81 MG CHEWABLE TABLET PO (09:05)
[2023-09-15] MEDS: LOSARTAN POTASSIUM 25 MG TABLET PO (09:05)
[2023-09-15] MEDS: NICOTINE (*PBKC) 21 MG PATCH 1 PATCH TRANSDERM (09:05)
[2023-09-15] MEDS: ALPRAZolam (*CRX) 0.5 MG TABLET PO (09:13)
--- NOTE | 2023-09-15 11:41 | HOMEO2EVAL ---
Evaluation was performed at [facility] Home Oxygen Evaluation RC: Home Oxygen (O2) Evaluation Start: 09/15/23 11:02 Freq: ONCE Status: Active Protocol: RPE Activity Type Activity Date Activity User E-sign Co-sign Detail Recorded Client Recorded Date Recorded By Document 09/15/23 11:19 KRM [email or web address] 09/15/23 11:41 KRM Document 09/15/23 11:20 KRM [email or web address] 09/15/23 11:41 KRM Document 09/15/23 11:21 KRM [email or web address] 09/15/23 11:41 KRM Document 09/15/23 11:25 KRM [email or web address] 09/15/23 11:41 KRM 09/15/23 09/15/23 09/15/23 11:19 11:20 11:21 Home O2 Evaluation [Oxygen] -Test Phase Resting Resting Resting -Oxygen Delivery Room Air Nasal Cannula Nasal Cannula -Oxygen Flow Rate (L/min) 1 2 [Pulse Oximetry] -Pulse Oximetry (90-100 %) 86 L 85 L 94 [Pulse Rate] -Pulse Rate (60-100 beats/min) 82 92 92 [Evaluation] -Activity Tolerance [Exercise] -Ambulation Distance (feet) -Ambulation Distance (meters) [Comments] -Home Oxygen Evaluation Comments [Charges] -Evaluation Charges 09/15/23 11:25 Home O2 Evaluation [Oxygen] -Test Phase Exercise -Oxygen Delivery Nasal Cannula -Oxygen Flow Rate (L/min) 2 [Pulse Oximetry] -Pulse Oximetry (90-100 %) 91 [Pulse Rate] -Pulse Rate (60-100 beats/min) 73 [Evaluation] -Activity Tolerance Good [Exercise] -Ambulation Distance (feet) 200 -Ambulation Distance (meters) 60.95 [Comments] -Home Oxygen Evaluation Comments PT. NEEDS 2LPM AT REST AND WITH ACTIVITY. PT. WANT POC (PORTABLE CONCENTRATER). [Charges] -Evaluation Charges O2 Evaluation by Pulmonary
--- NOTE | 2023-09-15 11:44 | PCRCNOTE ---
HOME O2 EVAL COMPLETED. PT. NEEDS 2LPM AT REST AND WITH ACTIVITY. PT. SET UP WITH MED RESOURCES [phone].
--- NOTE | 2023-09-15 11:57 | PM.DS ---
DS: Admitting Diagnosis Discharge Date 09/15/23 Admitting Diagnosis Community-acquired pneumonia DS: Discharge Diagnosis Discharge Diagnosis (1) Transaminitis: Code(s): R74.01 - Elevation of levels of liver transaminase levels Status: Acute (2) Suspected chronic obstructive pulmonary disease based on initial evaluation: Code(s): J44.9 - Chronic obstructive pulmonary disease, unspecified Status: Acute (3) Acute respiratory failure with hypoxia: Code(s): J96.01 - Acute respiratory failure with hypoxia Status: Acute (4) Right lower lobe pneumonia: Qualifiers: Pneumonia type: due to unspecified organism Qualified Code(s): J18.9 - Pneumonia, unspecified organism Code(s): J18.9 - Pneumonia, unspecified organism Status: Acute (5) Elevated troponin: Code(s): R79.89 - Other specified abnormal findings of blood chemistry Status: Acute Plan # right lower lobe pneumonia # acute hypoxia -chest x-ray concerning for right lung infiltrates -antibiotics: Continue Rocephin, doxycycline (discharge with 2 more days of doxycycline and cefuroxime) -weaning O2 as tolerated, up to 4 L oxygen overnight, goal of saturation greater 90% -apnea link was not sufficient -will need sleep study for possible TORREY -bad samples from sputum culture -patient home O2 evaluation recommendation for 2 L oxygen at rest and with activity # elevated troponin -likely supply demand from pneumonia -appreciate cardiology consultation: No further cardiac workup indicated, treat pneumonia -EKG shows normal sinus rhythm # transaminitis -normal gallbladder ultrasound -no abdominal pain -lab have normalized # chronic conditions -ischemic cardiomyopathy EF 20-25% status post ICD, nicotine dependence, CAD: patient had a coronary catheterization recently which showed patent stent in the circumflex and mid to moderate stenosis in the origin of the marginal branch and unable to be intervened.? On aspirin and Plavix -essential hypertension: Cozaar, Coreg -peripheral neuropathy: Gabapentin -peripheral edema: Lasix -atrial fibrillation: Amiodarone -anxiety: Xanax p.r.n. Diet:??Heart healthy Code status:??Full code Disposition:? home with oxygen DS: Summary Hospital Course Reason for hospitalization: dyspnea, pneumonia Hospital Course: Patient is a 63-year-old male past with history of ischemic cardiomyopathy EF 20-25% status post ICD placement, essential hypertension, CAD peripheral neuropathy, atrial fibrillation on amiodarone presents with upper respiratory symptoms patient found community-acquired pneumonia with right lung infiltrate. He was treated with IV Rocephin and doxycycline. Despite antibiotics he was still very hypoxic requiring up to 4 L of oxygen. He was hospitalized from 09/10 to 09/14. Home O2 eval was recommending 2 L of oxygen with activity and at rest. He will be discharged with 2 more days of cefuroxime and doxycycline antibiotic. He had elevated troponin and Cardiology recommended continue treating pneumonia as it was likely a supply demand issue. Patient also was found to have transaminitis on admission and abdominal ultrasound showed an no gallbladder pathology. He did not any abdominal symptoms and the transaminitis improved. By time of discharge, patient's labs are stable, vitals stable, patient is stable for discharge home with 2 L oxygen therapy. Patient to follow-up with PCP in 1 week. Status at Discharge Cognitive/behavioral status at discharge: Stable, baseline Time Spent with Patient Time attestation: Total time spent providing and/or coordinating discharge services: 35 minutes Exam Narrative: - GENERAL:? Pleasant male no acute distress. Well-nourished. - EYES: EOMI. Anicteric. - HENT: Moist mucous membranes. - LUNGS:? Clear to auscultation, breathing comfortably on 2 L by nasal cannula - CARDIOVASCULAR: Regular rate and rhythm. No murmur. No JVD. - ABDOMEN: Soft
[2023-09-16 05:35] LABS: Legionella pneumophila Ag Ur Not Detected (Not Detected)
[2023-09-16 12:58] LABS: Mycoplasma IgM Antibody Titer 54 U/mL (<770)
== END 2023-09-15 15:20 | disposition home or self-care (01) | DRG 194 ==
LOC: ANHED 17:27 → ANHIMU 22:55 → ANH3MED 09-15 11:57 → ANH3MEDSUR 09-16 10:37 → ANHIMU 09-16 10:37
PROVIDERS: Internal Medicine; Physician Assistant; Admitting Provider Internal Medicine; Emergency Provider Student in an Organized Health Care Education/Training Program; PCP Family Medicine; Visit Provider Internal Medicine
DX: J18.9 Pneumonia, unspecified organism (principal); I13.0 Hypertensive heart and chronic kidney disease with heart failure and stage 1 through stage 4 chronic kidney disease, or unspecified chronic kidney disease; I50.22 Chronic systolic (congestive) heart failure; J44.0 Chronic obstructive pulmonary disease with (acute) lower respiratory infection; I25.10 Atherosclerotic heart disease of native coronary artery without angina pectoris; N18.9 Chronic kidney disease, unspecified; E78.5 Hyperlipidemia, unspecified; I48.0 Paroxysmal atrial fibrillation; I25.5 Ischemic cardiomyopathy; R79.89 Other specified abnormal findings of blood chemistry; F41.1 Generalized anxiety disorder; F32.A Depression, unspecified; I71.40 Abdominal aortic aneurysm, without rupture, unspecified; F17.210 Nicotine dependence, cigarettes, uncomplicated; F41.9 Anxiety disorder, unspecified; G62.9 Polyneuropathy, unspecified; Z20.822 Contact with and (suspected) exposure to COVID-19; Z95.5 Presence of coronary angioplasty implant and graft; Z95.810 Presence of automatic (implantable) cardiac defibrillator; Z79.82 Long term (current) use of aspirin; I25.2 Old myocardial infarction
CPT/HCPCS: 36415; 71045; 76705; 80053; 80074; 80307; 82550; 83605; 83735; 83880; 84484; 85025; 85027; 86140; 86738; 87040; 87070; 87205; 87449; 87637; 87641; 87899; 93005; 94618; 94640; 94762; 96365; 96366; 96367; 96372; 96375; 99285; A9270; J0456; J0692; J0696; J1650; J2270; J2405; J3370

== ENCOUNTER 2023-12-22 07:57 | Outpatient (CLI) | payer MEDICARE, SELFPAY ==
--- NOTE | ~2023-12-22 | CT_ITS ---
EXAMINATION: CTA abdomen pelvis DATE: 12/22/2023 09:04 INDICATION: Abdominal aortic aneurysm without rupture TECHNIQUE: Computed tomographic angiography (CTA) of the abdomen and pelvis was performed with 100 mL Omnipaque-350 intravenous contrast. Additional 3D reconstructions utilizing rotating maximum intensi ty projection (MIP) were performed. Automated exposure control and iterative reconstruction technique were employed. The dose-length product was 1317.14 mGy-cm. COMPARISON: 08/10/2023 FINDINGS: Calcified left lower lobe nodule consistent with old granulomatous disease. Heart size is n ormal with left ventricular enlargement. Dual lead pacemaker/AICD seen with lead tips at the right at rial appendage and in the right ventricle. No pericardial or pleural effusion. Couple tiny gallstones the dependent aspect of the normal gallbladder. A few hepatic and splenic calcific lesions along wit h calcified periportal and portacaval lymph nodes consistent with old granulomatous disease. Pancreas , bilateral adrenal glands and kidneys are normal. 5.1 cm fusiform infrarenal abdominal aortic aneury sm. Bowels including the appendix are normal. Diffuse mild wall thickening of the partially decompres sed bladder. Mild prostatomegaly. Small bilateral fat-containing inguinal hernias. No free intraperit skinner gas or fluid. No pathologically enlarged abdominal or pelvic lymphadenopathy. L5 bilateral pars intra-articular is defects without spondylolisthesis. IMPRESSION: 1. 5.1 cm fusiform intrarenal abdominal aortic aneurysm. 2. Persistent diffuse mild bladder wall thickening which could be due to incomplete distention, seque la of chronic outlet obstruction from the mildly enlarged prostate or due to cystitis either acute or chronic. Reviewed, dictated and finalized at location A. IMPRESSION: 1. 5.1 cm fusiform intrarenal abdominal aortic aneurysm. 2. Persistent diffuse mild bladder wall thickening which could be due to incomp lete distention, sequela of chronic outlet obstruction from the mildly enlarged prostate or due to cystitis either acute or chronic.
[2023-12-22 08:49] LABS: Estimated Glomerular Filt Rate 55
== END 2023-12-22 07:58 | disposition home or self-care (01) ==
PROVIDERS: PCP Family Medicine; Visit Provider Family Medicine
DX: I71.43 Infrarenal abdominal aortic aneurysm, without rupture (principal)
CPT/HCPCS: 74174; Q9967

== ENCOUNTER 2024-03-22 08:46 | Emergency (ER) | payer MEDICARE, SELFPAY ==
[2024-03-22] VITALS (12 sets, daily range): BP systolic 103–141; BP diastolic 68–94; PULSE 91–103; RESP 12–22; TEMP 36.7; O2SAT 94–98
--- NOTE | ~2024-03-22 | CT_ITS ---
CT abdomen pelvis w con Ordering provider: Yolis Castillo APRN History: 64 years Male with . history AA . Comparison: December 22, 2023 oh highly suggestive cardiomegaly radiology base especially other is severe spinal canal stenosis at the level of Technique: CT abdomen and pelvis with IV and without oral contrast. Automated exposure control and it erative reconstruction technique were employed. The dose-length product was 1129.84 mGy-cm. 100 mL Om nipaque 350 was given IV. Findings: VISUALIZED LOWER CHEST: Dependent atelectatic changes. UPPER ABDOMINAL ORGANS: Liver: Fat infiltration Gallbladder: Normal. Spleen: Normal. Stomach/duodenum: Normal. Pancreas: Normal. Adrenals: Prominent adrenal glands. Kidneys: Tiny cyst in the right kidney upper pole. PELVIC ORGANS: The bladder is underfilled with thickened wall. BOWEL AND MESENTERY: Colon: No evidence of diverticulitis. Fecal material is loaded in the colon suggestive of constipatio n. The appendix is not demonstrated with no evidence of appendicitis seen in the right lower quadrant area. Small Bowel: Normal. No obstruction. Peritoneum/mesentery: No free air or free fluid. No mesenteric lymphadenopathy. RETROPERITONEUM: Abdominal aortic aneurysm is seen measuring 5.3 x 5.4 cm thrombus is noted in the periphery . The central lumen shows some irregularity and measures 2.6 x 3.4 cm. Mild atheromatou s disease of the abdominal aorta. No retroperitoneal lymphadenopathy. MUSCULOSKELETAL: Superficial soft tissues: Bilateral fat containing inguinal areas. Otherwise, The superficial soft ti ssues are normal. Bones: Age appropriate degenerative changes of the spine. IMPRESSION: 1. Abdominal aortic aneurysm measuring 5.3 x 5.4 cm. 2. Fat infiltration of the liver. 3. Slightly prominent adrenal glands. 4. Constipation. 5. Bilateral fat containing inguinal hernia. Reviewed, dictated and finalized at location A.
--- NOTE | ~2024-03-22 | XR_ITS ---
EXAMINATION: XR chest 2V DATE: 03/22/2024 10:45 INDICATION: Recent pneumonia. TECHNIQUE: Frontal and lateral views of the chest were obtained. COMPARISON: Chest 2 view 09/11/2023, CT abdomen and pelvis 12/22/2023 FINDINGS: There are airspace opacities in left lower lobe. No pleural effusion or pneumothorax. The h eart size is normal. There is a left chest wall pacer with leads in the right atrium and right ventri yoon. IMPRESSION: 1. Airspace opacities in left lower lobe, consistent with atelectasis versus pneumonia. Reviewed, dictated and finalized at location A. IMPRESSION: 1. Airspace opacities in left lower lobe, consistent with atelectasis versus pn eumonia.
--- NOTE | 2024-03-22 09:10 | ED.BACK ---
HPI - Back Pain/Injury General Chief Complaint: Back Pain/Injury Stated Complaint: BACK PAIN X2D Time Seen by Provider: 03/22/24 09:00 History of Present Illness HPI Narrative: Patient is a 64-year-old male who presents to the ER with bilateral back pain. His reports he has had back pain for 2 days. Patient has a history of aortic aneurysm, congestive heart failure, and recent pneumonia. His reports that he was recently hospitalized for pneumonia and was has sent come back into hospital because of it. There is no recent history of falls or injury. He reports he was unable to sleep due to pain last night. Patient denies lower extremity edema, chest pain, or shortness of breath. MD elicited complaint: back pain Onset (ago): day(s) (two) Pain scale (0-10): 10 Similar Symptoms Previously: No Related Data Home Medications Medication Instructions Recorded Confirmed aspirin 81 mg tablet 81 mg PO DAILY 10/16/20 03/15/24 amoxicillin 875 mg-potassium 1 tablet PO 03/15/24 03/15/24 clavulanate 125 mg tablet furosemide 40 mg tablet 40 mg PO DAILY 03/15/24 03/15/24 metoprolol tartrate 25 mg tablet 25 mg PO BID 03/15/24 03/15/24 Allergies Allergy/AdvReac Type Severity Reaction Status Date / Time No Known Allergies Allergy Unknown Verified 03/22/24 09:11 Review of Systems Review of Systems: All systems reviewed & are unremarkable except as noted in HPI and below PMFSH Past Medical History Medical History Aneurysm of infrarenal abdominal aorta Stable aneurysm measuring 4.5 centimeters on 11/21/2020. Measuring 5.3 cm on 08/10/2023. Atherosclerotic heart disease of [place] coronary artery with angina pectoris Atherosclerotic heart disease of [place] coronary artery without angina pectoris Cardiomyopathy Chronic systolic (congestive) heart failure Cigarette nicotine dependence, uncomplicated Coronary artery disease Cyclic vomiting syndrome Depression Generalized anxiety disorder Hyperlipidemia Hypertension Hypokalemia Ischemic cardiomyopathy EF 35-40% on echo performed on 11/18/2022. Cardiac defibrillator in place. Major depressive disorder in partial remission Marijuana smoker, episodic Other specified complication of cardiac prosthetic devices, implants and grafts, subsequent encounter Pancreatitis Paroxysmal atrial fibrillation Personal history of colonic polyps Presence of automatic (implantable) cardiac defibrillator Shingles Stenosis of infrarenal abdominal aorta due to arteriosclerosis Urinary tract infection Surgical History Surgical History History of arthroscopic knee surgery History of cardiac catheterization (~09/2019) Performed in [facility]. History of coronary artery stent placement (~09/2019) Stent x2. History of tracheostomy (~09/2019) Pacemaker Family History Family History Mother Congestive heart failure Father Glaucoma Lip cancer Daughter Pulmonary emboli Social History Social History Social History: The patient lives in [place] with his . one children passed which was his daughter. He has 2 living children and is retired from [employer]. He smoked a pack of cigarettes a day for 30 years and quit quite sometime ago. No alcohol abuse. Admits to marijuana use but does not qualify or quantify. He designates his Iveth as his surrogate decision maker and he wishes to be a full code. Code status full code Smoking packs per day: 0.5 Smoking cigarettes per day: 10.0 Years smoked: 40 Smoking pack-years: 20.00 Smoking status: Current every day smoker Tobacco type: cigarettes Second hand tobacco smoke exposure: Yes Alcohol intake: never Substance use: never Substance use type: does not use Do You Fe
--- NOTE | 2024-03-22 09:36 | ECG_ITS ---
Test Date: 2024-03-22 10:06:30 Measurements Intervals [place] Rate: 97 P: 48 AR: 184 QRS: -48 QRSD: 152 T: 111 QT: 380 QTc: 484 Interpretive Statements SINUS RHYTHM WITH OCCASIONAL VENTRICULAR PREMATURE COMPLEXES LEFT BUNDLE BRANCH BLOCK BASELINE ARTIFACT- I, II, III, AVR, AVL, AVF, V4-V6 ABNORMAL ECG No previous ECG available for comparison Electronically Signed On 03-22-2024 10:28:46 CDT by Prince Boyd D.O.
[2024-03-22 09:37] LABS: Add Urine Microscopic? YES; Appearance Urine Clear (Clear); Bacteria Urine None Seen /hpf; Bilirubin Urine Negative (Negative); Blood Urine Negative (Negative); Color Urine Yellow (Yellow); Glucose Urine UA Negative (Negative); Ketones Urine Negative (Negative); Leukocyte Esterase Ur Negative LEU/UL (Negative); Nitrate Urine Negative (Negative); Non Pathogenic Casts 0-2; Protein Urine 1+ mg/dL (Negative); RBC Urine 0-2 /hpf (0-2); Specific Grav Ur 1.015 (1.001-1.035); Squamous Epithelial Cell Urine None Seen /hpf (Few); WBC Urine 0-5 /hpf (0-3); pH Urine 6.5 (5.0-9.0)
[2024-03-22] MEDS: MORPHINE SULFATE (*CRX) 4 MG/ML INJ IV PUSH ×2 (09:52→11:58)
[2024-03-22 09:59] LABS: Basophils Absolute Auto 0.1 K/mm3 (0.0-0.1); Basophils Percent Auto 0.7 % (0.2-1.2); Eosinophils Absolute Auto 0.2 K/mm3 (0-0.3); Hematocrit 45.7 % (42.0-52.0); Hemoglobin 14.7 g/dL (14.0-18.0); Immature Granulocyte Absolute 0.02 K/mm3 (0.00-0.031); Immature Granulocyte Percent A 0.3 % (0-0.5); Lymphocytes Absolute Auto 1.11 K/mm3 (0.9-3.2); Lymphocytes Percent Auto 14.5 % (18.3-44.2); Mean Corpuscular HGB Conc 32.2 g/dl (32-36); Mean Corpuscular Volume 90.1 fl (80-100); Mean Platelet Volume 10.6 fl (7.4-10.4); Monocytes Absolute Auto 0.5 K/mm3 (0.1-0.6); Monocytes Percent Auto 5.9 % (2.6-8.5); Neutrophils Absolute Auto 5.9 K/mm3 (1.3-6.7); Neutrophils Percent Auto 76.6 % (45.5-73.1); Platelet Count Result 212 k/mm3 (150-375); Red Blood Count 5.07 M/mm3 (4.6-6.20); Red Cell Distribution Width 14.5 % (11.5-14.5); White Blood Count 7.7 K/mm3 (4.5-10.0)
[2024-03-22 10:13] LABS: Prothrombin Time 13.1 Seconds (11.1-14.7)
[2024-03-22 10:14] LABS: Partial Thromboplastin Time 28.4 Seconds (22.3-36.8)
[2024-03-22 10:20] LABS: Alanine Aminotransferase 20 U/L (6-50); Albumin Level 4.5 g/dL (3.5-5.1); Alkaline Phosphatase 93 U/L (38-126); Anion Gap 8 mmol/L (4-12); Aspartate Amino Transferase 29 U/L (17-59); Bilirubin,Total 0.8 mg/dL (0.2-1.3); Blood Urea Nitrogen 21 mg/dL (9-20); Calcium 9.6 mg/dL (8.4-10.2); Carbon Dioxide 35 mmol/L (22-30); Chloride 90 mmol/L (98-107); Estimated CRCL calculation 58 ml/min; Estimated Glomerular Filt Rate 55; Glucose 156 mg/dL (65-110); Lipase 46 U/L (23-300); Potassium 3.8 mmol/L (3.4-5.0); Sodium 133 mmol/L (137-145)
[2024-03-22 10:34] LABS: NT Pro B Type Natriuretic Pept 2010 pg/mL (19.9-100); Troponin I 0.063 ng/mL (0.000-0.034)
[2024-03-22] MEDS: SODIUM CHLORIDE 0.9% IV 500 ML IV CONT (10:40)
[2024-03-22] MEDS: LORazepam INJ (*CRX) 2 MG/ML VIAL 0.5 MG IV PUSH (11:58)
--- NOTE | 2024-03-22 12:18 | ECG_ITS ---
Test Date: 2024-03-22 12:22:45 Measurements Intervals [place] Rate: 95 P: 64 MO: 200 QRS: -48 QRSD: 148 T: 104 QT: 383 QTc: 483 Interpretive Statements SINUS RHYTHM WITH OCCASIONAL SUPRAVENTRICULAR PREMATURE COMPLEXES LEFT AXIS DEVIATION LEFT BUNDLE BRANCH BLOCK BASELINE ARTIFACT- I, II, III, AVR, AVL, AVF, V4-V6 ABNORMAL ECG Compared to ECG 03/22/2024 10:06:30 NO SIGNIFICANT CHANGE Electronically Signed On 03-22-2024 12:53:10 CDT by Prince Boyd D.O.
[2024-03-22] MEDS: FUROSEMIDE INJ 40 MG/4 ML VIAL IV PUSH (12:31)
[2024-03-22 12:54] LABS: Troponin I 0.054 ng/mL (0.000-0.034)
[2024-03-22] MEDS: CYCLOBENZAPRINE HCL 5 MG TABLET PO (13:56)
[2024-03-22] MEDS: HYDROmorphone HCL INJ (*CRX) 1 MG/ML SYR IV PUSH (13:56)
--- NOTE | 2024-03-22 15:11 | PC.NURSE ---
Spoke with Bárbara at this time. called for update.
--- NOTE | 2024-03-22 15:13 | ECG_ITS ---
Test Date: 2024-03-22 15:17:51 Measurements Intervals [place] Rate: 103 P: 82 NV: 202 QRS: -49 QRSD: 159 T: 116 QT: 387 QTc: 508 Interpretive Statements SINUS TACHYCARDIA WITH OCCASIONAL SUPRAVENTRICULAR PREMATURE COMPLEXES LEFT BUNDLE BRANCH BLOCK BASELINE ARTIFACT- I, II, III, AVR, AVL, AVF, V6 ABNORMAL ECG Compared to ECG 03/22/2024 12:22:45 HEART RATE HAS INCREASED Electronically Signed On 03-22-2024 19:53:04 CDT by Prince Boyd D.O.
== END 2024-03-22 16:57 | disposition home or self-care (01) ==
PROVIDERS: Emergency Provider Registered Nurse; PCP Family Medicine
DX: M54.9 Dorsalgia, unspecified (principal); I71.43 Infrarenal abdominal aortic aneurysm, without rupture; I25.119 Atherosclerotic heart disease of native coronary artery with unspecified angina pectoris; I50.22 Chronic systolic (congestive) heart failure; I11.0 Hypertensive heart disease with heart failure; I25.5 Ischemic cardiomyopathy; I48.0 Paroxysmal atrial fibrillation; E78.5 Hyperlipidemia, unspecified; Z95.5 Presence of coronary angioplasty implant and graft; Z95.0 Presence of cardiac pacemaker; Z86.010 Personal history of colon polyps; Z87.440 Personal history of urinary (tract) infections; Z87.891 Personal history of nicotine dependence; I44.7 Left bundle-branch block, unspecified; I49.1 Atrial premature depolarization; R00.0 Tachycardia, unspecified; K76.0 Fatty (change of) liver, not elsewhere classified; K59.00 Constipation, unspecified; K40.20 Bilateral inguinal hernia, without obstruction or gangrene, not specified as recurrent; R91.8 Other nonspecific abnormal finding of lung field
CPT/HCPCS: 36415; 71046; 74177; 80053; 81001; 83690; 83880; 84484; 85025; 85610; 85730; 93005; 96361; 96374; 96375; 96376; 99284; A9270; J1170; J1940; J2060; J2270; J7040; Q9967

== ENCOUNTER 2025-01-04 13:22 | Emergency (ER) | payer MEDICARE, SELFPAY ==
--- NOTE | ~2025-01-04 | CT_ITS ---
EXAMINATION: CTA BRAIN/CAROTID DATE: 01/04/2025 13:43 INDICATION: Sudden onset aphasia. Right-sided facial droop. TECHNIQUE: Computed tomographic angiography (CTA) of the head and neck was performed with 100 mL Omni paque-350 intravenous contrast. Multiplanar reconstructions and maximum intensity projection 3D-recon structions of the carotid arteries and of the intracranial arteries were created by the technologist on a separate workstation. Precontrast CT of the head was also obtained. Automated exposure control and iterative reconstruction technique were employed.The dose-length product was 1907.34 mGy-cm. COMPARISON: None. FINDINGS: Carotid arteries: Small amount of nonhemodynamically significant atherosclerotic plaque and no dissection along the nor mal caliber aortic arch and the vessels arising from the arch. Vertebral arteries are codominant. The re is small of atherosclerotic plaque with 0% stenosis of the right carotid bulb relative to normal d istal artery lumen diameter (NASCET criteria). There is 30% stenosis of the left carotid bulb relativ e to normal distal artery lumen diameter. There is some gas in the nondependent main pulmonary artery likely related to venous access.. Mild emphysema in the visualized upper lungs. Mild cervical spondy losis. Head: Small region of encephalomalacia at the inferior right occipital lobe consistent with sequela of old infarct. No acute intracranial hemorrhage, acute infarction or abnormal extra axial fluid collection. There is mild scattered white matter hypoattenuation consistent with chronic small vessel ischemic d isease. Symmetric prominence of the sulci consistent with mild age-appropriate diffuse cerebral volum e loss. Ventricles are normal and symmetric. No mass/mass effect. The orbits, paranasal sinuses and m astoid air cells are normal. Intracranial arteries: Vertebral arteries are codominant. Nonhemodynamically significant atherosclerotic plaque along the bi lateral carotid siphons. There is no hemodynamically significant stenosis in the vertebral, basilar a nd internal carotid arteries. Both A1 and P1 segments are patent. There is a patent anterior communic ating artery. There is a 2 mm aneurysm at the bifurcation of the left M1 segment Cerebral arterial ar borization appears symmetric. IMPRESSION: 1. 0% stenosis of the right carotid bulb relative to normal distal artery lumen diameter (NASCET crit eria). 2. 30% stenosis of the left carotid bulb relative to normal distal artery lumen diameter. 3. 2 mm aneurysm at the bifurcation of the left M1 segment. Otherwise unremarkable cerebral CT angiog love. 4. 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 No acute intracranial process. Reviewed, dictated and finalized at location B. IMPRESSION: 1. 0% stenosis of the right carotid bulb relative to normal distal artery lumen diameter (NASCET criteria). 2. 30% stenosis of the left carotid bulb relative to normal distal artery lumen diameter. 3. 2 mm aneurysm at the bifurcation of the left M1 segment. Otherwise unremarka ble cerebral CT angiogram. 4. 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 No acute intracranial process.
--- NOTE | ~2025-01-04 | XR_ITS ---
Portable chest x-ray Comparison: 03/22/2024 Clinical History: CVA Findings: Lungs are clear, without focal consolidation or pleural effusion. Cardiomediastinal silho uette is stable, with pacemaker device. Bones and soft tissues are unremarkable. Impression: Clear lungs. Reviewed, dictated and finalized at location . Impression: Clear lungs.
--- NOTE | 2025-01-04 13:24 | ECG_ITS ---
Test Date: 2025-01-04 13:48:43 Measurements Intervals [place] Rate: 74 P: 35 VA: 198 QRS: -51 QRSD: 149 T: 105 QT: 449 QTc: 499 Interpretive Statements SINUS RHYTHM FIRST-DEGREE AV BLOCK LEFT AXIS DEVIATION [QRS AXIS < -30] INTRAVENTRICULAR CONDUCTION DELAY [130+ ms QRS DURATION] Compared to ECG 03/22/2024 15:17:51 Left-axis deviation now present Intraventricular conduction delay now present Sinus tachycardia no longer present Left bundle-branch block no longer present Electronically Signed On 01-04-2025 18:10:51 CDT by Francesca Rodriguez
--- OUTSIDE RECORDS SUMMARY | 2025-01-04 13:24 | XMS_ITS | Referral Summary ---
Author Organization [facility] Address [address] [place] [id number] Care Team Providers Care Access Services Assistant Name Role Phone Jacob Dahl MD Primary Care Provider [phone] Matthew Doss MD Unavailable Braulio Xiao MD PhD Unavailable + Mary David RN Unavailable Unavailable Clari Dukes RN Unavailable Unavaila Alma Diaz MD Unavailable [phone] Dorian Trejo MD Unavailable [phone] Nba Dunlap MD Unavailable Allergies Active Allergy Reactions Criticality Noted Date Comments Lisinopril Dizziness Low 05/15/2018 Medications aspirin 81 mg enteric coated tablet Take 1 tablet (81 mg total) by mouth daily 0 Active acetaminophen (TYLENOL) 325 mg tablet Take 2 tablets (650 mg total) by mouth every 6 (six) hours as needed for headaches or fever 30 tablet 0 Active escitalopram (LEXAPRO) 10 mg tablet Take 1 tablet (10 mg total) by mouth daily 0 Active ALPRAZolam (XANAX) 0.5 mg tablet Take 1 tablet (0.5 mg total) by mouth daily 2 Active furosemide (LASIX) 40 mg tablet Take 1 tablet (40 mg total) by mouth daily 30 tablet 11 4 03/01/20 25 Active metoprolol tartrate (LOPRESSOR) 25 mg immediate release tablet Take 1 tablet (25 mg total) by mouth 2 (two) times a day 60 tablet 11 4 03/06/20 25 Active amiodarone (PACERONE) 200 mg tablet Take 1 tablet (200 mg total) by mouth daily Active clopidogreL (PLAVIX) 75 mg tablet Take 1 tablet (75 mg total) by mouth daily Active atorvastatin (LIPITOR) 80 mg tablet Take 1 tablet (80 mg total) by mouth daily Active rivaroxaban (XARELTO) 20 mg tablet Take 1 tablet (20 mg total) by mouth daily with dinner Active sacubitriL-vals tawanda (ENTRESTO) 24-26 mg tabletIndicatio ns:chronic heart failure Take 0.5 tablets by mouth 2 (two) times a day 30 tablet 11 5 07/07/19 26 Active Active Problems Problem Noted Date Diagnosed Date Acute respiratory distress 07/08/2024 Acute on chronic congestive heart failure 2023 Acute respiratory failure with hypoxia ICD (implantable cardioverte r-defibrillator) battery depletion 03/21/2023 Implantable cardioverter-def ibrillator (ICD) generator end of life 03/12/2023 Paroxysmal atrial fibrillation 02/08/2021 On amiodarone therapy 02/08/2021 Current use of chcf anticoagulation 021 Sinus node dysfunction 02/08/2021 Complete heart block 02/08/2021 Presence of dual implantable cardioverter-defibr illator 02/08/2021 Overview (03/31/2023): Ramirez [place] Dual ICD. Dx; ICM, SSS, PAF. DOI 03/21/2023-Ravinder. Chronic leads04/26/2014. Eduardo Hernandez remote monitoring. Abdominal aortic aneurysm (AAA) without rupture 09/10/2020 CAD (coronary artery disease) 03/06/2020 Chronic systolic congestive heart failure 2019 Edema 02/22/2020 Shortness of breath 01/25/2020 Assessment & Plan (01/25/2020 11:27 AM CDT): The patient has normal vocal fold mobility and my visualization of the subglottis appears to demonstrate minimal narrowing overall. Moreover, there is a lack of stridor or other transmitted upper airway sounds. Based on this, I provided reassurance to the patient and his that I would believe his upper airway is responsible for his dyspnea. His last cardiac catheterization demonstrates an ejection fraction of 15%, so I believe that this is his most likely culprit. He should follow-up with his polystyrene bead molder. Myocardial infarction Resolved Problems Problem Noted Date Diagnosed Date Resolved Date Tracheostomy in place 10/22/20192019 Assessment & Plan (10/22/2019 9:53 AM CDT): Tracheostomy sticking out from stoma and removed today. The tract has almost completely healed at the anterior tracheal wall. He's been capped continuously for over 3 weeks without dyspnea. However, due to his recent myocardial infarction and due to the pre-syncopal episode he had while I was finger occluding the stoma, I would like to admit him to the hospital for decannulation. He needs to be on telemetry and continuous pulse oximetry monitoring. Immunizations Immunization Administration Dates Next Due Influenza, Trivalent, High D ose, Split, Preservative Free, Intramuscular 07/12/2024 Influenza, Unspecified 04/20/2020 Social History Tobacco Use Types Packs/Day Years Used Date Smoking Tobacco: Every Day Cigarettes Smokeless Tobacco: Never Tobacco Cessation:Ready to Q uit: Not Asked; Counseling Given: Not Answered Alcohol Use Standard Drinks/Week Comments Not Currently 0 (1 standard drink = 0.6 oz pur e alcohol) [facility] Utilities Answer Date Recorded In the past 12 months has [employer], oil, or water [employer] ??? threatened to shut off services in your home? No 07/09/2024 Social Connection and Isolat ion Panel [NHANES] Answer Date Recorded In a typical week, how many times do you talk on the phone with family, friends, or neighbors? More than three times a week 07/09/2024 How often do you get togethe r with friends or relatives? More than three times a week 07/09/2024 How often do you attend chur Betable or bahai services? Never 07/09/2024 Do you belong to any clubs o r organizations such as congregational groups, unions, fraternal or athletic groups, or school groups? No 07/09/2024 How often do you attend meet ings of the clubs or organizations you belong to? Never 07/09/2024 Are you , , di vorced, , never , or living with a partner? 07/09/2024 AUDIT-C Answer Date Recorded Q1: How often do you have a drink containing alcohol? Never 03/21/2023 Q2: How many drinks containi ng alcohol do you have on a typical day when you are drinking? Patient does not drink Q3: How often do you have si x or more drinks on one occasion? Never 03/21/2023 Overall Financial Resource Strain (CARDIA) Answe r Date Recorded How hard is it for you to pa y for the very basics like food, housing, medical care, and heating? Not hard at all 07/09/2024 Hunger Vital Sign Answer Date Recorded Within the past 12 months, y ou worried that your food would run out before you got the money to buy more. Never true 07/09/19 25 Within the past 12 months, t he food you bought just didn't last and you didn't have money to get more. Never true 07/09/2024 PRAPARE - Transportation Answer Date Re corded In the past 12 months, has l ack of transportation kept you from medical appointments or from getting medications? No 09/2024 In the past 12 months, has l ack of transportation kept you from meetings, work, or from getting things needed for daily living? No 07/09/2024 Housing Stability Vital Sign Answer Reese e Recorded In the last 12 months, was t here a time when you were not able to pay the mortgage or rent on time? No 07/09/2024 In the past 12 months, how m any times have you moved where you were living? 0 07/09/2024 At any time in the past 12 m [facility], were you homeless or living in a senior living (including now)? No 07/09/2024 Personal Safety Answer Date Recorded Have you ever been in or are you currently in a harmful physical or emotional relationship or is someone making you feel afraid or unsafe? Denies 07/08/2024 Sex and Gender Information Value Date Recorded Sex Assigned at Not on file Legal Sex Male 2:57 PM PHOTOGRAPHY AND PRINTS CURATOR Gender Identity Not on file Sexual Orientation Not on file Last Filed Vital Signs Vital Sign Reading Time Taken Comments Blood Pressure 109/94 07/12/2024 7:42 AM PHOTOGRAPHY AND PRINTS CURATOR Pulse 71 07/12/2024 7:42 AM PHOTOGRAPHY AND PRINTS CURATOR Temperature 36.4 C (97.5 F) 07/12/2024 7:42 AM PHOTOGRAPHY AND PRINTS CURATOR Respiratory Rate 17 07/12/2024 7:42 AM PHOTOGRAPHY AND PRINTS CURATOR Oxygen Saturation 93% 07/12/2024 7:42 AM PHOTOGRAPHY AND PRINTS CURATOR Inhaled Oxygen Concentration - - Weight 101.4 kg (223 lb 8.7 oz) 07/08/2024 3:50 PM PHOTOGRAPHY AND PRINTS CURATOR Height 175.3 cm (5' 9) 07/08/2024 3:50 PM PHOTOGRAPHY AND PRINTS CURATOR Body Mass Index 33.01 07/08/2024 3:50 PM PHOTOGRAPHY AND PRINTS CURATOR Plan of Treatment Not on file Medical Devices Implanted Type Area Foundry Worker Apprentice Device Identifier Shelf Expiration Date Model / Serial / Lot Ramirez Vascular Defib Cardiac [id number] [place] Implantable 2 Chamber [id number] - [id number] - [id number] Implanted:Qty: 1 on 03/21/2023 by Jonn Castellon MD at [facility] ICD Left: Infraclavicular Anterior Chest Wall Ramirez Vascular 12/04/2024 [id number] / [id number] / Daig Payal [id number] Device Closure Angio-Seal Vip Bondek-Plus Polyglyd L70 Cm Od6 Fr Odsec.035 In Vascular - [id number] Implanted:Qty: 1 on 01/19/2020 by Matthew Doss MD at [facility] Daig [employer] 08/06/2020 [id number] / / [id number] Procedures Procedure Name Priority Date/Time Associated Diagnosis Comments CTA ABDOMEN PELVIS W WO CONTRAST IP Routine 07/09/2024 4:56 PM PHOTOGRAPHY AND PRINTS CURATOR from Last 3 Months or Most Recently Relevant to Health Maintenance Results * CTA Abdomen Pelvis (07/09/2024 4:56 PM PHOTOGRAPHY AND PRINTS CURATOR) Anatomical Region Laterality Modality Body N/A Computed Tomogra phy 07/09/2024 5:10 PM PHOTOGRAPHY AND PRINTS CURATOR Impressions 07/09/2024 5:10 PM PHOTOGRAPHY AND PRINTS CURATOR Aortic atherosclerosis with 54 mm infrarenal abdominal aortic aneurysm and mural thrombus. Cholelithiasis. Electronically signed by: Yaw Escobar M.D. Narrative 07/09/2024 5:10 PM PHOTOGRAPHY AND PRINTS CURATOR EXAMINATION: CTA ABDOMEN PELVIS DATE: 07/09/2024 4:10 PM HISTORY: incr infrarenal AAA, on admission CT. TECHNIQUE: CT angiography of the abdomen and pelvis HISTORY: Abdominal aortic aneurysm TECHNIQUE: Images through the abdomen and pelvis were obtained before and after intravenous contrast administration. Three-dimensional reconstructions were performed. FINDINGS: 54 mm infrarenal abdominal aortic aneurysm is present. There is significant mural thrombus. Aneurysm begins distal to the renal artery origins and does not extend into the iliac arteries. The celiac and mesenteric arteries enhance normally. Bilateral renal arteries are normal. There is calcification in the iliac and visualized femoral arteries. There is no hemodynamically significant stenosis. There is minimal bilateral lower lobe atelectasis. Gallstones are noted in the gallbladder. The liver, spleen, pancreas, kidneys and adrenal glands are normal. There is no hydronephrosis, hydroureter, free intraperitoneal air or fluid. There is no bowel obstruction. There is no adenopathy. Procedure Note Yaw Escobar MD - 07/09/2024 EXAMINATION: CTA ABDOMEN PELVIS DATE: 07/09/2024 4:10 PM HISTORY: incr infrarenal AAA, on admission CT. TECHNIQUE: CT angiography of the abdomen and pelvis HISTORY: Abdominal aortic aneurysm TECHNIQUE: Images through the abdomen and pelvis were obtained before and after intravenous contrast administration. Three-dimensional reconstructions were performed. FINDINGS: 54 mm infrarenal abdominal aortic aneurysm is present. There is significant mural thrombus. Aneurysm begins distal to the renal artery origins and does not extend into the iliac arteries. The celiac and mesenteric arteries enhance normally. Bilateral renal arteries are normal. There is calcification in the iliac and visualized femoral arteries. There is no hemodynamically significant stenosis. There is minimal bilateral lower lobe atelectasis. Gallstones are noted in the gallbladder. The liver, spleen, pancreas, kidneys and adrenal glands are normal. There is no hydronephrosis, hydroureter, free intraperitoneal air or fluid. There is no bowel obstruction. There is no adenopathy. IMPRESSION: Aortic atherosclerosis with 54 mm infrarenal abdominal aortic aneurysm and mural thrombus. Cholelithiasis. Electronically signed by: Yaw Escobar M.D. Flor Mello MD IMG CT PROCEDURES Final Resul t from Last 3 Months or Most Recently Relevant to Health Maintenance Insurance [facility] MEDICARE AETNA MEDICARE Advance Directives For more information, please contact: [phone] * Full Code (Latest Code Status on File) Date Activated Date Inactivated Comments 07/08/2024 3:36 PM 07/12/2024 8:04 PM * Full Code Date Activated Date Inactivated Comments 03/03/2024 8:09 PM 03/06/2024 6:56 PM * Full Code Date Activated Date Inactivated Comments 09/30/2020 5:42 PM 10/05/2020 8:51 PM * Full Code Date Activated Date Inactivated Comments 02/15/2020 12:46 PM 02/17/2020 3:47 PM * Full Code Date Activated Date Inactivated Comments 01/13/2020 1:32 PM 01/22/2020 5:21 PM Care Teams Access Services Assistant Relationship Specialty Start Date End Date Jacob Dahl MD [address] [place] [address] PCP - General Family Medicine 10/20/19 Matthew Doss MD [address] [place] [address] Consulting Physician Cardiovascular Disease 01/22/20 Braulio Xiao MD PhD [address] [place] [address] Cardiology 02/24/20 Mary David, underwater roboticist Failure Coordinator 12/25/21 Clari Dukes, underwater roboticist Failure Coordinator 07/02/22 Alma Delaney MD [address] [facility] [address], [place] [address] Consulting Physician Interventional Cardiology 03/06/24 [place] [address] [place] [address] Consulting Physician Vascular Surgery 07/12/24 Nba Dunlap MD [address], [address] [place] [id number] Consulting Physician Cardiology 07/12/24
--- OUTSIDE RECORDS SUMMARY | 2025-01-04 13:24 | XMS_ITS | Clinical Summary ---
Author Organization [facility] Address [address] [place] [phone] Phone Care Team Providers Care Side Laster Name Role Phone Jacob Dahl MD Primary Care Provider [phone] Allergies No known active allergies Medications acetaminophen (TYLENOL) 325 MG tablet Take 650 mg by mouth 01/22/2020 Active amiodarone (PACERONE) 200 MG tablet Take 200 mg by mouth 1 (one) time each day 01/20/2021 Active amitriptyline (ELAVIL) 10 MG tablet TAKE 1 TABLET BY MOUTH EVERY BEDTIME 01/21/2021 Active Eliquis 5 MG tablet Take 5 mg by mouth every 12 (twelve) hours 01/24/2021 Active aspirin ([place]) 81 MG EC tablet Take 81 mg by mouth daily 10/08/2019 Active atorvastatin (LIPITOR) 80 MG tablet Take 80 mg by mouth 1 (one) time each day 02/08/2021 Active carvedilol (COREG) 12.5 MG tablet Take 12.5 mg by mouth 2 times daily 08/29/2020 Active escitalopram (LEXAPRO) 10 MG tablet Take 10 mg by mouth 1 (one) time each day 12/06/2020 Active furosemide (LASIX) 20 MG tablet Take 20 mg by mouth 1 (one) time each day 02/05/2021 Active LORazepam (ATIVAN) 0.5 MG tablet Take 0.5 mg by mouth 01/31/2020 Active losartan (COZAAR) 25 MG tablet Take 25 mg by mouth daily 11/23/2020 Active ondansetron (ZOFRAN) 4 MG tablet TAKE 1 TABLET BY MOUTH EVERY 8 HOURS NEEDED FOR NAUSEA AND VOMITING 01/21/2021 Active pantoprazole (PROTONIX) 20 MG EC tablet TAKE 1 TABLET BY MOUTH EVERY DAY IN THE MORNING 11/22/2020 Active Active Problems Problem Noted Date Diagnosed Date FH: Hypertension 02/12/2021 Drug therapy finding 02/08/2021 Long-term current use of anticoagulant Cardiac defibrillator in situ 02/08/2021 Sinus node dysfunction 02/08/2021 Abdominal aortic aneurysm without rupture 2020 Coronary arteriosclerosis 03/06/2020 Chronic systolic congestive heart failure 2019 Edema 02/22/2020 Depressive disorder 01/09/2020 Exposure to SARS-associated coronavirus 01/09/20 Fatigue 01/09/2020 Anemia 11/08/2019 Myocardial infarction 09/14/2019 Tobacco use and exposure - finding 09/14/2019 Iron deficiency 02/26/2017 Snoring 12/24/2016 Paroxysmal atrial fibrillation 01/03/2016 Supraventricular tachycardia 01/03/2016 Hypertension 11/06/2015 Complete heart block 03/27/2014 Atherosclerotic heart diseas e of [place] coronary artery without angina pectoris 03/06/2014 Immunizations Immunization Administration Dates Next Due Influenza, Unspecified 04/20/2020 Family History Medical History Relation Comments Cancer Father Glaucoma Father Congestive heart failure Mother Relation Status Comments Father Mother Social History Tobacco Use Types Packs/Day Years Used Date Smoking Tobacco: Some Days Cigarettes 1 20 Smokeless Tobacco: Never Tobacco Cessation:Ready to Q uit: No; Counseling Given: Yes Alcohol Use Standard Drinks/Week Comments Not Currently 0 (1 standard drink = 0.6 oz pur e alcohol) Sex and Gender Information Value Date Recorded Sex Assigned at Not on file Legal Sex Male 8:17 AM [facility] Gender Identity Not on file Sexual Orientation Not on file Last Filed Vital Signs Vital Sign Reading Time Taken Comments Blood Pressure 114/76 02/12/2021 2:23 PM CDT Pulse - - Temperature 37.1 C (98.7 F) 02/12/2021 2:23 PM CDT Respiratory Rate 18 02/12/2021 2:23 PM CDT Oxygen Saturation - - Inhaled Oxygen Concentration - - Weight 87.1 kg (192 lb) 02/12/2021 2:23 PM CDT Height 175.3 cm (5' 9) 02/12/2021 2:23 PM CDT Body Mass Index 28.35 02/12/2021 2:23 PM CDT Plan of Treatment Health Maintenance Due Date Last Done Comments Pneumococcal PPSV23/PCV13 65 + Years / Low and Medium Risk (1 of 2 - PCV) 01/31/2008 Influenza Vaccine (Season Ended) 2025 04/20/20 Insurance AETNA Care Teams Side Laster Relationship Specialty Start Date End Date Jacob Dahl MD [address] [place] [id number] PCP - General Internal Medicine 01/23/21
--- OUTSIDE RECORDS SUMMARY | 2025-01-04 13:25 | XMS_ITS | Clinical Summary ---
Author Organization [facility] Address [address] [place] [id number] Care Team Providers Care Medicine Man Name Role Phone Jacob Dahl MD Primary Care Provider [phone] Matthew Doss MD Unavailable Braulio Xiao MD PhD Unavailable + Mary David RN Unavailable Unavailable Clari Dukes RN Unavailable Unavaila Alma Diaz MD Unavailable [phone] Dorian Trejo MD Unavailable Nba Dunlap MD Unavailable Allergies Active Allergy [...] On amiodarone therapy 02/08/2021 Current use of long-term anticoagulation 021 Sinus node dysfunction 02/08/2021 Complete heart block 02/08/2021 Presence of dual implantable cardioverter-defibr illator 02/08/2021 Overview (03/31/2023): [facility] [place] Dual ICD. Dx; ICM, SSS, PAF. DOI [...] likely culprit. He should follow-up with his wrapping clerk. Myocardial infarction Resolved Problems Problem Noted Date [...] Preservative Free, Intramuscular 07/12/2024 Influenza, Unspecified 04/20/2020 Surgical History Surgery Date Site/Laterality Comments TRACHEOSTOMY TUBE PLACEMENT 09/26/2019 CARDIAC PACEMAKER PLACEMENT 09/16/2019 CORONARY ANGIOPLASTY WITH STENT PLACEMENT 09/16/2019 2 stents Medical History Medical History Date Comments Heart disease Myocardial infarction (HCC) 09/16/2019 Family History Medical History Relation Name Comments Cancer Father Relation Name Status Comments Father Social History Tobacco Use Types Packs/Day Years Used Date Smoking Tobacco: Every Day Cigarettes Smokeless Tobacco: Never Tobacco Cessation:Ready to Q uit: Not Asked; Counseling Given: Not Answered Alcohol Use Standard Drinks/Week Comments Not Currently 0 (1 standard drink = 0.6 oz pur e alcohol) [facility] [employer] Answer Date Recorded In the past 12 months has e [employer], gas, oil, or water [employer] threatened to shut off services in your [...] 07/09/2024 How often do you attend chur ch or catholic services? Never 07/09/2024 Do you belong to any clubs o r organizations such as oriental orthodox groups, unions, fraternal or athletic groups, or [...] any time in the past 12 m [facility], were you homeless or living in a halfway (including now)? No 07/09/2024 Personal Safety Answer Date Recorded Have you ever been in or are you currently in a harmful physical or emotional relationship or is someone making you feel afraid or unsafe? Denies 07/08/2024 Sex and Gender Information Value Date Recorded Sex Assigned at Not on file Legal Sex Male 2:57 PM CAN FEEDER Gender Identity Not on file Sexual Orientation Not on file Obstetrics History Last Filed Vital Signs Vital Sign Reading Time Taken Comments Blood Pressure 109/94 07/12/2024 7:42 AM CAN FEEDER Pulse 71 07/12/2024 7:42 AM CAN FEEDER Temperature 36.4 C (97.5 F) 07/12/2024 7:42 AM CAN FEEDER Respiratory Rate 17 07/12/2024 7:42 AM CAN FEEDER Oxygen Saturation 93% 07/12/2024 7:42 AM CAN FEEDER Inhaled Oxygen Concentration - - Weight 101.4 kg (223 lb 8.7 oz) 07/08/2024 3:50 PM CAN FEEDER Height 175.3 cm (5' 9) 07/08/2024 3:50 PM CAN FEEDER Body Mass Index 33.01 07/08/2024 3:50 PM CAN FEEDER Plan of Treatment Health Maintenance Due Date Last Done Comments Colon Cancer Screening-Colonoscopy 1960 Depression Screening 1960 Hepatitis C Screening 1960 Prostate Cancer Screening-PSA 1958 DTaP/Tdap/Td Vaccine (1 - Tdap) 1969 Hepatitis B Screening 01/31/1976 Pneumococcal vaccine 65+ (1 of 2 - PCV) 1977 Zoster Vaccine (1 of 2) 01/31/2008 Well Visit 65+ 2023 Fall Risk Assessment 07/12/2025 07/12/2024 Abdominal Aortic Aneurysm (A AA) Screen Completed 07/09/2024, 07/08/2024, 09/30/2020, Additional history exists Influenza Vaccine Completed 07/12/2024, , 03/23/2019 Medical Devices Implanted Type Area Curriculum Writer Device Identifier Shelf Expiration Date Model / Serial / Lot Ramirez Vascular Defib Cardiac [id number] [place] Implantable 2 Chamber [id number] - [id number] - [id number] Implanted:Qty: 1 on 03/21/2023 by Jonn Castellon MD at [facility] ICD Left: Infraclavicular Anterior Chest Wall [employer] 12/04/2024 [id number] / [id number] / Daig Payal [id number] Device Closure Angio-Seal Vip Bondek-Plus Polyglyd L70 Cm Od6 Fr Odsec.035 In Vascular - [id number] Implanted:Qty: 1 on 01/19/2020 by Matthew Doss MD at [facility] Daig Pay[employer] 08/06/2020 [id number] / / [id number] Procedures Procedure Name Priority Date/Time Associated Diagnosis Comments CTA ABDOMEN PELVIS W WO CONTRAST IP Routine 07/09/2024 4:56 PM CAN FEEDER from Last 3 Months or Most Recently Relevant to Health Maintenance Results * CTA Abdomen Pelvis (07/09/2024 4:56 PM CAN FEEDER) Anatomical Region Laterality Modality Body N/A Computed Tomogra phy 07/09/2024 5:10 PM CAN FEEDER Impressions 07/09/2024 5:10 PM CAN FEEDER Aortic atherosclerosis with 54 mm infrarenal abdominal aortic aneurysm and mural thrombus. Cholelithiasis. Electronically signed by: Yaw Escobar M.D. Narrative 07/09/2024 5:10 PM CAN FEEDER EXAMINATION: CTA ABDOMEN PELVIS DATE: 07/09/2024 4:10 [...] by: Yaw Escobar M.D. Flor Mello MD IM CT PROCEDURES Final Resul t from Last 3 Months or Most Recently Relevant to Health Maintenance Insurance [facility] MEDICARE [facility] MEDICARE Address[facility] [id number] [place] [phone] AETNA MEDICARE [facility] MEDICARE Address: [facility] [id number] [place] [phone] Advance Directives For more information, please contact: [phone] * Full Code (Latest Code Status on [...] 1:32 PM 01/22/2020 5:21 PM Care Teams Medicine Man Relationship Specialty Start Date End Date Jacob Dahl MD [address] [place] [address] PCP - General Family Medicine 10/20/19 Matthew Doss MD [address] [place] [address] Consulting Physician Cardiovascular Disease 01/22/20 Braulio Xiao MD PhD [address] [place] [address] Cardiology 02/24/20 Mary David, cutting supervisor Failure Coordinator 12/25/21 Clari Dukes, cutting supervisor Failure Coordinator 07/02/22 Alma Delaney MD [address] [place], [place] [id number] Consulting Physician Interventional Cardiology 03/06/24 [place] [address] [place] [address] Consulting Physician Vascular Surgery 07/12/24 Nba Dunlap MD [address] [place], [place] [id number] Consulting Physician Cardiology 07/12/24
--- NOTE | 2025-01-04 13:32 | ED.NEUROSD ---
HPI - Neuro Symptoms/Deficit General Chief Complaint: Suspected CVA Stated Complaint: think he had a stroke Time Seen by Provider: 01/04/25 13:29 History of Present Illness HPI Narrative: Patient is a 64-year-old male who presents ER with concerns for CVA. Significant other is with him. Reports last known well was at 10:30 a.m. when she left him in the car to go into [employer] to do some shopping. When she returned he was unable to speak. He would not allow her to call 911 but she family managed to convince him to come to the hospital. Patient has history of paroxysmal AFib. He has history of stent and ischemic cardiomyopathy. Patient has a AICD in place. She believes he is on Eliquis but does not have a pill bottle to confirm. No extremity weakness. Related Data Home Medications ?Medication ?Instructions ?Recorded ?Confirmed ?Last Taken ?Type aspirin 81 mg tablet 81 mg PO DAILY 10/16/20 07/19/24 02/26/23 History furosemide 40 mg tablet 40 mg PO DAILY 03/15/24 07/19/24 Unknown History metoprolol tartrate 25 mg tablet 25 mg PO BID 03/15/24 07/19/24 Unknown History amoxicillin 250 mg-potassium 1 tablet PO TID 07/19/24 07/19/24 Unknown History clavulanate 125 mg tablet Allergies Allergy/AdvReac Type Severity Reaction Status Date / Time No Known Allergies Allergy Unknown Verified 07/19/24 16:03 Review of Systems Review of Systems: ROS unobtainable: Yes unobtainable due to medical condition [facility] Past Medical History Medical History (Updated 01/04/25 @ 13:57 by Wil Rodriguez MD) Simple chronic bronchitis Other specified complication of cardiac prosthetic devices, implants and grafts, subsequent encounter Atherosclerotic heart disease of [place] coronary artery with angina pectoris Coronary artery disease Major depressive disorder in partial remission Personal history of colonic polyps Presence of automatic (implantable) cardiac defibrillator Atherosclerotic heart disease of [place] coronary artery without angina pectoris Cigarette nicotine dependence, uncomplicated Chronic systolic (congestive) heart failure Shingles Generalized anxiety disorder Cardiomyopathy Stenosis of infrarenal abdominal aorta due to arteriosclerosis Hypokalemia Marijuana smoker, episodic Cyclic vomiting syndrome Urinary tract infection Hypertension Ischemic cardiomyopathy EF 35-40% on echo performed on 11/18/2022. Cardiac defibrillator in place. Paroxysmal atrial fibrillation Aneurysm of infrarenal abdominal aorta Stable aneurysm measuring 4.5 centimeters on 11/21/2020. Measuring 5.3 cm on 08/10/2023. Hyperlipidemia Depression Pancreatitis Surgical History Surgical History History of coronary artery stent placement (~09/2019) Stent x2. History of cardiac catheterization (~09/2019) Performed in [facility]. History of tracheostomy (~09/2019) Pacemaker History of arthroscopic knee surgery Family History Family History Mother Congestive heart failure Father Glaucoma Lip cancer Daughter Pulmonary emboli Social History Social History Social History: The patient lives in [place] with his . one children passed which was his daughter. He has 2 living children and is retired from [employer]. He smoked a pack of cigarettes a day for 30 years and quit quite sometime ago. No alcohol abuse. Admits to marijuana use but does not qualify or quantify. He designates his Iveth as his surrogate decision maker and he wishes to be a full code. Code status full code Smoking packs per day: 0.5 Smoking cigarettes per day: 10.0 Years smoked: 40 Smoking pack-years: 20.00 Smoking status: Current every day smoker Tobacco type: cigarettes Second hand tobacco smoke exposure: Yes Alcohol intake: never Substance use: never Substance use type: does not use Do You Feel Safe in your Home?: Yes Lack of Transportation: No Lack of Food: Never True Current Housing: I Have Housing Concerned About Future Housing: No Difficulty Paying Gas/Electric Bills: No Difficulty Paying for Meds: No Currently Unemployed: No Education: Grade School Difficulty w/ Childcare or Family Care: No Living arrangements: with family Occupation/Education: retired Gender identity (if verbalized by the patient): Male Sexual Orientation (if Verbalized by the Patient): Straight or Heterosexual Spiritual care concerns: No Exam Narrative: GENERAL: Well-appearing, well-nourished, and in no acute distress. HEAD: Normocephalic, atraumatic. EYES: PERRL and EOMI. ENT: Mucous membranes moist. NECK: Supple. CHEST: Clear to auscultation. No respiratory distress. HEART: Regular rate and rhythm. Normal peripheral pulses. ABDOMEN: Soft, nontender, nondistended. EXTREMITIES: Normal range of motion. No edema. SKIN: Warm, dry, no rash. NEURO: Original NIH stroke scale of 6, on re-examine a gone down to 2. Has expressive aphasia and dysarthria. Patient initially was unable to answer orientation questions though he is able to now. No upper or lower extremity drift. Normal uppvpu-al-mdir testing and oqtx-zc-kauc testing. Sensation intact in all extremities and denies any numbness. Denies any changes visual field. No facial droop. See NIH stroke scale section. Alert and oriented x3. PSYCH: Normal mood and affect. Course Course Emergency Course: 1342: I have contacted the patient's pharmacy [facility] in [place], [place]. Patient is not on any blood thinning medications and he has not been on clopidogrel either. 1415: Discussed with Dr. Wright with [facility] neurology, recommends TNK, time critical transfer to [facility] ER, accepted by Dr. Hernandez. Patient educated on significance of illness and treatment plan. 1420: Dr. Wright updated on CTA results. Tenecteplase Administered? Yes, Verbal Informed Consent Obtained from: Low Sarmiento, the patient. Patient: Discussions to obtain informed consent for tenecteplase included: risk of bleeding, including in the brain, that can result in ; benefit of decreased functional disability; as well as alternatives, including no treatment or conservative treatment with antiplatelet therapy Vital Signs Vital signs: Vital Signs Temperature 97.8 F 01/04/25 13:42 Pulse Rate 74 01/04/25 13:42 Respiratory Rate 24 H 01/04/25 13:42 Blood Pressure 126/79 01/04/25 13:42 Pulse Oximetry 100 01/04/25 13:42 Oxygen Delivery Room Air 01/04/25 13:42 Temperature 97.8 F 01/04/25 15:00 Pulse Rate 70 01/04/25 15:00 Respiratory Rate 16 01/04/25 15:00 Blood Pressure 109/68 01/04/25 15:00 Pulse Oximetry 97 01/04/25 15:00 Oxygen Delivery Room Air 01/04/25 13:42 MDM - Neuro Symptoms/Deficit Lab Data Lab results narrative: Lab Results 01/04/25 Range/Units 13:32 WBC 7.5 (4.5-10.0) K/mm3 RBC 4.91 (4.6-6.20) M/mm3 Hgb 13.9 L (14.0-18.0) g/dL Hct 44.3 (42.0-52.0) % MCV 90.2 (80-100) fl MCH 28.3 (26-34) pg MCHC 31.4 L (32-36) g/dl RDW 16.4 H (11.5-14.5) % Plt Count 196 (150-375) k/mm3 MPV 11.3 H (7.4-10.4) fl Immature Gran % (Auto) 0.3 (0-0.5) % Neut % (Auto) 65.3 (45.5-73.1) % Lymph % (Auto) 26.4 (18.3-44.2) % Carlton % (Auto) 6.2 (2.6-8.5) % Eos % (Auto) 0.9 (0-4.4) % Baso % (Auto) 0.9 (0.2-1.2) % Lymph # (Auto) 1.97 (0.9-3.2) K/mm3 Carlton # (Auto) 0.5 (0.1-0.6) K/mm3 Eos # (Auto) 0.1 (0-0.3) K/mm3 Baso # (Auto) 0.1 (0.0-0.1) K/mm3 Abs Immat Gran (auto) 0.02 (0.00-0.031) K/mm3 Absolute Neuts (auto) 4.9 (1.3-6.7) K/mm3 Absolute Nucleated RBC 0.000 (0.0-0.012) K/mm3 Nucleated RBC % 0.0 (0.0-0.2) % PT 13.0 (11.1-14.7) Seconds INR 1.0 APTT 29.2 (22.3-36.8) Seconds Sodium 138 (137-145) mmol/L Potassium 3.7 (3.4-5.0) mmol/L Chloride 97 L (98-107) mmol/L Carbon Dioxide 32 H (22-30) mmol/L Anion Gap 9 (4-12) mmol/L BUN 16 (9-20) mg/dL Creatinine 1.25 (0.7-1.3) mg/dL Estim Creat Clear Calc Not Reportable Estimated GFR 58 L (59 - ) Glucose 189 H (65-110) mg/dL Calcium 9.0 (8.4-10.2) mg/dL Total Bilirubin 0.5 (0.2-1.3) mg/dL AST 35 (17-59) U/L ALT 32 (6-50) U/L Alkaline Phosphatase 62 (38-126) U/L Troponin I 0.049 H* (0.000-0.034) ng/mL Total Protein 7.5 (6.3-8.2) g/dL Albumin 4.3 (3.5-5.1) g/dL 01/04/25 13:32 01/04/25 13:32 Labs: Lab Results 01/04/25 Range/Units 13:32 WBC 7.5 (4.5-10.0) K/mm3 RBC 4.91 (4.6-6.20) M/mm3 Hgb 13.9 L (14.0-18.0) g/dL Hct 44.3 (42.0-52.0) % MCV 90.2 (80-100) fl MCH 28.3 (26-34) pg MCHC 31.4 L (32-36) g/dl RDW 16.4 H (11.5-14.5) % Plt Count 196 (150-375) k/mm3 MPV 11.3 H (7.4-10.4) fl Immature Gran % (Auto) 0.3 (0-0.5) % Neut % (Auto) 65.3 (45.5-73.1) % Lymph % (Auto) 26.4 (18.3-44.2) % Carlton % (Auto) 6.2 (2.6-8.5) % Eos % (Auto) 0.9 (0-4.4) % Baso % (Auto) 0.9 (0.2-1.2) % Lymph # (Auto) 1.97 (0.9-3.2) K/mm3 Carlton # (Auto) 0.5 (0.1-0.6) K/mm3 Eos # (Auto) 0.1 (0-0.3) K/mm3 Baso # (Auto) 0.1 (0.0-0.1) K/mm3 Abs Immat Gran (auto) 0.02 (0.00-0.031) K/mm3 Absolute Neuts (auto) 4.9 (1.3-6.7) K/mm3 Absolute Nucleated RBC 0.000 (0.0-0.012) K/mm3 Nucleated RBC % 0.0 (0.0-0.2) % PT 13.0 (11.1-14.7) Seconds INR 1.0 APTT 29.2 (22.3-36.8) Seconds Sodium 138 (137-145) mmol/L Potassium 3.7 (3.4-5.0) mmol/L Chloride 97 L (98-107) mmol/L Carbon Dioxide 32 H (22-30) mmol/L Anion Gap 9 (4-12) mmol/L BUN 16 (9-20) mg/dL Creatinine 1.25 (0.7-1.3) mg/dL Estim Creat Clear Calc Not Reportable Estimated GFR 58 L (59 - ) Glucose 189 H (65-110) mg/dL Calcium 9.0 (8.4-10.2) mg/dL Total Bilirubin 0.5 (0.2-1.3) mg/dL AST 35 (17-59) U/L ALT 32 (6-50) U/L Alkaline Phosphatase 62 (38-126) U/L Troponin I 0.049 H* (0.000-0.034) ng/mL Total Protein 7.5 (6.3-8.2) g/dL Albumin 4.3 (3.5-5.1) g/dL Imaging Data Radiologist's impression: ITS Impressions Head/Neck CTA 01/04/25 13:55 IMPRESSION: 1. 0% stenosis of the right carotid bulb relative to normal distal artery lumen diameter (NASCET criteria). 2. 30% stenosis of the left carotid bulb relative to normal distal artery lumen diameter. 3. 2 mm aneurysm at the bifurcation of the left M1 segment. Otherwise unremarkable cerebral CT angiogram. 4. 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 No acute intracranial process. ECG Data EKG #1: ECG completion date: 01/04/25 ECG completion time: 13:48 EKG Interpretation: normal rate (74), sinus rhythm, widened QRS, normal QT and left axis Critical Care Time Critical Care Time Critical Care Time: Yes Total Critical Care Time: 40 Discharge Plan Discharge Clinical Impression: Acute CVA (cerebrovascular accident) Patient Disposition: Acute Care Hospital Condition: Serious Patient Language: New Zealander Prescriptions: No Action furosemide 40 mg tablet 40 mg PO DAILY metoprolol tartrate 25 mg tablet 25 mg PO BID amoxicillin-pot clavulanate 250-125 mg tablet 1 tablet PO TID Entresto 24-26 mg tablet 0.5 tablet PO BID Qty: 90 0RF aspirin 81 mg Tablet 81 mg PO DAILY clopidogrel 75 mg Tablet 75 mg PO QAM Qty: 30 1RF cyclobenzaprine 5 mg tablet 5 mg PO TID PRN (Reason: muscle spasm) 4 Days Qty: 12 0RF cyclobenzaprine 10 mg tablet 10 mg PO TID PRN (Reason: muscle spasm) Qty: 14 0RF escitalopram oxalate 10 mg tablet 10 mg PO DAILY Qty: 90 1RF amiodarone 200 mg tablet 200 mg PO DAILY Qty: 90 1RF atorvastatin 80 mg tablet 80 mg PO DAILY Qty: 90 1RF alprazolam 0.5 mg tablet 0.5 mg PO DAILY PRN (Reason: anxiety) Qty: 30 0RF Follow-up/Referrals: Jacob Dahl MD [Primary Care Provider] - Quality Stroke Scale Stroke Scale 1: 1a Level of consciousness: alert-0 1b Level of consciousness questions: answers none correctly-2 1c Level of consciousness commands: obeys both correctly-0 2 Best gaze: normal-0 3 Visual: no visual loss-0 4 Facial palsy: normal-0 5a Motor: left arm: no drift-0 5b Motor: right arm: no drift-0 6a Motor: left leg: no drift-0 6b Motor: right leg: no drift-0 7 Limb ataxia: absent-0 8 Sensory: normal-0 9 Best language: severe aphasia-2 10 Dysarthria: unitelligible or mute-2 11 Extinction and inattention: no abnormality-0 Level:: 6 Stroke Scale 2: Stroke scale date:: 01/04/25 Stroke scale time:: 13:55 1a Level of consciousness: alert-0 1b Level of consciousness questions: answers both correctly-0 1c Level of consciousness commands: obeys both correctly-0 2 Best gaze: normal-0 3 Visual: no visual loss-0 4 Facial palsy: normal-0 5a Motor: left arm: no drift-0 5b Motor: right arm: no drift-0 6a Motor: left leg: no drift-0 6b Motor: right leg: no drift-0 7 Limb ataxia: absent-0 8 Sensory: normal-0 9 Best language: some loss of fluency-1 10 Dysarthria: slurs some words-1 11 Extinction and inattention: no abnormality-0 Level:: 2
[2025-01-04 13:42] VITALS: BP 126/79; PULSE 74; RESP 20; RESP 24; TEMP 36.6; O2SAT 100; O2SAT 99
[2025-01-04 13:45] LABS: Hematocrit 44.3 % (42.0-52.0); Hemoglobin 13.9 g/dL (14.0-18.0); Immature Granulocyte Percent A 0.3 % (0-0.5); Lymphocytes Absolute Auto 1.97 K/mm3 (0.9-3.2); Mean Corpuscular HGB Conc 31.4 g/dl (32-36); Mean Corpuscular Hemoglobin 28.3 pg (26-34); Mean Corpuscular Volume 90.2 fl (80-100); Nucleated Red Blood Cells Absolute Auto 0.000 K/mm3 (0.0-0.012); Nucleated Red Blood Cells Perc 0.0 % (0.0-0.2); Platelet Count Result 196 k/mm3 (150-375); Red Blood Count 4.91 M/mm3 (4.6-6.20); White Blood Count 7.5 K/mm3 (4.5-10.0)
[2025-01-04 13:52] VITALS: BP 126/79; PULSE 75; RESP 20; TEMP 36.6; O2SAT 100
[2025-01-04 14:04] LABS: INR 1.0; Prothrombin Time 13.0 Seconds (11.1-14.7)
[2025-01-04 14:05] LABS: Partial Thromboplastin Time 29.2 Seconds (22.3-36.8)
[2025-01-04 14:06] LABS: Alanine Aminotransferase 32 U/L (6-50); Albumin Level 4.3 g/dL (3.5-5.1); Alkaline Phosphatase 62 U/L (38-126); Anion Gap 9 mmol/L (4-12); Aspartate Amino Transferase 35 U/L (17-59); Bilirubin,Total 0.5 mg/dL (0.2-1.3); Blood Urea Nitrogen 16 mg/dL (9-20); Calcium 9.0 mg/dL (8.4-10.2); Carbon Dioxide 32 mmol/L (22-30); Chloride 97 mmol/L (98-107); Estimated Glomerular Filt Rate 58; Glucose 189 mg/dL (65-110); Potassium 3.7 mmol/L (3.4-5.0); Sodium 138 mmol/L (137-145); Total Protein 7.5 g/dL (6.3-8.2)
--- OUTSIDE RECORDS SUMMARY | 2025-01-04 14:15 | XMS_ITS | Clinical Summary ---
Author Organization [facility] Address [address] [place] [id number] Care Team Providers Care Website Designer Name Role Phone Jacob Dahl MD Primary Care Provider [phone] Matthew Doss MD Unavailable Braulio Xiao MD PhD Unavailable + Mary David RN Unavailable Unavailable Clari Dukes RN Unavailable Unavaila Alma Diaz MD Unavailable [phone] Dorian Trejo MD Unavailable [phone] Nba Dunlap MD Unavailable Allergies Active Allergy [...] On amiodarone therapy 02/08/2021 Current use of senior living anticoagulation 021 Sinus node dysfunction 02/08/2021 Complete heart block 02/08/2021 Presence of dual implantable cardioverter-defibr illator 02/08/2021 Overview (03/31/2023): Ramirez [place] Dual ICD. Dx; ICM, SSS, PAF. DOI [...] likely culprit. He should follow-up with his bpm analyst. Myocardial infarction Resolved Problems Problem Noted Date [...] drink = 0.6 oz pur e alcohol) [facility] [employer] Answer Date Recorded In the past 12 months has e [employer], gas, oil, or water [employer] threatened to shut off services in your [...] often do you attend chur ch or sikh services? Never 07/09/2024 Do you belong to any clubs o r organizations such as sabianist groups, unions, fraternal or athletic groups, or [...] any time in the past 12 m [facility], were you homeless or living in a [facility] (including now)? No 07/09/2024 Personal Safety Answer Date Recorded Have you ever been in or are you currently in a harmful physical or emotional relationship or is someone making you feel afraid or unsafe? Denies 07/08/2024 Sex and Gender Information Value Date Recorded Sex Assigned at Not on file Legal Sex Male 2:57 PM GRAIN ELEVATOR MOTOR STARTER Gender Identity Not on file Sexual Orientation Not on file Obstetrics History Last Filed Vital Signs Vital Sign Reading Time Taken Comments Blood Pressure 109/94 07/12/2024 7:42 AM GRAIN ELEVATOR MOTOR STARTER Pulse 71 07/12/2024 7:42 AM GRAIN ELEVATOR MOTOR STARTER Temperature 36.4 C (97.5 F) 07/12/2024 7:42 AM GRAIN ELEVATOR MOTOR STARTER Respiratory Rate 17 07/12/2024 7:42 AM GRAIN ELEVATOR MOTOR STARTER Oxygen Saturation 93% 07/12/2024 7:42 AM GRAIN ELEVATOR MOTOR STARTER Inhaled Oxygen Concentration - - Weight 101.4 kg (223 lb 8.7 oz) 07/08/2024 3:50 PM GRAIN ELEVATOR MOTOR STARTER Height 175.3 cm (5' 9) 07/08/2024 3:50 PM GRAIN ELEVATOR MOTOR STARTER Body Mass Index 33.01 07/08/2024 3:50 PM GRAIN ELEVATOR MOTOR STARTER Plan of Treatment Health Maintenance Due Date [...] , 03/23/2019 Medical Devices Implanted Type Area Marine Architect Device Identifier Shelf Expiration Date Model / Serial / Lot Ramirez Vascular Defib Cardiac [id number] [place] Implantable 2 Chamber [id number] - [id number] - [id number] Implanted:Qty: 1 on 03/21/2023 by Jonn Castellon MD at [facility] ICD Left: Infraclavicular Anterior Chest Wall Ramirez Vascular 12/04/2024 [id number] / [id number] / Daig Payal [id number] Device Closure Angio-Seal Vip Bondek-Plus Polyglyd L70 Cm Od6 Fr Odsec.035 In Vascular - [id number] Implanted:Qty: 1 on 01/19/2020 by Matthew Doss MD at [facility] Daig [employer] 08/06/2020 [id number] / / [id number] Procedures Procedure Name Priority Date/Time Associated Diagnosis Comments CTA ABDOMEN PELVIS W WO CONTRAST IP Routine 07/09/2024 4:56 PM GRAIN ELEVATOR MOTOR STARTER from Last 3 Months or Most Recently Relevant to Health Maintenance Results * CTA Abdomen Pelvis (07/09/2024 4:56 PM GRAIN ELEVATOR MOTOR STARTER) Anatomical Region Laterality Modality Body N/A Computed Tomogra phy 07/09/2024 5:10 PM GRAIN ELEVATOR MOTOR STARTER Impressions 07/09/2024 5:10 PM GRAIN ELEVATOR MOTOR STARTER Aortic atherosclerosis with 54 mm infrarenal abdominal aortic aneurysm and mural thrombus. Cholelithiasis. Electronically signed by: Yaw Escobar M.D. Narrative 07/09/2024 5:10 PM GRAIN ELEVATOR MOTOR STARTER EXAMINATION: CTA ABDOMEN PELVIS DATE: 07/09/2024 4:10 [...] Most Recently Relevant to Health Maintenance Insurance [facility] MEDICARE AETNA MEDICARE Advance Directives For more information, please contact: [phone] * Full Code (Latest Code Status on [...] 1:32 PM 01/22/2020 5:21 PM Care Teams Website Designer Relationship Specialty Start Date End Date Jacob Dahl MD [address] [place] [address] PCP - General Family Medicine 10/20/19 Matthew Doss MD [address] [place] [address] Consulting Physician Cardiovascular Disease 01/22/20 Braulio Xiao MD PhD [address] [place] [id number] Cardiology 02/24/20 Mary David, carcass splitter Failure Coordinator 12/25/21 Clari Dukes, carcass splitter Failure Coordinator 07/02/22 Alma Delaney MD [address] [place], [place] [id number] Consulting Physician Interventional Cardiology 03/06/24 [place] [address] [place] [address] Consulting Physician Vascular Surgery 07/12/24 Nba Dunlap MD [address] [place], [place] [id number] Consulting Physician Cardiology 07/12/24
--- OUTSIDE RECORDS SUMMARY | 2025-01-04 14:15 | XMS_ITS | Referral Summary ---
Author Organization [facility] Address [address] [place] [id number] Care Team Providers Care Reefer Engineer Name Role Phone Jacob Dahl MD Primary Care Provider Matthew Doss MD Unavailable Braulio Xiao MD PhD Unavailable + Mary David RN Unavailable Unavailable Clari Dukes RN Unavailable Unavaila Alma Diaz MD Unavailable [phone] Dorian Trejo MD Unavailable [phone] Nba Dunlap MD Unavailable Allergies Active Allergy [...] On amiodarone therapy 02/08/2021 Current use of correction anticoagulation 021 Sinus node dysfunction 02/08/2021 Complete heart block 02/08/2021 Presence of dual implantable cardioverter-defibr illator 02/08/2021 Overview (03/31/2023): Ramirez [place] Dual ICD. Dx; ICM, SSS, PAF. DOI [...] likely culprit. He should follow-up with his system integration engineer. Myocardial infarction Resolved Problems Problem Noted Date [...] drink = 0.6 oz pur e alcohol) [facility] Utilities Answer Date Recorded In the past 12 months has [employer], oil, or water [employer] threatened to shut off services in your [...] 07/09/2024 How often do you attend chur [email or web address] or congregational services? Never 07/09/2024 Do you belong to any clubs o r organizations such as restoration groups, unions, fraternal or athletic groups, or [...] any time in the past 12 m [facility], were you homeless or living in a half-way (including now)? No 07/09/2024 Personal Safety Answer Date Recorded Have you ever been in or are you currently in a harmful physical or emotional relationship or is someone making you feel afraid or unsafe? Denies 07/08/2024 Sex and Gender Information Value Date Recorded Sex Assigned at Not on file Legal Sex Male 2:57 PM PAPER SPOOLER Gender Identity Not on file Sexual Orientation Not on file Last Filed Vital Signs Vital Sign Reading Time Taken Comments Blood Pressure 109/94 07/12/2024 7:42 AM PAPER SPOOLER Pulse 71 07/12/2024 7:42 AM PAPER SPOOLER Temperature 36.4 C (97.5 F) 07/12/2024 7:42 AM PAPER SPOOLER Respiratory Rate 17 07/12/2024 7:42 AM PAPER SPOOLER Oxygen Saturation 93% 07/12/2024 7:42 AM PAPER SPOOLER Inhaled Oxygen Concentration - - Weight 101.4 kg (223 lb 8.7 oz) 07/08/2024 3:50 PM PAPER SPOOLER Height 175.3 cm (5' 9) 07/08/2024 3:50 PM PAPER SPOOLER Body Mass Index 33.01 07/08/2024 3:50 PM PAPER SPOOLER Plan of Treatment Not on file Medical Devices Implanted Type Area Receiving And Processing Supervisor Device Identifier Shelf Expiration Date Model / Serial / Lot Ramirez Vascular Defib Cardiac [id number] [place] Implantable 2 Chamber [id number] - [id number] - [id number] Implanted:Qty: 1 on 03/21/2023 by Jonn Castellon MD at [facility] ICD Left: Infraclavicular Anterior Chest Wall Ramirez Vascular 12/04/2024 [id number] / [id number] / Daig Payal [id number] Device Closure Angio-Seal Vip Bondek-Plus Polyglyd L70 Cm Od6 Fr Odsec.035 In Vascular - [id number] Implanted:Qty: 1 on 01/19/2020 by Matthew Doss MD at [facility] Daig [employer] 08/06/2020 [id number] / / [id number] Procedures Procedure Name Priority Date/Time Associated Diagnosis Comments CTA ABDOMEN PELVIS W WO CONTRAST IP Routine 07/09/2024 4:56 PM PAPER SPOOLER from Last 3 Months or Most Recently Relevant to Health Maintenance Results * CTA Abdomen Pelvis (07/09/2024 4:56 PM PAPER SPOOLER) Anatomical Region Laterality Modality Body N/A Computed Tomogra phy 07/09/2024 5:10 PM PAPER SPOOLER Impressions 07/09/2024 5:10 PM PAPER SPOOLER Aortic atherosclerosis with 54 mm infrarenal abdominal aortic aneurysm and mural thrombus. Cholelithiasis. Electronically signed by: Yaw Escobar M.D. Narrative 07/09/2024 5:10 PM PAPER SPOOLER EXAMINATION: CTA ABDOMEN PELVIS DATE: 07/09/2024 4:10 [...] Most Recently Relevant to Health Maintenance Insurance [facility] MEDICARE AETNA MEDICARE Advance Directives For more information, please contact: [phone] * Full Code (Latest Code Status on [...] 1:32 PM 01/22/2020 5:21 PM Care Teams Reefer Engineer Relationship Specialty Start Date End Date Jacob Dahl MD [address] [place] [address] PCP - General Family Medicine 10/20/19 Matthew Doss MD [address] [place] [id number] Consulting Physician Cardiovascular Disease 01/22/20 Braulio Xiao MD PhD [address] [place] [address] Cardiology 02/24/20 Mary David, pump operator byproducts Failure Coordinator 12/25/21 Clari Dukes, pump operator byproducts Failure Coordinator 07/02/22 Alma Delaney MD [address] [facility] [address], [place] [address] Consulting Physician Interventional Cardiology 03/06/24 [place] [address] [place] [address] Consulting Physician Vascular Surgery 07/12/24 Nba Dunlap MD [address], [address] [place] [id number] Consulting Physician Cardiology 07/12/24
[2025-01-04] MEDS: TENECTEPLASE 50 MG/10 ML VIAL 25 MG IV PUSH (14:16)
[2025-01-04 14:20] LABS: Troponin I 0.049 ng/mL (0.000-0.034)
[2025-01-04 14:37] VITALS: BP 117/78; PULSE 76; RESP 16; O2SAT 99
[2025-01-04 15:00] VITALS: BP 109/68; PULSE 70; RESP 16; TEMP 36.6; O2SAT 97
== END 2025-01-04 15:01 | disposition short-term general hospital (02) ==
PROVIDERS: Emergency Provider Emergency Medicine; PCP Family Medicine
DX: I63.9 Cerebral infarction, unspecified (principal); R29.706 NIHSS score 6; I42.9 Cardiomyopathy, unspecified; I48.0 Paroxysmal atrial fibrillation; I25.119 Atherosclerotic heart disease of native coronary artery with unspecified angina pectoris; I50.22 Chronic systolic (congestive) heart failure; E78.5 Hyperlipidemia, unspecified; F41.1 Generalized anxiety disorder; F32.4 Major depressive disorder, single episode, in partial remission; Z95.5 Presence of coronary angioplasty implant and graft; Z95.810 Presence of automatic (implantable) cardiac defibrillator; Z86.0100 Personal history of colon polyps, unspecified; Z87.440 Personal history of urinary (tract) infections; Z87.891 Personal history of nicotine dependence; Z79.01 Long term (current) use of anticoagulants; Z79.899 Other long term (current) drug therapy; Z79.02 Long term (current) use of antithrombotics/antiplatelets; I44.0 Atrioventricular block, first degree; I45.9 Conduction disorder, unspecified
CPT/HCPCS: 36415; 37195; 70496; 70498; 71045; 80053; 82948; 84484; 85025; 85610; 85730; 93005; 99285; J3101; Q9967